=== PATIENT | female | born 1950 | race African-American/Black ===

== ENCOUNTER → 2016-08-24 | Outpatient (CLI) | payer MEDICARE, MEDICAID ==
[~2016-08-24] MED LIST: BENZ200C51 PO; CARI350T27; CHANTIX; FLUC100T PO; HYDR-3820; NYST1000 PO; OFLO5DRO3; PRD20T PO; TRAM50TA2; VNL75T
--- NOTE | 2016-08-24 10:57 | Diagnostic Imaging Report ---
INDICATION: Chronic low back pain and hip pain. FINDINGS: The alignment of the lumbar spine is normal. The vertebral body heights are well maintained. There is some multilevel degenerative disc disease. There are some prominent osteophytes anteriorly near the thoracolumbar junction as well as at L2-L3 and L3-L4. There is no spondylolysis or spondylolisthesis. No fractures are identified. IMPRESSION: Mild lumbar spondylosis and degenerative changes as described. Dictated by: Dictated on workstation # [id number]
--- NOTE | 2016-08-24 15:06 | Diagnostic Imaging Report ---
AP pelvis and bilateral hip radiographs. INDICATION: Bilateral hip pain. FINDINGS: There is no fracture, dislocation or radiopaque foreign body seen. There is mild sclerosis from degenerative changes seen in the sacroiliac and the hip joints bilaterally. There is a vascular pattern of calcification seen in the right side of the pelvis. There is asymmetry with slightly higher level or tilt of the pelvis on the right side with the right tip projecting higher than the left. This could be related to the provided history of polio. Remodeling of the right femoral neck as a result as well as seen with coxa valga. IMPRESSION: Mild degenerative changes in the hip and sacroiliac joints. Pelvic tilt and remodeling in the right femoral neck with coxa valga is probably related to polio. Dictated by: Dictated on workstation # [id number]
== END ==
LOC: RAD 10:08
PROVIDERS: ATTEND Pain Medicine Pain Medicine
DX: M54.5 Low back pain (principal); M25.552 Pain in left hip; M25.551 Pain in right hip
CPT/HCPCS: 72100; 73523

== ENCOUNTER 2016-09-02 10:41 | Outpatient (CLI) | payer MEDICARE, MEDICAID ==
[~2016-09-02] VITALS: Ht 165.1 cm; Wt 106.6 kg
[2016-09-02] MEDS ORDERED: BUPIVACAINE 0.25% 30 ML (SENSORCAINE) VIAL ONE (10:54)
[2016-09-02] MEDS ORDERED: TRIAMCINOLONE ACET (KENALOG-40) 40 MG/ML 1 ML VIAL ONE (10:54)
[2016-09-02 11:10] VITALS: BP 150/94
[2016-09-02 11:49] VITALS: BP 163/103
--- NOTE | 2016-09-02 12:44 | Pain Medicine-Procedure ---
Procedure Pre-Op/Post-Op Diagnosis Diagnosis: disc disorder with radiculopathy, lumbar Indications for Operation Low back and hip pain Attending Surgeon Zohra Procedure Date of Service: Sep 02, 2016 Procedure: Lumbar Epidural Steroid Injection at the L5/S1 Level under Fluoroscopic Guidance and bilateral sacroiliac joint injections Procedure: Patient was identified in the holding area. After risks, benefits, and alternatives were discussed with the patient, informed consent was obtained. Patient was brought to the fluoroscopy suite and placed prone on the procedure room table. A time out was performed. Vital signs were monitored throughout the procedure. The patients low back was prepped and draped in the usual sterile fashion. The patients skin was anesthetized using 2% Lidocaine. A Tuohy needle was inserted and advanced to the L5-S1 epidural space under fluoroscopic guidance using the loss of resistance technique and intermittent projection of fluoroscopy. There was no paresthesia with needle placement. The needle position was confirmed in both the AP and lateral view. No contrast was utilized secondary to patient's history of possible allergy to contrast dye after negative aspiration for heme or CSF, 2 ml of 0.25% Bupivicaine, 2ml of preservative free normal saline, and 80mg of Kenalog was injected. The needle was removed and a sterile bandage was placed. Attention was then directed to the right sacroiliac joint which was identified under fluoroscopic guidance. The skin overlying the posterior inferior one third of the sacroiliac joint was anesthetized with 1 percent lidocaine and a 22 -gauge 3-1/2 inch needle was inserted and advanced into the joint. Following negative aspiration a total of 20 mg of Kenalog and 2 mL of 0.25 percent bupivacaine was injected. Needle was flushed with lidocaine and removed. Attention was then directed to the left sacroiliac joint were the same procedure was performed and the same solution was injected. Sterile bandages were applied. Patient tolerated the procedures well with no apparent complications. Complications None JOSIAH OLMOS MD Sep 02, 2016 12:44 pm
== END 2016-09-02 11:50 ==
LOC: CARD 10:41
PROVIDERS: ATTEND Pain Medicine Pain Medicine
DX: M53.3 Sacrococcygeal disorders, not elsewhere classified (principal); M51.16 Intervertebral disc disorders with radiculopathy, lumbar region; Z79.899 Other long term (current) drug therapy
CPT/HCPCS: 27096; 62323

== ENCOUNTER 2016-11-22 11:15 | Outpatient (RCR) | payer MEDICARE, MEDICAID | END 2016-11-27 | disposition home or self-care (01) | PROVIDERS: ATTEND Pain Medicine Pain Medicine | DX: M54.5 Low back pain (principal); G14 Postpolio syndrome; M25.552 Pain in left hip; M25.551 Pain in right hip ==

== ENCOUNTER 2016-12-20 10:14 | Outpatient (RCR) | payer MEDICARE, MEDICAID | END 2016-12-29 08:51 | disposition home or self-care (01) | PROVIDERS: ATTEND Pain Medicine Pain Medicine | DX: M54.5 Low back pain (principal); G14 Postpolio syndrome; M25.552 Pain in left hip; M25.551 Pain in right hip ==

== ENCOUNTER 2017-05-17 18:38 | Emergency (ER) | payer MEDICARE, MEDICAID ==
[~2017-05-17] VITALS: Ht 165.1 cm; Wt 106.6 kg
--- OUTSIDE RECORDS SUMMARY | 2017-05-17 18:43 | XMS REPORT ---
Author Author JAZIEL FRY [facility] Address [address] [place] [address] Care Team Providers Care Dining Room Server Name Role Phone JAZIEL FRY Unavailable PROBLEMS Type Condition ICD9-CM Code [id number] Code Onset Dates Condition Status SNOMED Code Problem Dependence on other enabling machines and devices Z99.89 Active 797185249 Problem Wheelchair bound Z99.3 Active 585496064 Problem COPD with exacerbation J44.1 Active 785071381 Problem Muscle spasms of both lower extremities M62.838 Active 779017194 Problem BERYL (obstructive sleep apnea) G47.33 Active 36917329 Problem Non-insulin dependent type 2 diabetes mellitus E11.9 Active 81893589 Problem Weakness of both legs R29.898 Active 3931620 Problem Mixed stress and urge urinary incontinence N39.46 Active 810166851 Problem Seasonal allergic rhinitis, unspecified allergic rhinitis trigger J30.2 Active 324991680 Problem Low back pain M54.5 Active 628552749 Problem Other chronic pain G89.29 Active 50700087 Problem Polio A80.9 Active 485056178 Problem Cigarette nicotine dependence without complication F17.210 Active 98743816 Problem Chronic obstructive pulmonary disease, unspecified COPD type J44.9 Active 53507735 Problem Obstructive sleep apnea (adult) (pediatric) G47.33 Active 56245887 ALLERGIES No Information SOCIAL HISTORY Never Assessed PLAN OF CARE VITAL SIGNS MEDICATIONS Medication Instructions Dosage Frequency Start Date End Date Duration Status Valsartan 160 MG Orally Once a day 1 tablet 24h Active RESULTS No Results PROCEDURES No Known procedures IMMUNIZATIONS No Known Immunizations MEDICAL (GENERAL) HISTORY Type Description Date Medical History Secondary hypertension Medical History Unspecified asthma, uncomplicated Medical History Irritable bowel syndrome without diarrhea Medical History Acute poliomyelitis, unspecified Medical History Glaucoma of both eyes, unspecified glaucoma Medical History COPD Surgical History rotator cuff tear repair Surgical History muscle repairs Surgical History left knee replacement Surgical History tibia replacement Surgical History Ankle transplant Surgical History R wrist trigger finger release Surgical History breast reduction Hospitalization History Pneumonia 2015
--- OUTSIDE RECORDS SUMMARY | 2017-05-17 18:44 | XMS REPORT ---
Author Author MIRIAN WHITE Organization [facility] Address [address] [place] [address] Care Team Providers Care C Developer Name Role Phone MIRIAN WHITE Unavailable PROBLEMS Type Condition ICD9-CM Code [id number] Code Onset Dates Condition Status SNOMED Code Problem Dependence on other enabling machines and devices Z99.89 Active 168239912 Problem Wheelchair bound Z99.3 Active 757879631 Problem COPD with exacerbation J44.1 Active 773387354 Problem Muscle spasms of both lower extremities M62.838 Active 604973214 Problem BERYL (obstructive sleep apnea) G47.33 Active 18607771 Problem Non-insulin dependent type 2 diabetes mellitus E11.9 Active 91743723 Problem Weakness of both legs R29.898 Active 9375614 Problem Mixed stress and urge urinary incontinence N39.46 Active 418367063 Problem Seasonal allergic rhinitis, unspecified allergic rhinitis trigger J30.2 Active 709434666 Problem Low back pain M54.5 Active 492731225 Problem Other chronic pain G89.29 Active 71616357 Problem Polio A80.9 Active 420624017 Problem Cigarette nicotine dependence without complication F17.210 Active 39703110 Problem Chronic obstructive pulmonary disease, unspecified COPD type J44.9 Active 45285394 Problem Obstructive sleep apnea (adult) (pediatric) G47.33 Active 32304976 ALLERGIES Substance Reaction Event Type Date Status Iodine Unknown Drug Allergy Aug, Active Betaine Unknown Drug Allergy Aug, Active Aspirin nausea Drug Allergy Aug, Active shell fish Unknown Non Drug Allergy Aug, Active SOCIAL HISTORY Never Assessed PLAN OF CARE Activity Details Follow Up prn Reason: VITAL SIGNS Height 65 in 2016-08-31 Temperature 97.2 degrees Fahrenheit 2016-08-31 Heart Rate 76 bpm 2016-08-31 Respiratory Rate 20 2016-08-31 Blood pressure systolic 126 mmHg 2016-08-31 Blood pressure diastolic 80 mmHg 2016-08-31 MEDICATIONS Medication Instructions Dosage Frequency Start Date End Date Duration Status Doxycycline Monohydrate 100 MG Orally every 12 hrs 1 tablet 12h Aug, Sep, 10 days Active Famotidine 40 MG Orally Once a day 1 tablet 24h Active Spiriva HandiHaler 18 MCG Inhalation qd 1 24h Active Hydromorphone HCl 4 MG Orally every 8 hrs 1 tablet as needed 8h Active Breo Ellipta 200-25 MCG/INH Inhalation Once a day 1 puff 24h Jul, Active Calcium + D 500-1000-40 MG-UNT-MCG Active Nitrostat 0.4 MG Active Tramadol HCl 50 mg Orally every 6 hrs 1 tablet as needed 6h Active Combivent Respimat 20-100 MCG/ACT Inhalation Four times a day 1 puff 6h Active Soma 350 MG Orally Four times a day 1 tablet as needed 6h Active Ipratropium-Albuterol 0.5-2.5 (3) MG/3ML Inhalation Four times a day 3 ml 6h Active Fluticasone Propionate 50 MCG/ACT Nasally Once a day 1 spray in each nostril 24h Active Valsartan 160 MG Orally Once a day 1 tablet 24h Active Cyanocobalamin 1000 MCG Orally Once a day 1 tablet 24h Active Venlafaxine HCl 150 mg Orally Once a day 1 tablet with food 24h May, Active Ambien 5 MG Orally Once a day 1 tablet at bedtime 24h Active Lidocaine 0.5 % Active Hydrocodone-Acetaminophen 10-325 MG Orally every 4 hours as needed 1 tablet as needed Aug, 28 Active Venlafaxine HCl 75 MG Orally Twice a day 1 tablet with food 12h Active Nitroglycerin 0.4 MG Active Atorvastatin Calcium 80 MG Orally Once a day 1 tablet 24h Active Soma 350 MG Orally 3 times a day 1 tablet as needed 8h 12 Jul, 2016 Active Trazodone HCl 150 MG Orally Once a day 1 tablet at bedtime as needed 24h 11 Aug, 2016 Active Mucinex 600 MG Orally every 12 hrs 1 tablet as needed 12h Jul, Active Naproxen 500 MG Orally every 12 hrs 1 tablet as needed 12h Aug, Sep, 30 days Active Chantix 1 MG Orally Twice a day Starter martha direction 12h 28 Active Zyrtec Allergy 10 MG Orally Once a day 1 tablet 24h Active PredniSONE 20 MG Orally Once a day 2 tablet 24h Aug, Aug, 5 days Active Incruse Ellipta 62.5 MCG/INH Inhalation Once a day 1 puff 24h 12 Aug, 2016 Active Voltaren 1 % Active RESULTS No Results PROCEDURES Procedure Date Ordered Result Body Site [facility] VISIT ESTABLISHED PATIENT Aug 31, 2016 IMMUNIZATIONS No Known Immunizations MEDICAL (GENERAL) HISTORY [...] Surgical History breast reduction Hospitalization History Pneumonia 2014
--- OUTSIDE RECORDS SUMMARY | 2017-05-17 18:44 | XMS REPORT ---
Author JAZIEL Donohue [facility] eClinicalWorks Address Unknown Phone Unavailable Care Team Providers Care Resource Manager Name Role Phone JAZIEL FRY CP Unavailable Allergies No Known Allergies Problems Problem Type Condition Code Onset Dates Condition Status Problem Low back pain M54.5 Active Problem Other chronic pain G89.29 Active Problem Chronic obstructive pulmonary disease, unspecified COPD type J44.9 Active Problem Polio A80.9 Active Medications Medication Code System Code Instructions Start Date End Date Status Dosage Venlafaxine HCl [facility] [address]-68 75 MG Orally Once a day May 24, 2016 1 tablet with food Results No Known Results Summary Purpose eClinicalWorks Submission
--- OUTSIDE RECORDS SUMMARY | 2017-05-17 18:44 | XMS REPORT ---
Author JAZIEL Donohue [facility] eClinical[employer] Address Unknown Phone Unavailable Care Team Providers Care Certified Pest Control Technician Name Role Phone JAZIEL FRY CP Unavailable Allergies No Known Allergies Problems Problem Type Condition Code Onset Dates Condition Status Problem Low back pain M54.5 Active Problem Other chronic pain G89.29 Active Problem Chronic obstructive pulmonary disease, unspecified COPD type J44.9 Active Problem Polio A80.9 Active Medications Medication Code System Code Instructions Start Date End Date Status Dosage Hydrocodone-Acetaminophen [facility] [address]-91 10-325 MG Orally every 4 hrs 1 tablet as needed Tramadol HCl [facility] [address]-96 50 mg Orally every 6 hrs 1 tablet as needed Results No Known Results Summary Purpose eClinicalWorks Submission
--- OUTSIDE RECORDS SUMMARY | 2017-05-17 18:44 | XMS REPORT ---
Author Author JAZIEL FRY [facility] Address [address] [place] [address] Care Team Providers Care Workers Compensation Adjuster Name Role Phone JAZIEL FRY Unavailable PROBLEMS Type Condition ICD9-CM Code AMP94-SI Code Onset Dates Condition Status SNOMED Code Problem Dependence on other enabling machines and devices Z99.89 Active 030266998 Problem COPD with exacerbation J44.1 Active 803801939 Problem Obstructive sleep apnea (adult) (pediatric) G47.33 Active 96819727 Problem BERYL (obstructive sleep apnea) G47.33 Active 18481033 Problem Seasonal allergic rhinitis, unspecified allergic rhinitis trigger J30.2 Active 710917887 Problem Weakness of both legs R29.898 Active 6617718 Problem Wheelchair bound Z99.3 Active 384395499 Problem Mixed stress and urge urinary incontinence N39.46 Active 662627055 Problem Non-insulin dependent type 2 diabetes mellitus E11.9 Active 82230267 Problem Other chronic pain G89.29 Active 42424742 Problem Low back pain M54.5 Active 395976153 Problem Chronic obstructive pulmonary disease, unspecified COPD type J44.9 Active 30618605 Problem Polio A80.9 Active 303351350 Problem Cigarette nicotine dependence without complication F17.210 Active 86600344 ALLERGIES Substance Reaction Event Type Date Status Iodine Unknown Drug Allergy Jul, Active Betaine Unknown Drug Allergy Jul, Active shell fish Unknown Non Drug Allergy Jul, Active SOCIAL HISTORY No smoking Hx information available PLAN OF CARE Activity Details Follow Up 2 Months Reason: VITAL SIGNS Height 65 in 2016-08-05 Weight 228 lbs 2016-08-05 Temperature 98.5 degrees Fahrenheit 2016-08-05 Heart Rate 80 bpm 2016-08-05 Respiratory Rate 20 2016-08-05 BMI 37.94 kg/m2 2016-08-05 Blood pressure systolic 118 mmHg 2016-08-05 Blood pressure diastolic 80 mmHg 2016-08-05 MEDICATIONS Medication Instructions Dosage Frequency Start Date End Date Duration Status Soma 350 MG Orally Four times a day 1 tablet as needed 6h Active Ambien 5 MG Orally Once a day 1 tablet at bedtime 24h Active Lidocaine 0.5 % Active Atorvastatin Calcium 80 MG Orally Once a day 1 tablet 24h Active Tramadol HCl 50 mg Orally every 6 hrs 1 tablet as needed 6h Active Hydrocodone-Acetaminophen 10-325 MG Orally every 4 hours as needed 1 tablet as needed Jul, 28 Active Venlafaxine HCl 75 MG Orally Twice a day 1 tablet with food 12h Active Valsartan 160 MG Orally Once a day 1 tablet 24h Active Spiriva HandiHaler 18 MCG Inhalation qd 1 24h Active Cyanocobalamin 1000 MCG Orally Once a day 1 tablet 24h Active Combivent Respimat 20-100 MCG/ACT Inhalation Four times a day 1 puff 6h Active Breo Ellipta 200-25 MCG/INH Inhalation Once a day 1 puff 24h Jul, Active Ipratropium-Albuterol 0.5-2.5 (3) MG/3ML Inhalation Four times a day 3 ml 6h Active Mucinex 600 MG Orally every 12 hrs 1 tablet as needed 12h Jul, Active Soma 350 MG Orally 3 times a day 1 tablet as needed 8h 12 Jul, 2016 Active Venlafaxine HCl 150 mg Orally Once a day 1 tablet with food 24h May, Active Calcium + D 500-1000-40 MG-UNT-MCG Active Voltaren 1 % Active Hydromorphone HCl 4 MG Orally every 8 hrs 1 tablet as needed 8h Active Nitroglycerin 0.4 MG Active Zyrtec Allergy 10 MG Orally Once a day 1 tablet 24h Active Fluticasone Propionate 50 MCG/ACT Nasally Once a day 1 spray in each nostril 24h Active Famotidine 40 MG Orally Once a day 1 tablet 24h Active Nitrostat 0.4 MG Active Benzonatate 200 mg Orally Three times a day 1 capsule 8h Jul, Aug, 10 days Active RESULTS No Results PROCEDURES Procedure Date Ordered Related Diagnosis Body Site [facility] VISIT ESTABLISHED PATIENT Aug 05, 2016 Office Visit, Est Pt., Level 3 Aug 05, 2016 IMMUNIZATIONS No Known Immunizations
--- OUTSIDE RECORDS SUMMARY | 2017-05-17 18:44 | XMS REPORT ---
Author SAMUEL Griffiths [facility] eClinicalWorks Address Unknown Phone Unavailable Care Team Providers Care Snow Maker Name Role Phone SAMUEL JAIN CP Unavailable Allergies, Adverse Reactions, Alerts Substance Reaction Event Type Iodine Info Not Available Drug Allergy Betaine Info Not Available Drug Allergy shell fish Info Not Available Non Drug Allergy Problems Problem Type Condition Code Onset Dates Condition Status Problem Low back pain M54.5 Active Problem Other chronic pain G89.29 Active Problem Chronic obstructive pulmonary disease, unspecified COPD type J44.9 Active Problem Polio A80.9 Active Assessment Pneumonia of both lower lobes due to infectious organism J18.9 Active Medications Medication Code System Code Instructions Start Date End Date Status Dosage PredniSONE [facility] [address]-49 20 mg Orally Once a day Jun 01, 2016 Jun 06, 2016 2 tablets Promethazine-Codeine [facility] [address]-34 6.25-10 MG/5ML Orally every 4 hrs, prn cough May 09, 2016 1-[address] [facility] [address]-96 0.4 MG Sublingual not defined Lidocaine [facility] [address]-27 0.5 % Externally not defined Loratadine [facility] [address]-84 10 MG Orally Once a day 1 tablet Calcium + D [facility] [address]56 500-1000-40 MG-UNT-MCG Orally not defined Voltaren [facility] [address]-01 1 % Transdermal not defined Hydrocodone-Acetaminophen [facility] [address]-90 10-325 MG Orally every 4 hrs 1 tablet as needed Fluticasone Propionate [facility] [address]-33 50 MCG/ACT Nasally Once a day 1 spray in each nostril Tramadol HCl [facility] [address]-82 50 mg Orally every 6 hrs 1 tablet as needed Soma [facility] [address]-39 350 MG Orally Four times a day 1 tablet as needed Budesonide [facility] [address]-40 0.5 MG/2ML Inhalation Once a day 2 ml Combivent Respimat [facility] [address]-71 20-100 MCG/ACT Inhalation Four times a day [address] [facility] [address]-18 500 MG Orally Once a day Jun 01, 2016 Jun 08, 2016 1 tablet Trazodone HCl [facility] [address]-13 150 MG Orally Once a day 1 tablet at bedtime as needed Mucinex [facility] [address]-63 600 MG Orally every 12 hrs 1 tablet as needed Venlafaxine HCl [facility] [address]-44 75 MG Orally Once a day May 24, 2016 1 tablet with food Spiriva HandiHaler [facility] [address]-09 18 MCG Inhalation not defined Ipratropium-Albuterol [facility] [address]-82 0.5-2.5 (3) MG/3ML Inhalation Four times a day 3 ml Brimonidine Tartrate [facility] [address]-52 0.2 % Ophthalmic Three times a day 1 drop into affected eye Procedures Procedure Coding System Code Date Office Visit, Est Pt., Level 3 CPT-4 66845 Jun 01, 2016 [facility] VISIT ESTABLISHED PATIENT CPT-4 G0467 Jun 01, 2016 Vital Signs Date/Time: Jun 01, 2016 Blood Pressure Systolic 130 mmHg Cardiac Monitoring Heart Rate 88 bpm Height 65 in Blood Pressure Diastolic 88 mmHg Results No Known Results Summary Purpose eClinicalWorks Submission
--- OUTSIDE RECORDS SUMMARY | 2017-05-17 18:44 | XMS REPORT ---
Author JAZIEL Donohue [facility] eClinicalWorks Address Unknown Phone Unavailable Care Team Providers Care Creative Designer Name Role Phone JAZIEL FRY CP Unavailable Allergies No Known Allergies Problems Problem Type Condition Code Onset Dates Condition Status Problem Low back pain M54.5 Active Problem Other chronic pain G89.29 Active Problem Chronic obstructive pulmonary disease, unspecified COPD type J44.9 Active Problem Polio A80.9 Active Medications No Known Medications Results No Known Results Summary Purpose eClinicalWorks Submission
--- OUTSIDE RECORDS SUMMARY | 2017-05-17 18:44 | XMS REPORT ---
Author Author MIRIAN WHITE Organization [facility] Address [address] [place] [address] Care Team Providers Care Residence Leasing Agent Name Role Phone MIRIAN WHITE Unavailable PROBLEMS Type Condition ICD9-CM Code JCL97-BC Code Onset Dates Condition Status SNOMED Code Problem Dependence on other enabling machines and devices Z99.89 Active 281052468 Problem Wheelchair bound Z99.3 Active 032605697 Problem COPD with exacerbation J44.1 Active 319710032 Problem Muscle spasms of both lower extremities M62.838 Active 800653080 Problem BERYL (obstructive sleep apnea) G47.33 Active 35574424 Problem Non-insulin dependent type 2 diabetes mellitus E11.9 Active 28645155 Problem Weakness of both legs R29.898 Active 7429883 Problem Mixed stress and urge urinary incontinence N39.46 Active 719730711 Problem Seasonal allergic rhinitis, unspecified allergic rhinitis trigger J30.2 Active 031790665 Problem Low back pain M54.5 Active 008493457 Problem Other chronic pain G89.29 Active 71659366 Problem Polio A80.9 Active 485251774 Problem Cigarette nicotine dependence without complication F17.210 Active 68471388 Problem Chronic obstructive pulmonary disease, unspecified COPD type J44.9 Active 89875017 Problem Obstructive sleep apnea (adult) (pediatric) G47.33 Active 67850660 ALLERGIES Substance Reaction Event Type Date Status Iodine Unknown Drug Allergy Oct, Active Betaine Unknown Drug Allergy Oct, Active Aspirin nausea Drug Allergy Oct, Active shell fish Unknown Non Drug Allergy Oct, Active SOCIAL HISTORY Never Assessed PLAN OF CARE Activity Details Follow Up prn Reason: VITAL SIGNS Height 65 in 2016-10-11 Weight 235 lbs 2016-10-11 Temperature 98.7 degrees Fahrenheit 2016-10-11 Heart Rate 88 bpm 2016-10-11 Respiratory Rate 24 2016-10-11 BMI 39.10 kg/m2 2016-10-11 Blood pressure systolic 120 mmHg 2016-10-11 Blood pressure diastolic 72 mmHg 2016-10-11 MEDICATIONS Medication Instructions Dosage Frequency Start Date End Date Duration Status Nitrostat 0.4 MG Active Incruse Ellipta 62.5 MCG/INH Inhalation Once a day 1 puff 24h Aug, Active Tessalon Perles 100 MG Orally Three times a day 1 capsule as needed 8h Oct, Oct, 7 days Active Ambien 5 MG Orally Once a day 1 tablet at bedtime 24h Active Tessalon Perles 100 MG Orally Three times a day 1 capsule as needed 8h 7 Active Venlafaxine HCl 150 mg Orally Once a day 1 tablet with food 24h 18 May, 2016 Active Lidocaine 0.5 % Active Valsartan 160 MG Orally Once a day 1 tablet 24h Active Ipratropium-Albuterol 0.5-2.5 (3) MG/3ML Inhalation Four times a day 3 ml 6h Active Zyrtec Allergy 10 MG Orally Once a day 1 tablet 24h Active Calcium + D 500-1000-40 MG-UNT-MCG Active Voltaren 1 % Active Hydrocodone-Acetaminophen 10-325 MG Orally every 4 hours 1 tablet 4h Oct 28 days Active Trazodone HCl 150 MG Orally Once a day 1 tablet at bedtime as needed 24h Aug, Active Chantix 1 MG Orally Twice a day Starter martha direction 12h 28 Active Atorvastatin Calcium 80 MG Orally Once a day 1 tablet 24h Active Cyanocobalamin 1000 MCG Orally Once a day 1 tablet 24h Active Tizanidine HCl 2 MG Orally Three times a day 1 tablet as needed 8h Oct, Active Naproxen 500 mg Orally every 12 hrs 1 tablet as needed 12h Sep, Jan, 30 days Active Doxycycline Monohydrate 100 MG Orally every 12 hrs 1 capsule 12h Oct, Oct, 10 days Active Breo Ellipta 200-25 MCG/INH Inhalation Once a day 1 puff 24h Jul, Active Venlafaxine HCl 75 MG Orally Once a day 1 tablet with food 24h 30 Active Hospital Bed as directed Aug, Active PredniSONE 20 MG Orally Once a day 2 tablet 24h Oct, Oct, 5 days Active Soma 350 MG Orally 3 times a day 1 tablet as needed 8h Jul, Active Tramadol HCl 50 mg Orally every 6 hrs 1 tablet 6h 28 days Active Combivent Respimat 20-100 MCG/ACT Inhalation Four times a day 1 puff 6h Active Fluticasone Propionate 50 MCG/ACT Nasally Once a day 1 spray in each nostril 24h Active Spiriva HandiHaler 18 MCG Inhalation qd 1 24h Active RESULTS No Results PROCEDURES Procedure Date Ordered Result Body Site [facility] VISIT ESTABLISHED PATIENT October 11, 2016 IMMUNIZATIONS No Known Immunizations MEDICAL (GENERAL) [...]
--- OUTSIDE RECORDS SUMMARY | 2017-05-17 18:44 | XMS REPORT ---
Author Author JAZIEL FRY [facility] Address [address] [place] [address] Care Team Providers Care Health Information Managers Name Role Phone JAZIEL FRY Unavailable PROBLEMS Type Condition ICD9-CM Code [id number] Code Onset Dates Condition Status SNOMED Code Problem Cigarette nicotine dependence without complication F17.210 Active 26836600 Problem Chronic obstructive pulmonary disease, unspecified COPD type J44.9 Active 00620788 Problem Polio A80.9 Active 774057391 Problem Low back pain M54.5 Active 094994097 Problem Other chronic pain G89.29 Active 26088780 ALLERGIES Unknown Allergies SOCIAL HISTORY No smoking Hx information available PLAN OF CARE VITAL SIGNS MEDICATIONS Medication Instructions Dosage Frequency Start Date End Date Duration Status Valsartan 160 MG Orally Once a day 1 tablet 24h Active RESULTS No Results PROCEDURES No Known procedures IMMUNIZATIONS No Known Immunizations
--- OUTSIDE RECORDS SUMMARY | 2017-05-17 18:44 | XMS REPORT ---
Author JAZIEL Donohue [facility] Address Unknown Phone Unavailable Care Team Providers Care Peanut Cleaner Name Role Phone JAZIEL FRY CP Unavailable [...]
--- OUTSIDE RECORDS SUMMARY | 2017-05-17 18:44 | XMS REPORT ---
Author Author SAMUEL JAIN Organization [facility] Address [address] [place] [address] Care Team Providers Care Supervisor Stripping Name Role Phone SAMUEL JAIN Unavailable PROBLEMS Type Condition ICD9-CM Code [id number] Code Onset Dates Condition Status SNOMED Code Assessment 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 Apr, Active 690346898 Problem Chronic obstructive pulmonary disease, unspecified COPD type J44.9 Active 11017613 Problem Low back pain M54.5 Active 197758307 Assessment Pneumonia of left lower lobe due to infectious organism J18.9 Apr, Active 469902952 Assessment Cellulitis of right leg L03.115 Apr, Active 762921379 Problem Other chronic pain G89.29 Active 32480149 Problem Polio A80.9 Active 648505918 ALLERGIES Substance Reaction Event Type Date Status Iodine Unknown Drug Allergy Apr, Active Betaine Unknown Drug Allergy Apr, Active shell fish Unknown Non Drug Allergy Apr, Active SOCIAL HISTORY No smoking Hx information available PLAN OF CARE VITAL SIGNS Height 65 in 2016-04-20 Heart Rate 78 bpm 2016-04-20 Respiratory Rate 22 2016-04-20 Blood pressure systolic 120 mmHg 2016-04-20 Blood pressure diastolic 80 mmHg 2016-04-20 MEDICATIONS Medication Instructions Dosage Frequency Start Date End Date Duration Status Ipratropium-Albuterol 0.5-2.5 (3) MG/3ML Inhalation Four times a day 3 ml 6h Active Mucinex 600 MG Orally every 12 hrs 1 tablet as needed 12h Active Spiriva HandiHaler 18 MCG Active Lidocaine 0.5 % Active Brimonidine Tartrate 0.2 % Ophthalmic Three times a day 1 drop into affected eye 8h Active Loratadine 10 MG Orally Once a day 1 tablet 24h Active Calcium + D 500-1000-40 MG-UNT-MCG Active Budesonide 0.5 MG/2ML Inhalation Once a day 2 ml 24h Active Doxycycline Hyclate 100 MG Orally every 12 hrs 1 capsule 12h 14 Apr, 2016 24 Sep, 2016 10 days Active Combivent Respimat 20-100 MCG/ACT Inhalation Four times a day 1 puff 6h Active Trazodone HCl 150 MG Orally Once a day 1 tablet at bedtime as needed 24h Active Soma 350 MG Orally Four times a day 1 tablet as needed 6h Active Nitrostat 0.4 MG Active Fluticasone Propionate 50 MCG/ACT Nasally Once a day 1 spray in each nostril 24h Active Hydrocodone-Acetaminophen 10-325 MG Orally every 4 hrs 1 tablet as needed 4h Active Voltaren 1 % Active Tramadol HCl 50 mg Orally every 6 hrs 1 tablet as needed 6h Active RESULTS Name Result Date Reference Range D-DIMER 2016-04-20 D-Dimer 0.45 0.00-0.49 PROCEDURES Procedure Date Ordered Related Diagnosis Body Site [facility] VISIT ESTABLISHED PATIENT Apr 20, 2016 Office Visit, Est Pt., Level 3 Apr 20, 2016 [facility] Apr 20, 2016 VENIPUNCT, ROUTINE* Apr 20, 2016 IMMUNIZATIONS No Known Immunizations
--- OUTSIDE RECORDS SUMMARY | 2017-05-17 18:45 | XMS REPORT ---
Author Author JAZIEL FRY [facility] Address [address] [place] [address] Care Team Providers Care Drier Operator Name Role Phone JAZIEL FRY Unavailable PROBLEMS Type Condition ICD9-CM Code [id number] Code Onset Dates Condition Status SNOMED Code Problem Cigarette nicotine dependence without complication F17.210 Active 72092426 Problem Chronic obstructive pulmonary disease, unspecified COPD type J44.9 Active 43229412 Problem Polio A80.9 Active 917978855 Assessment Low back pain M54.5 Jul, Active 048522476 Problem Low back pain M54.5 Active 659083925 Problem Other chronic pain G89.29 Active 56783752 ALLERGIES Unknown Allergies SOCIAL HISTORY No smoking Hx information available PLAN OF CARE VITAL SIGNS MEDICATIONS Medication Instructions Dosage Frequency Start Date End Date Duration Status Hydrocodone-Acetaminophen 10-325 MG Orally every 4 hours as needed 1 tablet as needed Jul, 28 Active RESULTS No Results PROCEDURES No Known procedures IMMUNIZATIONS No Known Immunizations
--- OUTSIDE RECORDS SUMMARY | 2017-05-17 18:45 | XMS REPORT ---
Author Author JAZIEL FRY [facility] Address [address] [place] [address] Care Team Providers Care Ordnance Truck Installation Supervisor Name Role Phone JAZIEL FRY Unavailable PROBLEMS Type Condition ICD9-CM Code [id number] Code Onset Dates Condition Status SNOMED Code Problem Obstructive sleep apnea (adult) (pediatric) G47.33 Active 04435151 Problem COPD with exacerbation J44.1 Active 038114672 Problem Dependence on other enabling machines and devices Z99.89 Active 598794430 Problem BERYL (obstructive sleep apnea) G47.33 Active 21008218 Problem Mixed stress and urge urinary incontinence N39.46 Active 768749326 Problem Weakness of both legs R29.898 Active 2399272 Problem Wheelchair bound Z99.3 Active 294010946 Problem Seasonal allergic rhinitis, unspecified allergic rhinitis trigger J30.2 Active 776884043 Problem Non-insulin dependent type 2 diabetes mellitus E11.9 Active 25225487 Problem Low back pain M54.5 Active 692599711 Problem Other chronic pain G89.29 Active 83370847 Problem Polio A80.9 Active 609350656 Problem Chronic obstructive pulmonary disease, unspecified COPD type J44.9 Active 55223352 Problem Cigarette nicotine dependence without complication F17.210 Active 26822190 ALLERGIES Unknown Allergies SOCIAL HISTORY No smoking Hx information available PLAN OF CARE VITAL SIGNS MEDICATIONS Medication Instructions Dosage Frequency Start Date End Date Duration Status Tramadol HCl 50 mg Orally every 6 hrs 1 tablet as needed 6h Active Hydrocodone-Acetaminophen 10-325 MG Orally every 4 hours as needed 1 tablet as needed Aug, 28 Active RESULTS No Results PROCEDURES No Known procedures IMMUNIZATIONS No Known Immunizations
--- OUTSIDE RECORDS SUMMARY | 2017-05-17 18:45 | XMS REPORT ---
Author Author JAZIEL FRY [facility] Address [address] [place] [address] Care Team Providers Care Pump Technician Name Role Phone JAZIEL FRY Unavailable PROBLEMS Type Condition ICD9-CM Code LIJ55-KQ Code Onset Dates Condition Status SNOMED Code Problem Dependence on other enabling machines and devices Z99.89 Active 957304913 Problem Wheelchair bound Z99.3 Active 702014138 Problem COPD with exacerbation J44.1 Active 255437203 Problem Muscle spasms of both lower extremities M62.838 Active 971972654 Problem BERYL (obstructive sleep apnea) G47.33 Active 28388452 Problem Non-insulin dependent type 2 diabetes mellitus E11.9 Active 55079706 Problem Weakness of both legs R29.898 Active 8799867 Problem Mixed stress and urge urinary incontinence N39.46 Active 272176677 Problem Seasonal allergic rhinitis, unspecified allergic rhinitis trigger J30.2 Active 703074897 Problem Low back pain M54.5 Active 756835907 Problem Other chronic pain G89.29 Active 10612188 Problem Polio A80.9 Active 825128928 Problem Cigarette nicotine dependence without complication F17.210 Active 08669778 Problem Chronic obstructive pulmonary disease, unspecified COPD type J44.9 Active 69002664 Problem Obstructive sleep apnea (adult) (pediatric) G47.33 Active 49724964 ALLERGIES No Information SOCIAL HISTORY Never Assessed PLAN OF CARE VITAL SIGNS MEDICATIONS Medication Instructions Dosage Frequency Start Date End Date Duration Status Hydrocodone-Acetaminophen 10-325 MG Orally every 4 hours 1 tablet 4h Oct 28 days Active Tramadol HCl 50 mg Orally every 6 hrs 1 tablet 6h 28 days Active RESULTS No Results PROCEDURES No Known [...]
--- OUTSIDE RECORDS SUMMARY | 2017-05-17 18:45 | XMS REPORT ---
Author Author SAMUEL JAIN [facility] Address [address] [place] [address] Care Team Providers Care Aluminizer Name Role Phone SAMUEL JAIN Unavailable PROBLEMS Type Condition ICD9-CM Code WCQ56-VD Code Onset Dates Condition Status SNOMED Code Problem Chronic obstructive pulmonary disease, unspecified COPD type J44.9 Active 29413101 Problem Low back pain M54.5 Active 689903865 Problem Other chronic pain G89.29 Active 43584903 Problem Polio A80.9 Active 461857041 ALLERGIES Unknown Allergies SOCIAL HISTORY No smoking Hx information available PLAN OF CARE VITAL SIGNS MEDICATIONS Medication Instructions Dosage Frequency Start Date End Date Duration Status Doxycycline Monohydrate 100 MG Orally every 12 hrs 1 capsule 12h 15 Apr, 2016 Apr, 10 days Active RESULTS No Results PROCEDURES No Known procedures IMMUNIZATIONS No Known Immunizations
--- OUTSIDE RECORDS SUMMARY | 2017-05-17 18:45 | XMS REPORT ---
Author Author JAZIEL FRY [facility] Address [address] [place] [address] Care Team Providers Care Tax Intern Name Role Phone JAZIEL FRY Unavailable PROBLEMS Type Condition ICD9-CM Code JBO10-RO Code Onset Dates Condition Status SNOMED Code Problem Obstructive sleep apnea (adult) (pediatric) G47.33 Active 00063864 Problem COPD with exacerbation J44.1 Active 445812648 Problem Dependence on other enabling machines and devices Z99.89 Active 064564011 Problem BERYL (obstructive sleep apnea) G47.33 Active 78250520 Problem Mixed stress and urge urinary incontinence N39.46 Active 351856422 Problem Weakness of both legs R29.898 Active 7611637 Problem Wheelchair bound Z99.3 Active 236618722 Problem Seasonal allergic rhinitis, unspecified allergic rhinitis trigger J30.2 Active 262295449 Problem Non-insulin dependent type 2 diabetes mellitus E11.9 Active 70142233 Problem Low back pain M54.5 Active 986423267 Problem Other chronic pain G89.29 Active 63340598 Problem Polio A80.9 Active 051785655 Problem Chronic obstructive pulmonary disease, unspecified COPD type J44.9 Active 05553161 Problem Cigarette nicotine dependence without complication F17.210 Active 37405935 ALLERGIES Unknown Allergies SOCIAL HISTORY No smoking Hx information available PLAN OF CARE VITAL SIGNS MEDICATIONS Medication Instructions Dosage Frequency Start Date End Date Duration Status Incruse Ellipta 62.5 MCG/INH Inhalation Once a day 1 puff 24h Aug, Active RESULTS No Results PROCEDURES No Known procedures IMMUNIZATIONS No Known Immunizations
--- OUTSIDE RECORDS SUMMARY | 2017-05-17 18:45 | XMS REPORT ---
Author Author JAZIEL FRY [facility] Address [address] [place] [address] Care Team Providers Care High Density Press Operator Name Role Phone JAZIEL FRY Unavailable PROBLEMS Type Condition ICD9-CM Code NYM78-AW Code Onset Dates Condition Status SNOMED Code Problem Obstructive sleep apnea (adult) (pediatric) G47.33 Active 29329650 Problem COPD with exacerbation J44.1 Active 498705032 Problem Dependence on other enabling machines and devices Z99.89 Active 171086520 Problem BERYL (obstructive sleep apnea) G47.33 Active 73768188 Problem Mixed stress and urge urinary incontinence N39.46 Active 007966961 Problem Weakness of both legs R29.898 Active 7912285 Problem Wheelchair bound Z99.3 Active 607899302 Problem Seasonal allergic rhinitis, unspecified allergic rhinitis trigger J30.2 Active 364098588 Problem Non-insulin dependent type 2 diabetes mellitus E11.9 Active 87406200 Problem Low back pain M54.5 Active 571481552 Problem Other chronic pain G89.29 Active 99792764 Problem Polio A80.9 Active 981211796 Problem Chronic obstructive pulmonary disease, unspecified COPD type J44.9 Active 81564310 Problem Cigarette nicotine dependence without complication F17.210 Active 05518270 ALLERGIES Unknown Allergies SOCIAL HISTORY No smoking Hx information available PLAN OF CARE VITAL SIGNS MEDICATIONS Medication Instructions Dosage Frequency Start Date End Date Duration Status Trazodone HCl 150 MG Orally Once a day 1 tablet at bedtime as needed 24h Aug, Active RESULTS No Results PROCEDURES No Known procedures IMMUNIZATIONS No Known Immunizations
--- OUTSIDE RECORDS SUMMARY | 2017-05-17 18:45 | XMS REPORT ---
Author Author JAZIEL FRY [facility] Address [address] [place] [address] Care Team Providers Care Reach Lift Truck Driver Name Role Phone JAZIEL FRY Unavailable PROBLEMS Type Condition ICD9-CM Code HBF47-AB Code Onset Dates Condition Status SNOMED Code Problem Cigarette nicotine dependence without complication F17.210 Active 85008497 Problem Chronic obstructive pulmonary disease, unspecified COPD type J44.9 Active 49034253 Problem Polio A80.9 Active 118482394 Assessment Low back pain M54.5 Jul, Active 063999405 Problem Low back pain M54.5 Active 166240581 Problem Other chronic pain G89.29 Active 66596750 ALLERGIES Unknown Allergies SOCIAL HISTORY No smoking Hx information available PLAN OF CARE VITAL SIGNS MEDICATIONS Medication Instructions Dosage Frequency Start Date End Date Duration Status Tramadol HCl 50 mg Orally every 6 hrs 1 tablet as needed 6h Active RESULTS No Results PROCEDURES No Known procedures IMMUNIZATIONS No Known Immunizations
--- OUTSIDE RECORDS SUMMARY | 2017-05-17 18:45 | XMS REPORT ---
Author Author CARY CRESPO Organization [facility] Address [address] [place] [address] Care Team Providers Care Trolley Worker Name Role Phone CARY CRESPO Unavailable PROBLEMS Type Condition ICD9-CM Code AXQ77-RP Code Onset Dates Condition Status SNOMED Code Problem Dependence on other enabling machines and devices Z99.89 Active 340389017 Problem Wheelchair bound Z99.3 Active 033710115 Problem COPD with exacerbation J44.1 Active 764159637 Problem Muscle spasms of both lower extremities M62.838 Active 572278712 Problem BERYL (obstructive sleep apnea) G47.33 Active 57410820 Problem Non-insulin dependent type 2 diabetes mellitus E11.9 Active 52970517 Problem Weakness of both legs R29.898 Active 9336522 Problem Mixed stress and urge urinary incontinence N39.46 Active 574780828 Problem Seasonal allergic rhinitis, unspecified allergic rhinitis trigger J30.2 Active 746611276 Problem Low back pain M54.5 Active 548777506 Problem Other chronic pain G89.29 Active 10678031 Problem Polio A80.9 Active 518496011 Problem Cigarette nicotine dependence without complication F17.210 Active 71166765 Problem Chronic obstructive pulmonary disease, unspecified COPD type J44.9 Active 69706820 Problem Obstructive sleep apnea (adult) (pediatric) G47.33 Active 14420789 ALLERGIES No Information SOCIAL HISTORY Never Assessed PLAN OF CARE VITAL SIGNS MEDICATIONS Unknown Medications RESULTS No Results PROCEDURES No Known procedures [...]
--- OUTSIDE RECORDS SUMMARY | 2017-05-17 18:45 | XMS REPORT ---
Author Author CARY CRESPO Organization [facility] Address [address] [place] [address] Care Team Providers Care Supervisor Cold Rolling Name Role Phone CARY CRESPO Unavailable PROBLEMS Type Condition ICD9-CM Code TNE49-RD Code Onset Dates Condition Status SNOMED Code Problem Dependence on other enabling machines and devices Z99.89 Active 410563579 Problem Wheelchair bound Z99.3 Active 731929862 Problem COPD with exacerbation J44.1 Active 046819902 Problem Muscle spasms of both lower extremities M62.838 Active 252043498 Problem BERYL (obstructive sleep apnea) G47.33 Active 00069225 Problem Non-insulin dependent type 2 diabetes mellitus E11.9 Active 49757404 Problem Weakness of both legs R29.898 Active 6821249 Problem Mixed stress and urge urinary incontinence N39.46 Active 916630007 Problem Seasonal allergic rhinitis, unspecified allergic rhinitis trigger J30.2 Active 636737940 Problem Low back pain M54.5 Active 366184150 Problem Other chronic pain G89.29 Active 55506588 Problem Polio A80.9 Active 585837560 Problem Cigarette nicotine dependence without complication F17.210 Active 53342851 Problem Chronic obstructive pulmonary disease, unspecified COPD type J44.9 Active 99243839 Problem Obstructive sleep apnea (adult) (pediatric) G47.33 Active 55932686 ALLERGIES No Information SOCIAL HISTORY Never Assessed PLAN OF CARE VITAL SIGNS MEDICATIONS Medication Instructions Dosage Frequency Start Date End Date Duration Status Hospital Bed as directed Aug, Active Tizanidine HCl 2 MG Orally Three times a day 1 tablet as needed 8h Oct, Active RESULTS No Results PROCEDURES No Known [...]
--- OUTSIDE RECORDS SUMMARY | 2017-05-17 18:45 | XMS REPORT ---
Author Author JAZIEL FRY [facility] Address [address] [place] [address] Care Team Providers Care Senior Producer Name Role Phone JAZIEL FRY Unavailable PROBLEMS Type Condition ICD9-CM Code RCU46-TC Code Onset Dates Condition Status SNOMED Code Problem Obstructive sleep apnea (adult) (pediatric) G47.33 Active 03816175 Problem COPD with exacerbation J44.1 Active 672257796 Problem Dependence on other enabling machines and devices Z99.89 Active 272532834 Problem BERYL (obstructive sleep apnea) G47.33 Active 44051829 Problem Mixed stress and urge urinary incontinence N39.46 Active 878720073 Problem Weakness of both legs R29.898 Active 0514215 Problem Wheelchair bound Z99.3 Active 545709738 Problem Seasonal allergic rhinitis, unspecified allergic rhinitis trigger J30.2 Active 930507596 Problem Non-insulin dependent type 2 diabetes mellitus E11.9 Active 18379643 Problem Low back pain M54.5 Active 851206995 Problem Other chronic pain G89.29 Active 78718684 Problem Polio A80.9 Active 267608009 Problem Chronic obstructive pulmonary disease, unspecified COPD type J44.9 Active 05037818 Problem Cigarette nicotine dependence without complication F17.210 Active 58429038 ALLERGIES Unknown Allergies SOCIAL HISTORY No smoking Hx information available PLAN OF CARE VITAL SIGNS MEDICATIONS Medication Instructions Dosage Frequency Start Date End Date Duration Status Hydrocodone-Acetaminophen 10-325 MG Orally every 4 hours as needed 1 tablet as needed Sep, 28 Active RESULTS No Results PROCEDURES No Known procedures IMMUNIZATIONS No Known Immunizations
--- OUTSIDE RECORDS SUMMARY | 2017-05-17 18:45 | XMS REPORT ---
Author Author JAZIEL FRY [facility] Address [address] [place] [address] Care Team Providers Care Automatic Corn Grinder Operator Name Role Phone JAZIEL FRY Unavailable PROBLEMS Type Condition ICD9-CM Code [id number] Code Onset Dates Condition Status SNOMED Code Assessment Allergy, sequela T78.40XS Jun, Active 017776175 Problem Cigarette nicotine dependence without complication F17.210 Active 51052757 Problem Chronic obstructive pulmonary disease, unspecified COPD type J44.9 Active 95996005 Problem Polio A80.9 Active 216661357 Assessment Chronic obstructive pulmonary disease, unspecified COPD type J44.9 Jun, Active 59896647 Problem Low back pain M54.5 Active 782288896 Problem Other chronic pain G89.29 Active 07859558 ALLERGIES Substance Reaction Event Type Date Status Iodine Unknown Drug Allergy Jun, Active Betaine Unknown Drug Allergy Jun, Active shell fish Unknown Non Drug Allergy Jun, Active SOCIAL HISTORY No smoking Hx information available PLAN OF CARE VITAL SIGNS Height 65 in 2016-06-23 Weight 224 lbs 2016-06-23 Heart Rate 100 bpm 2016-06-23 BMI 37.27 kg/m2 2016-06-23 Blood pressure systolic 140 mmHg 2016-06-23 Blood pressure diastolic 78 mmHg 2016-06-23 MEDICATIONS Medication Instructions Dosage Frequency Start Date End Date Duration Status Fluticasone Propionate 50 MCG/ACT Nasally Once a day 1 spray in each nostril 24h Active PredniSONE 20 mg Orally Once a day 2 qd 5 d, 1 qd 5 d 24h Jun, Active Budesonide 0.5 MG/2ML Inhalation Once a day 2 ml 24h Active Ipratropium-Albuterol 0.5-2.5 (3) MG/3ML Inhalation Four times a day 3 ml 6h Active Chantix 1 MG Orally Twice a day Starter martha direction 12h Jun, Active Nitrostat 0.4 MG Active Doxycycline Hyclate 100 MG Orally Twice a day 1 capsule 12h Jun, Jun, 10 days Active Promethazine-Codeine 6.25-10 MG/5ML Orally every 4 hrs, prn cough 1-2 tsp May, Active Hydrocodone-Acetaminophen 10-325 MG TAKE ONE TABLET BY MOUTH EVERY 4 HOURS NEEDED 28 Active Spiriva HandiHaler 18 MCG Active Calcium + D 500-1000-40 MG-UNT-MCG Active Combivent Respimat 20-100 MCG/ACT Inhalation Four times a day 1 puff 6h Active Voltaren 1 % Active Venlafaxine HCl 75 MG Orally Once a day 1 tablet with food 24h May, Active Lidocaine 0.5 % Active Claritin 10 mg Orally Once a day 1 tablet 24h Jun, December, 30 day(s) Active Soma 350 MG Orally Four times a day 1 tablet as needed 6h Active Trazodone HCl 150 MG Orally Once a day 1 tablet at bedtime as needed 24h Active Tramadol HCl 50 MG TAKE ONE TABLET BY MOUTH EVERY 6 HOURS NEEDED 28 Active RESULTS No Results PROCEDURES Procedure Date Ordered Related Diagnosis Body Site REPLACED BY [facility] VISIT ESTABLISHED PATIENT Jun 23, 2016 Office Visit, Est Pt., Level 3 Jun 23, 2016 IMMUNIZATIONS No Known Immunizations
--- OUTSIDE RECORDS SUMMARY | 2017-05-17 18:46 | XMS REPORT ---
Author JAZIEL Donohue [facility] eClinicalWorks Address Unknown Phone Unavailable Care Team Providers Care Canal Tender Name Role Phone JAZIEL FRY Unavailable Allergies No Known Allergies Problems Problem Type Condition Code Onset Dates Condition Status Problem Chronic obstructive pulmonary disease, unspecified COPD type J44.9 Active Problem Low back pain M54.5 Active Problem Cigarette nicotine dependence without complication F17.210 Active Problem Other chronic pain G89.29 Active Problem Polio A80.9 Active Medications Medication Code System Code Instructions Start Date End Date Status Dosage Famotidine [facility] [address]-94 40 MG Orally Once a day 1 tablet Valsartan [facility] [address]-94 160 MG Orally Once a day 1 tablet Atorvastatin Calcium [facility] [address]-05 80 MG Orally Once a day 1 tablet Venlafaxine HCl [facility] [address]-24 75 MG Orally Twice a day 1 tablet with food Budesonide (Inhalation) ND 0 not defined Hydrocodone-Acetaminophen [facility] 12263786037 10-325 MG TAKE ONE TABLET BY MOUTH EVERY 4 HOURS NEEDED Ipratropium-Albuterol [facility] [address]-63 0.5-2.5 (3) MG/3ML Inhalation Four times a day 3 ml Voltaren [facility] [address]-52 1 % Transdermal not defined Soma [facility] [address]-96 350 MG Orally Four times a day 1 tablet as needed Combivent Respimat [facility] [address]-75 20-100 MCG/ACT Inhalation Four times a day 1 puff Zyrtec Allergy [facility] [address]-47 10 MG Orally Once a day 1 tablet Nitroglycerin [facility] [address]-49 0.4 MG Sublingual not defined Venlafaxine HCl [facility] [address]-47 150 mg Orally Once a day May 24, 2016 1 tablet with food Calcium + D [facility] 74252-[address]369 500-1000-40 MG-UNT-MCG Orally not defined Lidocaine [facility] [address]-16 0.5 % Externally not defined Nitrostat [facility] [address]-80 0.4 MG Sublingual not defined Hydromorphone HCl [facility] [address]-56 4 MG Orally every 8 hrs 1 tablet as needed Ambien [facility] [address]-12 5 MG Orally Once a day 1 tablet at bedtime Fluticasone Propionate [facility] [address]-59 50 MCG/ACT Nasally Once a day 1 spray in each nostril Cyanocobalamin [facility] [address]-50 1000 MCG Orally Once a day 1 tablet Spiriva HandiHaler [facility] [address]-64 18 MCG Inhalation not defined Results No Known Results Summary Purpose eClinicalWorks Submission
--- OUTSIDE RECORDS SUMMARY | 2017-05-17 18:46 | XMS REPORT ---
Author Author OTONIEL KATHI Organization [facility] Address [address] [place] [address] Care Team Providers Care High Wire Artist Name Role Phone OTONIEL KATHI Unavailable PROBLEMS Type Condition ICD9-CM Code [id number] Code Onset Dates Condition Status SNOMED Code Problem Obstructive sleep apnea (adult) (pediatric) G47.33 Active 46078993 Problem COPD with exacerbation J44.1 Active 940936565 Problem Dependence on other enabling machines and devices Z99.89 Active 883718528 Problem BERYL (obstructive sleep apnea) G47.33 Active 61599903 Problem Mixed stress and urge urinary incontinence N39.46 Active 617002537 Problem Weakness of both legs R29.898 Active 1381855 Problem Wheelchair bound Z99.3 Active 618935393 Problem Seasonal allergic rhinitis, unspecified allergic rhinitis trigger J30.2 Active 148322621 Problem Non-insulin dependent type 2 diabetes mellitus E11.9 Active 49674885 Problem Low back pain M54.5 Active 608647076 Problem Other chronic pain G89.29 Active 22021948 Problem Polio A80.9 Active 409182982 Problem Chronic obstructive pulmonary disease, unspecified COPD type J44.9 Active 89995042 Problem Cigarette nicotine dependence without complication F17.210 Active 78983636 ALLERGIES Substance Reaction Event Type Date Status Iodine Unknown Drug Allergy Aug, Active Betaine Unknown Drug Allergy Aug, Active Aspirin nausea Drug Allergy Aug, Active shell fish Unknown Non Drug Allergy Aug, Active SOCIAL HISTORY No smoking Hx information available PLAN OF CARE Activity Details Follow Up prn Reason: VITAL SIGNS Height 65 in 2016-08-15 Weight 229.0 lbs 2016-08-15 Temperature 98.9 degrees Fahrenheit 2016-08-15 Heart Rate 76 bpm 2016-08-15 Respiratory Rate 20 2016-08-15 BMI 38.10 kg/m2 2016-08-15 Blood pressure systolic 120 mmHg 2016-08-15 Blood pressure diastolic 78 mmHg 2016-08-15 MEDICATIONS Medication Instructions Dosage Frequency Start Date End Date Duration Status Combivent Respimat 20-100 MCG/ACT Inhalation Four times a day 1 puff 6h Active Tessalon Perles 100 MG Orally Three times a day 1 capsule as needed 8h Aug, 16 Aug, 2016 07 days Active Breo Ellipta 200-25 MCG/INH Inhalation Once a day 1 puff 24h 30 Jul, 2016 Active Soma 350 MG Orally Four times a day 1 tablet as needed 6h Active Valsartan 160 MG Orally Once a day 1 tablet 24h Active Venlafaxine HCl 75 MG Orally Twice a day 1 tablet with food 12h Active Zyrtec Allergy 10 MG Orally Once a day 1 tablet 24h Active Nitroglycerin 0.4 MG Active Mucinex 600 MG Orally every 12 hrs 1 tablet as needed 12h Jul, Active Famotidine 40 MG Orally Once a day 1 tablet 24h Active Venlafaxine HCl 150 mg Orally Once a day 1 tablet with food 24h 18 May, 2016 Active Nitrostat 0.4 MG Active Hydrocodone-Acetaminophen 10-325 MG Orally every 4 hours as needed 1 tablet as needed Jul, 28 Active Spiriva HandiHaler 18 MCG Inhalation qd 1 24h Active Soma 350 MG Orally 3 times a day 1 tablet as needed 8h Jul, Active Ambien 5 MG Orally Once a day 1 tablet at bedtime 24h Active Lidocaine 0.5 % Active Ipratropium-Albuterol 0.5-2.5 (3) MG/3ML Inhalation Four times a day 3 ml 6h Active Voltaren 1 % Active Calcium + D 500-1000-40 MG-UNT-MCG Active Cyanocobalamin 1000 MCG Orally Once a day 1 tablet 24h Active Augmentin 875-125 MG Orally every 12 hrs 1 tablet 12h Aug,Aug 10 day(s) Active Tramadol HCl 50 mg Orally every 6 hrs 1 tablet as needed 6h Active Hydromorphone HCl 4 MG Orally every 8 hrs 1 tablet as needed 8h Active Fluticasone Propionate 50 MCG/ACT Nasally Once a day 1 spray in each nostril 24h Active Atorvastatin Calcium 80 MG Orally Once a day 1 tablet 24h Active RESULTS No Results PROCEDURES Procedure Date Ordered Related Diagnosis Body Site [facility] VISIT ESTABLISHED PATIENT Aug 15, 2016 Office Visit, Est Pt., Level 3 Aug 15, 2016 IMMUNIZATIONS No Known Immunizations
--- OUTSIDE RECORDS SUMMARY | 2017-05-17 18:46 | XMS REPORT ---
Author Author JAZIEL FRY [facility] Address [address] [place] [address] Care Team Providers Care Hrbp Name Role Phone JAZIEL FRY Unavailable PROBLEMS Type Condition ICD9-CM Code HMV55-IC Code Onset Dates Condition Status SNOMED Code Problem Obstructive sleep apnea (adult) (pediatric) G47.33 Active 96209916 Problem COPD with exacerbation J44.1 Active 744347498 Problem Dependence on other enabling machines and devices Z99.89 Active 084487350 Problem BERYL (obstructive sleep apnea) G47.33 Active 18827513 Problem Mixed stress and urge urinary incontinence N39.46 Active 938360676 Problem Weakness of both legs R29.898 Active 0011293 Problem Wheelchair bound Z99.3 Active 152804429 Problem Seasonal allergic rhinitis, unspecified allergic rhinitis trigger J30.2 Active 440558834 Problem Non-insulin dependent type 2 diabetes mellitus E11.9 Active 38279356 Problem Low back pain M54.5 Active 746430830 Problem Other chronic pain G89.29 Active 77436305 Problem Polio A80.9 Active 703398081 Problem Chronic obstructive pulmonary disease, unspecified COPD type J44.9 Active 85674438 Problem Cigarette nicotine dependence without complication F17.210 Active 47646258 ALLERGIES Unknown Allergies SOCIAL HISTORY No smoking Hx information available PLAN OF CARE VITAL SIGNS MEDICATIONS Unknown Medications RESULTS No Results PROCEDURES No Known procedures IMMUNIZATIONS No Known Immunizations
--- OUTSIDE RECORDS SUMMARY | 2017-05-17 18:46 | XMS REPORT ---
Author JAZIEL Donohue [facility] eClinicalWorks Address Unknown Phone Unavailable Care Team Providers Care Crusher Assembler Name Role Phone JAZIEL FRY Unavailable Allergies, Adverse Reactions, Alerts Substance Reaction Event Type Iodine Info Not Available Drug Allergy Betaine Info Not Available Drug Allergy shell fish Info Not Available Non Drug Allergy Problems Problem Type Condition Code Onset Dates Condition Status Problem Low back pain M54.5 Active Problem Other chronic pain G89.29 Active Problem Chronic obstructive pulmonary disease, unspecified COPD type J44.9 Active Assessment Low back pain M54.5 Active Problem Polio A80.9 Active Assessment Bronchitis J40 Active Medications Medication Code System Code Instructions Start Date End Date Status Dosage Calcium + D [facility] [address]6565 500-1000-40 MG-UNT-MCG Orally not defined Trazodone HCl [facility] [address]-18 150 MG Orally Once a day 1 tablet at bedtime as needed Soma [facility] [address]-42 350 MG Orally Four times a day 1 tablet as needed Spiriva HandiHaler [facility] [address]-69 18 MCG Inhalation not defined Ipratropium-Albuterol [facility] [address]-61 0.5-2.5 (3) MG/3ML Inhalation Four times a day 3 ml Loratadine [facility] [address]-14 10 MG Orally Once a day 1 tablet Nitrostat [facility] [address]-56 0.4 MG Sublingual not defined Tramadol HCl [facility] [address]-88 50 mg Orally every 6 hrs 1 tablet as needed Budesonide [facility] [address]-87 0.5 MG/2ML Inhalation Once a day 2 ml Combivent Respimat [facility] [address]-30 20-100 MCG/ACT Inhalation Four times a day 1 puff Fluticasone Propionate [facility] [address]-86 50 MCG/ACT Nasally Once a day 1 spray in each nostril Voltaren [facility] [address]-71 1 % Transdermal not defined Mucinex [facility] [address]-63 600 MG Orally every 12 hrs 1 tablet as needed Cefdinir [facility] [address]-66 300 MG Orally 2 times a day May 09, 2016May 1 capsule Lidocaine [facility] [address]-11 0.5 % Externally not defined Brimonidine Tartrate [facility] [address]-02 0.2 % Ophthalmic Three times a day 1 drop into affected eye Hydrocodone-Acetaminophen [facility] [address]-57 10-325 MG Orally every 4 hrs 1 tablet as needed PredniSONE [facility] [address]-42 20 mg Orally Once a day May 09, 2016 May 16, 2016 2 qd 4 days, 1 qd 3 days Promethazine-Codeine [facility] [address]-87 6.25-10 MG/5ML Orally every 4 hrs, prn cough May 09, 2016 1-2 tsp Procedures Procedure Coding System Code Date LAB [facility] CPT-4 NOBLL May 09, 2016 VENIPUNCT, ROUTINE* CPT-4 21049 May 09, 2016 MEASURE BLOOD OXYGEN LEVEL CPT-4 41318 May 09, 2016 Office Visit, Est Pt., Level 2 CPT-4 31420 May 09, 2016 [facility] VISIT ESTABLISHED PATIENT CPT-4 G0467 May 09, 2016 Vital Signs Date/Time: May 09, 2016 Cardiac Monitoring Heart Rate 92 bpm Weight 216 lbs Height 65 in BMI 35.94 Index Oximetry 98 % Blood Pressure Diastolic 63 mmHg Blood Pressure Systolic 120 mmHg Results Name Result Date Reference Range Unit Abnormality Flag CMP ----Calcium, Serum 9.4 20160509 8.7-10.3 mg/dL ----Carbon Dioxide, Total 24 20160509 18-29 mmol/L ----ALT (SGPT) 15 20160509 0-32 IU/L ----Creatinine, Serum 0.62 42759340 0.57-1.00 mg/dL ----AST (SGOT) 14 20160509 0-40 IU/L ----eGFR If NonAfricn Am 94 [id number] >59 mL/min/1.73 ----Alkaline Phosphatase, S 121 36382452 39-117 IU/L H ----eGFR If Africn Am 109 [id number] >59 mL/min/1.73 ----Bilirubin, Total 0.3 40435577 0.0-1.2 mg/dL ----BUN/Creatinine Ratio 19 20160509 11-26 ----A/G Ratio 1.9 20160509 1.1-2.5 ----Sodium, Serum 142 25871738 134-144 mmol/L ----Globulin, Total 2.0 72458138 1.5-4.5 g/dL ----Potassium, Serum 4.0 99044332 3.5-5.2 mmol/L ----Glucose, Serum 114 38938270 65-99 mg/dL H ----Chloride, Serum 104 09526930 97-108 mmol/L ----Albumin, Serum 3.7 27178237 3.6-4.8 g/dL ----BUN 12 20160509 8-27 mg/dL ----Protein, Total, Serum 5.7 11761847 6.0-8.5 g/dL L ROUTINE VENIPUNCTURE CBC ----MCHC 31.3 60731893 31.5-35.7 g/dL L ----MCH 25.9 44818354 26.6-33.0 pg L ----Platelets 377 81580517 150-379 x10E3/uL ----RDW 16.4 91783401 12.3-15.4 % H ----Immature Granulocytes 0 11191968 % ----Immature Grans (Abs) 0.0 83443540 0.0-0.1 x10E3/uL ----Lymphs 36 11033685 % ----Monocytes 9 14951954 % ----Neutrophils 53 16332174 % ----Neutrophils (Absolute) 3.1 59433602 1.4-7.0 x10E3/uL ----Hematocrit 33.9 87578161 34.0-46.6 % L ----Lymphs (Absolute) 2.1 56123811 0.7-3.1 x10E3/uL ----MCV 83 78088101 79-97 fL ----RBC 4.09 08874411 3.77-5.28 x10E6/uL ----Eos 2 01446209 % ----Basos 0 58070466 % ----Hemoglobin 10.6 01608565 11.1-15.9 g/dL L ----Baso (Absolute) 0.0 10026966 0.0-0.2 x10E3/uL ----WBC 6.0 23043274 3.4-10.8 x10E3/uL ----Monocytes(Absolute) 0.6 61821111 0.1-0.9 x10E3/uL ----Eos (Absolute) 0.1 [id number] 0.0-0.4 x10E3/uL Summary Purpose eClinicalWorks Submission
--- OUTSIDE RECORDS SUMMARY | 2017-05-17 18:46 | XMS REPORT ---
Author Author JAZIEL FRY [facility] Address [address] [place] [address] Care Team Providers Care Pre Kindergarten Teacher Name Role Phone JAZIEL FRY Unavailable PROBLEMS Type Condition ICD9-CM Code PAE17-XX Code Onset Dates Condition Status SNOMED Code Problem Obstructive sleep apnea (adult) (pediatric) G47.33 Active 12391072 Problem COPD with exacerbation J44.1 Active 294276914 Problem Dependence on other enabling machines and devices Z99.89 Active 353749865 Problem BERYL (obstructive sleep apnea) G47.33 Active 54359827 Problem Mixed stress and urge urinary incontinence N39.46 Active 974047840 Problem Weakness of both legs R29.898 Active 0965105 Problem Wheelchair bound Z99.3 Active 998329119 Problem Seasonal allergic rhinitis, unspecified allergic rhinitis trigger J30.2 Active 999667123 Problem Non-insulin dependent type 2 diabetes mellitus E11.9 Active 58974904 Problem Low back pain M54.5 Active 750586248 Problem Other chronic pain G89.29 Active 31877135 Problem Polio A80.9 Active 155162675 Problem Chronic obstructive pulmonary disease, unspecified COPD type J44.9 Active 52276077 Problem Cigarette nicotine dependence without complication F17.210 Active 51437110 ALLERGIES Unknown Allergies SOCIAL HISTORY No smoking Hx information available PLAN OF CARE VITAL SIGNS MEDICATIONS Unknown Medications RESULTS No Results PROCEDURES No Known procedures IMMUNIZATIONS No Known Immunizations
--- OUTSIDE RECORDS SUMMARY | 2017-05-17 18:46 | XMS REPORT ---
Author Author JAZIEL FRY [facility] Address [address] [place] [address] Care Team Providers Care Garment Mender Name Role Phone JAZIEL FRY Unavailable PROBLEMS Type Condition ICD9-CM Code NKE79-TR Code Onset Dates Condition Status SNOMED Code Problem Cigarette nicotine dependence without complication F17.210 Active 50941006 Problem Chronic obstructive pulmonary disease, unspecified COPD type J44.9 Active 37788580 Problem Polio A80.9 Active 877125971 Assessment Low back pain M54.5 Jul, Active 561833375 Problem Low back pain M54.5 Active 524498874 Problem Other chronic pain G89.29 Active 05841458 ALLERGIES Substance Reaction Event Type Date Status Iodine Unknown Drug Allergy Jul, Active Betaine Unknown Drug Allergy Jul, Active shell fish Unknown Non Drug Allergy Jul, Active SOCIAL HISTORY No smoking Hx information available PLAN OF CARE VITAL SIGNS Height 65 in 2016-07-18 Weight 228 lbs 2016-07-18 Heart Rate 88 bpm 2016-07-18 Respiratory Rate 20 2016-07-18 BMI 37.94 kg/m2 2016-07-18 Blood pressure systolic 130 mmHg 2016-07-18 Blood pressure diastolic 84 mmHg 2016-07-18 MEDICATIONS Medication Instructions Dosage Frequency Start Date End Date Duration Status Venlafaxine HCl 150 mg Orally Once a day 1 tablet with food 24h May, Active Calcium + D 500-1000-40 MG-UNT-MCG Active Atorvastatin Calcium 80 MG Orally Once a day 1 tablet 24h Active Hydromorphone HCl 4 MG Orally every 8 hrs 1 tablet as needed 8h Active Fluticasone Propionate 50 MCG/ACT Nasally Once a day 1 spray in each nostril 24h Active Ambien 5 MG Orally Once a day 1 tablet at bedtime 24h Active Famotidine 40 MG Orally Once a day 1 tablet 24h Active Nitrostat 0.4 MG Active Venlafaxine HCl 75 MG Orally Twice a day 1 tablet with food 12h Active Ipratropium-Albuterol 0.5-2.5 (3) MG/3ML Inhalation Four times a day 3 ml 6h Active Budesonide (Inhalation) Active Valsartan 160 MG Orally Once a day 1 tablet 24h Active Zyrtec Allergy 10 MG Orally Once a day 1 tablet 24h Active Cyanocobalamin 1000 MCG Orally Once a day 1 tablet 24h Active Lidocaine 0.5 % Active Soma 350 MG Orally 3 times a day 1 tablet as needed 8h Jul, Active Hydrocodone-Acetaminophen 10-325 MG TAKE ONE TABLET BY MOUTH EVERY 4 HOURS NEEDED 28 Active Soma 350 MG Orally Four times a day 1 tablet as needed 6h Active Nitroglycerin 0.4 MG Active Combivent Respimat 20-100 MCG/ACT Inhalation Four times a day 1 puff 6h Active Spiriva HandiHaler 18 MCG Active Voltaren 1 % Active Benzonatate 200 mg Orally Three times a day 1 capsule 8h Jul, Aug, 10 days Active RESULTS No Results PROCEDURES Procedure Date Ordered Related Diagnosis Body Site [facility] VISIT ESTABLISHED PATIENT Jul 18, 2016 Office Visit, Est Pt., Level 3 Jul 18, 2016 IMMUNIZATIONS No Known Immunizations
--- OUTSIDE RECORDS SUMMARY | 2017-05-17 18:46 | XMS REPORT ---
Author Author JAZIEL FRY [facility] Address [address] [place] [address] Care Team Providers Care Factory Manager Name Role Phone JAZIEL FRY Unavailable PROBLEMS Type Condition ICD9-CM Code MWO15-HE Code Onset Dates Condition Status SNOMED Code Problem Dependence on other enabling machines and devices Z99.89 Active 025956302 Problem Wheelchair bound Z99.3 Active 248569038 Problem COPD with exacerbation J44.1 Active 068482500 Problem Muscle spasms of both lower extremities M62.838 Active 414252294 Problem BERYL (obstructive sleep apnea) G47.33 Active 45306361 Problem Non-insulin dependent type 2 diabetes mellitus E11.9 Active 55408680 Problem Weakness of both legs R29.898 Active 5139798 Problem Mixed stress and urge urinary incontinence N39.46 Active 992084705 Problem Seasonal allergic rhinitis, unspecified allergic rhinitis trigger J30.2 Active 117919815 Problem Low back pain M54.5 Active 709445189 Problem Other chronic pain G89.29 Active 85751013 Problem Polio A80.9 Active 194370586 Problem Cigarette nicotine dependence without complication F17.210 Active 46190814 Problem Chronic obstructive pulmonary disease, unspecified COPD type J44.9 Active 92165392 Problem Obstructive sleep apnea (adult) (pediatric) G47.33 Active 42135846 ALLERGIES No Information SOCIAL HISTORY Never Assessed [...]
--- OUTSIDE RECORDS SUMMARY | 2017-05-17 18:47 | XMS REPORT ---
Author Author JAZIEL FRY [facility] Address [address] [place] [address] Care Team Providers Care Anesthetic Assistant Name Role Phone JAZIEL FRY Unavailable PROBLEMS Type Condition ICD9-CM Code QCC90-TV Code Onset Dates Condition Status SNOMED Code Problem Cigarette nicotine dependence without complication F17.210 Active 67904368 Problem Chronic obstructive pulmonary disease, unspecified COPD type J44.9 Active 28789206 Problem Polio A80.9 Active 432308710 Assessment Dental examination Z01.20 Jul, Active 235082639 Problem Low back pain M54.5 Active 931881717 Problem Other chronic pain G89.29 Active 74534263 ALLERGIES Unknown Allergies SOCIAL HISTORY No smoking Hx information available PLAN OF CARE VITAL SIGNS MEDICATIONS Medication Instructions Dosage Frequency Start Date End Date Duration Status Mucinex 600 MG Orally every 12 hrs 1 tablet as needed 12h 12 Jul, 2016 Active RESULTS No Results PROCEDURES No Known procedures IMMUNIZATIONS No Known Immunizations
--- OUTSIDE RECORDS SUMMARY | 2017-05-17 18:47 | XMS REPORT ---
Author JAZIEL Donohue [facility] eClinicalWorks Address Unknown Phone Unavailable Care Team Providers Care Parking Enforcement Officer Name Role Phone JAZIEL FRY CP Unavailable [...]
--- OUTSIDE RECORDS SUMMARY | 2017-05-17 18:47 | XMS REPORT ---
Author Author JAZIEL FRY [facility] Address [address] [place] [address] Care Team Providers Care Organ Recovery Coordinator Name Role Phone JAZIEL FRY Unavailable PROBLEMS Type Condition ICD9-CM Code SRW77-FU Code Onset Dates Condition Status SNOMED Code Problem Chronic obstructive pulmonary disease, unspecified COPD type J44.9 Active 80500121 Problem Low back pain M54.5 Active 778867328 Assessment Chronic obstructive pulmonary disease, unspecified COPD type J44.9 Apr, Active 36791901 Problem Other chronic pain G89.29 Active 96456745 Problem Polio A80.9 Active 894702024 ALLERGIES Substance Reaction Event Type Date Status Iodine Unknown Drug Allergy Apr, Active Betaine Unknown Drug Allergy Apr, Active shell fish Unknown Non Drug Allergy Apr, Active SOCIAL HISTORY No smoking Hx information available PLAN OF CARE VITAL SIGNS Height 65 in 2016-04-12 Weight 216 lbs 2016-04-12 Heart Rate 80 bpm 2016-04-12 Respiratory Rate 22 2016-04-12 BMI 35.94 kg/m2 2016-04-12 Blood pressure systolic 112 mmHg 2016-04-12 Blood pressure diastolic 82 mmHg 2016-04-12 MEDICATIONS Medication Instructions Dosage Frequency Start Date End Date Duration Status Soma 350 MG Orally Four times a day 1 tablet as needed 6h Active Ipratropium-Albuterol 0.5-2.5 (3) MG/3ML Inhalation Four times a day 3 ml 6h Active Hydrocodone-Acetaminophen 10-325 MG Orally every 4 hrs 1 tablet as needed 4h Active Calcium + D 500-1000-40 MG-UNT-MCG Active Lidocaine 0.5 % Active Budesonide 0.5 MG/2ML Inhalation Once a day 2 ml 24h Active Nitrostat 0.4 MG Active Tramadol HCl 50 MG Orally every 6 hrs 1 tablet as needed 6h Active Voltaren 1 % Active Fluticasone Propionate 50 MCG/ACT Nasally Once a day 1 spray in each nostril 24h Active Brimonidine Tartrate 0.2 % Ophthalmic Three times a day 1 drop into affected eye 8h Active Loratadine 10 MG Orally Once a day 1 tablet 24h Active Trazodone HCl 150 MG Orally Once a day 1 tablet at bedtime as needed 24h Active Combivent Respimat 20-100 MCG/ACT Inhalation Four times a day 1 puff 6h Active Mucinex 600 MG Orally every 12 hrs 1 tablet as needed 12h Active Spiriva HandiHaler 18 MCG Active RESULTS No Results PROCEDURES Procedure Date Ordered Related Diagnosis Body Site Office Visit, New Pt., Level 3 Apr 12, 2016 IMMUNIZATIONS No Known Immunizations
--- OUTSIDE RECORDS SUMMARY | 2017-05-17 18:47 | XMS REPORT ---
Author Author JAZIEL FRY [facility] Address [address] [place] [address] Care Team Providers Care Underwriting Director Name Role Phone JAZIEL FRY Unavailable PROBLEMS Type Condition ICD9-CM Code [id number] Code Onset Dates Condition Status SNOMED Code Problem Obstructive sleep apnea (adult) (pediatric) G47.33 Active 44218783 Problem COPD with exacerbation J44.1 Active 073352300 Problem Dependence on other enabling machines and devices Z99.89 Active 875499014 Problem BERYL (obstructive sleep apnea) G47.33 Active 62106851 Problem Mixed stress and urge urinary incontinence N39.46 Active 463002959 Problem Weakness of both legs R29.898 Active 5254006 Problem Wheelchair bound Z99.3 Active 502069585 Problem Seasonal allergic rhinitis, unspecified allergic rhinitis trigger J30.2 Active 182491575 Problem Non-insulin dependent type 2 diabetes mellitus E11.9 Active 49451592 Problem Low back pain M54.5 Active 513403844 Problem Other chronic pain G89.29 Active 95272432 Problem Polio A80.9 Active 419240713 Problem Chronic obstructive pulmonary disease, unspecified COPD type J44.9 Active 05279973 Problem Cigarette nicotine dependence without complication F17.210 Active 37880669 ALLERGIES Unknown Allergies SOCIAL HISTORY No smoking Hx information available PLAN OF CARE VITAL SIGNS MEDICATIONS Unknown Medications RESULTS No Results PROCEDURES No Known procedures IMMUNIZATIONS No Known Immunizations
--- OUTSIDE RECORDS SUMMARY | 2017-05-17 18:47 | XMS REPORT ---
Author JAZIEL Donohue [facility] eClinical[employer] Address Unknown Phone Unavailable Care Team Providers Care Gifted Teacher Name Role Phone JAZIEL RFY CP Unavailable Allergies No Known Allergies Problems Problem Type Condition Code Onset Dates Condition Status Problem Low back pain M54.5 Active Problem Other chronic pain G89.29 Active Problem Chronic obstructive pulmonary disease, unspecified COPD type J44.9 Active Problem Polio A80.9 Active Medications No Known Medications Results No Known Results Summary Purpose eClinicalWorks Submission
--- OUTSIDE RECORDS SUMMARY | 2017-05-17 18:47 | XMS REPORT ---
Author RAFAEL iPno [facility] eClinical[employer] Address Unknown Phone Unavailable Care Team Providers Care Accounting Professional Name Role Phone RAFAEL URIARTE CP Unavailable Allergies, Adverse Reactions, Alerts Substance [...] J44.9 Active Problem Polio A80.9 Active Assessment Dental examination Z01.20 Active Medications Medication Code System Code Instructions Start Date End Date Status Dosage Spiriva HandiHaler [facility] [address]-50 18 MCG Inhalation not defined Lidocaine [facility] [address]-46 0.5 % Externally not defined Promethazine-Codeine [facility] [address]-09 6.25-10 MG/5ML Orally every 4 hrs, prn cough May 09, 2016 1-2 tsp Budesonide [facility] [address]-18 0.5 MG/2ML Inhalation Once a day 2 ml Trazodone HCl [facility] [address]-57 150 MG Orally Once a day 1 tablet at bedtime as needed Soma [facility] [address]-92 350 MG Orally Four times a day 1 tablet as needed Nitrostat [facility] [address]-48 0.4 MG Sublingual not defined Hydrocodone-Acetaminophen [facility] [address]-38 10-325 MG Orally every 4 hrs 1 tablet as needed Venlafaxine HCl [facility] [address]-61 75 MG Orally Once a day May 24, 2016 1 tablet with food Mucinex [facility] [address]-15 600 MG Orally every 12 hrs 1 tablet as needed Combivent Respimat [facility] [address]-20 20-100 MCG/ACT Inhalation Four times a day 1 puff Voltaren [facility] [address]-42 1 % Transdermal not defined Fluticasone Propionate [facility] [address]-15 50 MCG/ACT Nasally Once a day 1 spray in each nostril Calcium + D [facility] 12929-[address]333 500-1000-40 MG-UNT-MCG Orally not defined Tramadol HCl [facility] [address]-14 50 mg Orally every 6 hrs 1 tablet as needed Brimonidine Tartrate [facility] [address]-02 0.2 % Ophthalmic Three times a day 1 drop into affected eye Ipratropium-Albuterol [facility] [address]-78 0.5-2.5 (3) MG/3ML Inhalation Four times a day 3 ml Loratadine [facility] [address]-83 10 MG Orally Once a day 1 tablet Procedures Procedure Coding System Code Date PANORAMIC FILM SEE ALSO CODE 15605 CPT-4 D0330 Jun 01, 2016 LTD ORAL EVALUATION - PROBLEM FOCUS CPT-4 D0140 Jun 01, 2016 Vital Signs Date/Time: Jun 01, 2016 Blood Pressure Diastolic 99 mmHg Blood Pressure Systolic 134 mmHg Height 65 in Results No Known Results Summary Purpose eClinicalWorks Submission
--- OUTSIDE RECORDS SUMMARY | 2017-05-17 18:47 | XMS REPORT ---
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 Name Role Phone CARY CRESPO Unavailable PROBLEMS Type Condition ICD9-CM Code VNY50-VL Code Onset Dates Condition Status SNOMED Code Problem Dependence on other enabling machines and devices Z99.89 Active 070664950 Problem Wheelchair bound Z99.3 Active 641155624 Problem COPD with exacerbation J44.1 Active 248255072 Problem Muscle spasms of both lower extremities M62.838 Active 224470221 Problem BERYL (obstructive sleep apnea) G47.33 Active 47273071 Problem Non-insulin dependent type 2 diabetes mellitus E11.9 Active 49675584 Problem Weakness of both legs R29.898 Active 9335302 Problem Mixed stress and urge urinary incontinence N39.46 Active 773287624 Problem Seasonal allergic rhinitis, unspecified allergic rhinitis trigger J30.2 Active 438179008 Problem Low back pain M54.5 Active 818858161 Problem Other chronic pain G89.29 Active 61545897 Problem Polio A80.9 Active 479160122 Problem Cigarette nicotine dependence without complication F17.210 Active 44885195 Problem Chronic obstructive pulmonary disease, unspecified COPD type J44.9 Active 74272551 Problem Obstructive sleep apnea (adult) (pediatric) G47.33 Active 65653193 ALLERGIES Substance Reaction Event Type Date Status Iodine Unknown Drug Allergy Aug, Active Betaine Unknown Drug Allergy Aug, Active Aspirin nausea Drug Allergy Aug, Active shell fish Unknown Non Drug Allergy Aug, Active SOCIAL HISTORY Never Assessed PLAN OF CARE Activity Details Follow Up 4 Weeks with Armando Reason: VITAL SIGNS Height 65 in 2016-09-01 Weight 230 lbs 2016-09-01 Temperature 98.2 degrees Fahrenheit 2016-09-01 Heart Rate 80 bpm 2016-09-01 Respiratory Rate 20 2016-09-01 BMI 38.27 kg/m2 2016-09-01 Blood pressure systolic 124 mmHg 2016-09-01 Blood pressure diastolic 84 mmHg 2016-09-01 MEDICATIONS Medication Instructions Dosage Frequency Start Date End Date Duration Status Atorvastatin Calcium 80 MG Orally Once a day 1 tablet 24h Active Spiriva HandiHaler 18 MCG Inhalation qd 1 24h Active Calcium + D 500-1000-40 MG-UNT-MCG Active Breo Ellipta 200-25 MCG/INH Inhalation Once a day 1 puff 24h Jul, Active Lidocaine 0.5 % Active Fluticasone Propionate 50 MCG/ACT Nasally Once a day 1 spray in each nostril 24h Active Trazodone HCl 150 MG Orally Once a day 1 tablet at bedtime as needed 24h 11 Aug, 2016 Active Ipratropium-Albuterol 0.5-2.5 (3) MG/3ML Inhalation Four times a day 3 ml 6h Active Nitrostat 0.4 MG Active Hydrocodone-Acetaminophen 10-325 MG Orally every 4 hours as needed 1 tablet as needed Aug, 28 Active Zyrtec Allergy 10 MG Orally Once a day 1 tablet 24h Active Mucinex 600 MG Orally every 12 hrs 1 tablet as needed 12h Jul, Sep, 30 days Active Venlafaxine HCl 150 mg Orally Once a day 1 tablet with food 24h May, Active Voltaren 1 % Active Doxycycline Monohydrate 100 MG Orally every 12 hrs 1 tablet 12h Aug, 4 Sep, 2016 10 days Active Soma 350 MG Orally 3 times a day 1 tablet as needed 8h Jul, Active Naproxen 500 MG Orally every 12 hrs 1 tablet as needed 12h Aug, Sep, 20 days Active Combivent Respimat 20-100 MCG/ACT Inhalation Four times a day 1 puff 6h Active Chantix 1 MG Orally Twice a day Starter martha direction 12h 28 Active PredniSONE 20 MG Orally Once a day 2 tablet 24h Aug, Aug, 5 days Active Valsartan 160 MG Orally Once a day 1 tablet 24h Active Ambien 5 MG Orally Once a day 1 tablet at bedtime 24h Active Tramadol HCl 50 mg Orally every 6 hrs 1 tablet as needed 6h Active Cyanocobalamin 1000 MCG Orally Once a day 1 tablet 24h Active Incruse Ellipta 62.5 MCG/INH Inhalation Once a day 1 puff 24h Aug, Active RESULTS No Results PROCEDURES Procedure Date Ordered Result Body Site [facility] VISIT NEW PATIENT Sep 01, 2016 IMMUNIZATIONS No Known Immunizations MEDICAL (GENERAL) [...]
--- NOTE | 2017-05-17 19:42 | ED Head Injury ---
General Chief Complaint: Head/Cervical Problems Stated Complaint: HEAD INJ Nursing Triage Note: PT TO ED VIA HER MOTORIZED WC REPORTING HIT HEAD ON HER STEERING WHEEL AT 1730 GETTING INTO HER VEHICLE. DENIES LOC. Source: patient Exam Limitations: no limitations History of Present Illness Time seen by provider: 19:40 Initial Comments To ER with a left frontal head injury. Patient earlier today was getting blood work done. While getting back into her vehicle after her appointment she accidentally struck the left side of her forehead on the steering wheel. There was no loss of consciousness but she has had some persistent headache dizziness and nausea since then. She is not on any blood thinners. Occurred: this afternoon Severity: moderate Location: frontal Associated Systoms: Denies Symptoms Allergies and Home Medications Allergies Coded Allergies: aspirin (Verified Allergy, Unknown, 04/10/16) iodine (Verified Allergy, Unknown, 04/10/16) povidone-iodine (Verified Allergy, Unknown, 04/10/16) soap (Verified Allergy, Unknown, 04/10/16) Uncoded Allergies: SHELLFISH (Adverse Reaction, Intermediate, RASH, SWELLING, 05/17/17) Home Medications Benzonatate 200 Mg Capsule, 200 MG PO TID PRN for COUGH, #20 Prescribed by: DAO TATE on 04/10/16 1753 Carisoprodol 350 Mg Tablet, #30 (Reported) Fluconazole 100 Mg Tablet, 100 MG PO DAILY, #7 Ref 0 Prescribed by: PAMELA MCCOY on 07/19/16 1503 Hydrocodone/Acetaminophen 1 Each Tablet, #168 (Reported) Nystatin 100,000 Unit/1 Ml Oral.susp, 5 ML PO QID, #200 Ref 0 Continue medication for 2 days after symptoms resolve. Prescribed by: PAMELA MCCOY on 07/19/16 1503 Ofloxacin 5 Ml Drops, #5 (Reported) Prednisone 20 Mg Tab, 20 MG PO UD, #9 Twice daily for 3 days then once daily for 3 days Prescribed by: DAO TATE on 04/10/16 1753 Prednisone 20 Mg Tab, 40 MG PO DAILY, #10 Ref 0 Prescribed by: PAMELA MCCOY on 07/19/16 1503 Tramadol HCl 50 Mg Tablet, #112 (Reported) Venlafaxine HCl 75 Mg Tab, #30 (Reported) [Chantix] , #56 (Reported) Constitutional: see HPI Eyes: No Symptoms Reported Ears, Nose, Mouth, Throat: no symptoms reported Respiratory: no symptoms reported Cardiovascular: no symptoms reported Musculoskeletal: no symptoms reported Skin: no symptoms reported Psychiatric/Neurological: No Symptoms Reported Endocrine: No Symptoms Reported Hematologic/Lymphatic: No Symptoms Reported Past Ykyfual-Tbbkcd-Sflyur Hx Patient Social History Alcohol Use: Rarely Uses Recreational Drug Use: No Smoking Status: Current Everyday Smoker Type Used: Cigarettes Recent Foreign Travel: No Contact w/Someone Who Travel: No Recent Infectious Disease Expo: No Recent Hopitalizations: No Seasonal Allergies Seasonal Allergies: No Surgeries History of Surgeries: Yes (GASTRIC BYPASS, CATARACTS) Surgeries: Abdominal, Breast, Gallbladder, Hysterectomy, Orthopedic, Tonsillectomy Respiratory History of Respiratory Disorde: Yes Respiratory Disorders: Asthma, Pneumonia, COPD Cardiovascular History of Cardiac Disorders: Yes Cardiac Disorders: Coronary 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, Heart Attack, Hypertension Neurological History of Neurological Disord: Yes (POLIO W/ LOWER EXTREMITY DEFICITS) Genitourinary History of Genitourinary Disor: No Gastrointestinal History of Gastrointestinal Di: Yes (GASTRIC BYPASS) Gastrointestinal Disorders: Irritable Bowel Musculoskeletal History of Musculoskeletal Dis: Yes (POLIO SYNDROME) Endocrine History of Endocrine Disorders: Yes ("THYROID ENLARGEMENT") HEENT History of HEENT Disorders: Yes (PRIOR CATARACT SURGERY) HEENT Disorders: Cataract, Glaucoma Cancer History of Cancer: No Psychosocial History of Psychiatric Problem: No Integumentary History of Skin or Integumenta: No Blood Transfusions History of Blood Disorders: No Adverse Reaction to a Blood Tr: No Family Medical History Significant Family History: No Pertinent Family Hx Physical Exam Vital Signs Vital Sign - Last 12Hours 05/17/17 19:23 Temp 97.2 Pulse 70 Resp 20 B/P (MAP) 159/89 Pulse Ox 97 O2 Delivery Room Air Capillary Refill : Less Than 3 Seconds General Appearance: WD/WN, no apparent distress HEENT: PERRL/EOMI, normal ENT inspection, other (there is a small hematoma overlying the left frontal scalp.) Neck: non-tender, full range of motion Respiratory: normal breath sounds, no respiratory distress, no accessory muscle use Gastrointestinal: normal bowel sounds, non tender, soft Extremities: normal range of motion, non-tender Psychiatric: alert, oriented x 3 Crainal Nerves: normal hearing, normal speech, PERRL Skin: normal color, warm/dry Colby Coma Score Best Eye Response: (4) Open Spontaneously Best Verbal Response: (5) Oriented Best Motor Response: (6) Obeys Commands Teresita Total: 15 Progress/Results/Core Measures Results/Orders My Orders Orders - SHELLY AGUILERA APRN Ct Head Wo (05/17/17 19:39) Vital Signs/I&O Vital Sign - Last 12Hours 05/17/17 19:23 Temp 97.2 Pulse 70 Resp 20 B/P (MAP) 159/89 Pulse Ox 97 O2 Delivery Room Air Blood Pressure Mean: 112 Diagnostic Imaging Diagonstic Imaging: Xray Comments NAME: MINDY GARCIA MED REC#: [id number] PT STATUS: REG ER : 1950 PHYSICIAN: SHELLY AGUILERA APRN ADMIT DATE: 05/17/17/ER Draft Date of Exam:05/17/17 CT HEAD WO PROCEDURE: CT head without contrast. TECHNIQUE: Multiple contiguous axial images were obtained through the brain without the use of intravenous contrast. INDICATION: Injury, headache. COMPARISON: There are no prior studies available for comparison. FINDINGS: There is edema and inflammation of the soft tissues overlying the left frontal bone. The bone windows through this area show no sign of a skull fracture. There is no acute intracranial abnormality identified either. There is no mass, shift of the midline or hemorrhage. The ventricles are not abnormally dilated. There is cortical atrophy present. The degree of atrophy is consistent with the patient's age. The orbits and sinuses are not visualized in their entirety. Where visualized, there is no acute abnormality. IMPRESSION: 1. There is soft tissue edema over the left frontal bone. There is no sign of a skull fracture nor is there any evidence for an acute intracranial abnormality. 2. If the patient is anticoagulated and her symptoms persist, then a followup exam within 24 hours would be recommended for further study. 3. These results will be discussed with Shelly Aguilera APRN. Dictated on workstation # [id number] Dict: 05/17/171952 Trans: 05/17/172001 PJE [id number] Interpreted by: CAROLYNN LOGAN MD Electronically signed by: Departure Impression Impression: Primary Impression: Concussion without loss of consciousness Disposition: 01 HOME, SELF-CARE Condition: Stable Departure-Patient Inst. Decision time for Depature: 20:05 Referrals: [facility] (PCP/Family) Primary Care Physician Patient Instructions: Concussion, Adult (DC) Add. Discharge Instructions: 1. Your symptoms likely represent a concussion. These symptoms may persist for up to a couple of weeks unfortunately. Typically not that long but it is not unheard of for symptoms to persist for a few weeks. This would include a headache intermittently and your dizziness. He can take Tylenol and Motrin for this at home. Return to ER for any intolerable headache, persistent vomiting or other concerns. Otherwise follow-up with your doctor next week for recheck. All discharge instructions reviewed with patient and/or family. Voiced understanding. SHELLY AGUILERA APRN May 17, 2017 19:42
--- NOTE | 2017-05-17 20:02 | Diagnostic Imaging Report ---
PROCEDURE: CT head without contrast. TECHNIQUE: Multiple contiguous axial images were obtained through the brain without the use of intravenous contrast. INDICATION: Injury, headache. COMPARISON: There are no prior studies available for comparison. FINDINGS: There is edema and inflammation of the soft tissues overlying the left frontal bone. The bone windows through this area show no sign of a skull fracture. There is no acute intracranial abnormality identified either. There is no mass, shift of the midline or hemorrhage. The ventricles are not abnormally dilated. There is cortical atrophy present. The degree of atrophy is consistent with the patient's age. The orbits and sinuses are not visualized in their entirety. Where visualized, there is no acute abnormality. IMPRESSION: 1. There is soft tissue edema over the left frontal bone. There is no sign of a skull fracture nor is there any evidence for an acute intracranial abnormality. 2. If the patient is anticoagulated and her symptoms persist, then a followup exam within 24 hours would be recommended for further study. 3. These results were discussed with Janes Aguilera APRN. Dictated by: Dictated on workstation # [id number]
[2017-05-17 20:15] VITALS: BP 159/89
== END 2017-05-17 20:15 | disposition home or self-care (01) ==
LOC: EDUNIT# 18:38 → ER 18:40
DX: S06.0X9A Concussion with loss of consciousness of unspecified duration, initial encounter (principal); J44.9 Chronic obstructive pulmonary disease, unspecified; I25.10 Atherosclerotic heart disease of native coronary artery without angina pectoris; I25.2 Old myocardial infarction; I10 Essential (primary) hypertension; F17.210 Nicotine dependence, cigarettes, uncomplicated; Z98.84 Bariatric surgery status; Z87.01 Personal history of pneumonia (recurrent); Z87.19 Personal history of other diseases of the digestive system; Z90.710 Acquired absence of both cervix and uterus; Z90.89 Acquired absence of other organs; V48.5XXA Car driver injured in noncollision transport accident in traffic accident, initial encounter
CPT/HCPCS: 70450; 99282

== ENCOUNTER 2017-07-10 11:55 | Emergency (ER) | payer MEDICARE, MEDICAID ==
[~2017-07-10] VITALS: Ht 165.1 cm; Wt 104.3 kg
--- OUTSIDE RECORDS SUMMARY | 2017-07-10 12:01 | XMS REPORT ---
Author Author CARY CRSEPO Organization [facility] Address [address] [place] [address] Care Team Providers Care Director Education Name Role Phone CARY CRESPO Unavailable PROBLEMS Type Condition ICD9-CM Code COL79-GZ Code Onset Dates Condition Status SNOMED Code Problem Wheelchair bound Z99.3 Active 383298469 Problem Non-insulin dependent type 2 diabetes mellitus E11.9 Active 89287900 Problem Weakness of both legs R29.898 Active 7963773 Problem Post concussion syndrome F07.81 Active 25450127 Problem Chronic seasonal allergic rhinitis due to other allergen J30.2 Active 986666563 Problem Mixed stress and urge urinary incontinence N39.46 Active 445450708 Problem Seasonal allergic rhinitis, unspecified allergic rhinitis trigger J30.2 Active 443291938 Problem Muscle spasms of both lower extremities M62.838 Active 875460214 Problem BERYL (obstructive sleep apnea) G47.33 Active 85337404 Problem Polio A80.9 Active 979034614 Problem Chronic obstructive pulmonary disease, unspecified COPD type J44.9 Active 61316796 Problem Cigarette nicotine dependence without complication F17.210 Active 45242740 Problem Obstructive sleep apnea (adult) (pediatric) G47.33 Active 71301525 Problem Low back pain M54.5 Active 791956336 Problem Dependence on other enabling machines and devices Z99.89 Active 157977236 Problem Other chronic pain G89.29 Active 20920064 Problem COPD with exacerbation J44.1 Active 588086833 ALLERGIES No Information SOCIAL HISTORY Never Assessed PLAN OF CARE VITAL SIGNS MEDICATIONS Medication Instructions Dosage Frequency Start Date End Date Duration Status Tizanidine HCl 4 MG Orally Three times a day 1 tablet as needed 8h Active Hydrocodone-Acetaminophen 10-325 MG Orally every 4 hours 1 tablet 4h Nov 28 days Active Venlafaxine HCl 75 MG Orally Once a day 1 tablet with food 24h 30 Active Tramadol HCl 50 mg Orally every [...]
[2017-07-10] MEDS ORDERED: KETOROLAC 30 MG/ML VIAL IM ONE (12:30)
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
[2017-07-10 13:28] LABS: BASOPHILS % (AUTO) 0 % (0-10); EOSINOPHILS # (AUTO) 0.1 10^3/uL (0.0-0.3); EOSINOPHILS % (AUTO) 2 % (0-10); LYMPHOCYTES # (AUTO) 2.6 X 10^3 (1.0-4.0); LYMPHOCYTES % (AUTO) 31 % (12-44); MEAN CORPUSCULAR HEMOGLOBIN 25 PG (25-34); MEAN CORPUSCULAR HGB CONC 30 G/DL (32-36); MEAN CORPUSCULAR VOLUME 81 FL (80-99); MONOCYTES # (AUTO) 0.9 X 10^3 (0.0-1.0); MONOCYTES % (AUTO) 11 % (0-12); NEUTROPHILS # (AUTO) 4.6 X 10^3 (1.8-7.8); NEUTROPHILS % (AUTO) 56 % (42-75); PLATELET COUNT 369 10^3/uL (130-400); RED BLOOD COUNT 4.24 10^6/uL (4.35-5.85); RED CELL DISTRIBUTION WIDTH 16.7 % (10.0-14.5); WHITE BLOOD COUNT 8.2 10^3/uL (4.3-11.0)
[2017-07-10 13:48] LABS: ALANINE AMINOTRANSFERASE 17 U/L (0-55); ALBUMIN 3.6 GM/DL (3.2-4.5); ANION GAP 7 MMOL/L (5-14); ASPARTATE AMINO TRANSFERASE 18 U/L (5-34); BILIRUBIN,TOTAL 0.4 MG/DL (0.1-1.0); BLOOD UREA NITROGEN 13 MG/DL (7-18); BUN/CREATININE RATIO 16; CALCIUM 9.3 MG/DL (8.5-10.1); CARBON DIOXIDE 27 MMOL/L (21-32); CHLORIDE 108 MMOL/L (98-107); CREATININE SERUM 0.82 MG/DL (0.60-1.30); GFR ESTIMATED > 60; GLUCOSE 92 MG/DL (70-105); POTASSIUM 4.5 MMOL/L (3.6-5.0); SODIUM 142 MMOL/L (135-145); TOTAL PROTEIN 6.9 GM/DL (6.4-8.2); hs C REACTIVE PROTEIN 8.89 MG/DL (0.00-0.50)
[2017-07-10 13:57] LABS: ERYTHROCYTE SEDIMENTATION RATE 31 MM/HR (0-30)
[2017-07-10] MEDS ORDERED: NS IV 1000 ML 1,000 ML IV ONE (14:16)
[2017-07-10] MEDS ORDERED: fentaNYL INJECTION 100 MCG/2 ML AMP IVP ONE ×2 (14:30→18:15)
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
[2017-07-10] MEDS ORDERED: NAPR500T PO (18:05)
[2017-07-10] MEDS ORDERED: PRD20T PO (18:05)
[2017-07-10 18:35] VITALS: BP 120/70
== END 2017-07-10 18:29 | disposition home or self-care (01) ==
LOC: EDUNIT# 11:55 → ER 11:57
DX: M54.40 Lumbago with sciatica, unspecified side (principal); J44.9 Chronic obstructive pulmonary disease, unspecified; I25.10 Atherosclerotic heart disease of native coronary artery without angina pectoris; I25.2 Old myocardial infarction; I10 Essential (primary) hypertension; F17.210 Nicotine dependence, cigarettes, uncomplicated; Z87.19 Personal history of other diseases of the digestive system; Z98.84 Bariatric surgery status; Z87.01 Personal history of pneumonia (recurrent); Z90.710 Acquired absence of both cervix and uterus
CPT/HCPCS: 36415; 72148; 80053; 85025; 85652; 86141

== ENCOUNTER 2018-01-03 05:36 | Outpatient (CLI) | payer MEDICARE, MEDICAID ==
[~2018-01-03] VITALS: Ht 165.1 cm; Wt 107.5 kg
[~2018-01-03 05:36] MED LIST changes: -HYDR-3820; +HYDR-3820 PO; +NAPR-1071 PO; -TRAM50TA2; +TRAM50TA2 PO; -VNL75T; +VNL75T PO
[2018-01-03] MEDS ORDERED: NAPR500T8 PO (15:11)
[2018-01-03] MEDS ORDERED: FLUT1BLS IH (15:11)
[2018-01-03] MEDS ORDERED: TRAZ150T72 PO (15:11)
[2018-01-03] MEDS ORDERED: VALS160T28 PO (15:11)
[2018-01-03] MEDS ORDERED: MONT10TA24 PO (15:11)
== END 2018-01-03 15:12 ==
LOC: PREOP 05:36
PROVIDERS: ATTEND Surgery
DX: Z01.818 Encounter for other preprocedural examination (principal); Z86.010 Personal history of colon polyps

== ENCOUNTER 2018-01-09 08:13 | Day surgery (SDC) | payer MEDICARE, MEDICAID ==
[~2018-01-09] VITALS: Ht 165.1 cm; Wt 107.5 kg
[~2018-01-09 08:13] MED LIST changes: +FLUT1BLS IH; +MONT10TA24 PO; +NAPR500T8 PO; +TRAZ150T72 PO; +VALS160T28 PO
--- OUTSIDE RECORDS SUMMARY | 2018-01-09 08:18 | XMS REPORT ---
Author Author CARY CRESPO Organization [facility] Address [address] [place] [address] Care Team Providers Care Second Officer Name Role Phone CARY CRESPO Unavailable PROBLEMS Type Condition ICD9-CM Code [id number] Code Onset Dates Condition Status SNOMED Code Problem Non-insulin dependent type 2 diabetes mellitus E11.9 Active 96105430 Problem Mixed stress and urge urinary incontinence N39.46 Active 132902957 Problem Seasonal allergic rhinitis, unspecified allergic rhinitis trigger J30.2 Active 935638021 Problem BMI 40.0-44.9, adult Z68.41 Active 241295338 Problem Acute exacerbation of chronic obstructive pulmonary disease (COPD) J44.1 Active 266831436 Problem Muscle spasms of both lower extremities M62.838 Active 987884470 Problem BERYL (obstructive sleep apnea) G47.33 Active 36269488 Problem Chronic seasonal allergic rhinitis due to other allergen J30.2 Active 039752583 Problem Post concussion syndrome F07.81 Active 71585485 Problem Chronic obstructive pulmonary disease, unspecified COPD type J44.9 Active 15938496 Problem Low back pain M54.5 Active 953979739 Problem Polio A80.9 Active 489049967 Problem Obstructive sleep apnea (adult) (pediatric) G47.33 Active 56894918 Problem Dependence on other enabling machines and devices Z99.89 Active 907545361 Problem Other chronic pain G89.29 Active 09241530 Problem Wheelchair bound Z99.3 Active 408438611 Problem Cigarette nicotine dependence without complication F17.210 Active 02169453 Problem Weakness of both legs R29.898 Active 6494021 ALLERGIES No Information ENCOUNTERS Encounter Location Date Diagnosis [facility] [address] [facility] [id number], [place] [address] December, [facility] [address] [facility] [id number], [place] [address] Nov, [facility] [id number] [place] [address] 28417- 6171 Nov, [facility] [place] [id number] [place] [address] 99111- 3145 Nov, Medicare annual wellness visit, initial Z00.00 ; Chronic obstructive pulmonary disease, unspecified COPD type J44.9 ; Non-insulin dependent type 2 diabetes mellitus E11.9 ; Chronic seasonal allergic rhinitis due to other allergen J30.2 ; Obstructive sleep apnea (adult) (pediatric) G47.33 ; Polio A80.9 ; Wheelchair bound Z99.3 ; Muscle spasms of both lower extremities M62.838 ; BMI 40.0-44.9, adult Z68.41 ; Screening for breast cancer Z12.31 ; Screening for colon cancer Z12.11 and Mixed stress and urge urinary incontinence N39.46 [facility] [id number] [place] [address] 94791- 1209 Nov, [facility] [id number] [place] [address] 66747- 6691 Nov, Low back pain M54.5 [facility] [address] [address]- 5126 Oct, Other chronic pain G89.29 [facility] [id number] [place] [address] 53908- 1790 Oct, [facility] [id number] [place] [address] 97517- 4938 Oct, [facility] [id number] [place] [address] 83570- 4842 Oct, Low back pain M54.5 [facility] [id number] [place] [address] 03058- 4839 Oct, [facility] [id number] [place] [address] 77134- 8609 Oct, Low back pain M54.5 and COPD with exacerbation J44.1 [facility] [address] [address] Oct, Chronic obstructive pulmonary disease, unspecified COPD type J44.9 and COPD with exacerbation J44.1 [facility] [address], [place] [address] 08 Sep, 2017 Low back pain M54.5 [facility] [address] [place] [address] 64229 -7183 Aug, Acute exacerbation of chronic obstructive pulmonary disease (COPD) J44.1 [facility] [address], [place] [address] Aug, [facility] [id number] [place] [address] 04002- 9551 Aug, Muscle spasms of both lower extremities M62.838 [facility] [id number] [place] [address] 33683- 4133 Aug, Muscle spasms of both lower extremities M62.838 [facility] [address], [place] [address] Aug, Low back pain M54.5 [facility] [id number] [place] [address] 07459- 2930 Jul, Low back pain M54.5 ; Seasonal allergic rhinitis, unspecified allergic rhinitis trigger J30.2 and Muscle spasms of both lower extremities M62.838 [facility] [address], [place] [address] Jul, [facility] [address] [place] [address] 82252- 9234 Jun, Low back pain M54.5 [facility] [address], [place] [address] May, [facility] [address], [place] [address] 23 Oct, 2017 Fall, subsequent encounter W19.XXXD ; Post concussion syndrome F07.81 ; Chronic seasonal allergic rhinitis due to other allergen J30.2 ; Muscle spasms of both lower extremities M62.838 ; BERYL (obstructive sleep apnea) G47.33 and Encounter for immunization Z23 [facility] [id number] [place] [address] 05650- 5699 May, [facility] [address] 71212- 8918 May, Low back pain M54.5 [facility] [address] 71670- 7918 Apr, BERYL (obstructive sleep apnea) G47.33 [facility] [address] 12311- 7948 Apr, [facility] [address] 28688- 7236 Apr, [facility] [address] 38688- 5524 Apr, Muscle spasms of both lower extremities M62.838 [facility] [address] 38971- 8519 Apr, Polio A80.9 ; Muscle spasms of both lower extremities M62.838 and Trigger middle finger of right hand M65.331 [facility] [id number] [place] [address] 91530- 1039 Apr, Low back pain M54.5 [facility] [id number] [place] [address] 80501- 6322 Mar, Low back pain M54.5 [facility] [address] 32417- 7956 Mar, [facility] [id number] [place] [address] 20111- 9010 Mar, [facility] [address] 51574- 6434 Feb, Low back pain M54.5 ; Other chronic pain G89.29 ; Seasonal allergic rhinitis, unspecified allergic rhinitis trigger J30.2 and COPD with exacerbation J44.1 [facility] [address] [place] [address] 98488- 9504 Feb, Chronic obstructive pulmonary disease, unspecified COPD type J44.9 [facility] [id number] [place] [address] 49996- 5152 Feb, Low back pain M54.5 ; Seasonal allergic rhinitis, unspecified allergic rhinitis trigger J30.2 ; Mixed stress and urge urinary incontinence N39.46 ; BERYL (obstructive sleep apnea) G47.33 and Trigger middle finger of right hand M65.331 [facility] [id number] [place] [address] 43436- 0429 Feb, [facility] [id number] [place] [address] 11957- 6997 Feb, Low back pain M54.5 [facility] [address] [id number] [place] [address] [id number] Jan, Trigger finger, unspecified finger, unspecified laterality M65.30 [facility] [id number] [place] [id number] Jan, [facility] [id number] [place] [address] 24699- 9558 Jan, [facility] [id number] [place] [address] 09474- 9042 Jan, COPD with exacerbation J44.1 [facility] [id number] [place] [address] 15544- 3277 Jan, COPD with exacerbation J44.1 [facility] [id number] [place] [address] 12739- 5986 Jan, COPD with exacerbation J44.1 [facility] [id number] [place] [address] 28695- 3558 Jan, Low back pain M54.5 [facility] [id number] [place] [address] 32582- 9909 December, Low back pain M54.5 [facility] [address] 81478- 4080 Nov, Seasonal allergic rhinitis, unspecified allergic rhinitis trigger J30.2 [facility] [address] 48367- 6867 Nov, [facility] [address] 05417- 7588 Nov, [facility] [address] 86727- 1650 Nov, Seasonal allergic rhinitis, unspecified allergic rhinitis trigger J30.2 ; Mixed stress and urge urinary incontinence N39.46 and Non- insulin dependent type [address] [facility] [address] 78598- 7161 Nov, [facility] [address] 67583- 8400 Oct, Low back pain M54.5 [facility] [address] 04225- 9883 Oct, Acute suppurative otitis media of left ear without spontaneous rupture of tympanic membrane, recurrence not specified H66.002 [facility] [id number] [place] [address] 04600- 5616 Oct, [facility] [id number] [place] [address] 45559 -3057 Oct, Bronchitis J40 [facility] [address] 64444- 4454 Oct, [facility] [id number] [place] [address] 88657- 6516 Oct, Low back pain M54.5 [facility] [id number] [place] [address] 92072- 0799 Sep, Polio A80.9 ; Wheelchair bound Z99.3 and Weakness of both legs R29.898 [facility] [id number] [place] [address] 43147- 6082 Sep, COPD with exacerbation J44.1 ; Polio A80.9 ; Weakness of both legs R29.898 ; Wheelchair bound Z99.3 and Low back pain M54.5 [facility] [address] 72200- 2765 Sep, Low back pain M54.5 [facility] [place] [address] 95657- 2115 Sep, Low back pain M54.5 [facility] [address] 98449- 8935 Aug, Weakness of both legs R29.898 ; Wheelchair bound Z99.3 and Polio A80.9 [place] [address] 26327- 2484 Aug, Polio A80.9 ; Other chronic pain G89.29 ; Dependence on other enabling machines and devices Z99.89 ; Obstructive sleep apnea (adult) ( pediatric) G47.33 and Chronic obstructive pulmonary disease, unspecified COPD type J44.9 [facility] [id number] [place] [address] 74612 -0708 Aug, Bronchitis J40 and Sprain of right knee, unspecified ligament, initial encounter S83.91XA [facility] [address] 00604- 2246 Aug, [facility] [address] 61189- 9772 Aug, [facility] [address] 28011- 9569 Aug, [facility] [address], [place] [address]155 Aug, [facility] [id number] [place] [address] 93596- 5744 Aug, [facility] [address] [place] [address] 11865- 7274 Aug, Low back pain M54.5 [facility] [address] [place] [address] 60608 -7334 Aug, Acute non-recurrent frontal sinusitis J01.10 [facility] [id number] [place] [address] 77080- 2357 Jul, Chronic obstructive pulmonary disease, unspecified COPD type J44.9 and Low back pain M54.5 [facility] [id number] [place] [address] 84560- 7964 Jul, Low back pain M54.5 [facility] [id number] [place] [address] 72488- 5672 Jul, Low back pain M54.5 [facility] [id number] [place] [address] 10230- 9312 Jul, Dental examination Z01.20 and Chronic obstructive pulmonary disease, unspecified COPD type J44.9 [facility] [address] [place] [address] 22433- 0533 Jul, [facility] [id number] [place] [address] 72679- 6809 Jul, Low back pain M54.5 and Chronic obstructive pulmonary disease, unspecified COPD type J44.9 [facility] [id number] [place] [address] 57539- 0612 Jun, [facility] [address] [place] [address] 70608- 4118 Jun, Chronic obstructive pulmonary disease, unspecified COPD type J44.9 ; Low back pain M54.5 ; Allergy, sequela T78.40XS and Cigarette nicotine dependence without complication F17.210 [facility] [address] [place] [address] 66689- 3790 May, [facility] [id number] [place] [address] 68398- 8177 May, [facility] [id number] [place] [address] 87202- 3461 May, Dental examination Z01.20 [facility] [address] [place] [address] 47274 -7609 May, Pneumonia of both lower lobes due to infectious organism J18.9 [facility] [id number] [place] [address] 32885- 5871 May, [facility] [id number] [place] [address] 13507- 6582 May, [facility] [id number] [place] [address] 89640- 7783 May, [facility] [id number] [place] [address] 51649- 7073 May, [facility] [id number] [place] [address] 84045- 2931 May, Bronchitis J40 and Low back pain M54.5 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 [address] [place] [address] 01053- 2904 14 Apr, 2016 [facility] [id number] [place] [address] 24686- 2355 06 Sep, 2016 Chronic obstructive pulmonary disease, unspecified COPD type J44.9 ; Low back pain M54.5 ; Other chronic pain G89.[address] [facility] [address] [facility] [id number] [place] [address]- 6816 Apr, IMMUNIZATIONS No Known Immunizations SOCIAL HISTORY Never Assessed REASON FOR VISIT Controlled Med Refill PLAN OF CARE VITAL SIGNS MEDICATIONS Medication Instructions Dosage Frequency Start Date End Date Duration Status Hydrocodone-Acetaminophen 10-325 MG Orally every 4 hours 1 tablet 4h 08 Apr 28 days Active Tramadol HCl 50 mg Orally every 6 hrs 1 tablet 6h 28 Active RESULTS No Results PROCEDURES No Known procedures INSTRUCTIONS MEDICATIONS ADMINISTERED No Known Medications MEDICAL (GENERAL) HISTORY Type Description Date Medical [...]
[2018-01-09] MEDS ORDERED: LACTATED RINGERS 1,000 ML IV ONE (08:19)
--- OUTSIDE RECORDS SUMMARY | 2018-01-09 08:19 | XMS REPORT ---
Author Author FREDERICKKATHI Cervantes Organization [facility] Address [address] [place] [address] Care Team Providers Care Assembler Garment Form Name Role Phone FREDERICKKATHI Cervantes Unavailable PROBLEMS Type Condition ICD9-CM Code VJH12-GC Code Onset Dates Condition Status SNOMED Code Problem Weakness of both legs R29.898 Active 2493829 Problem Seasonal allergic rhinitis, unspecified allergic rhinitis trigger J30.2 Active 949645009 Problem Non-insulin dependent type 2 diabetes mellitus E11.9 Active 51013705 Problem Acute exacerbation of chronic obstructive pulmonary disease (COPD) J44.1 Active 685707981 Problem Chronic seasonal allergic rhinitis due to other allergen J30.2 Active 567107302 Problem BERYL (obstructive sleep apnea) G47.33 Active 13176740 Problem Mixed stress and urge urinary incontinence N39.46 Active 862264035 Problem Post concussion syndrome F07.81 Active 90348282 Problem Muscle spasms of both lower extremities M62.838 Active 637860702 Problem Polio A80.9 Active 225457637 Problem Chronic obstructive pulmonary disease, unspecified COPD type J44.9 Active 52183144 Problem Cigarette nicotine dependence without complication F17.210 Active 37441137 Problem Obstructive sleep apnea (adult) (pediatric) G47.33 Active 76168179 Problem Low back pain M54.5 Active 012305684 Problem Dependence on other enabling machines and devices Z99.89 Active 393320398 Problem Other chronic pain G89.29 Active 68419328 Problem Wheelchair bound Z99.3 Active [id number] ALLERGIES No Information ENCOUNTERS Encounter Location Date Diagnosis [facility] [address] [facility] [id number], [place] [address] December, [facility] [address] [facility] [id number], [place] [address] Nov, Medicare annual wellness visit, initial Z00.00 ; Chronic obstructive pulmonary disease, unspecified COPD type J44.9 ; Non-insulin dependent type 2 diabetes mellitus E11.9 ; Chronic seasonal allergic rhinitis due to other allergen J30.2 and Obstructive sleep apnea (adult) (pediatric) G47.33 [facility] [id number] [place] [address] 79017- 9742 Nov, [facility] [id number] [place] [address] 71662- 1354 Nov, Low back pain M54.5 [facility] [id number] [place] [address] 50858- 9734 Oct, Other chronic pain G89.29 [facility] [address] 18246- 8519 Oct, [facility] [address] 82693- 4031 Oct, [facility] [address] 54243- 9296 Oct, Low back pain M54.5 [facility] [id number] [place] [address] 41701- 1812 Oct, [facility] [address] 35205- 3134 Oct, Low back pain M54.5 and COPD with exacerbation J44.1 [facility] [id number] [place] [address] 94163- 5269 Oct, Chronic obstructive pulmonary disease, unspecified COPD type J44.9 and COPD with exacerbation J44.1 [facility] [id number] [place] [address] 26465- 0903 Sep, Low back pain M54.5 [facility] [id number] [place] [address] 43779 -4627 Aug, Acute exacerbation of chronic obstructive pulmonary disease (COPD) J44.1 [facility] [address] 36438- 3187 Aug, [facility] [id number] [place] [address] 23991- 8384 Aug, Muscle spasms of both lower extremities M62.838 [facility] [id number] [place] [address] 66683- 6361 Aug, Muscle spasms of both lower extremities M62.838 [facility] [id number] [place] [address] 00694- 8545 Aug, Low back pain M54.5 [facility] [id number] [place] [address] 56591- 2958 Jul, Low back pain M54.5 ; Seasonal allergic rhinitis, unspecified allergic rhinitis trigger J30.2 and Muscle spasms of both lower extremities M62.838 [facility] [id number] [place] [address] 32032- 7300 Jul, [facility] [id number] [place] [address] 57269- 3836 Jun, Low back pain M54.5 [facility] [id number] [place] [address] 32831- 8926 May, [facility] [id number] [place] [address] 79542- 5542 May, Fall, subsequent encounter W19.XXXD ; Post concussion syndrome F07.81 ; Chronic seasonal allergic rhinitis due to other allergen J30.2 ; Muscle spasms of both lower extremities M62.838 ; BERYL (obstructive sleep apnea) G47.33 and Encounter for immunization Z23 [facility] [id number] [place] [address] 31056- 2198 May, [facility] [id number] [place] [address] 66764- 0336 May, Low back pain M54.5 [facility] [id number] [place] [address] 05523- 8787 Apr, BERYL (obstructive sleep apnea) G47.33 [facility] [id number] [place] [address] 38581- 0518 Apr, [facility] [id number] [place] [address] 88648- 6582 Apr, [facility] [id number] [place] [address] 71078- 5248 Apr, Muscle spasms of both lower extremities M62.838 [facility] [id number] [place] [address] 23326- 4924 Apr, Polio A80.9 ; Muscle spasms of both lower extremities M62.838 and Trigger middle finger of right hand M65.331 [place] [id number] [place] [address] 75910- 3180 Apr, Low back pain M54.5 [place] [id number] [place] [address] 63052- 7972 Mar, Low back pain M54.5 [place] [id number] [place] [address] 99824- 5310 Mar, [place] [id number] [place] [address] 08452- 2705 Mar, [facility] [id number] [place] [address] 72850- 7693 Feb, Low back pain M54.5 ; Other chronic pain G89.29 ; Seasonal allergic rhinitis, unspecified allergic rhinitis trigger J30.2 and COPD with exacerbation J44.1 [facility] [id number] [place] [address] 48607- 0818 Feb, Chronic obstructive pulmonary disease, unspecified COPD type J44.9 [facility] [id number] [place] [address] 48730- 5418 Feb, Low back pain M54.5 ; Seasonal allergic rhinitis, unspecified allergic rhinitis trigger J30.2 ; Mixed stress and urge urinary incontinence N39.46 ; BERYL (obstructive sleep apnea) G47.33 and Trigger middle finger of right hand M65.331 [facility] [id number] [place] [address] 54430- 9100 Feb, [facility] [id number] [place] [address] 16057- 3034 Feb, Low back pain M54.5 [facility] [address] [id number] Jan, Trigger finger, unspecified finger, unspecified laterality M65.30 [facility] [id number] [place] [address] [id number] Jan, [facility] [id number] [place] [address] 11259- 2258 Jan, [facility] [id number] [place] [address] 72145- 0464 Jan, COPD with exacerbation J44.1 [facility] [id number] [place] [address] 27936- 5547 Jan, COPD with exacerbation J44.1 [facility] [id number] [place] [address] 97829- 3919 Jan, COPD with exacerbation J44.1 [facility] [id number] [place] [address] 16190- 9867 Jan, Low back pain M54.5 [facility] [id number] [place] [address] 24741- 9170 December, Low back pain M54.5 [facility] [id number] [place] [address] 42845- 3528 Nov, Seasonal allergic rhinitis, unspecified allergic rhinitis trigger J30.2 [facility] [id number] [place] [address] 24965- 3465 Nov, [facility] [id number] [place] [address] 83365- 5674 Nov, [facility] [address] 80003- 6675 Nov, Seasonal allergic rhinitis, unspecified allergic rhinitis trigger J30.2 ; Mixed stress and urge urinary incontinence N39.46 and Non- insulin dependent type 2 diabetes mellitus E11.9 [facility] [address] 61268- 0087 Nov, [facility] [address] 14879- 7770 Oct, Low back pain M54.5 [place] [address] 75459- 5161 Oct, Acute suppurative otitis media of left ear without spontaneous rupture of tympanic membrane, recurrence not specified H66.002 [place] [address] 38676- 1883 Oct, [facility] [address] 65970 -9618 Oct, Bronchitis J40 [place] [address] 69578- 8668 Oct, [facility] [address] 07088- 0783 Oct, Low back pain M54.5 [facility] [address] 69444- 0112 Sep, Polio A80.9 ; Wheelchair bound Z99.3 and Weakness of both legs R29.898 [place] [address] 11087- 1406 Sep, COPD with exacerbation J44.1 ; Polio A80.9 ; Weakness of both legs R29.898 ; Wheelchair bound Z99.3 and Low back pain M54.5 [facility] [address] 71745- 2225 Sep, Low back pain M54.5 [facility] [id number] [place] [address] 19887- 3104 Sep, Low back pain M54.5 [facility] [id number] [place] [address] 03667- 7168 Aug, Weakness of both legs R29.898 ; Wheelchair bound Z99.3 and Polio A80.9 [facility] [address] 02876- 9127 Aug, Polio A80.9 ; Other chronic pain G89.29 ; Dependence on other enabling machines and devices Z99.89 ; Obstructive sleep apnea (adult) ( pediatric) G47.33 and Chronic obstructive pulmonary disease, unspecified COPD type J44.9 [facility] [id number] [place] [address] 10565 -4168 Aug, Bronchitis J40 and Sprain of right knee, unspecified ligament, initial encounter S83.91XA [facility] [id number] [place] [address] 69143- 3091 Aug, [facility] [id number] [place] [address] 53435- 1786 Aug, [facility] [id number] [place] [address] 60510- 7801 Aug, [facility] [id number] [place] [address] 99993- 5218 Aug, [facility] [id number] [place] [address] 28700- 5552 Aug, [facility] [address] 75670- 3602 Aug, Low back pain M54.5 [facility] [id number] [place] [address] 40551 -2311 Aug, Acute non-recurrent frontal sinusitis J01.10 [facility] [address] [address] Jul, Chronic obstructive pulmonary disease, unspecified COPD type J44.9 and Low back pain M54.5 [facility] [id number] [place] [address] 48789- 3966 Jul, Low back pain M54.5 [facility] [id number] [place] [address] 55028- 8394 Jul, Low back pain M54.5 [facility] [id number] [place] [address] 50657- 5916 Jul, Dental examination Z01.20 and Chronic obstructive pulmonary disease, unspecified COPD type J44.9 [facility] [id number] [place] [address] 30329- 7112 Jul, [facility] [id number] [place] [address] 37416- 9336 Jul, Low back pain M54.5 and Chronic obstructive pulmonary disease, unspecified COPD type J44.9 [facility] [id number] [place] [address] 14570- 5179 Jun, [facility] [id number] [place] [address] 81746- 1635 Jun, Chronic obstructive pulmonary disease, unspecified COPD type J44.9 ; Low back pain M54.5 ; Allergy, sequela T78.40XS and Cigarette nicotine dependence without complication F17.210 [facility] [address] [address]- 0055 May, [facility] [id number] [place] [address] 83683- 2060 May, [facility] [id number] [place] [address] 65936- 1340 May, Dental examination Z01.20 [facility] [id number] [place] [address] 78353 -8675 May, Pneumonia of both lower lobes due to infectious organism J18.9 [facility] [address] [address]- 8030 May, [facility] [id number] [place] [address] 27326- 9588 May, [facility] [id number] [place] [address] 85143- 8623 May, [place] [id number] [place] [address] 01458- 1181 May, [place] [id number] [place] [address] 79933- 1671 May, Bronchitis J40 and Low back pain M54.5 [place] [id number] [place] [address] 28294- 1147 15 Apr, 2016 [facility] [id number] [place] [address] 73278 -5278 14 Apr, 2016 Pneumonia of left lower lobe due to infectious organism J18.9 ; Cellulitis of right leg L03.115 and 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 [place] [id number] [place] [address] 36257- 7488 Apr, [place] [id number] [place] [address] 71966- 4332 06 Apr, 2016 Chronic obstructive pulmonary disease, unspecified COPD type J44.9 ; Low back pain M54.5 ; Other chronic pain G89.29 and Polio A80.9 [facility] [id number] [place] [address] 52999- 0958 02 Apr, 2016 IMMUNIZATIONS No Known Immunizations SOCIAL HISTORY Never Assessed REASON FOR VISIT Controlled Med Refill PLAN OF CARE VITAL SIGNS MEDICATIONS Medication Instructions Dosage Frequency Start Date End Date Duration Status Hydrocodone-Acetaminophen 10-325 MG Orally every 4 hours 1 tablet 4h Apr 28 days Active RESULTS No Results PROCEDURES [...]
--- OUTSIDE RECORDS SUMMARY | 2018-01-09 08:19 | XMS REPORT ---
Author Author CARY CRESPO Organization [facility] Address [address] [place] [address] Care Team Providers Care Programming Coordinator Name Role Phone CARY CRESPO Unavailable PROBLEMS Type Condition ICD9-CM Code VOV09-YI Code Onset Dates Condition Status SNOMED Code Problem Weakness of both legs R29.898 Active 7210587 Problem Seasonal allergic rhinitis, unspecified allergic rhinitis trigger J30.2 Active 194625842 Problem Non-insulin dependent type 2 diabetes mellitus E11.9 Active 86627827 Problem Acute exacerbation of chronic obstructive pulmonary disease (COPD) J44.1 Active 852941693 Problem Chronic seasonal allergic rhinitis due to other allergen J30.2 Active 442712263 Problem BERYL (obstructive sleep apnea) G47.33 Active 29399895 Problem Mixed stress and urge urinary incontinence N39.46 Active 639479174 Problem Post concussion syndrome F07.81 Active 84167810 Problem Muscle spasms of both lower extremities M62.838 Active 067025669 Problem Polio A80.9 Active 688982089 Problem Chronic obstructive pulmonary disease, unspecified COPD type J44.9 Active 21035946 Problem Cigarette nicotine dependence without complication F17.210 Active 46636749 Problem Obstructive sleep apnea (adult) (pediatric) G47.33 Active 38764538 Problem Low back pain M54.5 Active 050601457 Problem Dependence on other enabling machines and devices Z99.89 Active 575445777 Problem Other chronic pain G89.29 Active 81157723 Problem Wheelchair bound Z99.3 Active [id number] ALLERGIES No Information ENCOUNTERS Encounter Location Date Diagnosis [facility] [id number] [place] [address] 38933- 9052 Nov, Medicare annual wellness visit, initial Z00.00 [facility] [id number], [place] [address] Oct, Other chronic pain G89.29 [facility] [id number] [address] 16 Oct, 2017 [facility] [id number] [place] [address] 00954- 7422 Oct, [facility] [address] [place] [address] 31983- 9601 Oct, Low back pain M54.5 [facility] [id number] [place] [address] 55830- 2076 Oct, [facility] [id number] [place] [address] 29725- 9769 Oct, Low back pain M54.5 and COPD with exacerbation J44.1 [facility] [id number] [place] [address] 51573- 4592 Oct, Chronic obstructive pulmonary disease, unspecified COPD type J44.9 and COPD with exacerbation J44.1 [facility] [id number] [place] [address] 21257- 3708 Sep, Low back pain M54.5 [facility] [id number] [place] [address] 58396 -8965 Aug, Acute exacerbation of chronic obstructive pulmonary disease (COPD) J44.1 [facility] [address], [place] [address] Aug, [facility] [address] [place] [address] 76987- 9969 Aug, Muscle spasms of both lower extremities M62.838 [facility] [id number] [place] [address] 52253- 2186 Aug, Muscle spasms of both lower extremities M62.838 [facility] [id number] [place] [address] 61379- 2065 Aug, Low back pain M54.5 [facility] [address] [place] [address] 63453- 8523 Jul, Low back pain M54.5 ; Seasonal allergic rhinitis, unspecified allergic rhinitis trigger J30.2 and Muscle spasms of both lower extremities M62.838 [facility] [id number] [place] [address] 82105- 3117 Jul, [facility] [id number] [place] [address] 64598- 8596 Jun, Low back pain M54.5 [facility] [address] 75677- 9595 May, [place] [address] 36041- 8202 May, Fall, subsequent encounter W19.XXXD ; Post concussion syndrome F07.81 ; Chronic seasonal allergic rhinitis due to other allergen J30.2 ; Muscle spasms of both lower extremities M62.838 ; BERYL (obstructive sleep apnea) G47.33 and Encounter for immunization Z23 [place] [address] 08790- 9812 May, [place] [address] 29088- 8721 May, Low back pain M54.5 [facility] [id number] [place] [address] 03450- 6492 Apr, BERYL (obstructive sleep apnea) G47.33 [place] [id number] [place] [address] 83211- 8683 Apr, [place] [id number] [place] [address] 75563- 6877 Apr, [place] [address] 53170- 0958 Apr, Muscle spasms of both lower extremities M62.838 [place] [id number] [place] [address] 44347- 0594 Apr, Polio A80.9 ; Muscle spasms of both lower extremities M62.838 and Trigger middle finger of right hand M65.331 [place] [id number] [place] [address] 61457- 9761 08 Apr, 2017 Low back pain M54.5 [place] [id number] [place] [address] 97193- 1437 Mar, Low back pain M54.5 [place] [id number] [place] [address] 99182- 5519 Mar, [place] [id number] [place] [address] 01332- 3247 Mar, [place] [id number] [place] [address] 85720- 8820 Feb, Low back pain M54.5 ; Other chronic pain G89.29 ; Seasonal allergic rhinitis, unspecified allergic rhinitis trigger J30.2 and COPD with exacerbation J44.1 [place] [id number] [place] [address] 36329- 4172 Feb, Chronic obstructive pulmonary disease, unspecified COPD type J44.9 [place] [id number] [place] [address] 21803- 9665 Feb, Low back pain M54.5 ; Seasonal allergic rhinitis, unspecified allergic rhinitis trigger J30.2 ; Mixed stress and urge urinary incontinence N39.46 ; BERYL (obstructive sleep apnea) G47.33 and Trigger middle finger of right hand M65.331 [place] [address] [place] [address] 62820- 2770 Feb, [place] [id number] [place] [address] 69916- 8725 Feb, Low back pain M54.5 [place] [id number] [place] [address] [id number] Jan, Trigger finger, unspecified finger, unspecified laterality M65.30 [place] [address] [id number] Jan, [facility] [id number] [place] [address] 32484- 0941 Jan, [facility] [id number] [place] [address] 54457- 8344 Jan, COPD with exacerbation J44.1 [facility] [id number] [place] [address] 22062- 0779 Jan, COPD with exacerbation J44.1 [facility] [id number] [place] [address] 52288- 6707 Jan, COPD with exacerbation J44.1 [facility] [id number] [place] [address] 19496- 8178 Jan, Low back pain M54.5 [facility] [id number] [place] [address] 28034- 0961 December, Low back pain M54.5 [facility] [id number] [place] [address] 96465- 8155 Nov, Seasonal allergic rhinitis, unspecified allergic rhinitis trigger J30.2 [facility] [id number] [place] [address] 66934- 6817 Nov, [facility] [id number] [place] [address] 86096- 7288 Nov, [facility] [id number] [place] [address] 13294- 1915 Nov, Seasonal allergic rhinitis, unspecified allergic rhinitis trigger J30.2 ; Mixed stress and urge urinary incontinence N39.46 and Non- insulin dependent type 2 diabetes mellitus E11.9 [facility] [id number] [place] [address] 58978- 1798 Nov, [facility] [id number] [place] [address] 23164- 0216 Oct, Low back pain M54.5 [facility] [id number] [place] [address] 22791- 3835 14 Oct, 2016 Acute suppurative otitis media of left ear without spontaneous rupture of tympanic membrane, recurrence not specified H66.002 [facility] [address] [place] [address] 11400- 3667 09 Oct, 2016 [facility] [id number] [place] [address] 12744 -2621 07 Oct, 2016 Bronchitis J40 [facility] [id number] [place] [address] 43348- 6530 Oct, [facility] [id number] [place] [address] 20566- 8979 Oct, Low back pain M54.5 [place] [id number] [place] [address] 22241- 3115 24 Sep, 2016 Polio A80.9 ; Wheelchair bound Z99.3 and Weakness of both legs R29.898 [facility] [id number] [place] [address] 82468- 0312 Sep, COPD with exacerbation J44.1 ; Polio A80.9 ; Weakness of both legs R29.898 ; Wheelchair bound Z99.3 and Low back pain M54.5 [facility] [id number] [place] [address] 03252- 3500 Sep, Low back pain M54.5 [facility] [id number] [place] [address] 90402- 9303 Sep, Low back pain M54.5 [place] [id number] [place] [address] 35698- 5855 Aug, Weakness of both legs R29.898 ; Wheelchair bound Z99.3 and Polio A80.9 [facility] [address] [place] [address] 73734- 7839 Aug, Polio A80.9 ; Other chronic pain G89.29 ; Dependence on other enabling machines and devices Z99.89 ; Obstructive sleep apnea (adult) ( pediatric) G47.33 and Chronic obstructive pulmonary disease, unspecified COPD type J44.9 [facility] [id number] [place] [address] 72816 -5171 Aug, Bronchitis J40 and Sprain of right knee, unspecified ligament, initial encounter S83.91XA [facility] [address] 02651- 6700 Aug, [facility] [address] 63519- 1646 Aug, [facility] [address] 06795- 5446 Aug, [facility] [address] 77009- 5048 Aug, [facility] [address] 63091- 9895 Aug, [facility] [id number] [place] [address] 24869- 9187 Aug, Low back pain M54.5 [facility] [id number] [place] [address] 34445 -9221 Aug, Acute non-recurrent frontal sinusitis J01.10 [facility] [id number] [place] [address] 10226- 6375 Jul, Chronic obstructive pulmonary disease, unspecified COPD type J44.9 and Low back pain M54.5 [facility] [id number] [place] [address] 14884- 7506 Jul, Low back pain M54.5 [facility] [id number] [place] [address] 07517- 9271 Jul, Low back pain M54.5 [facility] [id number] [place] [address] 91493- 5181 Jul, Dental examination Z01.20 and Chronic obstructive pulmonary disease, unspecified COPD type J44.9 [facility] [address] [address]- 5110 Jul, [facility] [id number] [place] [address] 25978- 6205 Jul, Low back pain M54.5 and Chronic obstructive pulmonary disease, unspecified COPD type J44.9 [facility] [id number] [place] [address] 82515- 9966 Jun, [facility] [id number] [place] [address] 41298- 5000 Jun, Chronic obstructive pulmonary disease, unspecified COPD type J44.9 ; Low back pain M54.5 ; Allergy, sequela T78.40XS and Cigarette nicotine dependence without complication F17.210 [facility] [id number] [place] [address] 90545- 6954 May, [facility] [id number] [place] [address] 55350- 5584 May, [facility] [id number] [place] [address] 65059- 0913 May, Dental examination Z01.20 [facility] [address] [place] [address] 11983 -4423 May, Pneumonia of both lower lobes due to infectious organism J18.9 [facility] [address], [place] [address]- 0552 May, [facility] [id number] [place] [address] 37789- 2165 May, [facility] [id number] [place] [address] 37181- 1093 May, [facility] [id number] [place] [address] 45227- 6903 May, [facility] [id number] [place] [address]- 2668 03 May, 2016 Bronchitis J40 and Low back pain M54.5 [facility] [address] [place] [address] 04813- 4337 15 Apr, 2016 [facility] [address] [place] [address] 25416 -7523 14 Apr, 2016 Pneumonia of left lower lobe due to infectious organism J18.9 ; Cellulitis of right leg L03.115 and 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 [place] [address] [place] [address] 74945- 7621 14 Apr, 2016 [place] [id number] [place] [address] 56990- 5257 06 Apr, 2016 Chronic obstructive pulmonary disease, unspecified COPD type J44.9 ; Low back pain M54.5 ; Other chronic pain G89.29 and Polio A80.9 [place] [address] [place] [address] 85630- 6265 02 Apr, 2016 IMMUNIZATIONS No Known Immunizations SOCIAL HISTORY Never Assessed REASON FOR VISIT Requests return call PLAN OF CARE VITAL SIGNS MEDICATIONS Medication Instructions Dosage Frequency Start Date End Date Duration Status Singulair 10 mg Orally Once a day 1 tablet in the evening 24h Nov, 30 day(s) Active Tizanidine HCl 4 MG Orally Three times a day 1 tablet as needed 8h Active Valsartan 160 MG Orally Once a day 1 tablet 24h 30 Active Naproxen 500 mg Orally every 12 hrs 1 tablet as needed 12h Sep, 30 days Active RESULTS No Results PROCEDURES No [...]
--- OUTSIDE RECORDS SUMMARY | 2018-01-09 08:20 | XMS REPORT ---
Author Author CARY CRESOP Organization [facility] Address [address] [place] [address] Care Team Providers Care Assistant Athletic Trainer Name Role Phone CARY CRESPO Unavailable PROBLEMS Type Condition ICD9-CM Code ZCH81-UP Code Onset Dates Condition Status SNOMED Code Problem Weakness of both legs R29.898 Active 4839276 Problem Seasonal allergic rhinitis, unspecified allergic rhinitis trigger J30.2 Active 201758165 Problem Non-insulin dependent type 2 diabetes mellitus E11.9 Active 83729187 Problem Acute exacerbation of chronic obstructive pulmonary disease (COPD) J44.1 Active 017158049 Problem Chronic seasonal allergic rhinitis due to other allergen J30.2 Active 516859020 Problem BERYL (obstructive sleep apnea) G47.33 Active 38151033 Problem Mixed stress and urge urinary incontinence N39.46 Active 724066305 Problem Post concussion syndrome F07.81 Active 75931232 Problem Muscle spasms of both lower extremities M62.838 Active 758972270 Problem Polio A80.9 Active 062345522 Problem Chronic obstructive pulmonary disease, unspecified COPD type J44.9 Active 17788450 Problem Cigarette nicotine dependence without complication F17.210 Active 80249648 Problem Obstructive sleep apnea (adult) (pediatric) G47.33 Active 88375624 Problem Low back pain M54.5 Active 620311342 Problem Dependence on other enabling machines and devices Z99.89 Active 085124719 Problem Other chronic pain G89.29 Active 40593097 Problem Wheelchair bound Z99.3 Active 061991624 ALLERGIES No Information ENCOUNTERS Encounter Location Date Diagnosis [facility] [id number] [place] [address] 21888- 2698 Nov, Medicare annual wellness visit, initial Z00.00 [facility] [id number], [place] [address] Oct, Other chronic pain G89.29 [facility] [id number], [place] [address] 16 Oct, 2017 [facility] [id number] [place] [address] 82743- 8751 Oct, [facility] [id number] [place] [address] 77403- 7330 Oct, Low back pain M54.5 [facility] [id number] [place] [address] 37757- 3985 Oct, [facility] [id number] [place] [address] 54569- 8988 Oct, Low back pain M54.5 and COPD with exacerbation J44.1 [facility] [id number] [place] [address] 45640- 5536 Oct, Chronic obstructive pulmonary disease, unspecified COPD type J44.9 and COPD with exacerbation J44.1 [facility] [id number] [place] [address] 96124- 1556 Sep, Low back pain M54.5 [facility] [id number] [place] [address] 67550 -0083 Aug, Acute exacerbation of chronic obstructive pulmonary disease (COPD) J44.1 [facility] [address], [place] [address] Aug, [facility] [id number] [place] [address] 15674- 3705 Aug, Muscle spasms of both lower extremities M62.838 [facility] [id number] [place] [address] 14551- 5396 Aug, Muscle spasms of both lower extremities M62.838 [facility] [id number] [place] [address] 60545- 5946 Aug, Low back pain M54.5 [facility] [address] [place] [address] 63668- 3976 Jul, Low back pain M54.5 ; Seasonal allergic rhinitis, unspecified allergic rhinitis trigger J30.2 and Muscle spasms of both lower extremities M62.838 [facility] [id number] [place] [address] 22833- 1486 Jul, [facility] [id number] [place] [address] 04729- 6450 Jun, Low back pain M54.5 [facility] [address] 25707- 0950 May, [place] [address] 23041- 0735 May, Fall, subsequent encounter W19.XXXD ; Post concussion syndrome F07.81 ; Chronic seasonal allergic rhinitis due to other allergen J30.2 ; Muscle spasms of both lower extremities M62.838 ; BERYL (obstructive sleep apnea) G47.33 and Encounter for immunization Z23 [place] [address] 98674- 1703 May, [place] [address] 82411- 6821 May, Low back pain M54.5 [facility] [id number] [place] [address] 01702- 5429 Apr, BERYL (obstructive sleep apnea) G47.33 [place] [id number] [place] [address] 40840- 5418 Apr, [place] [id number] [place] [address] 89216- 1932 Apr, [place] [address] 51139- 4207 Apr, Muscle spasms of both lower extremities M62.838 [place] [id number] [place] [address] 80068- 6002 Apr, Polio A80.9 ; Muscle spasms of both lower extremities M62.838 and Trigger middle finger of right hand M65.331 [place] [id number] [place] [address] 82816- 8350 08 Apr, 2017 Low back pain M54.5 [place] [id number] [place] [address] 40940- 3965 Mar, Low back pain M54.5 [place] [id number] [place] [address] 03500- 9532 Mar, [place] [id number] [place] [address] 16013- 0174 Mar, [place] [id number] [place] [address] 58290- 7095 Feb, Low back pain M54.5 ; Other chronic pain G89.29 ; Seasonal allergic rhinitis, unspecified allergic rhinitis trigger J30.2 and COPD with exacerbation J44.1 [place] [id number] [place] [address] 19891- 0838 Feb, Chronic obstructive pulmonary disease, unspecified COPD type J44.9 [place] [id number] [place] [address] 15677- 9309 Feb, Low back pain M54.5 ; Seasonal allergic rhinitis, unspecified allergic rhinitis trigger J30.2 ; Mixed stress and urge urinary incontinence N39.46 ; BERYL (obstructive sleep apnea) G47.33 and Trigger middle finger of right hand M65.331 [place] [address] [place] [address] 84921- 3577 Feb, [place] [id number] [place] [address] 21898- 7292 Feb, Low back pain M54.5 [place] [id number] [place] [address] [id number] Jan, Trigger finger, unspecified finger, unspecified laterality M65.30 [place] [address] [id number] Jan, [facility] [id number] [place] [address] 23479- 9375 Jan, [facility] [id number] [place] [address] 43080- 2791 Jan, COPD with exacerbation J44.1 [facility] [id number] [place] [address] 44904- 7002 Jan, COPD with exacerbation J44.1 [facility] [id number] [place] [address] 58601- 8860 Jan, COPD with exacerbation J44.1 [facility] [id number] [place] [address] 00587- 4253 Jan, Low back pain M54.5 [facility] [id number] [place] [address] 04986- 8898 December, Low back pain M54.5 [facility] [id number] [place] [address] 62110- 1524 Nov, Seasonal allergic rhinitis, unspecified allergic rhinitis trigger J30.2 [facility] [id number] [place] [address] 50149- 4544 Nov, [facility] [id number] [place] [address] 05411- 5293 Nov, [facility] [id number] [place] [address] 03630- 9516 Nov, Seasonal allergic rhinitis, unspecified allergic rhinitis trigger J30.2 ; Mixed stress and urge urinary incontinence N39.46 and Non- insulin dependent type 2 diabetes mellitus E11.9 [facility] [id number] [place] [address] 91053- 8727 Nov, [facility] [id number] [place] [address] 31196- 2390 Oct, Low back pain M54.5 [facility] [id number] [place] [address] 57417- 4247 14 Oct, 2016 Acute suppurative otitis media of left ear without spontaneous rupture of tympanic membrane, recurrence not specified H66.002 [facility] [address] [place] [address] 18206- 2392 09 Oct, 2016 [facility] [id number] [place] [address] 30705 -0695 07 Oct, 2016 Bronchitis J40 [facility] [id number] [place] [address] 96875- 9482 Oct, [facility] [id number] [place] [address] 96383- 1163 Oct, Low back pain M54.5 [place] [id number] [place] [address] 95715- 8219 24 Sep, 2016 Polio A80.9 ; Wheelchair bound Z99.3 and Weakness of both legs R29.898 [facility] [id number] [place] [address] 26012- 5165 Sep, COPD with exacerbation J44.1 ; Polio A80.9 ; Weakness of both legs R29.898 ; Wheelchair bound Z99.3 and Low back pain M54.5 [facility] [id number] [place] [address] 32988- 1522 Sep, Low back pain M54.5 [facility] [id number] [place] [address] 83734- 9067 Sep, Low back pain M54.5 [place] [id number] [place] [address] 41879- 0823 Aug, Weakness of both legs R29.898 ; Wheelchair bound Z99.3 and Polio A80.9 [facility] [address] [place] [address] 28956- 4853 Aug, Polio A80.9 ; Other chronic pain G89.29 ; Dependence on other enabling machines and devices Z99.89 ; Obstructive sleep apnea (adult) ( pediatric) G47.33 and Chronic obstructive pulmonary disease, unspecified COPD type J44.9 [facility] [id number] [place] [address] 70317 -0229 Aug, Bronchitis J40 and Sprain of right knee, unspecified ligament, initial encounter S83.91XA [facility] [address] 40879- 3697 Aug, [facility] [address] 34523- 2775 Aug, [facility] [address] 86888- 9559 Aug, [facility] [address] 57454- 8111 Aug, [facility] [address] 49180- 4577 Aug, [facility] [id number] [place] [address] 67838- 1499 Aug, Low back pain M54.5 [facility] [id number] [place] [address] 86593 -8379 Aug, Acute non-recurrent frontal sinusitis J01.10 [facility] [id number] [place] [address] 64528- 7587 Jul, Chronic obstructive pulmonary disease, unspecified COPD type J44.9 and Low back pain M54.5 [facility] [id number] [place] [address] 75542- 1170 Jul, Low back pain M54.5 [facility] [id number] [place] [address] 57084- 6859 Jul, Low back pain M54.5 [facility] [id number] [place] [address] 19745- 1351 Jul, Dental examination Z01.20 and Chronic obstructive pulmonary disease, unspecified COPD type J44.9 [facility] [address], [place] [address]- 5068 Jul, [facility] [id number] [place] [address] 14177- 7517 Jul, Low back pain M54.5 and Chronic obstructive pulmonary disease, unspecified COPD type J44.9 [facility] [id number] [place] [address] 87726- 2784 Jun, [facility] [id number] [place] [address] 11375- 5592 Jun, Chronic obstructive pulmonary disease, unspecified COPD type J44.9 ; Low back pain M54.5 ; Allergy, sequela T78.40XS and Cigarette nicotine dependence without complication F17.210 [facility] [id number] [place] [address] 84493- 1494 May, [facility] [id number] [place] [address] 56841- 3276 May, [facility] [id number] [place] [address] 66340- 9184 May, Dental examination Z01.20 [facility] [id number] [place] [address] 93413 -3065 May, Pneumonia of both lower lobes due to infectious organism J18.9 [facility] [address], [place] [address]- 2908 May, [facility] [id number] [place] [address] 06559- 1139 May, [facility] [id number] [place] [address] 73055- 2448 May, [facility] [id number] [place] [address] 27941- 7823 May, [facility] [id number], [place] [address]- 7295 03 May, 2016 Bronchitis J40 and Low back pain M54.5 [facility] [id number] [place] [address] 10960- 5026 15 Apr, 2016 [facility] [id number] [place] [address] 43072 -8973 14 Apr, 2016 Pneumonia of left lower lobe due to infectious organism J18.9 ; Cellulitis of right leg L03.115 and 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 [place] [id number] [place] [address] 90907- 6563 14 Apr, 2016 [place] [id number] [place] [address] 55019- 6646 06 Apr, 2016 Chronic obstructive pulmonary disease, unspecified COPD type J44.9 ; Low back pain M54.5 ; Other chronic pain G89.29 and Polio A80.9 [place] [id number] [place] [address] 64298- 6716 02 Apr, 2016 IMMUNIZATIONS No Known Immunizations SOCIAL HISTORY Never Assessed 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
--- OUTSIDE RECORDS SUMMARY | 2018-01-09 08:20 | XMS REPORT ---
Author Author CARY CRESPO [facility] Address [address] [place] [address] Care Team Providers Care Printer Slotter Helper Name Role Phone CARY CRESPO Unavailable PROBLEMS Type Condition ICD9-CM Code CMH45-WI Code Onset Dates Condition Status SNOMED Code Problem Weakness of both legs R29.898 Active 2701284 Problem Seasonal allergic rhinitis, unspecified allergic rhinitis trigger J30.2 Active 812992149 Problem Non-insulin dependent type 2 diabetes mellitus E11.9 Active 58945990 Problem Acute exacerbation of chronic obstructive pulmonary disease (COPD) J44.1 Active 972913410 Problem Chronic seasonal allergic rhinitis due to other allergen J30.2 Active 519752226 Problem BERYL (obstructive sleep apnea) G47.33 Active 69132585 Problem Mixed stress and urge urinary incontinence N39.46 Active 000789822 Problem Post concussion syndrome F07.81 Active 79888100 Problem Muscle spasms of both lower extremities M62.838 Active 819182263 Problem Polio A80.9 Active 174472656 Problem Chronic obstructive pulmonary disease, unspecified COPD type J44.9 Active 91603080 Problem Cigarette nicotine dependence without complication F17.210 Active 63017564 Problem Obstructive sleep apnea (adult) (pediatric) G47.33 Active 77879917 Problem Low back pain M54.5 Active 738150951 Problem Dependence on other enabling machines and devices Z99.89 Active 792613759 Problem Other chronic pain G89.29 Active 40400748 Problem Wheelchair bound Z99.3 Active 955433471 ALLERGIES No Information ENCOUNTERS Encounter Location Date Diagnosis [facility] [id number] [place] [address] 52442- 4542 Nov, Medicare annual wellness visit, initial Z00.00 [facility] [id number] [address] Oct, [facility] [address] [facility] [id number], [place] [address] 16 Oct, 2017 [facility] [address] [facility] [id number], [place] [address] Oct, [facility] [address] [facility] [id number], [place] [address] Oct, Low back pain M54.5 [facility] [address] [facility] [id number] [place] [address] 79910- 4632 Oct, [facility] [id number] [place] [address] 85394- 6697 Oct, Low back pain M54.5 and COPD with exacerbation J44.1 [facility] [address] [address] Oct, Chronic obstructive pulmonary disease, unspecified COPD type J44.9 and COPD with exacerbation J44.1 [facility] [address], [place] [address] Sep, Low back pain M54.5 [facility] [address] [address] Aug, Acute exacerbation of chronic obstructive pulmonary disease (COPD) J44.1 [facility] [address], [place] [address] Aug, [facility] [address], [place] [address] Aug, Muscle spasms of both lower extremities M62.838 [facility] [address] [facility] [id number], [place] [address] Aug, Muscle spasms of both lower extremities M62.838 [facility] [id number], [place] [address] Aug, Low back pain M54.5 [facility] [id number], [place] [address] Jul, Low back pain M54.5 ; Seasonal allergic rhinitis, unspecified allergic rhinitis trigger J30.2 and Muscle spasms of both lower extremities M62.838 [facility] [id number] [place] [address] 38437- 9444 Jul, [facility] [id number] [place] [address] 50259- 4849 Jun, Low back pain M54.5 [facility] [address] [address]- [address] May, [place] [address] [address]15 May, Fall, subsequent encounter W19.XXXD ; Post concussion syndrome F07.81 ; Chronic seasonal allergic rhinitis due to other allergen J30.2 ; Muscle spasms of both lower extremities M62.838 ; BERYL (obstructive sleep apnea) G47.33 and Encounter for immunization Z23 [place] [address] [address] May, [place] [address] 6[address]74- 6529 May, Low back pain M54.5 [facility] [id number] [place] [address] 33542- 6349 Apr, BERYL (obstructive sleep apnea) G47.33 [place] [id number] [place] [address] 48166- 2547 Apr, [place] [id number] [place] [address] 66550- 5420 Apr, [facility] [address] 0[address]- 1482 Apr, Muscle spasms of both lower extremities M62.838 [facility] [id number] [place] [address] 22679- 2850 Apr, Polio A80.9 ; Muscle spasms of both lower extremities M62.838 and Trigger middle finger of right hand M65.331 [place] [id number] [place] [address] 44044- 3069 Apr, Low back pain M54.5 [place] [id number] [place] [address] 12746- 2991 Mar, Low back pain M54.5 [place] [id number] [place] [address] 09169- 8104 Mar, [place] [id number] [place] [address] 04224- 4293 Mar, [place] [id number] [place] [address] 25325- 9074 Feb, Low back pain M54.5 ; Other chronic pain G89.29 ; Seasonal allergic rhinitis, unspecified allergic rhinitis trigger J30.2 and COPD with exacerbation J44.1 [place] [id number] [place] [address] 24794- 8671 Feb, Chronic obstructive pulmonary disease, unspecified COPD type J44.9 [place] [id number] [place] [address] 48862- 7002 Feb, Low back pain M54.5 ; Seasonal allergic rhinitis, unspecified allergic rhinitis trigger J30.2 ; Mixed stress and urge urinary incontinence N39.46 ; BERYL (obstructive sleep apnea) G47.33 and Trigger middle finger of right hand M65.331 [place] [id number] [place] [address] 82512- 4170 Feb, [place] [id number] [place] [address] 10050- 9279 Feb, Low back pain M54.5 [place] [id number] [place] [address] [id number] Jan, Trigger finger, unspecified finger, unspecified laterality M65.30 [place] [address] [id number] Jan, [facility] [id number] [place] [address] 97705- 3780 Jan, [facility] [id number] [place] [address] 63088- 1618 Jan, COPD with exacerbation J44.1 [facility] [id number] [place] [address] 87569- 4111 Jan, COPD with exacerbation J44.1 [facility] [id number] [place] [address] 14518- 9072 Jan, COPD with exacerbation J44.1 [facility] [address] 53961- 5195 Jan, Low back pain M54.5 [facility] [address] 40354- 4748 December, Low back pain M54.5 [facility] [id number] [place] [address] 62349- 0479 Nov, Seasonal allergic rhinitis, unspecified allergic rhinitis trigger J30.2 [facility] [id number] [place] [address] 87457- 5176 Nov, [facility] [id number] [place] [address] 66363- 9807 Nov, [facility] [id number] [place] [address] 13427- 4457 Nov, Seasonal allergic rhinitis, unspecified allergic rhinitis trigger J30.2 ; Mixed stress and urge urinary incontinence N39.46 and Non- insulin dependent type 2 diabetes mellitus E11.9 [facility] [id number] [place] [address] 84220- 6518 Nov, [facility] [id number] [place] [address] 21346- 1207 Oct, Low back pain M54.5 [facility] [address] [place] [address]- 3477 14 Oct, 2016 Acute suppurative otitis media of left ear without spontaneous rupture of tympanic membrane, recurrence not specified H66.002 [facility] [id number] [place] [address] 92623- 9992 09 Oct, 2016 [facility] [id number] [place] [address] 97443 -2019 07 Oct, 2016 Bronchitis J40 [facility] [address] 96691- 0629 Oct, [facility] [id number] [place] [address] 16255- 5797 Oct, Low back pain M54.5 [facility] [id number] [place] [address] 03104- 6964 24 Sep, 2016 Polio A80.9 ; Wheelchair bound Z99.3 and Weakness of both legs R29.898 [facility] [id number] [place] [address] 91109- 3337 Sep, COPD with exacerbation J44.1 ; Polio A80.9 ; Weakness of both legs R29.898 ; Wheelchair bound Z99.3 and Low back pain M54.5 [facility] [id number] [place] [address] 25222- 1410 Sep, Low back pain M54.5 [place] [id number] [place] [address] 99309- 1837 Sep, Low back pain M54.5 [facility] [id number] [place] [address] 63278- 8102 Aug, Weakness of both legs R29.898 ; Wheelchair bound Z99.3 and Polio A80.9 [facility] [id number] [place] [address] 16477- 7112 Aug, Polio A80.9 ; Other chronic pain G89.29 ; Dependence on other enabling machines and devices Z99.89 ; Obstructive sleep apnea (adult) ( pediatric) G47.33 and Chronic obstructive pulmonary disease, unspecified COPD type J44.9 [facility] [id number] [place] [address] 44174 -7692 Aug, Bronchitis J40 and Sprain of right knee, unspecified ligament, initial encounter S83.91XA [facility] [id number] [place] [address] 81918- 2011 Aug, [facility] [address] 03530- 1068 Aug, [facility] [address] 16804- 0885 Aug, [facility] [address] 30384- 9752 Aug, [facility] [address] 86038- 1818 Aug, [facility] [id number] [place] [address] 55975- 8205 Aug, Low back pain M54.5 [facility] [address] [address] -[address]63 Aug, Acute non-recurrent frontal sinusitis J01.10 [facility] [id number] [place] [address] 14539- 9305 Jul, Chronic obstructive pulmonary disease, unspecified COPD type J44.9 and Low back pain M54.5 [facility] [id number] [place] [address] 84012- 8921 Jul, Low back pain M54.5 [facility] [id number] [place] [address] 95416- 1200 Jul, Low back pain M54.5 [facility] [id number] [place] [address] 70948- 6018 Jul, Dental examination Z01.20 and Chronic obstructive pulmonary disease, unspecified COPD type J44.9 [facility] [id number] [place] [address] 20946- 1456 Jul, [facility] [id number] [place] [address] 55499- 3700 Jul, Low back pain M54.5 and Chronic obstructive pulmonary disease, unspecified COPD type J44.9 [facility] [id number] [place] [address] 42412- 0223 Jun, [facility] [id number] [place] [address] 48136- 4903 Jun, Chronic obstructive pulmonary disease, unspecified COPD type J44.9 ; Low back pain M54.5 ; Allergy, sequela T78.40XS and Cigarette nicotine dependence without complication F17.210 [facility] [id number] [place] [address] 62304- 0897 May, [facility] [id number] [place] [address] 11066- 7624 May, [facility] [id number] [place] [address] 10813- 7015 May, Dental examination Z01.20 [facility] [id number] [place] [address] 83776 -0840 May, Pneumonia of both lower lobes due to infectious organism J18.9 [facility] [id number] [place] [address] 84040- 2217 May, [facility] [id number] [place] [address] 24255- 1174 May, [facility] [id number] [place] [address] 69297- 3201 May, [facility] [id number] [place] [address] 66642- 8261 May, [facility] [id number] [place] [address] 66009- 7668 May, Bronchitis J40 and Low back pain M54.5 [facility] [address], [place] [address]- [address] 15 Apr, 2016 [facility] [address], [place] [address] 14 Apr, 2016 Pneumonia of left lower lobe due to infectious organism J18.9 ; Cellulitis of right leg L03.115 and 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 [facility] [address], [place] [address]- 7159 14 Apr, 2016 [facility] [id number] [place] [address] 31297- 5725 06 Apr, 2016 Chronic obstructive pulmonary disease, unspecified COPD type J44.9 ; Low back pain M54.5 ; Other chronic pain G89.29 and Polio A80.9 [facility] [address] [address]- 8086 02 Apr, 2016 IMMUNIZATIONS No Known Immunizations SOCIAL HISTORY Never Assessed REASON FOR VISIT Refill Request PLAN OF CARE VITAL SIGNS MEDICATIONS Medication Instructions Dosage Frequency Start Date End Date Duration Status Naproxen 500 mg Orally every 12 hrs [...]
--- OUTSIDE RECORDS SUMMARY | 2018-01-09 08:21 | XMS REPORT ---
Author Author CARY CRESPO Organization [facility] Address [address] [place] [address] Care Team Providers Care Process Engineering Manager Name Role Phone CARY CRESPO Unavailable PROBLEMS Type Condition ICD9-CM Code GHH45-CE Code Onset Dates Condition Status SNOMED Code Problem Weakness of both legs R29.898 Active 7204535 Problem Seasonal allergic rhinitis, unspecified allergic rhinitis trigger J30.2 Active 944689527 Problem Non-insulin dependent type 2 diabetes mellitus E11.9 Active 32288273 Problem Acute exacerbation of chronic obstructive pulmonary disease (COPD) J44.1 Active 670910638 Problem Chronic seasonal allergic rhinitis due to other allergen J30.2 Active 393086201 Problem BERYL (obstructive sleep apnea) G47.33 Active 07633230 Problem Mixed stress and urge urinary incontinence N39.46 Active 494294613 Problem Post concussion syndrome F07.81 Active 80321252 Problem Muscle spasms of both lower extremities M62.838 Active 747949961 Problem Polio A80.9 Active 474207592 Problem Chronic obstructive pulmonary disease, unspecified COPD type J44.9 Active 64916370 Problem Cigarette nicotine dependence without complication F17.210 Active 73186409 Problem Obstructive sleep apnea (adult) (pediatric) G47.33 Active 16701014 Problem Low back pain M54.5 Active 822771686 Problem Dependence on other enabling machines and devices Z99.89 Active 819994076 Problem Other chronic pain G89.29 Active 32880105 Problem Wheelchair bound Z99.3 Active [id number] ALLERGIES No Information ENCOUNTERS Encounter Location Date Diagnosis [facility] [id number] [place] [address] 29632- 4355 Nov, Medicare annual wellness visit, initial Z00.00 [facility] [id number] [address] Oct, Other chronic pain G89.29 [facility] [id number] [address] 16 Oct, 2017 [facility] [id number] [place] [address] 25189- 7010 Oct, [facility] [id number] [place] [address] 54554- 4360 Oct, Low back pain M54.5 [facility] [id number] [place] [address] 71142- 4557 Oct, [facility] [id number] [place] [address] 44597- 5473 Oct, Low back pain M54.5 and COPD with exacerbation J44.1 [facility] [id number] [place] [address] 84639- 8483 Oct, Chronic obstructive pulmonary disease, unspecified COPD type J44.9 and COPD with exacerbation J44.1 [facility] [id number] [place] [address] 08674- 6830 Sep, Low back pain M54.5 [facility] IN [facility] [id number] [place] [address] 54402 -9849 Aug, Acute exacerbation of chronic obstructive pulmonary disease (COPD) J44.1 [facility] [address] [address] Aug, [facility] [id number] [place] [address] 89634- 0480 Aug, Muscle spasms of both lower extremities M62.838 [facility] [id number] [place] [address] 76014- 9009 Aug, Muscle spasms of both lower extremities M62.838 [facility] [id number] [place] [address] 37685- 2487 Aug, Low back pain M54.5 [facility] [id number] [place] [address] 25632- 8639 Jul, Low back pain M54.5 ; Seasonal allergic rhinitis, unspecified allergic rhinitis trigger J30.2 and Muscle spasms of both lower extremities M62.838 [facility] [id number] [place] [address] 87777- 6418 Jul, [facility] [id number] [place] [address] 71769- 2936 Jun, Low back pain M54.5 [facility] [address] 65341- 8732 May, [place] [address] 55619- 8249 May, Fall, subsequent encounter W19.XXXD ; Post concussion syndrome F07.81 ; Chronic seasonal allergic rhinitis due to other allergen J30.2 ; Muscle spasms of both lower extremities M62.838 ; BERYL (obstructive sleep apnea) G47.33 and Encounter for immunization Z23 [place] [address] 55764- 9705 May, [place] [address] 90277- 5023 May, Low back pain M54.5 [facility] [id number] [place] [address] 06079- 0413 Apr, BERYL (obstructive sleep apnea) G47.33 [place] [id number] [place] [address] 66154- 5368 Apr, [place] [id number] [place] [address] 17720- 4664 Apr, [place] [address] 74339- 4907 Apr, Muscle spasms of both lower extremities M62.838 [place] [id number] [place] [address] 78872- 9051 Apr, Polio A80.9 ; Muscle spasms of both lower extremities M62.838 and Trigger middle finger of right hand M65.331 [place] [id number] [place] [address] 06994- 9171 08 Apr, 2017 Low back pain M54.5 [place] [id number] [place] [address] 10439- 9707 Mar, Low back pain M54.5 [place] [id number] [place] [address] 32829- 8926 Mar, [place] [id number] [place] [address] 58535- 5168 Mar, [place] [id number] [place] [address] 77995- 0474 Feb, Low back pain M54.5 ; Other chronic pain G89.29 ; Seasonal allergic rhinitis, unspecified allergic rhinitis trigger J30.2 and COPD with exacerbation J44.1 [place] [id number] [place] [address] 40262- 1557 Feb, Chronic obstructive pulmonary disease, unspecified COPD type J44.9 [place] [id number] [place] [address] 93088- 9561 Feb, Low back pain M54.5 ; Seasonal allergic rhinitis, unspecified allergic rhinitis trigger J30.2 ; Mixed stress and urge urinary incontinence N39.46 ; BERYL (obstructive sleep apnea) G47.33 and Trigger middle finger of right hand M65.331 [place] [id number] [place] [address] 06214- 8088 Feb, [place] [id number] [place] [address] 92362- 3555 Feb, Low back pain M54.5 [place] [id number] [place] [address] [id number] Jan, Trigger finger, unspecified finger, unspecified laterality M65.30 [place] [address] [id number] Jan, [facility] [id number] [place] [address] 76140- 8267 Jan, [facility] [id number] [place] [address] 42280- 6973 Jan, COPD with exacerbation J44.1 [facility] [id number] [place] [address] 83080- 4165 Jan, COPD with exacerbation J44.1 [facility] [id number] [place] [address] 88336- 3464 Jan, COPD with exacerbation J44.1 [facility] [id number] [place] [address] 17855- 3297 Jan, Low back pain M54.5 [facility] [id number] [place] [address] 46914- 0130 December, Low back pain M54.5 [facility] [id number] [place] [address] 88929- 3606 Nov, Seasonal allergic rhinitis, unspecified allergic rhinitis trigger J30.2 [facility] [id number] [place] [address] 67862- 4232 Nov, [facility] [id number] [place] [address] 89844- 5572 Nov, [facility] [id number] [place] [address] 77025- 2646 Nov, Seasonal allergic rhinitis, unspecified allergic rhinitis trigger J30.2 ; Mixed stress and urge urinary incontinence N39.46 and Non- insulin dependent type 2 diabetes mellitus E11.9 [facility] [id number] [place] [address] 65416- 4776 Nov, [facility] [id number] [place] [address] 67430- 9903 Oct, Low back pain M54.5 [facility] [id number] [place] [address] 83568- 3007 14 Oct, 2016 Acute suppurative otitis media of left ear without spontaneous rupture of tympanic membrane, recurrence not specified H66.002 [facility] [id number] [place] [address] 88834- 2835 09 Oct, 2016 [facility] [id number] [place] [address] 33340 -9394 07 Oct, 2016 Bronchitis J40 [facility] [id number] [place] [address] 41835- 3391 Oct, [facility] [id number] [place] [address] 17048- 0370 Oct, Low back pain M54.5 [place] [id number] [place] [address] 84854- 4316 24 Sep, 2016 Polio A80.9 ; Wheelchair bound Z99.3 and Weakness of both legs R29.898 [facility] [id number] [place] [address] 87484- 5030 Sep, COPD with exacerbation J44.1 ; Polio A80.9 ; Weakness of both legs R29.898 ; Wheelchair bound Z99.3 and Low back pain M54.5 [facility] [id number] [place] [address] 79111- 2663 Sep, Low back pain M54.5 [facility] [id number] [place] [address] 74516- 8362 Sep, Low back pain M54.5 [place] [id number] [place] [address] 55870- 8529 Aug, Weakness of both legs R29.898 ; Wheelchair bound Z99.3 and Polio A80.9 [facility] [id number] [place] [address] 96068- 1468 Aug, Polio A80.9 ; Other chronic pain G89.29 ; Dependence on other enabling machines and devices Z99.89 ; Obstructive sleep apnea (adult) ( pediatric) G47.33 and Chronic obstructive pulmonary disease, unspecified COPD type J44.9 [facility] [id number] [place] [address] 88210 -0819 Aug, Bronchitis J40 and Sprain of right knee, unspecified ligament, initial encounter S83.91XA [facility] [address] 33973- 3794 Aug, [facility] [address] 77982- 8658 Aug, [facility] [address] 98426- 0158 Aug, [facility] [address] 78202- 7740 Aug, [facility] [address] 30572- 8297 Aug, [facility] [id number] [place] [address] 41708- 8044 Aug, Low back pain M54.5 [facility] [id number] [place] [address] 21735 -8320 Aug, Acute non-recurrent frontal sinusitis J01.10 [facility] [id number] [place] [address] 58053- 9076 Jul, Chronic obstructive pulmonary disease, unspecified COPD type J44.9 and Low back pain M54.5 [facility] [id number] [place] [address] 97383- 0295 Jul, Low back pain M54.5 [facility] [id number] [place] [address] 97070- 7475 Jul, Low back pain M54.5 [facility] [id number] [place] [address] 69481- 3629 Jul, Dental examination Z01.20 and Chronic obstructive pulmonary disease, unspecified COPD type J44.9 [facility] [address] [address]- 8485 Jul, [facility] [id number] [place] [address] 28792- 0372 Jul, Low back pain M54.5 and Chronic obstructive pulmonary disease, unspecified COPD type J44.9 [facility] [id number] [place] [address] 45455- 5728 Jun, [facility] [id number] [place] [address] 20773- 9309 Jun, Chronic obstructive pulmonary disease, unspecified COPD type J44.9 ; Low back pain M54.5 ; Allergy, sequela T78.40XS and Cigarette nicotine dependence without complication F17.210 [facility] [id number] [place] [address] 49773- 0754 May, [facility] [id number] [place] [address] 39320- 1201 May, [facility] [id number] [place] [address] 18942- 4030 May, Dental examination Z01.20 [facility] [id number] [place] [address] 05313 -7845 May, Pneumonia of both lower lobes due to infectious organism J18.9 [facility] [address] [address]- 6908 May, [facility] [id number] [place] [address] 32288- 2280 May, [facility] [id number] [place] [address] 87944- 5135 May, [facility] [id number] [place] [address] 18030- 0700 May, [facility] [id number] [address]- 8859 May, Bronchitis J40 and Low back pain M54.5 [facility] [id number] [place] [address] 39584- 9955 15 Apr, 2016 [facility] [id number] [place] [address] 87983 -4453 14 Apr, 2016 Pneumonia of left lower lobe due to infectious organism J18.9 ; Cellulitis of right leg L03.115 and 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 [place] [id number] [place] [address] 56737- 1934 14 Apr, 2016 [facility] [id number] [place] [address] 17313- 5558 06 Apr, 2016 Chronic obstructive pulmonary disease, unspecified COPD type J44.9 ; Low back pain M54.5 ; Other chronic pain G89.29 and Polio A80.9 [place] [id number] [place] [address] 40808- 9099 02 Apr, 2016 IMMUNIZATIONS No Known Immunizations SOCIAL HISTORY Never Assessed REASON FOR VISIT TENS Cert PLAN OF CARE VITAL SIGNS MEDICATIONS Unknown [...]
--- OUTSIDE RECORDS SUMMARY | 2018-01-09 08:22 | XMS REPORT ---
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 Name Role Phone FREDERICKRANDI CervantesELE Unavailable PROBLEMS Type Condition ICD9-CM Code QPQ24-TR Code Onset Dates Condition Status SNOMED Code Problem Mixed stress and urge urinary incontinence N39.46 Active 831951253 Problem Muscle spasms of both lower extremities M62.838 Active 114515228 Problem BERYL (obstructive sleep apnea) G47.33 Active 19873515 Problem Trigger middle finger of right hand M65.331 Active 705134010 Problem Polio A80.9 Active 490512173 Problem BMI 40.0-44.9, adult Z68.41 Active 764369901 Problem Post concussion syndrome F07.81 Active 47456552 Problem Chronic seasonal allergic rhinitis due to other allergen J30.2 Active 029054170 Problem Tobacco use Z72.0 Active 501672517 Problem Acute exacerbation of chronic obstructive pulmonary disease (COPD) J44.1 Active 927231539 Problem Chronic obstructive pulmonary disease, unspecified COPD type J44.9 Active 46339564 Problem Cigarette nicotine dependence without complication F17.210 Active 93746614 Problem Low back pain M54.5 Active 000142616 Problem Other chronic pain G89.29 Active 03424741 Problem Wheelchair bound Z99.3 Active 233022819 Problem Weakness of both legs R29.898 Active 1998659 Problem Obstructive sleep apnea (adult) (pediatric) G47.33 Active 02767276 Problem Non-insulin dependent type 2 diabetes mellitus E11.9 Active 66811875 Problem Dependence on other enabling machines and devices Z99.89 Active 095021425 Problem Seasonal allergic rhinitis, unspecified allergic rhinitis trigger J30.2 Active 660788635 ALLERGIES No Information ENCOUNTERS Encounter Location Date Diagnosis [facility] [address] [facility] [id number] [address] December, Chronic obstructive pulmonary disease, unspecified COPD type J44.9 ; Chronic seasonal allergic rhinitis due to other allergen J30.2 and Trigger middle finger of right hand M65.331 [facility] [address], [place] [address] December, Chronic obstructive pulmonary disease, unspecified COPD type J44.9 and BMI 40.0-44.9, adult Z68.41 [facility] [address] [id number] [place] [address] 80486- 7857 December, [facility] [id number] [address] December, [facility] [id number] [place] [address] 16027- 3829 December, Low back pain M54.5 [facility] [id number] [place] [address] 31431- 6122 December, [facility] [id number] [place] [address] 09799- 0491 Nov, [facility] [id number] [place] [address] 10181- 3780 Nov, [facility] [id number] [place] [address] 34924- 0170 Nov, Medicare annual wellness visit, initial Z00.00 [...] Mixed stress and urge urinary incontinence N39.46 [facility] [address], [place] [address] Nov, [place] [address], [place] [address] Nov, Low back pain M54.5 [facility] [id number] [place] [address] 82137- 6887 Oct, Other chronic pain G89.29 ; Chronic obstructive pulmonary disease, unspecified COPD type J44.9 ; Tobacco use Z72.0 ; Trigger middle finger of right hand M65.331 and BMI 40.0-44.9, adult Z68.41 [facility] [address] [place] [address] 26694- 5274 Oct, [facility] [id number] [place] [address] 07289- 5201 Oct, [facility] [id number] [place] [address] 22435- 5227 Oct, Low back pain M54.5 [facility] [id number] [place] [address] 00220- 9202 Oct, [facility] [id number] [place] [address] 35057- 4186 Oct, Low back pain M54.5 and COPD with exacerbation J44.1 [facility] [id number] [place] [address] 76245- 9825 Oct, Chronic obstructive pulmonary disease, unspecified COPD type J44.9 and COPD with exacerbation J44.1 [facility] [address], [place] [address] Sep, Low back pain M54.5 [facility] [address] [place] [address] 94381 -4668 Aug, Acute exacerbation of chronic obstructive pulmonary disease (COPD) J44.1 [facility] [address], [place] [address] Aug, [facility] [id number] [place] [address] 96918- 1559 Aug, Muscle spasms of both lower extremities M62.838 [facility] [id number] [place] [address] 52716- 5079 Aug, Muscle spasms of both lower extremities M62.838 [facility] [id number] [place] [address] 72408- 6766 Aug, Low back pain M54.5 [facility] [address] 6[address]68[address] Jul, Low back pain M54.5 ; Seasonal allergic rhinitis, unspecified allergic rhinitis trigger J30.2 and Muscle spasms of both lower extremities M62.838 [facility] [id number] [place] [address] 28782- 8756 Jul, [place] [id number] [place] [address] 38680- 8354 Jun, Low back pain M54.5 [facility] [id number] [place] [address] 83728- 0678 May, [place] [address] [address] May, Fall, subsequent encounter W19.XXXD ; Post concussion syndrome F07.81 ; Chronic seasonal allergic rhinitis due to other allergen J30.2 ; Muscle spasms of both lower extremities M62.838 ; BERYL (obstructive sleep apnea) G47.33 and Encounter for immunization Z23 [facility] [id number] [place] [address] 05455- 0480 May, [facility] [id number] [place] [address] 79254- 9742 May, Low back pain M54.5 [facility] [id number] [place] [address] 00767- 0257 Apr, BERYL (obstructive sleep apnea) G47.33 [place] [address] 92336- 2994 Apr, [facility] [id number] [place] [address] 23528- 0296 Apr, [facility] [id number] [place] [address] 56474- 2337 Apr, Muscle spasms of both lower extremities M62.838 [facility] [id number] [place] [address] 98388- 8051 Apr, Polio A80.9 ; Muscle spasms of both lower extremities M62.838 and Trigger middle finger of right hand M65.331 [place] [id number] [place] [address] 59205- 8449 Apr, Low back pain M54.5 [place] [id number] [place] [address] 03525- 1737 Mar, Low back pain M54.5 [facility] [id number] [place] [address] 52678- 4697 Mar, [facility] [id number] [place] [address] 23459- 1500 Mar, [facility] [id number] [place] [address] 68894- 4761 Feb, Low back pain M54.5 ; Other chronic pain G89.29 ; Seasonal allergic rhinitis, unspecified allergic rhinitis trigger J30.2 and COPD with exacerbation J44.1 [facility] [id number] [place] [address] 58855- 3049 Feb, Chronic obstructive pulmonary disease, unspecified COPD type J44.9 [facility] [id number] [place] [address] 52874- 5345 Feb, Low back pain M54.5 ; Seasonal allergic rhinitis, unspecified allergic rhinitis trigger J30.2 ; Mixed stress and urge urinary incontinence N39.46 ; BERYL (obstructive sleep apnea) G47.33 and Trigger middle finger of right hand M65.331 [facility] [address], [place] [address] Feb, [facility] [address] [place] [address] 09082- 6829 Feb, Low back pain M54.5 [facility] [id number] [place] [address] [id number] Jan, Trigger finger, unspecified finger, unspecified laterality M65.30 [facility] [id number] [place] [address] [id number] Jan, [facility] [id number] [place] [address] 01763- 4103 Jan, [facility] [id number] [place] [address] 19961- 0673 Jan, COPD with exacerbation J44.1 [facility] [id number] [place] [address] 03700- 5421 Jan, COPD with exacerbation J44.1 [facility] [id number] [place] [address] 15406- 4795 Jan, COPD with exacerbation J44.1 [facility] [id number] [place] [address] 69451- 1943 Jan, Low back pain M54.5 [facility] [address] [place] [address] 74226- 3431 December, Low back pain M54.5 [facility] [id number] [place] [address] 04918- 2833 Nov, Seasonal allergic rhinitis, unspecified allergic rhinitis trigger J30.2 [facility] [id number] [place] [address] 02731- 8114 Nov, [facility] [address] [place] [address] 52883- 7996 Nov, [facility] [id number] [place] [address] 85065- 9650 Nov, Seasonal allergic rhinitis, unspecified allergic rhinitis trigger J30.2 ; Mixed stress and urge urinary incontinence N39.46 and Non- insulin dependent type 2 diabetes mellitus E11.9 [facility] [id number] [place] [address] 56241- 1774 Nov, [facility] [address] 70366- 3959 Oct, Low back pain M54.5 [facility] [address] 40096- 9639 Oct, Acute suppurative otitis media of left ear without spontaneous rupture of tympanic membrane, recurrence not specified H66.002 [place] [address] 63318- 1475 Oct, [facility] [address] 91977 -9174 Oct, Bronchitis J40 [place] [address] 98299- 1623 Oct, [place] [address] 81090- 1125 Oct, Low back pain M54.5 [place] [id number] [place] [address] 46484- 3696 Sep, Polio A80.9 ; Wheelchair bound Z99.3 and Weakness of both legs R29.898 [place] [id number] [place] [address] 86278- 3401 Sep, COPD with exacerbation J44.1 ; Polio A80.9 ; Weakness of both legs R29.898 ; Wheelchair bound Z99.3 and Low back pain M54.5 [facility] [id number] [place] [address] 09267- 0227 Sep, Low back pain M54.5 [place] [address] 27094- 9039 Sep, Low back pain M54.5 [facility] [id number] [place] [address] 63847- 2360 Aug, Weakness of both legs R29.898 ; Wheelchair bound Z99.3 and Polio A80.9 [facility] [address] 93307- 2085 Aug, Polio A80.9 ; Other chronic pain G89.29 ; Dependence on other enabling machines and devices Z99.89 ; Obstructive sleep apnea (adult) ( pediatric) G47.33 and Chronic obstructive pulmonary disease, unspecified COPD type J44.9 [facility] [address] 7[address] -1210 Aug, Bronchitis J40 and Sprain of right knee, unspecified ligament, initial encounter S83.91XA [facility] [address] 29282- 1155 Aug, [facility] [address] 59125- 8441 Aug, [place] [address] 61650- 9427 Aug, [facility] [id number] [place] [address] 02048- 7288 Aug, [facility] [address] 03471- 3533 Aug, [facility] [address] 96947- 4796 Aug, Low back pain M54.5 [facility] [place] [address] 20985 -8881 Aug, Acute non-recurrent frontal sinusitis J01.10 [facility] [id number] [place] [address] 02030- 1696 Jul, Chronic obstructive pulmonary disease, unspecified COPD type J44.9 and Low back pain M54.5 [facility] [id number] [place] [address] 26090- 9915 Jul, Low back pain M54.5 [facility] [id number] [place] [address] 22300- 0252 Jul, Low back pain M54.5 [facility] [id number] [place] [address] 25924- 4604 Jul, Dental examination Z01.20 and Chronic obstructive pulmonary disease, unspecified COPD type J44.9 [facility] [id number] [place] [address] 78380- 5129 Jul, [facility] [id number] [place] [address] 11718- 5479 Jul, Low back pain M54.5 and Chronic obstructive pulmonary disease, unspecified COPD type J44.9 [facility] [id number] [place] [address] 77422- 4718 Jun, [facility] [id number] [place] [address] 06547- 6099 Jun, Chronic obstructive pulmonary disease, unspecified COPD type J44.9 ; Low back pain M54.5 ; Allergy, sequela T78.40XS and Cigarette nicotine dependence without complication F17.210 [facility] [id number] [place] [address] 71230- 1161 May, [facility] [id number] [place] [address] 34299- 4836 May, [facility] [id number] [place] [address] 68906- 3653 May, Dental examination Z01.20 [facility] [place] [facility] [id number] [place] [address] 69459 -2934 May, Pneumonia of both lower lobes due to infectious organism J18.9 [facility] [id number] [place] [address] 41546- 1384 May, [facility] [address] [place] [address] 07924- 9235 May, [facility] [id number] [place] [address] 28014- 8186 May, [facility] [id number] [place] [address] 77024- 7443 May, [facility] [id number] [place] [address] 83311- 7620 May, Bronchitis J40 and Low back pain M54.5 [place] [id number] [place] [address] 07388- 0575 15 Apr, 2016 [facility] [id number] [place] [address] 72551 -2691 14 Apr, 2016 Pneumonia of left lower lobe due to infectious organism J18.9 ; Cellulitis of right leg L03.115 and 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 [place] [id number] [place] [address] 67482- 2458 14 Apr, 2016 [place] [id number] [place] [address] 33636- 1427 06 Apr, 2016 Chronic obstructive pulmonary disease, unspecified COPD type J44.9 ; Low back pain M54.5 ; Other chronic pain G89.29 and Polio A80.9 [place] [id number] [place] [address] 04451- 0823 Apr, IMMUNIZATIONS No Known Immunizations SOCIAL HISTORY Never Assessed REASON FOR VISIT Controlled Med Refill-Due 07/14 PLAN OF CARE VITAL SIGNS MEDICATIONS Medication Instructions Dosage Frequency Start Date End Date Duration Status Tramadol HCl 50 mg Orally every 6 hrs 1 tablet 6h 28 Active Soma 250 MG Orally 3 times a day 1 tablet BID for 1 week then TID 8h Apr 28 days Active Hydrocodone-Acetaminophen 10-325 MG Orally every 4 hours 1 tablet 4h Jul 28 days Active Singulair 10 mg Orally Once a day 1 tablet in the evening 24h Nov, 30 day(s) Active RESULTS No Results PROCEDURES No Known [...]
--- OUTSIDE RECORDS SUMMARY | 2018-01-09 08:22 | XMS REPORT ---
Author Author CARY CRESPO Organization [facility] Address [address] [place] [address] Care Team Providers Care [employer] Director Name Role Phone CARY CRESPO Unavailable PROBLEMS Type Condition ICD9-CM Code ROC36-TR Code Onset Dates Condition Status SNOMED Code Problem Mixed stress and urge urinary incontinence N39.46 Active 269474826 Problem Muscle spasms of both lower extremities M62.838 Active 048263244 Problem BERYL (obstructive sleep apnea) G47.33 Active 27451059 Problem Trigger middle finger of right hand M65.331 Active 324922021 Problem Polio A80.9 Active 818849081 Problem BMI 40.0-44.9, adult Z68.41 Active 108721935 Problem Post concussion syndrome F07.81 Active 17087810 Problem Chronic seasonal allergic rhinitis due to other allergen J30.2 Active 764963584 Problem Tobacco use Z72.0 Active 778120617 Problem Acute exacerbation of chronic obstructive pulmonary disease (COPD) J44.1 Active 616113493 Problem Chronic obstructive pulmonary disease, unspecified COPD type J44.9 Active 16160472 Problem Cigarette nicotine dependence without complication F17.210 Active 36741883 Problem Low back pain M54.5 Active 309739704 Problem Other chronic pain G89.29 Active 32623393 Problem Wheelchair bound Z99.3 Active 608174225 Problem Weakness of both legs R29.898 Active 9116546 Problem Obstructive sleep apnea (adult) (pediatric) G47.33 Active 16518208 Problem Non-insulin dependent type 2 diabetes mellitus E11.9 Active 74780238 Problem Dependence on other enabling machines and devices Z99.89 Active 900902319 Problem Seasonal allergic rhinitis, unspecified allergic rhinitis trigger J30.2 Active 971323261 ALLERGIES No Information ENCOUNTERS Encounter Location Date Diagnosis [facility] [address] [facility] [id number] [address] December, Chronic obstructive pulmonary disease, unspecified COPD type J44.9 ; Chronic seasonal allergic rhinitis due to other allergen J30.2 and Trigger middle finger of right hand M65.331 [facility] [address] [address] December, Chronic obstructive pulmonary disease, unspecified COPD type J44.9 and BMI 40.0-44.9, adult Z68.41 [facility] [id number] [place] [address] 94660- 6940 December, [facility] [address] [id number] [address] December, [facility] [id number] [place] [address] 80241- 8950 December, Low back pain M54.5 [facility] [id number] [place] [address] 06935- 6725 December, [facility] [id number] [place] [address] 81707- 9879 Nov, [facility] [id number] [place] [address] 71138- 3496 Nov, [facility] [id number] [place] [address] 71878- 0457 Nov, Medicare annual wellness visit, initial Z00.00 [...] Mixed stress and urge urinary incontinence N39.46 [facility] [address], [place] [address] Nov, [place] [address] [address] Nov, Low back pain M54.5 [facility] [id number] [place] [address] 93657- 8027 Oct, Other chronic pain G89.29 ; Chronic obstructive pulmonary disease, unspecified COPD type J44.9 ; Tobacco use Z72.0 ; Trigger middle finger of right hand M65.331 and BMI 40.0-44.9, adult Z68.41 [facility] [id number] [place] [address] 07699- 5227 Oct, [facility] [id number] [place] [address] 44376- 3169 Oct, [facility] [id number] [place] [address] 80968- 3669 Oct, Low back pain M54.5 [facility] [id number] [place] [address] 28229- 1349 Oct, [facility] [id number] [place] [address] 49910- 9781 Oct, Low back pain M54.5 and COPD with exacerbation J44.1 [facility] [id number] [place] [address] 23899- 9748 Oct, Chronic obstructive pulmonary disease, unspecified COPD type J44.9 and COPD with exacerbation J44.1 [facility] [address], [place] [address] Sep, Low back pain M54.5 [facility] [id number] [place] [address] 83600 -5192 Aug, Acute exacerbation of chronic obstructive pulmonary disease (COPD) J44.1 [facility] [address] [address] Aug, [facility] [id number] [place] [address] 45592- 5763 Aug, Muscle spasms of both lower extremities M62.838 [facility] [id number] [place] [address] 24179- 7886 Aug, Muscle spasms of both lower extremities M62.838 [facility] [id number] [place] [address] 29234- 2260 Aug, Low back pain M54.5 [facility] [address] 39155- 5520 Jul, Low back pain M54.5 ; Seasonal allergic rhinitis, unspecified allergic rhinitis trigger J30.2 and Muscle spasms of both lower extremities M62.838 [facility] [id number] [place] [address] 32034- 7160 Jul, [place] [id number] [place] [address] 56115- 3174 Jun, Low back pain M54.5 [facility] [id number] [place] [address] 48318- 3592 May, [place] [address] 30159- 5184 May, Fall, subsequent encounter W19.XXXD ; Post concussion syndrome F07.81 ; Chronic seasonal allergic rhinitis due to other allergen J30.2 ; Muscle spasms of both lower extremities M62.838 ; BERYL (obstructive sleep apnea) G47.33 and Encounter for immunization Z23 [facility] [id number] [place] [address] 31942- 2019 May, [facility] [id number] [place] [address] 57844- 7320 May, Low back pain M54.5 [facility] [id number] [place] [address] 25191- 5862 Apr, BERYL (obstructive sleep apnea) G47.33 [place] [address] 82705- 6657 Apr, [facility] [id number] [place] [address] 95530- 8156 Apr, [facility] [id number] [place] [address] 39243- 8326 Apr, Muscle spasms of both lower extremities M62.838 [facility] [id number] [place] [address] 32649- 8427 Apr, Polio A80.9 ; Muscle spasms of both lower extremities M62.838 and Trigger middle finger of right hand M65.331 [place] [id number] [place] [address] 53573- 1565 Apr, Low back pain M54.5 [place] [id number] [place] [address] 57165- 8941 Mar, Low back pain M54.5 [facility] [id number] [place] [address] 37867- 4758 Mar, [facility] [id number] [place] [address] 18598- 4203 Mar, [facility] [id number] [place] [address] 22452- 4409 Feb, Low back pain M54.5 ; Other chronic pain G89.29 ; Seasonal allergic rhinitis, unspecified allergic rhinitis trigger J30.2 and COPD with exacerbation J44.1 [facility] [id number] [place] [address] 86527- 1975 Feb, Chronic obstructive pulmonary disease, unspecified COPD type J44.9 [facility] [id number] [place] [address] 86138- 3771 Feb, Low back pain M54.5 ; Seasonal allergic rhinitis, unspecified allergic rhinitis trigger J30.2 ; Mixed stress and urge urinary incontinence N39.46 ; BERYL (obstructive sleep apnea) G47.33 and Trigger middle finger of right hand M65.331 [facility] [address] [address] Feb, [facility] [id number] [place] [address] 35852- 5980 Feb, Low back pain M54.5 [facility] [address] [id number] [place] [address] [id number] Jan, Trigger finger, unspecified finger, unspecified laterality M65.30 [facility] [id number] [place] [address] [id number] Jan, [facility] [id number] [place] [address] 97811- 1874 Jan, [facility] [id number] [place] [address] 42054- 1622 Jan, COPD with exacerbation J44.1 [facility] [id number] [place] [address] 13296- 4450 Jan, COPD with exacerbation J44.1 [facility] [id number] [place] [address] 09278- 2641 Jan, COPD with exacerbation J44.1 [facility] [id number] [place] [address] 73526- 1560 Jan, Low back pain M54.5 [facility] [id number] [place] [address] 55568- 2400 December, Low back pain M54.5 [facility] [id number] [place] [address] 94413- 7791 Nov, Seasonal allergic rhinitis, unspecified allergic rhinitis trigger J30.2 [facility] [id number] [place] [address] 25536- 5220 Nov, [facility] [id number] [place] [address] 70471- 7887 Nov, [facility] [id number] [place] [address] 99885- 9065 Nov, Seasonal allergic rhinitis, unspecified allergic rhinitis trigger J30.2 ; Mixed stress and urge urinary incontinence N39.46 and Non- insulin dependent type 2 diabetes mellitus E11.9 [facility] [id number] [place] [address] 24134- 9254 Nov, [facility] [address] 97571- 8152 Oct, Low back pain M54.5 [facility] [address] 97894- 5122 Oct, Acute suppurative otitis media of left ear without spontaneous rupture of tympanic membrane, recurrence not specified H66.002 [place] [address] 02626- 6606 Oct, [facility] [address] 64149 -7221 Oct, Bronchitis J40 [place] [address] 91146- 6657 Oct, [place] [address] 46585- 0616 Oct, Low back pain M54.5 [place] [id number] [place] [address] 01821- 5881 Sep, Polio A80.9 ; Wheelchair bound Z99.3 and Weakness of both legs R29.898 [place] [id number] [place] [address] 38489- 2893 Sep, COPD with exacerbation J44.1 ; Polio A80.9 ; Weakness of both legs R29.898 ; Wheelchair bound Z99.3 and Low back pain M54.5 [facility] [id number] [place] [address] 22267- 4361 Sep, Low back pain M54.5 [place] [address] 70684- 4789 Sep, Low back pain M54.5 [facility] [id number] [place] [address] 32187- 3584 Aug, Weakness of both legs R29.898 ; Wheelchair bound Z99.3 and Polio A80.9 [facility] [address] 09002- 3736 Aug, Polio A80.9 ; Other chronic pain G89.29 ; Dependence on other enabling machines and devices Z99.89 ; Obstructive sleep apnea (adult) ( pediatric) G47.33 and Chronic obstructive pulmonary disease, unspecified COPD type J44.9 [facility] [address] 96328 -8975 Aug, Bronchitis J40 and Sprain of right knee, unspecified ligament, initial encounter S83.91XA [facility] [address] 00458- 9791 Aug, [facility] [address] 87440- 3424 Aug, [place] [address] 63550- 3451 Aug, [facility] [id number] [place] [address] 98338- 7709 Aug, [facility] [address] 89946- 3110 Aug, [facility] [address] 06336- 7545 Aug, Low back pain M54.5 [facility] [address] 85015 -8185 Aug, Acute non-recurrent frontal sinusitis J01.10 [facility] [id number] [place] [address] 95257- 5675 Jul, Chronic obstructive pulmonary disease, unspecified COPD type J44.9 and Low back pain M54.5 [facility] [id number] [place] [address] 41654- 6602 Jul, Low back pain M54.5 [facility] [id number] [place] [address] 87697- 3930 Jul, Low back pain M54.5 [facility] [id number] [place] [address] 71267- 3293 Jul, Dental examination Z01.20 and Chronic obstructive pulmonary disease, unspecified COPD type J44.9 [facility] [id number] [place] [address] 42736- 7534 Jul, [facility] [id number] [place] [address] 95231- 7637 Jul, Low back pain M54.5 and Chronic obstructive pulmonary disease, unspecified COPD type J44.9 [facility] [id number] [place] [address] 62821- 7563 Jun, [facility] [id number] [place] [address] 89931- 2474 Jun, Chronic obstructive pulmonary disease, unspecified COPD type J44.9 ; Low back pain M54.5 ; Allergy, sequela T78.40XS and Cigarette nicotine dependence without complication F17.210 [facility] [id number] [place] [address] 90706- 6990 May, [facility] [id number] [place] [address] 54363- 6293 May, [facility] [id number] [place] [address] 74617- 0492 May, Dental examination Z01.20 [facility] [id number] [place] [address] 22531 -9708 May, Pneumonia of both lower lobes due to infectious organism J18.9 [facility] [id number] [place] [address] 20595- 4542 May, [facility] [address], [place] [address]- 8841 May, [facility] [id number] [place] [address] 07831- 2858 May, [facility] [id number] [place] [address] 12931- 8576 May, [facility] [id number] [place] [address] 92018- 5743 May, Bronchitis J40 and Low back pain M54.5 [place] [id number] [place] [address] 94684- 0209 15 Apr, 2016 [facility] [id number] [place] [address] 20345 -6643 14 Apr, 2016 Pneumonia of left lower lobe due to infectious organism J18.9 ; Cellulitis of right leg L03.115 and 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 [place] [id number] [place] [address] 98437- 3497 14 Apr, 2016 [place] [id number] [place] [address] 51296- 9853 06 Apr, 2016 Chronic obstructive pulmonary disease, unspecified COPD type J44.9 ; Low back pain M54.5 ; Other chronic pain G89.29 and Polio A80.9 [place] [id number] [place] [address] 06597- 3584 02 Apr, 2016 IMMUNIZATIONS No Known Immunizations SOCIAL HISTORY Never Assessed REASON FOR VISIT Controlled Med Refill PLAN OF CARE VITAL SIGNS MEDICATIONS Unknown [...]
--- OUTSIDE RECORDS SUMMARY | 2018-01-09 08:23 | XMS REPORT ---
Author Author CARY CRESPO Organization [facility] Address [address] [place] [address] Care Team Providers Care Office Equipment Mechanic Name Role Phone CARY CRESPO Unavailable PROBLEMS Type Condition ICD9-CM Code IKH55-YG Code Onset Dates Condition Status SNOMED Code Problem Weakness of both legs R29.898 Active 7403953 Problem Seasonal allergic rhinitis, unspecified allergic rhinitis trigger J30.2 Active 383129856 Problem Non-insulin dependent type 2 diabetes mellitus E11.9 Active 16966150 Problem Acute exacerbation of chronic obstructive pulmonary disease (COPD) J44.1 Active 742991343 Problem Chronic seasonal allergic rhinitis due to other allergen J30.2 Active 777910160 Problem BERYL (obstructive sleep apnea) G47.33 Active 38414920 Problem Mixed stress and urge urinary incontinence N39.46 Active 912969001 Problem Post concussion syndrome F07.81 Active 75735854 Problem Muscle spasms of both lower extremities M62.838 Active 982706605 Problem Polio A80.9 Active 997198363 Problem Chronic obstructive pulmonary disease, unspecified COPD type J44.9 Active 01070705 Problem Cigarette nicotine dependence without complication F17.210 Active 35328864 Problem Obstructive sleep apnea (adult) (pediatric) G47.33 Active 46093591 Problem Low back pain M54.5 Active 906435864 Problem Dependence on other enabling machines and devices Z99.89 Active 296243138 Problem Other chronic pain G89.29 Active 92920803 Problem Wheelchair bound Z99.3 Active [id number] ALLERGIES No Information ENCOUNTERS Encounter Location Date Diagnosis [facility] [id number] [place] [address] 15449- 9859 Nov, Medicare annual wellness visit, initial Z00.00 [facility] [id number] [address] Oct, Other chronic pain G89.29 [facility] [id number] [address] 16 Oct, 2017 [facility] [id number] [place] [address] 21417- 1782 Oct, [facility] [id number] [place] [address] 28471- 1094 Oct, Low back pain M54.5 [facility] [id number] [place] [address] 39410- 3563 Oct, [facility] [id number] [place] [address] 69046- 8445 Oct, Low back pain M54.5 and COPD with exacerbation J44.1 [facility] [id number] [place] [address] 88292- 6951 Oct, Chronic obstructive pulmonary disease, unspecified COPD type J44.9 and COPD with exacerbation J44.1 [facility] [id number] [place] [address] 82064- 2897 Sep, Low back pain M54.5 [facility] [id number] [place] [address] 11973 -9918 Aug, Acute exacerbation of chronic obstructive pulmonary disease (COPD) J44.1 [facility] [address] [address] 7987 Aug, [facility] [id number] [place] [address] 73312- 6143 Aug, Muscle spasms of both lower extremities M62.838 [facility] [id number] [place] [address] 15113- 3647 Aug, Muscle spasms of both lower extremities M62.838 [facility] [id number] [place] [address] 04723- 1629 Aug, Low back pain M54.5 [facility] [id number] [place] [address] 78739- 7002 Jul, Low back pain M54.5 ; Seasonal allergic rhinitis, unspecified allergic rhinitis trigger J30.2 and Muscle spasms of both lower extremities M62.838 [facility] [id number] [place] [address] 49542- 2052 Jul, [facility] [id number] [place] [address] 32758- 1605 Jun, Low back pain M54.5 [facility] [address] [address]83- 9090 May, [place] [address] 12910- 6786 May, Fall, subsequent encounter W19.XXXD ; Post concussion syndrome F07.81 ; Chronic seasonal allergic rhinitis due to other allergen J30.2 ; Muscle spasms of both lower extremities M62.838 ; BERYL (obstructive sleep apnea) G47.33 and Encounter for immunization Z23 [place] [address] 36159- 5893 May, [place] [address] 27778- 6598 May, Low back pain M54.5 [facility] [id number] [place] [address] 39735- 1338 Apr, BERYL (obstructive sleep apnea) G47.33 [place] [id number] [place] [address] 33876- 5970 Apr, [place] [id number] [place] [address] 06305- 7549 Apr, [place] [address] 59224- 7886 Apr, Muscle spasms of both lower extremities M62.838 [place] [id number] [place] [address] 55438- 5274 Apr, Polio A80.9 ; Muscle spasms of both lower extremities M62.838 and Trigger middle finger of right hand M65.331 [place] [id number] [place] [address] 36138- 6513 08 Apr, 2017 Low back pain M54.5 [place] [id number] [place] [address] 18133- 2440 Mar, Low back pain M54.5 [place] [id number] [place] [address] 27653- 4240 Mar, [place] [id number] [place] [address] 23222- 8081 Mar, [place] [id number] [place] [address] 49637- 7570 Feb, Low back pain M54.5 ; Other chronic pain G89.29 ; Seasonal allergic rhinitis, unspecified allergic rhinitis trigger J30.2 and COPD with exacerbation J44.1 [place] [id number] [place] [address] 85946- 2447 Feb, Chronic obstructive pulmonary disease, unspecified COPD type J44.9 [place] [id number] [place] [address] 36389- 0686 Feb, Low back pain M54.5 ; Seasonal allergic rhinitis, unspecified allergic rhinitis trigger J30.2 ; Mixed stress and urge urinary incontinence N39.46 ; BERYL (obstructive sleep apnea) G47.33 and Trigger middle finger of right hand M65.331 [place] [id number] [place] [address] 70177- 0383 Feb, [place] [id number] [place] [address] 26302- 9478 Feb, Low back pain M54.5 [place] [id number] [place] [address] [id number] Jan, Trigger finger, unspecified finger, unspecified laterality M65.30 [place] [address] [id number] Jan, [facility] [id number] [place] [address] 93683- 4331 Jan, [facility] [id number] [place] [address] 14726- 4511 Jan, COPD with exacerbation J44.1 [facility] [id number] [place] [address] 98026- 9849 Jan, COPD with exacerbation J44.1 [facility] [id number] [place] [address] 12648- 6559 Jan, COPD with exacerbation J44.1 [facility] [id number] [place] [address] 71652- 2612 Jan, Low back pain M54.5 [facility] [id number] [place] [address] 36889- 5818 December, Low back pain M54.5 [facility] [id number] [place] [address] 27724- 8084 Nov, Seasonal allergic rhinitis, unspecified allergic rhinitis trigger J30.2 [facility] [id number] [place] [address] 16540- 3072 Nov, [facility] [id number] [place] [address] 43951- 1381 Nov, [facility] [id number] [place] [address] 57827- 7574 Nov, Seasonal allergic rhinitis, unspecified allergic rhinitis trigger J30.2 ; Mixed stress and urge urinary incontinence N39.46 and Non- insulin dependent type 2 diabetes mellitus E11.9 [facility] [id number] [place] [address] 33138- 6202 Nov, [facility] [id number] [place] [address] 96298- 7108 Oct, Low back pain M54.5 [facility] [id number] [place] [address] 38118- 6273 14 Oct, 2016 Acute suppurative otitis media of left ear without spontaneous rupture of tympanic membrane, recurrence not specified H66.002 [facility] [id number] [place] [address] 37121- 0614 09 Oct, 2016 [facility] [id number] [place] [address] 94482 -6767 07 Oct, 2016 Bronchitis J40 [facility] [id number] [place] [address] 88068- 1177 Oct, [facility] [id number] [place] [address] 97137- 1991 Oct, Low back pain M54.5 [place] [id number] [place] [address] 72159- 4376 24 Sep, 2016 Polio A80.9 ; Wheelchair bound Z99.3 and Weakness of both legs R29.898 [facility] [id number] [place] [address] 03099- 2942 Sep, COPD with exacerbation J44.1 ; Polio A80.9 ; Weakness of both legs R29.898 ; Wheelchair bound Z99.3 and Low back pain M54.5 [facility] [id number] [place] [address] 22641- 9007 Sep, Low back pain M54.5 [facility] [id number] [place] [address] 26240- 8777 Sep, Low back pain M54.5 [place] [id number] [place] [address] 03765- 3427 Aug, Weakness of both legs R29.898 ; Wheelchair bound Z99.3 and Polio A80.9 [facility] [id number] [place] [address] 29007- 8905 Aug, Polio A80.9 ; Other chronic pain G89.29 ; Dependence on other enabling machines and devices Z99.89 ; Obstructive sleep apnea (adult) ( pediatric) G47.33 and Chronic obstructive pulmonary disease, unspecified COPD type J44.9 [facility] [id number] [place] [address] 90855 -0402 Aug, Bronchitis J40 and Sprain of right knee, unspecified ligament, initial encounter S83.91XA [facility] [address] 34429- 4121 Aug, [facility] [address] 88378- 1999 Aug, [facility] [address] 48527- 5071 Aug, [facility] [address] 31458- 3971 Aug, [facility] [address] 73393- 4908 Aug, [facility] [id number] [place] [address] 06216- 6579 Aug, Low back pain M54.5 [facility] [id number] [place] [address] 51030 -1349 Aug, Acute non-recurrent frontal sinusitis J01.10 [facility] [id number] [place] [address] 49081- 6508 Jul, Chronic obstructive pulmonary disease, unspecified COPD type J44.9 and Low back pain M54.5 [facility] [id number] [place] [address] 19266- 2943 Jul, Low back pain M54.5 [facility] [id number] [place] [address] 88834- 6308 Jul, Low back pain M54.5 [facility] [id number] [place] [address] 31835- 1629 Jul, Dental examination Z01.20 and Chronic obstructive pulmonary disease, unspecified COPD type J44.9 [facility] [address] [address]- 3532 Jul, [facility] [id number] [place] [address] 83442- 2165 Jul, Low back pain M54.5 and Chronic obstructive pulmonary disease, unspecified COPD type J44.9 [facility] [id number] [place] [address] 12054- 1612 Jun, [facility] [id number] [place] [address] 18637- 7355 Jun, Chronic obstructive pulmonary disease, unspecified COPD type J44.9 ; Low back pain M54.5 ; Allergy, sequela T78.40XS and Cigarette nicotine dependence without complication F17.210 [facility] [id number] [place] [address] 09087- 2356 May, [facility] [id number] [place] [address] 40285- 6164 May, [facility] [id number] [place] [address] 64074- 3714 May, Dental examination Z01.20 [facility] [id number] [place] [address] 18156 -1226 May, Pneumonia of both lower lobes due to infectious organism J18.9 [facility] [address] [place] [address]- 7242 May, [facility] [id number] [place] [address] 73084- 1295 May, [facility] [id number] [place] [address] 29723- 2125 May, [facility] [id number] [place] [address] 02566- 4863 May, [facility] [id number] [address]- 0682 May, Bronchitis J40 and Low back pain M54.5 [facility] [id number] [place] [address] 93426- 6037 15 Apr, 2016 [facility] [id number] [place] [address] 15199 -8753 14 Apr, 2016 Pneumonia of left lower lobe due to infectious organism J18.9 ; Cellulitis of right leg L03.115 and 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 [place] [id number] [place] [address] 02585- 3468 14 Apr, 2016 [place] [id number] [place] [address] 51885- 5487 06 Apr, 2016 Chronic obstructive pulmonary disease, unspecified COPD type J44.9 ; Low back pain M54.5 ; Other chronic pain G89.29 and Polio A80.9 [place] [id number] [place] [address] 75484- 3594 02 Apr, 2016 IMMUNIZATIONS No Known Immunizations SOCIAL HISTORY Never Assessed REASON FOR VISIT Form that needs to be faxed PLAN OF CARE VITAL SIGNS MEDICATIONS Unknown [...]
--- OUTSIDE RECORDS SUMMARY | 2018-01-09 08:23 | XMS REPORT ---
Author Author CARY CRESPO [facility] Address [address] [place] [address] Care Team Providers Care Mandarin Teacher Name Role Phone CARY CRESPO Unavailable PROBLEMS Type Condition ICD9-CM Code SNF12-YR Code Onset Dates Condition Status SNOMED Code Problem Weakness of both legs R29.898 Active 8112419 Problem Seasonal allergic rhinitis, unspecified allergic rhinitis trigger J30.2 Active 432905879 Problem Non-insulin dependent type 2 diabetes mellitus E11.9 Active 43620849 Problem Acute exacerbation of chronic obstructive pulmonary disease (COPD) J44.1 Active 812966568 Problem Chronic seasonal allergic rhinitis due to other allergen J30.2 Active 359683029 Problem BERYL (obstructive sleep apnea) G47.33 Active 92725019 Problem Mixed stress and urge urinary incontinence N39.46 Active 213906133 Problem Post concussion syndrome F07.81 Active 11545293 Problem Muscle spasms of both lower extremities M62.838 Active 491555409 Problem Polio A80.9 Active 605364524 Problem Chronic obstructive pulmonary disease, unspecified COPD type J44.9 Active 91924582 Problem Cigarette nicotine dependence without complication F17.210 Active 31688202 Problem Obstructive sleep apnea (adult) (pediatric) G47.33 Active 54522968 Problem Low back pain M54.5 Active 515977449 Problem Dependence on other enabling machines and devices Z99.89 Active 758718203 Problem Other chronic pain G89.29 Active 76508195 Problem Wheelchair bound Z99.3 Active [id number] ALLERGIES No Information ENCOUNTERS Encounter Location Date Diagnosis [facility] [id number] [place] [address] 82284- 3473 Nov, Medicare annual wellness visit, initial Z00.00 [facility] [id number] [address] Oct, [facility] [address] [facility] [id number] [place] [address] 16 Oct, 2017 [facility] [address] [facility] [id number] [place] [address] Oct, [facility] [address] [facility] [id number] [place] [address] Oct, Low back pain M54.5 [facility] [address] [facility] [id number] [place] [address] 96064- 5568 Oct, [facility] [id number] [place] [address] 87568- 1158 Oct, Low back pain M54.5 and COPD with exacerbation J44.1 [facility] [address] [address] Oct, Chronic obstructive pulmonary disease, unspecified COPD type J44.9 and COPD with exacerbation J44.1 [facility] [id number] [address] Sep, Low back pain M54.5 [facility] [id number] [address] Aug, Acute exacerbation of chronic obstructive pulmonary disease (COPD) J44.1 [facility] [address] [address] Aug, [facility] [address] [address] Aug, Muscle spasms of both lower extremities M62.838 [facility] [address] [facility] [id number] [address] Aug, Muscle spasms of both lower extremities M62.838 [facility] [id number] [address] Aug, Low back pain M54.5 [facility] [id number] [address] Jul, Low back pain M54.5 ; Seasonal allergic rhinitis, unspecified allergic rhinitis trigger J30.2 and Muscle spasms of both lower extremities M62.838 [facility] [id number] [place] [address] 29032- 7711 Jul, [facility] [id number] [place] [address] 94240- 2063 Jun, Low back pain M54.5 [facility] [address] [address]- [address] May, [place] [address] [address] May, Fall, subsequent encounter W19.XXXD ; Post concussion syndrome F07.81 ; Chronic seasonal allergic rhinitis due to other allergen J30.2 ; Muscle spasms of both lower extremities M62.838 ; BERYL (obstructive sleep apnea) G47.33 and Encounter for immunization Z23 [place] [address] [address]- [address] May, [place] [address] [address]- [address] May, Low back pain M54.5 [facility] [id number] [place] [address] 32435- 2872 Apr, BERYL (obstructive sleep apnea) G47.33 [place] [id number] [place] [address] 37278- 2605 Apr, [place] [id number] [place] [address] 35155- 9692 Apr, [facility] [address] 22557- 8858 Apr, Muscle spasms of both lower extremities M62.838 [facility] [id number] [place] [address] 96312- 7765 Apr, Polio A80.9 ; Muscle spasms of both lower extremities M62.838 and Trigger middle finger of right hand M65.331 [place] [id number] [place] [address] 71349- 8128 Apr, Low back pain M54.5 [place] [id number] [place] [address] 81669- 3856 Mar, Low back pain M54.5 [place] [id number] [place] [address] 98219- 7723 Mar, [place] [id number] [place] [address] 60331- 8061 Mar, [place] [id number] [place] [address] 24185- 2168 Feb, Low back pain M54.5 ; Other chronic pain G89.29 ; Seasonal allergic rhinitis, unspecified allergic rhinitis trigger J30.2 and COPD with exacerbation J44.1 [place] [id number] [place] [address] 24953- 2960 Feb, Chronic obstructive pulmonary disease, unspecified COPD type J44.9 [place] [id number] [place] [address] 07715- 2527 Feb, Low back pain M54.5 ; Seasonal allergic rhinitis, unspecified allergic rhinitis trigger J30.2 ; Mixed stress and urge urinary incontinence N39.46 ; BERYL (obstructive sleep apnea) G47.33 and Trigger middle finger of right hand M65.331 [place] [id number] [place] [address] 61262- 1187 Feb, [place] [id number] [place] [address] 24242- 8406 Feb, Low back pain M54.5 [place] [id number] [place] [id number] Jan, Trigger finger, unspecified finger, unspecified laterality M65.30 [place] [address] [id number] Jan, [facility] [id number] [place] [address] 39534- 6588 Jan, [facility] [id number] [place] [address] 26390- 7581 Jan, COPD with exacerbation J44.1 [facility] [id number] [place] [address] 35001- 8943 Jan, COPD with exacerbation J44.1 [facility] [id number] [place] [address] 29988- 2875 Jan, COPD with exacerbation J44.1 [facility] [address] 61151- 7880 Jan, Low back pain M54.5 [facility] [address] 71232- 5274 December, Low back pain M54.5 [facility] [id number] [place] [address] 46774- 8406 Nov, Seasonal allergic rhinitis, unspecified allergic rhinitis trigger J30.2 [facility] [id number] [place] [address] 71950- 0287 Nov, [facility] [id number] [place] [address] 19037- 8025 Nov, [facility] [id number] [place] [address] 63971- 1349 Nov, Seasonal allergic rhinitis, unspecified allergic rhinitis trigger J30.2 ; Mixed stress and urge urinary incontinence N39.46 and Non- insulin dependent type 2 diabetes mellitus E11.9 [facility] [id number] [place] [address] 18526- 4901 Nov, [facility] [id number] [place] [address] 38002- 4557 Oct, Low back pain M54.5 [facility] [address] [place] [address]- 3304 14 Oct, 2016 Acute suppurative otitis media of left ear without spontaneous rupture of tympanic membrane, recurrence not specified H66.002 [facility] [id number] [place] [address] 24448- 5913 09 Oct, 2016 [facility] [id number] [place] [address] 53290 -3283 07 Oct, 2016 Bronchitis J40 [facility] [address] 13622- 5048 Oct, [facility] [id number] [place] [address] 58629- 9645 Oct, Low back pain M54.5 [facility] [id number] [place] [address] 04472- 2800 24 Sep, 2016 Polio A80.9 ; Wheelchair bound Z99.3 and Weakness of both legs R29.898 [facility] [id number] [place] [address] 87497- 2627 Sep, COPD with exacerbation J44.1 ; Polio A80.9 ; Weakness of both legs R29.898 ; Wheelchair bound Z99.3 and Low back pain M54.5 [facility] [id number] [place] [address] 08471- 4156 Sep, Low back pain M54.5 [place] [id number] [place] [address] 28534- 6363 Sep, Low back pain M54.5 [facility] [id number] [place] [address] 49577- 4693 Aug, Weakness of both legs R29.898 ; Wheelchair bound Z99.3 and Polio A80.9 [facility] [id number] [place] [address] 24579- 2435 Aug, Polio A80.9 ; Other chronic pain G89.29 ; Dependence on other enabling machines and devices Z99.89 ; Obstructive sleep apnea (adult) ( pediatric) G47.33 and Chronic obstructive pulmonary disease, unspecified COPD type J44.9 [facility] [id number] [place] [address] 08685 -5569 Aug, Bronchitis J40 and Sprain of right knee, unspecified ligament, initial encounter S83.91XA [facility] [id number] [place] [address] 04863- 0226 Aug, [facility] [address] 48734- 0613 Aug, [facility] [address] 49460- 9567 Aug, [facility] [address] 78506- 5045 Aug, [facility] [address] 77564- 2573 Aug, [facility] [id number] [place] [address] 56581- 2787 Aug, Low back pain M54.5 [facility] [address] 82232 -2978 Aug, Acute non-recurrent frontal sinusitis J01.10 [facility] [id number] [place] [address] 56416- 3373 Jul, Chronic obstructive pulmonary disease, unspecified COPD type J44.9 and Low back pain M54.5 [facility] [id number] [place] [address] 60024- 8072 Jul, Low back pain M54.5 [facility] [id number] [place] [address] 20880- 4376 Jul, Low back pain M54.5 [facility] [id number] [place] [address] 00395- 7752 Jul, Dental examination Z01.20 and Chronic obstructive pulmonary disease, unspecified COPD type J44.9 [facility] [id number] [place] [address] 26419- 6408 Jul, [facility] [id number] [place] [address] 38723- 1269 Jul, Low back pain M54.5 and Chronic obstructive pulmonary disease, unspecified COPD type J44.9 [facility] [id number] [place] [address] 28571- 0005 Jun, [facility] [id number] [place] [address] 15590- 2832 Jun, Chronic obstructive pulmonary disease, unspecified COPD type J44.9 ; Low back pain M54.5 ; Allergy, sequela T78.40XS and Cigarette nicotine dependence without complication F17.210 [facility] [id number] [place] [address] 76317- 6510 May, [facility] [id number] [place] [address] 30363- 8937 May, [facility] [id number] [place] [address] 95741- 6210 May, Dental examination Z01.20 [facility] [id number] [place] [address] 89088 -5184 May, Pneumonia of both lower lobes due to infectious organism J18.9 [facility] [id number] [place] [address] 96593- 3071 May, [facility] [id number] [place] [address] 99791- 3214 May, [facility] [id number] [place] [address] 88871- 2184 May, [facility] [id number] [place] [address] 79748- 1005 May, [facility] [id number] [place] [address] 29410- 0277 May, Bronchitis J40 and Low back pain M54.5 [facility] [address] [address]- 7359 15 Apr, 2016 [facility] [address] [address] 14 Apr, 2016 Pneumonia of left lower lobe due to infectious organism J18.9 ; Cellulitis of right leg L03.115 and 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 [facility] [address] [address]- 3471 14 Apr, 2016 [facility] [address] [place] [address] 35119- 5710 06 Apr, 2016 Chronic obstructive pulmonary disease, unspecified COPD type J44.9 ; Low back pain M54.5 ; Other chronic pain G89.29 and Polio A80.9 [facility] [address] [address]- 8424 02 Apr, 2016 IMMUNIZATIONS No Known Immunizations [...]
--- OUTSIDE RECORDS SUMMARY | 2018-01-09 08:24 | XMS REPORT ---
Author Author CARY CRESPO Organization [facility] Address [address] [place] [address] Care Team Providers Care Poured Concrete Wall Technician Name Role Phone CARY CRESPO Unavailable PROBLEMS Type Condition ICD9-CM Code ELL11-BR Code Onset Dates Condition Status SNOMED Code Problem Weakness of both legs R29.898 Active 6143177 Problem Seasonal allergic rhinitis, unspecified allergic rhinitis trigger J30.2 Active 862821363 Problem Non-insulin dependent type 2 diabetes mellitus E11.9 Active 94033028 Problem Acute exacerbation of chronic obstructive pulmonary disease (COPD) J44.1 Active 949410385 Problem Chronic seasonal allergic rhinitis due to other allergen J30.2 Active 380049714 Problem BERYL (obstructive sleep apnea) G47.33 Active 78802007 Problem Mixed stress and urge urinary incontinence N39.46 Active 106984519 Problem Post concussion syndrome F07.81 Active 76699453 Problem Muscle spasms of both lower extremities M62.838 Active 664564535 Problem Polio A80.9 Active 016954476 Problem Chronic obstructive pulmonary disease, unspecified COPD type J44.9 Active 03380627 Problem Cigarette nicotine dependence without complication F17.210 Active 66412874 Problem Obstructive sleep apnea (adult) (pediatric) G47.33 Active 61046453 Problem Low back pain M54.5 Active 991124722 Problem Dependence on other enabling machines and devices Z99.89 Active 412010153 Problem Other chronic pain G89.29 Active 51545288 Problem Wheelchair bound Z99.3 Active 706160965 ALLERGIES No Information ENCOUNTERS Encounter Location Date Diagnosis [facility] [id number], [place] [address] Nov, Medicare annual wellness visit, initial Z00.00 [facility] [id number], [place] [address] Oct, Other chronic pain G89.29 [facility] [id number], [place] [address] 16 Oct, 2017 [facility] [id number] [place] [address] 50472- 5587 Oct, [facility] [address] [place] [address] 21862- 6220 Oct, Low back pain M54.5 [facility] [id number] [place] [address] 63514- 7821 Oct, [facility] [id number] [place] [address] 18573- 8469 Oct, Low back pain M54.5 and COPD with exacerbation J44.1 [facility] [id number] [place] [address] 32058- 1082 Oct, Chronic obstructive pulmonary disease, unspecified COPD type J44.9 and COPD with exacerbation J44.1 [facility] [id number] [place] [address] 51517- 2809 Sep, Low back pain M54.5 [facility] [id number] [place] [address] 47450 -3314 Aug, Acute exacerbation of chronic obstructive pulmonary disease (COPD) J44.1 [facility] [address] [address] Aug, [facility] [address] [place] [address] 44842- 4390 Aug, Muscle spasms of both lower extremities M62.838 [facility] [id number] [place] [address] 05445- 3769 Aug, Muscle spasms of both lower extremities M62.838 [facility] [address] [place] [address] 55452- 9222 Aug, Low back pain M54.5 [facility] [address] [place] [address] 85072- 0878 Jul, Low back pain M54.5 ; Seasonal allergic rhinitis, unspecified allergic rhinitis trigger J30.2 and Muscle spasms of both lower extremities M62.838 [facility] [id number] [place] [address] 13975- 3573 Jul, [facility] [id number] [place] [address] 78761- 2767 Jun, Low back pain M54.5 [facility] [address] [address] May, [place] [address] [address]- [address] May, Fall, subsequent encounter W19.XXXD ; Post concussion syndrome F07.81 ; Chronic seasonal allergic rhinitis due to other allergen J30.2 ; Muscle spasms of both lower extremities M62.838 ; BERYL (obstructive sleep apnea) G47.33 and Encounter for immunization Z23 [place] [address] 45933- 4134 May, [place] [address] 37983- 0319 May, Low back pain M54.5 [facility] [id number] [place] [address] 40755- 9708 Apr, BERYL (obstructive sleep apnea) G47.33 [place] [id number] [place] [address] 19750- 5015 Apr, [place] [id number] [place] [address] 22205- 6686 Apr, [place] [address] 94086- 0635 Apr, Muscle spasms of both lower extremities M62.838 [place] [id number] [place] [address] 36931- 1296 Apr, Polio A80.9 ; Muscle spasms of both lower extremities M62.838 and Trigger middle finger of right hand M65.331 [place] [id number] [place] [address] 74969- 4287 08 Apr, 2017 Low back pain M54.5 [place] [id number] [place] [address] 65214- 6857 Mar, Low back pain M54.5 [place] [id number] [place] [address] 61774- 6410 Mar, [place] [id number] [place] [address] 43793- 6985 Mar, [place] [id number] [place] [address] 91923- 4934 Feb, Low back pain M54.5 ; Other chronic pain G89.29 ; Seasonal allergic rhinitis, unspecified allergic rhinitis trigger J30.2 and COPD with exacerbation J44.1 [place] [id number] [place] [address] 56093- 7615 Feb, Chronic obstructive pulmonary disease, unspecified COPD type J44.9 [place] [id number] [place] [address] 80023- 3018 Feb, Low back pain M54.5 ; Seasonal allergic rhinitis, unspecified allergic rhinitis trigger J30.2 ; Mixed stress and urge urinary incontinence N39.46 ; BERYL (obstructive sleep apnea) G47.33 and Trigger middle finger of right hand M65.331 [place] [address] [place] [address] 77900- 1522 Feb, [place] [id number] [place] [address] 17565- 6412 Feb, Low back pain M54.5 [place] [id number] [place] [address] [id number] Jan, Trigger finger, unspecified finger, unspecified laterality M65.30 [place] [address] [id number] Jan, [facility] [id number] [place] [address] 77079- 2716 Jan, [facility] [id number] [place] [address] 06008- 8641 Jan, COPD with exacerbation J44.1 [facility] [id number] [place] [address] 71909- 0197 Jan, COPD with exacerbation J44.1 [facility] [id number] [place] [address] 42696- 7775 Jan, COPD with exacerbation J44.1 [facility] [id number] [place] [address] 37787- 1886 Jan, Low back pain M54.5 [facility] [id number] [place] [address] 21593- 1722 December, Low back pain M54.5 [facility] [id number] [place] [address] 96297- 9537 Nov, Seasonal allergic rhinitis, unspecified allergic rhinitis trigger J30.2 [facility] [id number] [place] [address] 18761- 8706 Nov, [facility] [id number] [place] [address] 96823- 1654 Nov, [facility] [id number] [place] [address] 46145- 3226 Nov, Seasonal allergic rhinitis, unspecified allergic rhinitis trigger J30.2 ; Mixed stress and urge urinary incontinence N39.46 and Non- insulin dependent type 2 diabetes mellitus E11.9 [facility] [id number] [place] [address] 74822- 5424 Nov, [facility] [id number] [place] [address] 08348- 0652 Oct, Low back pain M54.5 [facility] [id number] [place] [address] 81001- 5246 14 Oct, 2016 Acute suppurative otitis media of left ear without spontaneous rupture of tympanic membrane, recurrence not specified H66.002 [facility] [address] [place] [address] 11083- 9733 09 Oct, 2016 [facility] [id number] [place] [address] 87584 -8545 07 Oct, 2016 Bronchitis J40 [facility] [id number] [place] [address] 64010- 9373 Oct, [facility] [id number] [place] [address] 93147- 0937 Oct, Low back pain M54.5 [place] [id number] [place] [address] 29583- 9918 24 Sep, 2016 Polio A80.9 ; Wheelchair bound Z99.3 and Weakness of both legs R29.898 [facility] [id number] [place] [address] 67384- 1529 Sep, COPD with exacerbation J44.1 ; Polio A80.9 ; Weakness of both legs R29.898 ; Wheelchair bound Z99.3 and Low back pain M54.5 [facility] [id number] [place] [address] 34497- 7814 Sep, Low back pain M54.5 [facility] [id number] [place] [address] 84563- 7670 Sep, Low back pain M54.5 [place] [id number] [place] [address] 09175- 4990 Aug, Weakness of both legs R29.898 ; Wheelchair bound Z99.3 and Polio A80.9 [facility] [address] [place] [address] 87500- 4823 Aug, Polio A80.9 ; Other chronic pain G89.29 ; Dependence on other enabling machines and devices Z99.89 ; Obstructive sleep apnea (adult) ( pediatric) G47.33 and Chronic obstructive pulmonary disease, unspecified COPD type J44.9 [facility] [id number] [place] [address] 89884 -4651 Aug, Bronchitis J40 and Sprain of right knee, unspecified ligament, initial encounter S83.91XA [facility] [address] 38387- 5637 Aug, [facility] [address] 15341- 0251 Aug, [facility] [address] 46735- 7549 Aug, [facility] [address] 35661- 4708 Aug, [facility] [address] 37095- 0594 Aug, [facility] [id number] [place] [address] 31031- 4419 Aug, Low back pain M54.5 [facility] [id number] [place] [address] 87958 -5835 Aug, Acute non-recurrent frontal sinusitis J01.10 [facility] [id number] [place] [address] 06131- 4195 Jul, Chronic obstructive pulmonary disease, unspecified COPD type J44.9 and Low back pain M54.5 [facility] [id number] [place] [address] 64416- 1852 Jul, Low back pain M54.5 [facility] [id number] [place] [address] 67468- 9952 Jul, Low back pain M54.5 [facility] [id number] [place] [address] 53292- 2818 Jul, Dental examination Z01.20 and Chronic obstructive pulmonary disease, unspecified COPD type J44.9 [facility] [address] [address] 6956 Jul, [facility] [id number] [place] [address] 48269- 1302 Jul, Low back pain M54.5 and Chronic obstructive pulmonary disease, unspecified COPD type J44.9 [facility] [id number] [place] [address] 34223- 7916 Jun, [facility] [id number] [place] [address] 30311- 4652 Jun, Chronic obstructive pulmonary disease, unspecified COPD type J44.9 ; Low back pain M54.5 ; Allergy, sequela T78.40XS and Cigarette nicotine dependence without complication F17.210 [facility] [id number] [place] [address] 35467- 2022 May, [facility] [id number] [place] [address] 14253- 1856 May, [facility] [id number] [place] [address] 50030- 4363 May, Dental examination Z01.20 [facility] [address] [place] [address] 00427 -8984 May, Pneumonia of both lower lobes due to infectious organism J18.9 [facility] [address] [address] 8524 May, [facility] [id number] [place] [address] 25651- 2861 May, [facility] [id number] [place] [address] 67241- 9998 May, [facility] [id number] [place] [address] 05942- 1710 May, [facility] [address] [address]- 4087 03 May, 2016 Bronchitis J40 and Low back pain M54.5 [facility] [address] [place] [address] 41997- 3397 15 Apr, 2016 [facility] [address] [place] [address] 78230 -6709 14 Apr, 2016 Pneumonia of left lower lobe due to infectious organism J18.9 ; Cellulitis of right leg L03.115 and 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 [place] [address] [place] [address] 13861- 9719 14 Apr, 2016 [facility] [id number] [place] [address] 59297- 0534 06 Apr, 2016 Chronic obstructive pulmonary disease, unspecified COPD type J44.9 ; Low back pain M54.5 ; Other chronic pain G89.29 and Polio A80.9 [place] [address] [place] [address] 16838- 1646 02 Apr, 2016 IMMUNIZATIONS No Known Immunizations SOCIAL HISTORY Never Assessed REASON FOR VISIT Rx correction PLAN OF CARE VITAL SIGNS MEDICATIONS Medication Instructions Dosage Frequency Start Date End Date Duration Status Voltaren 1 % Transdermal 2 times a day Apply to bilateral lower extremeties 12h 30 days Active RESULTS No Results PROCEDURES [...]
--- OUTSIDE RECORDS SUMMARY | 2018-01-09 08:24 | XMS REPORT ---
Author Author CARY CRESPO Organization [facility] Address [address] [place] [address] Care Team Providers Care Wet Process Head Miller Name Role Phone CARY CRESPO Unavailable PROBLEMS Type Condition ICD9-CM Code DUE69-SU Code Onset Dates Condition Status SNOMED Code Problem Weakness of both legs R29.898 Active 5129437 Problem Seasonal allergic rhinitis, unspecified allergic rhinitis trigger J30.2 Active 358581428 Problem Non-insulin dependent type 2 diabetes mellitus E11.9 Active 23064659 Problem Acute exacerbation of chronic obstructive pulmonary disease (COPD) J44.1 Active 894545240 Problem Chronic seasonal allergic rhinitis due to other allergen J30.2 Active 898006528 Problem BERYL (obstructive sleep apnea) G47.33 Active 17561969 Problem Mixed stress and urge urinary incontinence N39.46 Active 068594995 Problem Post concussion syndrome F07.81 Active 28881546 Problem Muscle spasms of both lower extremities M62.838 Active 521190799 Problem Polio A80.9 Active 062048448 Problem Chronic obstructive pulmonary disease, unspecified COPD type J44.9 Active 83993119 Problem Cigarette nicotine dependence without complication F17.210 Active 88261781 Problem Obstructive sleep apnea (adult) (pediatric) G47.33 Active 77751287 Problem Low back pain M54.5 Active 456466063 Problem Dependence on other enabling machines and devices Z99.89 Active 631679994 Problem Other chronic pain G89.29 Active 15850254 Problem Wheelchair bound Z99.3 Active 298733788 ALLERGIES No Information ENCOUNTERS Encounter Location Date Diagnosis [facility] [id number], [place] [address] Nov, Medicare annual wellness visit, initial Z00.00 [facility] [id number], [place] [address] Oct, Other chronic pain G89.29 [facility] [id number] [address] 16 Oct, 2017 [facility] [id number] [place] [address] 79209- 1001 Oct, [facility] [id number] [place] [address] 10831- 6187 Oct, Low back pain M54.5 [facility] [id number] [place] [address] 02034- 4026 Oct, [facility] [id number] [place] [address] 91384- 6233 Oct, Low back pain M54.5 and COPD with exacerbation J44.1 [facility] [id number] [place] [address] 27992- 7767 Oct, Chronic obstructive pulmonary disease, unspecified COPD type J44.9 and COPD with exacerbation J44.1 [facility] [id number] [place] [address] 73334- 7886 Sep, Low back pain M54.5 [facility] [id number] [place] [address] 93221 -6386 Aug, Acute exacerbation of chronic obstructive pulmonary disease (COPD) J44.1 [facility] [address] [address] Aug, [facility] [id number] [place] [address] 23280- 2386 Aug, Muscle spasms of both lower extremities M62.838 [facility] [id number] [place] [address] 38074- 2488 Aug, Muscle spasms of both lower extremities M62.838 [facility] [id number] [place] [address] 20171- 6004 Aug, Low back pain M54.5 [facility] [id number] [place] [address] 06102- 8993 Jul, Low back pain M54.5 ; Seasonal allergic rhinitis, unspecified allergic rhinitis trigger J30.2 and Muscle spasms of both lower extremities M62.838 [facility] [id number] [place] [address] 96924- 2232 Jul, [facility] [id number] [place] [address] 27804- 5297 Jun, Low back pain M54.5 [facility] [address] [address]386- 7892 May, [address] [address]- [address] May, Fall, subsequent encounter W19.XXXD ; Post concussion syndrome F07.81 ; Chronic seasonal allergic rhinitis due to other allergen J30.2 ; Muscle spasms of both lower extremities M62.838 ; BERYL (obstructive sleep apnea) G47.33 and Encounter for immunization Z23 [address] [address] [address] 70676- 9290 May, [address] 34563- 9391 May, Low back pain M54.5 [facility] [id number] [place] [address] 46127- 9837 Apr, BERYL (obstructive sleep apnea) G47.33 [address] [id number] [place] [address] 00378- 0743 Apr, [address] [id number] [place] [address] 09590- 9581 Apr, [address] [address] 97004- 2352 Apr, Muscle spasms of both lower extremities M62.838 [address] [id number] [place] [address] 98758- 4877 Apr, Polio A80.9 ; Muscle spasms of both lower extremities M62.838 and Trigger middle finger of right hand M65.331 [id number] [place] [address] 36356- 2183 08 Apr, 2017 Low back pain M54.5 [place] [id number] [place] [address] 29488- 0972 Mar, Low back pain M54.5 [place] [id number] [place] [address] 31609- 9157 Mar, [address] [id number] [place] [address] 91577- 8729 Mar, [address] [place] [id number] [place] [address] 63867- 1505 Feb, Low back pain M54.5 ; Other chronic pain G89.29 ; Seasonal allergic rhinitis, unspecified allergic rhinitis trigger J30.2 and COPD with exacerbation J44.1 [address] [id number] [place] [address] 53345- 6378 Feb, Chronic obstructive pulmonary disease, unspecified COPD type J44.9 [address] [id number] [place] [address] 35635- 5147 Feb, Low back pain M54.5 ; Seasonal allergic rhinitis, unspecified allergic rhinitis trigger J30.2 ; Mixed stress and urge urinary incontinence N39.46 ; BERYL (obstructive sleep apnea) G47.33 and Trigger middle finger of right hand M65.331 [id number] [place] [address] 70869- 6415 Feb, [address] [place] [id number] [place] [address] 86542- 4025 Feb, Low back pain M54.5 [place] [id number] [place] [address] [id number] Jan, Trigger finger, unspecified finger, unspecified laterality M65.30 [place] [address] [id number] Jan, [facility] [id number] [place] [address] 43582- 0961 Jan, [facility] [id number] [place] [address] 81427- 2754 Jan, COPD with exacerbation J44.1 [facility] [id number] [place] [address] 96913- 0949 Jan, COPD with exacerbation J44.1 [facility] [id number] [place] [address] 64830- 0712 Jan, COPD with exacerbation J44.1 [facility] [id number] [place] [address] 00583- 8481 Jan, Low back pain M54.5 [facility] [id number] [place] [address] 50835- 1755 December, Low back pain M54.5 [facility] [id number] [place] [address] 87401- 6290 Nov, Seasonal allergic rhinitis, unspecified allergic rhinitis trigger J30.2 [facility] [id number] [place] [address] 76040- 2107 Nov, [facility] [id number] [place] [address] 17880- 1819 Nov, [facility] [id number] [place] [address] 78176- 6435 Nov, Seasonal allergic rhinitis, unspecified allergic rhinitis trigger J30.2 ; Mixed stress and urge urinary incontinence N39.46 and Non- insulin dependent type 2 diabetes mellitus E11.9 [facility] [id number] [place] [address] 67967- 6728 Nov, [facility] [id number] [place] [address] 07887- 2902 Oct, Low back pain M54.5 [facility] [id number] [place] [address] 90807- 6606 14 Oct, 2016 Acute suppurative otitis media of left ear without spontaneous rupture of tympanic membrane, recurrence not specified H66.002 [facility] [id number] [place] [address] 58583- 9634 09 Oct, 2016 [facility] [id number] [place] [address] 95650 -6581 07 Oct, 2016 Bronchitis J40 [facility] [id number] [place] [address] 68524- 8801 Oct, [facility] [id number] [place] [address] 55793- 5689 Oct, Low back pain M54.5 [address] [id number] [place] [address] 13251- 3125 24 Sep, 2016 Polio A80.9 ; Wheelchair bound Z99.3 and Weakness of both legs R29.898 [facility] [id number] [place] [address] 52764- 5847 Sep, COPD with exacerbation J44.1 ; Polio A80.9 ; Weakness of both legs R29.898 ; Wheelchair bound Z99.3 and Low back pain M54.5 [facility] [id number] [place] [address] 23623- 8628 Sep, Low back pain M54.5 [facility] [id number] [place] [address] 20727- 4985 Sep, Low back pain M54.5 [address] [id number] [place] [address] 70619- 5139 Aug, Weakness of both legs R29.898 ; Wheelchair bound Z99.3 and Polio A80.9 [facility] [id number] [place] [address] 06107- 7097 Aug, Polio A80.9 ; Other chronic pain G89.29 ; Dependence on other enabling machines and devices Z99.89 ; Obstructive sleep apnea (adult) ( pediatric) G47.33 and Chronic obstructive pulmonary disease, unspecified COPD type J44.9 [facility] [id number] [place] [address] 17674 -5028 Aug, Bronchitis J40 and Sprain of right knee, unspecified ligament, initial encounter S83.91XA [facility] [address] 48414- 9071 Aug, [facility] [address] 83180- 9038 Aug, [facility] [address] 71957- 2267 Aug, [facility] [address] 78196- 1735 Aug, [facility] [address] 24168- 4729 Aug, [facility] [id number] [place] [address] 07137- 1139 Aug, Low back pain M54.5 [facility] [id number] [place] [address] 52284 -2116 Aug, Acute non-recurrent frontal sinusitis J01.10 [facility] [id number] [place] [address] 64634- 8450 Jul, Chronic obstructive pulmonary disease, unspecified COPD type J44.9 and Low back pain M54.5 [facility] [id number] [place] [address] 44766- 5907 Jul, Low back pain M54.5 [facility] [id number] [place] [address] 84901- 1623 Jul, Low back pain M54.5 [facility] [id number] [place] [address] 38832- 7213 Jul, Dental examination Z01.20 and Chronic obstructive pulmonary disease, unspecified COPD type J44.9 [facility] [address], [place] [address] 2746 Jul, [facility] [id number] [place] [address] 93437- 3603 Jul, Low back pain M54.5 and Chronic obstructive pulmonary disease, unspecified COPD type J44.9 [facility] [id number] [place] [address] 43760- 8978 Jun, [facility] [id number] [place] [address] 02152- 8745 Jun, Chronic obstructive pulmonary disease, unspecified COPD type J44.9 ; Low back pain M54.5 ; Allergy, sequela T78.40XS and Cigarette nicotine dependence without complication F17.210 [facility] [id number] [place] [address] 22654- 8205 May, [facility] [id number] [place] [address] 23080- 5086 May, [facility] [id number] [place] [address] 16373- 8628 May, Dental examination Z01.20 [facility] [id number] [place] [address] 28460 -6678 May, Pneumonia of both lower lobes due to infectious organism J18.9 [facility] [address] [address]- 8703 May, [facility] [id number] [place] [address] 78715- 3721 May, [facility] [id number] [place] [address] 60900- 5031 May, [facility] [id number] [place] [address] 59348- 8759 May, [facility] [id number] [address]- 6964 03 May, 2016 Bronchitis J40 and Low back pain M54.5 [facility] [id number] [place] [address] 12666- 4294 15 Apr, 2016 [facility] [id number] [place] [address] 58339 -2925 14 Apr, 2016 Pneumonia of left lower lobe due to infectious organism J18.9 ; Cellulitis of right leg L03.115 and 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 [facility] [id number] [place] [address] 08965- 3071 14 Apr, 2016 [place] [id number] [place] [address] 94907- 8956 06 Apr, 2016 Chronic obstructive pulmonary disease, unspecified COPD type J44.9 ; Low back pain M54.5 ; Other chronic pain G89.29 and Polio A80.9 [place] [id number] [place] [address] 67036- 7468 02 Apr, 2016 IMMUNIZATIONS No Known Immunizations SOCIAL HISTORY Never Assessed REASON FOR VISIT Requests return call PLAN OF CARE VITAL SIGNS MEDICATIONS Medication Instructions Dosage Frequency Start Date End Date Duration Status Voltaren 1 % Transdermal 2 times a day Apply to affected area 12h 30 days Active RESULTS No Results [...]
--- OUTSIDE RECORDS SUMMARY | 2018-01-09 08:25 | XMS REPORT ---
Author Author CARY CRESPO Organization [facility] Address [address] [place] [address] Care Team Providers Care Senior Pharmacy Technician Name Role Phone CARY CRESPO Unavailable PROBLEMS Type Condition ICD9-CM Code SEO84-XN Code Onset Dates Condition Status SNOMED Code Problem Weakness of both legs R29.898 Active 1471756 Problem Seasonal allergic rhinitis, unspecified allergic rhinitis trigger J30.2 Active 607130768 Problem Non-insulin dependent type 2 diabetes mellitus E11.9 Active 99797932 Problem Acute exacerbation of chronic obstructive pulmonary disease (COPD) J44.1 Active 145542446 Problem Chronic seasonal allergic rhinitis due to other allergen J30.2 Active 043939492 Problem BERYL (obstructive sleep apnea) G47.33 Active 74913939 Problem Mixed stress and urge urinary incontinence N39.46 Active 162853786 Problem Post concussion syndrome F07.81 Active 81673820 Problem Muscle spasms of both lower extremities M62.838 Active 766370376 Problem Polio A80.9 Active 518723317 Problem Chronic obstructive pulmonary disease, unspecified COPD type J44.9 Active 95132760 Problem Cigarette nicotine dependence without complication F17.210 Active 42592231 Problem Obstructive sleep apnea (adult) (pediatric) G47.33 Active 83241942 Problem Low back pain M54.5 Active 013852041 Problem Dependence on other enabling machines and devices Z99.89 Active 281354561 Problem Other chronic pain G89.29 Active 15536927 Problem Wheelchair bound Z99.3 Active 435921116 ALLERGIES No Information ENCOUNTERS Encounter Location Date Diagnosis [facility] [id number] [place] [address] 02609- 0899 Nov, Medicare annual wellness visit, initial Z00.00 [facility] [id number], [place] [address] Oct, Other chronic pain G89.29 [facility] [id number] [address] 16 Oct, 2017 [facility] [id number] [place] [address] 56846- 5298 Oct, [facility] [address] [place] [address] 66865- 6659 Oct, Low back pain M54.5 [facility] [id number] [place] [address] 94035- 6679 Oct, [facility] [id number] [place] [address] 90588- 5133 Oct, Low back pain M54.5 and COPD with exacerbation J44.1 [facility] [address] [place] [address] 11278- 0924 Oct, Chronic obstructive pulmonary disease, unspecified COPD type J44.9 and COPD with exacerbation J44.1 [facility] [id number] [place] [address] 99981- 6485 Sep, Low back pain M54.5 [facility] [address] [place] [address] 89257 -5719 Aug, Acute exacerbation of chronic obstructive pulmonary disease (COPD) J44.1 [facility] [address] [address] Aug, [facility] [address] [place] [address] 44482- 2836 Aug, Muscle spasms of both lower extremities M62.838 [facility] [id number] [place] [address] 22676- 3726 Aug, Muscle spasms of both lower extremities M62.838 [facility] [address] [place] [address] 99067- 4011 Aug, Low back pain M54.5 [facility] [address] [place] [address] 64847- 8381 Jul, Low back pain M54.5 ; Seasonal allergic rhinitis, unspecified allergic rhinitis trigger J30.2 and Muscle spasms of both lower extremities M62.838 [facility] [id number] [place] [address] 97128- 4385 Jul, [facility] [id number] [place] [address] 49000- 6427 Jun, Low back pain M54.5 [facility] [address] 9[address]45- 6052 May, [place] [address] 72388- 7681 May, Fall, subsequent encounter W19.XXXD ; Post concussion syndrome F07.81 ; Chronic seasonal allergic rhinitis due to other allergen J30.2 ; Muscle spasms of both lower extremities M62.838 ; BERYL (obstructive sleep apnea) G47.33 and Encounter for immunization Z23 [place] [address] 45189- 6493 May, [place] [address] 90990- 1673 May, Low back pain M54.5 [facility] [id number] [place] [address] 13761- 0265 Apr, BERYL (obstructive sleep apnea) G47.33 [place] [id number] [place] [address] 14480- 4716 Apr, [place] [id number] [place] [address] 36437- 9375 Apr, [place] [address] 72602- 8820 Apr, Muscle spasms of both lower extremities M62.838 [place] [address] [place] [address] 48097- 9496 Apr, Polio A80.9 ; Muscle spasms of both lower extremities M62.838 and Trigger middle finger of right hand M65.331 [place] [id number] [place] [address] 48494- 5063 08 Apr, 2017 Low back pain M54.5 [place] [address] [place] [address] 17993- 6515 Mar, Low back pain M54.5 [place] [address] [place] [address] 82725- 4483 Mar, [place] [address] [place] [address] 76049- 2646 Mar, [place] [address] [place] [address] 00624- 9199 Feb, Low back pain M54.5 ; Other chronic pain G89.29 ; Seasonal allergic rhinitis, unspecified allergic rhinitis trigger J30.2 and COPD with exacerbation J44.1 [place] [address] [place] [address] 04302- 7065 Feb, Chronic obstructive pulmonary disease, unspecified COPD type J44.9 [place] [address] [place] [address] 87557- 5426 Feb, Low back pain M54.5 ; Seasonal allergic rhinitis, unspecified allergic rhinitis trigger J30.2 ; Mixed stress and urge urinary incontinence N39.46 ; BERYL (obstructive sleep apnea) G47.33 and Trigger middle finger of right hand M65.331 [place] [address] [place] [address] 95424- 2277 Feb, [place] [address] [place] [address] 86062- 5875 Feb, Low back pain M54.5 [address] [id number] [place] [address] [id number] Jan, Trigger finger, unspecified finger, unspecified laterality M65.30 [place] [address] [id number] Jan, [facility] [id number] [place] [address] 47800- 7800 Jan, [facility] [id number] [place] [address] 31223- 5530 Jan, COPD with exacerbation J44.1 [facility] [address] [place] [address] 55987- 7925 Jan, COPD with exacerbation J44.1 [facility] [address] [place] [address] 10908- 8479 Jan, COPD with exacerbation J44.1 [facility] [address] [place] [address] 25890- 2133 Jan, Low back pain M54.5 [facility] [id number] [place] [address] 61404- 9917 December, Low back pain M54.5 [facility] [address] [place] [address] 99438- 5688 Nov, Seasonal allergic rhinitis, unspecified allergic rhinitis trigger J30.2 [facility] [id number] [place] [address] 51270- 2134 Nov, [facility] [id number] [place] [address] 73105- 3504 Nov, [facility] [id number] [place] [address] 02664- 3186 Nov, Seasonal allergic rhinitis, unspecified allergic rhinitis trigger J30.2 ; Mixed stress and urge urinary incontinence N39.46 and Non- insulin dependent type 2 diabetes mellitus E11.9 [facility] [address] [place] [address] 74595- 3274 Nov, [facility] [address] [place] [address] 46941- 9863 Oct, Low back pain M54.5 [facility] [address] [place] [address] 87273- 8294 14 Oct, 2016 Acute suppurative otitis media of left ear without spontaneous rupture of tympanic membrane, recurrence not specified H66.002 [facility] [address] [place] [address] 00138- 8817 09 Oct, 2016 [facility] [address] [place] [address] 63124 -2164 07 Oct, 2016 Bronchitis J40 [facility] [id number] [place] [address] 84738- 4114 Oct, [facility] [id number] [place] [address] 16304- 1022 Oct, Low back pain M54.5 [place] [address] [place] [address] 73969- 6626 24 Sep, 2016 Polio A80.9 ; Wheelchair bound Z99.3 and Weakness of both legs R29.898 [facility] [address] [place] [address] 06139- 4255 Sep, COPD with exacerbation J44.1 ; Polio A80.9 ; Weakness of both legs R29.898 ; Wheelchair bound Z99.3 and Low back pain M54.5 [facility] [address] [place] [address] 35297- 4302 Sep, Low back pain M54.5 [facility] [address] [place] [address] 09835- 1648 Sep, Low back pain M54.5 [place] [address] [place] [address] 44476- 6964 Aug, Weakness of both legs R29.898 ; Wheelchair bound Z99.3 and Polio A80.9 [facility] [address] [place] [address] 89673- 8358 Aug, Polio A80.9 ; Other chronic pain G89.29 ; Dependence on other enabling machines and devices Z99.89 ; Obstructive sleep apnea (adult) ( pediatric) G47.33 and Chronic obstructive pulmonary disease, unspecified COPD type J44.9 [facility] [address] [place] [address] 38625 -1347 Aug, Bronchitis J40 and Sprain of right knee, unspecified ligament, initial encounter S83.91XA [facility] [address] 09502- 3755 Aug, [facility] [address] 43003- 6375 Aug, [facility] [address] 44009- 7024 Aug, [facility] [address] 29180- 8172 Aug, [facility] [address] 89904- 4639 Aug, [facility] [id number] [place] [address] 44491- 6618 Aug, Low back pain M54.5 [facility] [id number] [place] [address] 03076 -2394 Aug, Acute non-recurrent frontal sinusitis J01.10 [facility] [address] [place] [address] 77966- 9892 Jul, Chronic obstructive pulmonary disease, unspecified COPD type J44.9 and Low back pain M54.5 [facility] [address] [place] [address] 08208- 9921 Jul, Low back pain M54.5 [facility] [address] [place] [address] 21029- 1223 Jul, Low back pain M54.5 [facility] [id number] [place] [address] 22783- 3468 Jul, Dental examination Z01.20 and Chronic obstructive pulmonary disease, unspecified COPD type J44.9 [facility] [address] [address]- 7982 Jul, [facility] [id number] [place] [address] 84002- 4598 Jul, Low back pain M54.5 and Chronic obstructive pulmonary disease, unspecified COPD type J44.9 [facility] [id number] [place] [address] 13874- 5857 Jun, [facility] [address] [place] [address] 22653- 1704 Jun, Chronic obstructive pulmonary disease, unspecified COPD type J44.9 ; Low back pain M54.5 ; Allergy, sequela T78.40XS and Cigarette nicotine dependence without complication F17.210 [facility] [address] [place] [address] 94659- 5704 May, [facility] [address] [place] [address] 70198- 6850 May, [facility] [id number] [place] [address] 27409- 1707 May, Dental examination Z01.20 [facility] [address] [place] [address] 71524 -0374 May, Pneumonia of both lower lobes due to infectious organism J18.9 [facility] [address] [address]- 4063 May, [facility] [id number] [place] [address] 73433- 2647 May, [facility] [id number] [place] [address] 55543- 9866 May, [facility] [id number] [place] [address] 40907- 6071 May, [facility] [address] [address]- 0192 03 May, 2016 Bronchitis J40 and Low back pain M54.5 [facility] [address] [place] [address] 84602- 5023 15 Apr, 2016 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 [facility] [address] [place] [address] 85257- 3774 14 Apr, 2016 [facility] [id number] [place] [address] 35524- 1752 06 Apr, 2016 Chronic obstructive pulmonary disease, unspecified COPD type J44.9 ; Low back pain M54.5 ; Other chronic pain G89.29 and Polio A80.9 [place] [address] [place] [address] 68066- 9244 02 Apr, 2016 IMMUNIZATIONS No Known Immunizations SOCIAL HISTORY Never Assessed REASON FOR VISIT Controlled Med Refill PLAN OF CARE VITAL SIGNS MEDICATIONS Medication Instructions Dosage Frequency Start Date End Date Duration Status Tramadol HCl 50 mg Orally every 6 hrs 1 tablet 6h 28 days Active Hydrocodone-Acetaminophen 10-325 MG Orally every 4 hours 1 tablet 4h Nov 28 days Active RESULTS No Results PROCEDURES [...]
[2018-01-09] MEDS ORDERED: LACTATED RINGERS 1,000 ML IV STA (08:27)
--- NOTE | 2018-01-09 08:30 | Progress Note-Pre Operative ---
Pre-Operative Progress Note H&P Reviewed The H&P was reviewed, patient examined and no changes noted. Date Seen by Provider: Jan 09, 2018 Time Seen by Provider: 08: Date H&P Reviewed: Jan 09, 2018 Time H&P Reviewed: 08: Pre-Operative Diagnosis: screening colonoscopy, history of polyps ARLEY COLLINS DO Jan 09, 2018 08:29
[2018-01-09 08:36] VITALS: BP 154/82
[2018-01-09] MEDS ORDERED: LIDOCAINE PF 2% 5 ML (XYLOCAINE) VIAL ONE (09:19)
[2018-01-09] MEDS ORDERED: proPOfol 200 MG/20 ML (DIPRIVAN) VIAL IV ONE (09:19)
[2018-01-09] MEDS ORDERED: ceFAZolin 1,000 MG (ANCEF) VIAL ONE (09:24)
[2018-01-09 09:55] VITALS: BP 149/87
--- NOTE | 2018-01-09 09:58 | Progress Note-Post Operative ---
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
--- NOTE | 2018-01-09 10:00 | Discharge Inst-Simple/Standard ---
Discharge Inst-Standard Patient Instructions/Follow Up Plan of Care/Instructions/FU: Patient needs repeat colonoscopy in 5 years. Any issues before then be seen at that time. Activity as Tolerated: Yes Discharge Diet: Regular Diet ARLEY COLLINS DO Jan 09, 2018 10:00
[2018-01-09 10:25] VITALS: BP 150/86
[2018-01-09 10:55] VITALS: BP 150/86
--- NOTE | 2018-01-09 12:25 | Anesthesia-General Post-Op ---
MAC Patient Condition Mental Status/LOC: Same as Preop Cardiovascular: Satisfactory Nausea/Vomiting: Absent Respiratory: Satisfactory Pain: Controlled Complications: Absent Post Op Complications Complications None Follow Up Care/Instructions Patient Instructions None needed. Anesthesiology Discharge Order Discharge Order Patient is doing well, no complaints, stable vital signs, no apparent adverse anesthesia problems. No complications reported per nursing. MARIAM WARE CRNA Jan 09, 2018 12:25
--- NOTE | 2018-01-09 16:14 | OPERATIVE REPORT ---
DATE OF SERVICE: 01/09/2018 PREOPERATIVE DIAGNOSIS: History of colon polyps, screening colonoscopy. POSTOPERATIVE DIAGNOSIS: Normal colon. PROCEDURE: Colonoscopy. SURGEON: Arley Cole DO. ANESTHESIA: Per EMERGENCY MEDICAL SERVICES COORDINATOR. ESTIMATED BLOOD LOSS: None. COMPLICATIONS: None. INDICATIONS: The patient is a 67-year-old female with history of colon polyps. She understands risks and benefits of procedure and wished to proceed with procedure. Consent was signed in the chart. PROCEDURE: The patient was taken to the endoscopy suite, placed in left lateral recumbent position. Timeout was performed. Digital rectal exam was performed. There were no palpable polyps, mass or ulcerations. The scope was inserted in the rectum and advanced all the way to the cecum with minimal difficulty. Prep was adequate. Scope was slowly retracted back. There are no polyps, mass, or ulceration in the cecum, ascending, transverse, descending and sigmoid colon. Once in the rectum, scope was also retroflexed noting no other pathology. Scope was returned to its normal position, slowly withdrawn until completely removed. The patient tolerated procedure well without any complications. She was taken to recovery room in stable condition. RECOMMENDATIONS: The patient will need repeat colonoscopy in 5 years. If she has any problems prior to that, she should be reevaluated at that time. Job ID: [id number] DocumentID: [id number] Dictated Date: 01/09/2018 10:04:35 Assistant Teacher Primary Date: 01/09/2018 16:14:22 Dictated By: ARLEY COLE DO
== END 2018-01-09 10:55 | disposition home or self-care (01) ==
LOC: ENDO 08:13
PROVIDERS: ATTEND Surgery
DX: Z12.11 Encounter for screening for malignant neoplasm of colon (principal); Z86.010 Personal history of colon polyps; F17.210 Nicotine dependence, cigarettes, uncomplicated; Z96.659 Presence of unspecified artificial knee joint; I10 Essential (primary) hypertension; I25.10 Atherosclerotic heart disease of native coronary artery without angina pectoris; I25.2 Old myocardial infarction; J44.9 Chronic obstructive pulmonary disease, unspecified; E66.9 Obesity, unspecified; G14 Postpolio syndrome; Z68.39 Body mass index [BMI] 39.0-39.9, adult; Z79.899 Other long term (current) drug therapy

== ENCOUNTER → 2018-01-11 | Outpatient (CLI) | payer MEDICARE, MEDICAID ==
--- NOTE | 2018-01-11 12:51 | Diagnostic Imaging Report ---
INDICATION: Respiratory distress. PA and lateral chest. FINDINGS: Heart size and pulmonary vascularity are normal. Lungs are clear. There are no effusions or pneumothoraces. IMPRESSION: Negative chest. Dictated by: Dictated on workstation # [id number]
== END ==
LOC: RAD 11:16
PROVIDERS: ATTEND Nurse Practitioner Family
DX: J44.9 Chronic obstructive pulmonary disease, unspecified (principal); R06.03 Acute respiratory distress; Z72.0 Tobacco use
CPT/HCPCS: 71046

== ENCOUNTER → 2018-01-15 | Outpatient (CLI) | payer MEDICARE, MEDICAID ==
[~2018-01-15] MED LIST changes: +RT-ALBUTEROL SULF 2.5 MG/3 ML PRE-MIX VIAL INH ONE
== END ==
LOC: RT 14:20
PROVIDERS: ATTEND Nurse Practitioner Family
DX: J44.9 Chronic obstructive pulmonary disease, unspecified (principal)
CPT/HCPCS: 94060; 94726; 94729

== ENCOUNTER 2018-01-25 21:21 | Outpatient (CLI) | payer MEDICARE, MEDICAID ==
[~2018-01-25 21:21] MED LIST changes: -RT-ALBUTEROL SULF 2.5 MG/3 ML PRE-MIX VIAL INH ONE
== END 2018-01-26 06:40 | disposition home or self-care (01) ==
LOC: SLEEP 21:21
PROVIDERS: ATTEND Nurse Practitioner Family
DX: G47.33 Obstructive sleep apnea (adult) (pediatric) (principal); G47.10 Hypersomnia, unspecified; G47.50 Parasomnia, unspecified
CPT/HCPCS: 95810

== ENCOUNTER 2018-03-16 21:00 | Outpatient (CLI) | payer MEDICARE, MEDICAID ==
[~2018-03-16 21:00] MED LIST changes: -VALS160T28 PO; +VALS160T29 PO
== END 2018-03-17 06:30 | disposition home or self-care (01) ==
LOC: SLEEP 21:00
PROVIDERS: ATTEND Nurse Practitioner Family
DX: G47.33 Obstructive sleep apnea (adult) (pediatric) (principal)
CPT/HCPCS: 95811

== ENCOUNTER → 2018-04-05 | Day surgery (SDC) | payer MEDICARE, MEDICAID ==
[~2018-04-05] VITALS: Ht 165.1 cm; Wt 108.0 kg
[~2018-04-05] MED LIST changes: +IPRA4AER IH; +LIDOCAINE JELLY 2% (XYLOCAINE) 30 ML TUBE TOP ONE; +LIDOCAINE PF 1% 2 ML VIAL (OR ONLY) IJ ONE; +LIDOCAINE PF 2% 5 ML (XYLOCAINE) VIAL INJ ONE; +MIDAZOLAM 2 MG/2 ML (VERSED) VIAL ONE; +NS IV 500 ML 500 ML IV PRN; +NS IV 500 ML 500 ML ONE; +fentaNYL INJECTION 100 MCG/2 ML AMP IVP ONE; +fentaNYL INJECTION 100 MCG/2 ML AMP ONE
[2018-04-05 07:27] VITALS: BP 132/90
--- NOTE | 2018-04-05 07:30 | Pre-Op Note & Conscious Sedat ---
Pre-Operative Progress Note H&P Reviewed The H&P was reviewed, patient examined and no changes noted. Date H&P Reviewed: Apr 05, 2018 Time H&P Reviewed: 07:30 Conscious Sedation Pre-Proced Time Reviewed: 07:29 ASA Class: 3 Airway Mallampati Classification: (tunica-biloxi appropriate class) I. II. III, IV Lungs Heart ASA score ASA 1: a normal healthy patient ASA 2: a patient with a mild systemic disease (mid diabetes, controlled hypertension, obesity ASA 3: a patient with a severe systemic disease that limits activity (angina , COPD, prior Myocardial infarction) ASA 4: a patient with an incapacitating disease that is a constant threat to life (CHF, renal failure) ASA 5: a moribund patient not expected to survive 24 hrs. (ruptured aneurysm) ASA 6: a declared brain patient whose organs are being harvested. For emergent operations, add the letter E after the classification Grade 3 Sedation Plan: Analgesia, Amnesia, Plan communicated to team members, Discussed options with patient/fam, Discussed risks with patient/fam Note The patient is an appropriate candidate to undergo the planned procedure, sedation, and anesthesia. The patient immediately re-assessed prior to indication. KAN KAM DO Apr 05, 2018 07:30
--- NOTE | 2018-04-05 07:30 | Progress Note-Pre Operative ---
Pre-Operative Progress Note H&P Reviewed The H&P was reviewed, patient examined and no changes noted. Time Seen by Provider: 07:29 Date H&P Reviewed: Apr 05, 2018 Time H&P Reviewed: 07:29 Pre-Operative Diagnosis: cough KAN KAM DO Apr 05, 2018 07:30
--- NOTE | 2018-04-05 07:31 | Pulmonary Procedures ---
Pulmonary Procedures Date of Procedure Date of Service: Apr 05, 2018 Bronch Bronchoscopy with bronchoalveolar lavage (BAL), transbronchial washes and, brushes. Percepta brush was also done. Preop DX chronic cough, bronchiectasis Postop DX: CATHY endobronchial near complete occlusion (Pictures taken) from mass vs tissue. Complications: none After informed consent obtained and formal time out pt was sedated using Fentanyl and Versed. Bronchoscope was advanced through the nare and vocal cords. 1% lidocaine was used to anesthetize vocal cords, epiglottis, edna, and left/right main stem bronchus. An anatomical tour was undertaken down to the segmental bronchi bilaterally. CATHY endobronchial lesions noted. From the CATHY a bronchoalveolar lavage (BAL), transbronchial washes and, brushes x2 were obtained. Pt tolerated procedure well. No complications noted. Stat CXR is pending. KAN KAM DO Apr 05, 2018 07:30
--- OUTSIDE RECORDS SUMMARY | 2018-04-05 07:55 | XMS REPORT ---
Author Author CARY CRESPO Organization [facility] Address [address] [place] [address] Care Team Providers Care Scrap Hoist Operator Name Role Phone CARY CRESPO Unavailable PROBLEMS Type Condition ICD9-CM Code SAU32-PQ Code Onset Dates Condition Status SNOMED Code Problem Non-insulin dependent type 2 diabetes mellitus E11.9 Active 99328118 Problem Mixed stress and urge urinary incontinence N39.46 Active 334455502 Problem Seasonal allergic rhinitis, unspecified allergic rhinitis trigger J30.2 Active 499037673 Problem BMI 40.0-44.9, adult Z68.41 Active 638435033 Problem Acute exacerbation of chronic obstructive pulmonary disease (COPD) J44.1 Active 840867697 Problem Muscle spasms of both lower extremities M62.838 Active 985422175 Problem BERYL (obstructive sleep apnea) G47.33 Active 84146033 Problem Chronic seasonal allergic rhinitis due to other allergen J30.2 Active 428582592 Problem Post concussion syndrome F07.81 Active 87832630 Problem Chronic obstructive pulmonary disease, unspecified COPD type J44.9 Active 71948726 Problem Low back pain M54.5 Active 765139298 Problem Polio A80.9 Active 258301389 Problem Obstructive sleep apnea (adult) (pediatric) G47.33 Active 11754126 Problem Dependence on other enabling machines and devices Z99.89 Active 414333225 Problem Other chronic pain G89.29 Active 58395141 Problem Wheelchair bound Z99.3 Active 856854715 Problem Cigarette nicotine dependence without complication F17.210 Active 47148004 Problem Weakness of both legs R29.898 Active 4240349 ALLERGIES No Information ENCOUNTERS Encounter Location Date Diagnosis [facility] [address] [facility] [id number], [place] [address] December, [facility] [address] [facility] [id number], [place] [address] December, [facility] [address] [address] December, Low back pain M54.5 [facility] [address], [place] [address] December, [facility] [address] [address] Nov, [facility] [address] [place] [id number] [place] [address] 88166- 9563 Nov, [facility] [id number] [place] [address] 69255- 5118 Nov, Medicare annual wellness visit, initial Z00.00 [...] Mixed stress and urge urinary incontinence N39.46 [place] [address], [place] [address] Nov, [facility] [address], [place] [address] Nov, Low back pain M54.5 [facility] [address], [place] [address] Oct, Other chronic pain G89.29 [facility] [id number] [place] [address] 30301- 4210 Oct, [facility] [address], [place] [address] Oct, [facility] [id number] [place] [address] 95324- 0703 Oct, Low back pain M54.5 [facility] [id number] [place] [address] 95223- 5985 Oct, [facility] [id number] [place] [address] 10147- 8382 Oct, Low back pain M54.5 and COPD with exacerbation J44.1 [facility] [id number] [place] [address] 32679- 9396 Oct, Chronic obstructive pulmonary disease, unspecified COPD type J44.9 and COPD with exacerbation J44.1 [facility] [id number] [place] [address] 66004- 8021 Sep, Low back pain M54.5 [facility] [id number] [place] [address] 51940 -3458 Aug, Acute exacerbation of chronic obstructive pulmonary disease (COPD) J44.1 [facility] [id number] [place] [address] 67077- 1282 Aug, [facility] [id number] [place] [address] 25642- 4821 Aug, Muscle spasms of both lower extremities M62.838 [facility] [id number] [place] [address] 31635- 9128 Aug, Muscle spasms of both lower extremities M62.838 [facility] [id number] [place] [address] 95976- 1874 Aug, Low back pain M54.5 [facility] [id number] [place] [address] 62061- 6467 Jul, Low back pain M54.5 ; Seasonal allergic rhinitis, unspecified allergic rhinitis trigger J30.2 and Muscle spasms of both lower extremities M62.838 [facility] [id number] [place] [address] 05911- 5308 Jul, [place] [address] [id number] [place] [address] 71731- 7439 Jun, Low back pain M54.5 [facility] [id number] [place] [address] 78456- 1577 May, [facility] [id number] [place] [address] 08946- 1247 May, Fall, subsequent encounter W19.XXXD ; Post concussion syndrome F07.81 ; Chronic seasonal allergic rhinitis due to other allergen J30.2 ; Muscle spasms of both lower extremities M62.838 ; BERYL (obstructive sleep apnea) G47.33 and Encounter for immunization Z23 [facility] [address] [address]- [address] May, [facility] [address] 84139- 6913 May, Low back pain M54.5 [facility] [address] 52951- 7025 26 Apr, 2017 BERYL (obstructive sleep apnea) G47.33 [facility] [address] 84357- 4665 26 Apr, 2017 [facility] [id number] [place] [address] 18303- 9529 Apr, [facility] [id number] [place] [address] 99331- 1043 19 Apr, 2017 Muscle spasms of both lower extremities M62.838 [facility] [id number] [place] [address] 75584- 8040 19 Apr, 2017 Polio A80.9 ; Muscle spasms of both lower extremities M62.838 and Trigger middle finger of right hand M65.331 [facility] [id number] [place] [address] 50658- 2542 08 Apr, 2017 Low back pain M54.5 [facility] [id number] [place] [address] 18968- 7301 Mar, Low back pain M54.5 [facility] [address] [place] [address] 28105- 4051 Mar, [facility] [id number] [place] [address] 69898- 9795 Mar, [facility] [id number] [place] [address] 60920- 3992 Feb, Low back pain M54.5 ; Other chronic pain G89.29 ; Seasonal allergic rhinitis, unspecified allergic rhinitis trigger J30.2 and COPD with exacerbation J44.1 [facility] [id number] [place] [address] 21322- 8777 Feb, Chronic obstructive pulmonary disease, unspecified COPD type J44.9 [facility] [id number] [place] [address] 36577- 3443 Feb, Low back pain M54.5 ; Seasonal allergic rhinitis, unspecified allergic rhinitis trigger J30.2 ; Mixed stress and urge urinary incontinence N39.46 ; BERYL (obstructive sleep apnea) G47.33 and Trigger middle finger of right hand M65.331 [facility] [id number] [place] [address] 16708- 4262 Feb, [facility] [id number] [place] [address] 51999- 5335 Feb, Low back pain M54.5 [facility] [id number] [place] [address] [id number] Jan, Trigger finger, unspecified finger, unspecified laterality M65.30 [facility] [id number] [place] [address] [id number] Jan, [facility] [id number] [place] [address] 56594- 1374 Jan, [facility] [id number] [place] [address] 82041- 8835 Jan, COPD with exacerbation J44.1 [facility] [id number] [place] [address] 11240- 9203 Jan, COPD with exacerbation J44.1 [facility] [id number] [place] [address] 42304- 2308 Jan, COPD with exacerbation J44.1 [facility] [id number] [place] [address] 12942- 9153 Jan, Low back pain M54.5 [facility] [id number] [place] [address] 11559- 3099 December, Low back pain M54.5 [facility] [address] 62230- 5531 Nov, Seasonal allergic rhinitis, unspecified allergic rhinitis trigger J30.2 [place] [id number] [place] [address] 54735- 5087 Nov, [facility] [address] [address]46- 2005 Nov, [place] [address] 13525- 5404 Nov, Seasonal allergic rhinitis, unspecified allergic rhinitis trigger J30.2 ; Mixed stress and urge urinary incontinence N39.46 and Non- insulin dependent type 2 diabetes mellitus E11.9 [facility] [id number] [place] [address] 48232- 0042 Nov, [facility] [id number] [place] [address] 75424- 6441 Oct, Low back pain M54.5 [facility] [id number] [place] [address] 17412- 2069 Oct, Acute suppurative otitis media of left ear without spontaneous rupture of tympanic membrane, recurrence not specified H66.002 [place] [id number] [place] [address] 16244- 9039 Oct, [facility] [id number] [place] [address] 29394 -0429 Oct, Bronchitis J40 [place] [address] 85929- 6156 Oct, [place] [address] 41445- 1234 Oct, Low back pain M54.5 [place] [address] 26550- 7708 Sep, Polio A80.9 ; Wheelchair bound Z99.3 and Weakness of both legs R29.898 [place] [address] 41367- 9882 Sep, COPD with exacerbation J44.1 ; Polio A80.9 ; Weakness of both legs R29.898 ; Wheelchair bound Z99.3 and Low back pain M54.5 [place] [address] [address] [id number] [place] [address] 51018- 1420 Sep, Low back pain M54.5 [place] [address] 40789- 4974 Sep, Low back pain M54.5 [place] [address] [address] [id number] [place] [address] 15639- 1524 Aug, Weakness of both legs R29.898 ; Wheelchair bound Z99.3 and Polio A80.9 [place] [address] [address] [id number] [place] [address] 93984- 7730 Aug, Polio A80.9 ; Other chronic pain G89.29 ; Dependence on other enabling machines and devices Z99.89 ; Obstructive sleep apnea (adult) ( pediatric) G47.33 and Chronic obstructive pulmonary disease, unspecified COPD type J44.9 [facility] [id number] [place] [address] 31086 -4159 Aug, Bronchitis J40 and Sprain of right knee, unspecified ligament, initial encounter S83.91XA [facility] [address], [place] [address]- 8764 Aug, [facility] [address] [facility] [id number] [place] [address] 46486- 8975 Aug, [facility] [id number] [place] [address] 29734- 0094 Aug, [facility] [address] [place] [id number] [place] [address] 66769- 6875 Aug, [facility] [address] [facility] [id number] [place] [address] 51045- 3720 Aug, [facility] [id number] [place] [address] 06077- 7816 Aug, Low back pain M54.5 [facility] [id number] [place] [address] 15828 -6450 Aug, Acute non-recurrent frontal sinusitis J01.10 [facility] [address] [place] [address] 32786- 1027 Jul, Chronic obstructive pulmonary disease, unspecified COPD type J44.9 and Low back pain M54.5 [facility] [address], [place] [address]- 2972 Jul, Low back pain M54.5 [facility] [id number] [place] [address] 03766- 5429 Jul, Low back pain M54.5 [facility] [address], [place] [address]- 7466 Jul, Dental examination Z01.20 and Chronic obstructive pulmonary disease, unspecified COPD type J44.9 [facility] [address] [facility] [id number], [place] [address]- 9064 Jul, [facility] [address] [place] [address] 24444- 8137 Jul, Low back pain M54.5 and Chronic obstructive pulmonary disease, unspecified COPD type J44.9 [facility] [id number] [place] [address] 59985- 6553 Jun, [facility] [id number] [place] [address] 96600- 5802 Jun, Chronic obstructive pulmonary disease, unspecified COPD type J44.9 ; Low back pain M54.5 ; Allergy, sequela T78.40XS and Cigarette nicotine dependence without complication F17.210 [facility] [id number] [place] [address] 09553- 1487 May, [facility] [address] 20114- 2565 May, [facility] [address] 65308- 6286 May, Dental examination Z01.20 [facility] [address] 09284 -4243 May, Pneumonia of both lower lobes due to infectious organism J18.9 [facility] [address] 64025- 5122 May, [facility] [id number] [place] [address] 46764- 4083 May, [facility] [address] [id number] [place] [address] 42203- 9555 May, [facility] [id number] [place] [address] 97547- 8440 May, [facility] [address] 97732- 0646 May, Bronchitis J40 and Low back pain M54.5 [facility] [id number] [place] [address] 16260- 9586 15 Apr, 2016 [facility] [address] 19139 -9211 Apr, Pneumonia of left lower lobe due to infectious organism J18.9 ; Cellulitis of right leg L03.115 and 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 [place] [address] [place] [id number], [place] [address]- 2085 Apr, [place] [address] [facility] [id number], [place] [address]- 6301 Apr, Chronic obstructive pulmonary disease, unspecified COPD type J44.9 ; Low back pain M54.5 ; Other chronic pain G89.29 and Polio A80.9 [place] [address] [facility] [id number], [place] [address]- 6786 Apr, IMMUNIZATIONS No Known Immunizations SOCIAL HISTORY Never Assessed REASON FOR VISIT Returned call PLAN OF CARE VITAL SIGNS MEDICATIONS Unknown [...]
--- OUTSIDE RECORDS SUMMARY | 2018-04-05 07:55 | XMS REPORT ---
Author Author CARY CRESPO Organization [facility] Address [address] [place] [address] Care Team Providers Care Web Art Director Name Role Phone CARY CRESPO Unavailable PROBLEMS Type Condition ICD9-CM Code YBI31-UR Code Onset Dates Condition Status SNOMED Code Problem Non-insulin dependent type 2 diabetes mellitus E11.9 Active 55462952 Problem Mixed stress and urge urinary incontinence N39.46 Active 175936363 Problem Seasonal allergic rhinitis, unspecified allergic rhinitis trigger J30.2 Active 069862453 Problem BMI 40.0-44.9, adult Z68.41 Active 132167712 Problem Acute exacerbation of chronic obstructive pulmonary disease (COPD) J44.1 Active 583280696 Problem Muscle spasms of both lower extremities M62.838 Active 922282422 Problem BERYL (obstructive sleep apnea) G47.33 Active 29804501 Problem Chronic seasonal allergic rhinitis due to other allergen J30.2 Active 725480393 Problem Post concussion syndrome F07.81 Active 80956577 Problem Chronic obstructive pulmonary disease, unspecified COPD type J44.9 Active 94751442 Problem Low back pain M54.5 Active 101682418 Problem Polio A80.9 Active 197615911 Problem Obstructive sleep apnea (adult) (pediatric) G47.33 Active 62891997 Problem Dependence on other enabling machines and devices Z99.89 Active 604264784 Problem Other chronic pain G89.29 Active 10160685 Problem Wheelchair bound Z99.3 Active 746961255 Problem Cigarette nicotine dependence without complication F17.210 Active 65535080 Problem Weakness of both legs R29.898 Active 3564912 ALLERGIES No Information ENCOUNTERS Encounter Location Date Diagnosis [facility] [address] [facility] [id number] [address] December, [facility] [address] [facility] [id number], [place] [address] December, [facility] [address], [place] [address] December, Low back pain M54.5 [facility] [address], [place] [address] December, [facility] [address], [place] [address] Nov, [facility] [id number] [place] [address] 70927- 8833 Nov, [facility] [id number] [place] [address] 68589- 4374 Nov, Medicare annual wellness visit, initial Z00.00 [...] Mixed stress and urge urinary incontinence N39.46 [place] [facility] [address], [place] [address] Nov, [facility] [address], [place] [address] Nov, Low back pain M54.5 [facility] [address], [place] [address] Oct, Other chronic pain G89.29 [facility] [id number] [place] [address] 43552- 8166 Oct, [facility] [address], [place] [address] Oct, [facility] [id number] [place] [address] 06420- 2826 Oct, Low back pain M54.5 [facility] [id number] [place] [address] 04183- 3237 Oct, [facility] [id number] [place] [address] 17928- 3192 Oct, Low back pain M54.5 and COPD with exacerbation J44.1 [facility] [id number] [place] [address] 56235- 9321 Oct, Chronic obstructive pulmonary disease, unspecified COPD type J44.9 and COPD with exacerbation J44.1 [facility] [id number] [place] [address] 65215- 5454 Sep, Low back pain M54.5 [facility] [id number] [place] [address] 27280 -2341 Aug, Acute exacerbation of chronic obstructive pulmonary disease (COPD) J44.1 [facility] [id number] [place] [address] 76772- 3612 Aug, [facility] [id number] [place] [address] 06964- 5334 Aug, Muscle spasms of both lower extremities M62.838 [facility] [id number] [place] [address] 33544- 0690 Aug, Muscle spasms of both lower extremities M62.838 [facility] [id number] [place] [address] 08577- 3583 Aug, Low back pain M54.5 [facility] [id number] [place] [address] 10377- 1238 Jul, Low back pain M54.5 ; Seasonal allergic rhinitis, unspecified allergic rhinitis trigger J30.2 and Muscle spasms of both lower extremities M62.838 [facility] [id number] [place] [address] 86576- 1790 Jul, [place] [id number] [place] [address] 24011- 0134 Jun, Low back pain M54.5 [facility] [id number] [place] [address] 92629- 4982 May, [facility] [id number] [place] [address] 07602- 4659 May, Fall, subsequent encounter W19.XXXD ; Post concussion syndrome F07.81 ; Chronic seasonal allergic rhinitis due to other allergen J30.2 ; Muscle spasms of both lower extremities M62.838 ; BERYL (obstructive sleep apnea) G47.33 and Encounter for immunization Z23 [facility] [address] [address]27- 75[address] May, [facility] [address] 03098- 0603 May, Low back pain M54.5 [facility] [address] 32350- 4385 26 Apr, 2017 BERYL (obstructive sleep apnea) G47.33 [facility] [address] 18605- 2578 26 Apr, 2017 [facility] [id number] [place] [address] 03991- 7763 Apr, [facility] [id number] [place] [address] 95293- 1301 19 Apr, 2017 Muscle spasms of both lower extremities M62.838 [facility] [id number] [place] [address] 13636- 4090 19 Apr, 2017 Polio A80.9 ; Muscle spasms of both lower extremities M62.838 and Trigger middle finger of right hand M65.331 [facility] [id number] [place] [address] 74606- 2547 08 Apr, 2017 Low back pain M54.5 [facility] [id number] [place] [address] 63319- 0665 Mar, Low back pain M54.5 [facility] [address] [place] [address] 29679- 7186 Mar, [facility] [id number] [place] [address] 11899- 4402 Mar, [facility] [id number] [place] [address] 22300- 1201 Feb, Low back pain M54.5 ; Other chronic pain G89.29 ; Seasonal allergic rhinitis, unspecified allergic rhinitis trigger J30.2 and COPD with exacerbation J44.1 [facility] [id number] [place] [address] 70207- 1132 Feb, Chronic obstructive pulmonary disease, unspecified COPD type J44.9 [facility] [id number] [place] [address] 39551- 7569 Feb, Low back pain M54.5 ; Seasonal allergic rhinitis, unspecified allergic rhinitis trigger J30.2 ; Mixed stress and urge urinary incontinence N39.46 ; BERYL (obstructive sleep apnea) G47.33 and Trigger middle finger of right hand M65.331 [facility] [id number] [place] [address] 98594- 7819 Feb, [facility] [id number] [place] [address] 70011- 9684 Feb, Low back pain M54.5 [facility] [id number] [place] [address] [id number] Jan, Trigger finger, unspecified finger, unspecified laterality M65.30 [facility] [id number] [place] [address] [id number] Jan, [facility] [id number] [place] [address] 05443- 9062 Jan, [facility] [id number] [place] [address] 97002- 4913 Jan, COPD with exacerbation J44.1 [facility] [id number] [place] [address] 55210- 0798 Jan, COPD with exacerbation J44.1 [facility] [id number] [place] [address] 73734- 8690 Jan, COPD with exacerbation J44.1 [facility] [id number] [place] [address] 02369- 3024 Jan, Low back pain M54.5 [facility] [id number] [place] [address] 19372- 1024 December, Low back pain M54.5 [facility] [address] 61867- 0624 Nov, Seasonal allergic rhinitis, unspecified allergic rhinitis trigger J30.2 [facility] [id number] [place] [address] 66474- 4703 Nov, [facility] [address] 20568- 0280 Nov, [place] [address] 92477- 0819 Nov, Seasonal allergic rhinitis, unspecified allergic rhinitis trigger J30.2 ; Mixed stress and urge urinary incontinence N39.46 and Non- insulin dependent type 2 diabetes mellitus E11.9 [facility] [id number] [place] [address] 13342- 7936 Nov, [facility] [id number] [place] [address] 15432- 7005 Oct, Low back pain M54.5 [facility] [id number] [place] [address] 96923- 9154 Oct, Acute suppurative otitis media of left ear without spontaneous rupture of tympanic membrane, recurrence not specified H66.002 [facility] [id number] [place] [address] 59512- 3154 Oct, [facility] [id number] [place] [address] 44994 -5199 Oct, Bronchitis J40 [place] [address] 61653- 5144 Oct, [place] [facility] [address] 27800- 6312 Oct, Low back pain M54.5 [place] [address] 84015- 1702 Sep, Polio A80.9 ; Wheelchair bound Z99.3 and Weakness of both legs R29.898 [place] [address] 94228- 6090 Sep, COPD with exacerbation J44.1 ; Polio A80.9 ; Weakness of both legs R29.898 ; Wheelchair bound Z99.3 and Low back pain M54.5 [place] [id number] [place] [address] 61542- 0099 Sep, Low back pain M54.5 [facility] [address] 86358- 5329 Sep, Low back pain M54.5 [place] [facility] [id number] [place] [address] 06714- 2375 Aug, Weakness of both legs R29.898 ; Wheelchair bound Z99.3 and Polio A80.9 [place] [id number] [place] [address] 48421- 9628 Aug, Polio A80.9 ; Other chronic pain G89.29 ; Dependence on other enabling machines and devices Z99.89 ; Obstructive sleep apnea (adult) ( pediatric) G47.33 and Chronic obstructive pulmonary disease, unspecified COPD type J44.9 [facility] [id number] [place] [address] 08757 -1404 Aug, Bronchitis J40 and Sprain of right knee, unspecified ligament, initial encounter S83.91XA [facility] [address], [place] [address]- 7472 Aug, [facility] [address] [facility] [id number] [place] [address] 75665- 9711 Aug, [facility] [id number] [place] [address] 29076- 3038 Aug, [facility] [address] [id number] [place] [address] 62895- 0081 Aug, [facility] [address] [facility] [id number] [place] [address] 71696- 5982 Aug, [facility] [id number] [place] [address] 32048- 7464 Aug, Low back pain M54.5 [facility] [address] [place] [address] 98996 -8201 Aug, Acute non-recurrent frontal sinusitis J01.10 [facility] [address] [place] [address] 10041- 8302 Jul, Chronic obstructive pulmonary disease, unspecified COPD type J44.9 and Low back pain M54.5 [facility] [address], [place] [address]- 1443 Jul, Low back pain M54.5 [facility] [address] [place] [address] 20257- 9548 Jul, Low back pain M54.5 [facility] [address], [place] [address]- 7272 Jul, Dental examination Z01.20 and Chronic obstructive pulmonary disease, unspecified COPD type J44.9 [facility] [address] [facility] [id number], [place] [address]- 6312 Jul, [facility] [address] [place] [address] 49249- 5860 Jul, Low back pain M54.5 and Chronic obstructive pulmonary disease, unspecified COPD type J44.9 [facility] [id number] [place] [address] 46257- 4651 Jun, [facility] [id number] [place] [address] 64327- 2100 Jun, Chronic obstructive pulmonary disease, unspecified COPD type J44.9 ; Low back pain M54.5 ; Allergy, sequela T78.40XS and Cigarette nicotine dependence without complication F17.210 [facility] [id number] [place] [address] 10557- 1512 May, [facility] [address] 83462- 0279 May, [facility] [address] 15712- 1988 May, Dental examination Z01.20 [facility] [address] 01191 -7459 May, Pneumonia of both lower lobes due to infectious organism J18.9 [facility] [address] 71090- 6783 May, [facility] [id number] [place] [address] 42377- 0355 May, [facility] [id number] [place] [address] 03964- 4144 May, [facility] [id number] [place] [address] 85676- 6058 May, [facility] [address] 88929- 6490 May, Bronchitis J40 and Low back pain M54.5 [facility] [id number] [place] [address] 49937- 0693 15 Apr, 2016 [facility] [address] 17881 -3173 14 Apr, 2016 Pneumonia of left lower lobe due to infectious organism J18.9 ; Cellulitis of right leg L03.115 and 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 [place] [address] [facility] [id number], [place] [address]- 2780 Apr, [place] [address] [facility] [id number], [place] [address]- 7033 Apr, Chronic obstructive pulmonary disease, unspecified COPD type J44.9 ; Low back pain M54.5 ; Other chronic pain G89.29 and Polio A80.9 [place] [address] [facility] [id number], [place] [address]- 2127 Apr, IMMUNIZATIONS No Known Immunizations SOCIAL HISTORY Never Assessed REASON FOR VISIT Questions PLAN OF CARE VITAL SIGNS MEDICATIONS Medication Instructions Dosage Frequency Start Date End Date Duration Status Zyrtec Allergy 10 mg Orally Once a day 1 [...]
--- OUTSIDE RECORDS SUMMARY | 2018-04-05 07:56 | XMS REPORT ---
Author Author CARY CRESPO Organization [facility] Address [address] [place] [address] Care Team Providers Care Clutch Rebuilder Name Role Phone CARY CRESPO Unavailable PROBLEMS Type Condition ICD9-CM Code JQK84-LS Code Onset Dates Condition Status SNOMED Code Problem Non-insulin dependent type 2 diabetes mellitus E11.9 Active 49118766 Problem Mixed stress and urge urinary incontinence N39.46 Active 929169198 Problem Seasonal allergic rhinitis, unspecified allergic rhinitis trigger J30.2 Active 099147944 Problem BMI 40.0-44.9, adult Z68.41 Active 833287123 Problem Acute exacerbation of chronic obstructive pulmonary disease (COPD) J44.1 Active 567651273 Problem Muscle spasms of both lower extremities M62.838 Active 607599253 Problem BERYL (obstructive sleep apnea) G47.33 Active 08809111 Problem Chronic seasonal allergic rhinitis due to other allergen J30.2 Active 669650883 Problem Post concussion syndrome F07.81 Active 38424589 Problem Chronic obstructive pulmonary disease, unspecified COPD type J44.9 Active 60783004 Problem Low back pain M54.5 Active 639148144 Problem Polio A80.9 Active 954953366 Problem Obstructive sleep apnea (adult) (pediatric) G47.33 Active 06981339 Problem Dependence on other enabling machines and devices Z99.89 Active 563027261 Problem Other chronic pain G89.29 Active 23263340 Problem Wheelchair bound Z99.3 Active 365301484 Problem Cigarette nicotine dependence without complication F17.210 Active 22264996 Problem Weakness of both legs R29.898 Active 1903716 ALLERGIES No Information ENCOUNTERS Encounter Location Date Diagnosis [facility] [address] [id number] [address] December, [facility] [address] [facility] [id number] [address] December, [facility] [address], [place] [address] December, Low back pain M54.5 [facility] [address], [place] [address] December, [facility] [address], [place] [address] Nov, [facility] [id number] [place] [address] 27983- 7891 Nov, [facility] [id number] [place] [address] 67920- 2093 Nov, Medicare annual wellness visit, initial Z00.00 [...] Mixed stress and urge urinary incontinence N39.46 [place] [address], [place] [address] Nov, [facility] [address], [place] [address] Nov, Low back pain M54.5 [facility] [address], [place] [address] Oct, Other chronic pain G89.29 [facility] [id number] [place] [address] 30096- 8710 Oct, [facility] [address], [place] [address] Oct, [facility] [id number] [place] [address] 16403- 2689 Oct, Low back pain M54.5 [facility] [id number] [place] [address] 24915- 7168 Oct, [facility] [id number] [place] [address] 32072- 6324 Oct, Low back pain M54.5 and COPD with exacerbation J44.1 [facility] [id number] [place] [address] 26133- 7696 Oct, Chronic obstructive pulmonary disease, unspecified COPD type J44.9 and COPD with exacerbation J44.1 [facility] [id number] [place] [address] 49726- 5768 Sep, Low back pain M54.5 [facility] [address] [place] [address] 89406 -7113 Aug, Acute exacerbation of chronic obstructive pulmonary disease (COPD) J44.1 [facility] [id number] [place] [address] 86337- 3384 Aug, [facility] [id number] [place] [address] 92194- 5761 Aug, Muscle spasms of both lower extremities M62.838 [facility] [address] [place] [address] 25241- 5782 Aug, Muscle spasms of both lower extremities M62.838 [facility] [id number] [place] [address] 04595- 9693 Aug, Low back pain M54.5 [facility] [id number] [place] [address] 29925- 5212 Jul, Low back pain M54.5 ; Seasonal allergic rhinitis, unspecified allergic rhinitis trigger J30.2 and Muscle spasms of both lower extremities M62.838 [facility] [address] [place] [address] 47155- 3970 Jul, [place] [id number] [place] [address] 96812- 5167 Jun, Low back pain M54.5 [facility] [id number] [place] [address] 73611- 6593 May, [facility] [id number] [place] [address] 46133- 7123 May, Fall, subsequent encounter W19.XXXD ; Post concussion syndrome F07.81 ; Chronic seasonal allergic rhinitis due to other allergen J30.2 ; Muscle spasms of both lower extremities M62.838 ; BERYL (obstructive sleep apnea) G47.33 and Encounter for immunization Z23 [facility] [address] [address]67- [address] May, [facility] [address] 72001- 1784 May, Low back pain M54.5 [facility] [address] 72852- 2327 26 Apr, 2017 BERYL (obstructive sleep apnea) G47.33 [facility] [address] 26704- 3014 26 Apr, 2017 [facility] [id number] [place] [address] 13029- 1905 Apr, [facility] [id number] [place] [address] 21959- 7749 19 Apr, 2017 Muscle spasms of both lower extremities M62.838 [facility] [id number] [place] [address] 04095- 5775 19 Apr, 2017 Polio A80.9 ; Muscle spasms of both lower extremities M62.838 and Trigger middle finger of right hand M65.331 [facility] [id number] [place] [address] 60823- 254 08 Apr, 2017 Low back pain M54.5 [facility] [id number] [place] [address] 20359- 0108 Mar, Low back pain M54.5 [facility] [address] [place] [address] 13932- 7704 Mar, [facility] [id number] [place] [address] 11301- 4651 Mar, [facility] [id number] [place] [address] 82185- 6162 Feb, Low back pain M54.5 ; Other chronic pain G89.29 ; Seasonal allergic rhinitis, unspecified allergic rhinitis trigger J30.2 and COPD with exacerbation J44.1 [facility] [id number] [place] [address] 56790- 2968 Feb, Chronic obstructive pulmonary disease, unspecified COPD type J44.9 [facility] [id number] [place] [address] 92237- 0867 Feb, Low back pain M54.5 ; Seasonal allergic rhinitis, unspecified allergic rhinitis trigger J30.2 ; Mixed stress and urge urinary incontinence N39.46 ; BERYL (obstructive sleep apnea) G47.33 and Trigger middle finger of right hand M65.331 [facility] [id number] [place] [address] 57563- 6631 Feb, [facility] [id number] [place] [address] 97112- 7206 Feb, Low back pain M54.5 [facility] [id number] [place] [address] [id number] Jan, Trigger finger, unspecified finger, unspecified laterality M65.30 [facility] [id number] [place] [address] [id number] Jan, [facility] [id number] [place] [address] 27248- 1538 Jan, [facility] [id number] [place] [address] 17211- 7013 Jan, COPD with exacerbation J44.1 [facility] [id number] [place] [address] 34150- 4149 Jan, COPD with exacerbation J44.1 [facility] [id number] [place] [address] 17224- 1183 Jan, COPD with exacerbation J44.1 [facility] [id number] [place] [address] 86726- 1430 Jan, Low back pain M54.5 [facility] [id number] [place] [address] 90870- 7578 December, Low back pain M54.5 [facility] [address] 79639- 0917 Nov, Seasonal allergic rhinitis, unspecified allergic rhinitis trigger J30.2 [place] [id number] [place] [address] 18511- 3459 Nov, [facility] [address] 54932- 7310 Nov, [place] [address] 63219- 7518 Nov, Seasonal allergic rhinitis, unspecified allergic rhinitis trigger J30.2 ; Mixed stress and urge urinary incontinence N39.46 and Non- insulin dependent type 2 diabetes mellitus E11.9 [facility] [id number] [place] [address] 56360- 3168 Nov, [facility] [id number] [place] [address] 96996- 9247 Oct, Low back pain M54.5 [facility] [id number] [place] [address] 52967- 5770 Oct, Acute suppurative otitis media of left ear without spontaneous rupture of tympanic membrane, recurrence not specified H66.002 [place] [id number] [place] [address] 73187- 0522 Oct, [facility] [id number] [place] [address] 26124 -2321 Oct, Bronchitis J40 [place] [address] 64467- 5973 Oct, [place] [address] 03431- 8230 Oct, Low back pain M54.5 [place] [address] 59433- 6330 Sep, Polio A80.9 ; Wheelchair bound Z99.3 and Weakness of both legs R29.898 [place] [address] 08421- 4279 Sep, COPD with exacerbation J44.1 ; Polio A80.9 ; Weakness of both legs R29.898 ; Wheelchair bound Z99.3 and Low back pain M54.5 [place] [id number] [place] [address] 21289- 7852 Sep, Low back pain M54.5 [place] [address] 69087- 5893 Sep, Low back pain M54.5 [place] [id number] [place] [address] 08861- 3824 Aug, Weakness of both legs R29.898 ; Wheelchair bound Z99.3 and Polio A80.9 [place] [id number] [place] [address] 62452- 7865 Aug, Polio A80.9 ; Other chronic pain G89.29 ; Dependence on other enabling machines and devices Z99.89 ; Obstructive sleep apnea (adult) ( pediatric) G47.33 and Chronic obstructive pulmonary disease, unspecified COPD type J44.9 [facility] [id number] [place] [address] 21916 -6367 Aug, Bronchitis J40 and Sprain of right knee, unspecified ligament, initial encounter S83.91XA [facility] [address], [place] [address]- 8173 Aug, [facility] [address] [facility] [id number] [place] [address] 72095- 1528 Aug, [facility] [id number] [place] [address] 80171- 7792 Aug, [facility] [address] [id number] [place] [address] 69746- 2028 Aug, [facility] [address] [facility] [id number] [place] [address] 84891- 9927 Aug, [facility] [id number] [place] [address] 74039- 0281 Aug, Low back pain M54.5 [facility] [address] [place] [address] 27673 -7432 Aug, Acute non-recurrent frontal sinusitis J01.10 [facility] [id number] [place] [address] 21796- 5878 Jul, Chronic obstructive pulmonary disease, unspecified COPD type J44.9 and Low back pain M54.5 [facility] [address], [place] [address]- 2880 Jul, Low back pain M54.5 [facility] [address] [place] [address] 05276- 0050 Jul, Low back pain M54.5 [facility] [address], [place] [address]- 0246 Jul, Dental examination Z01.20 and Chronic obstructive pulmonary disease, unspecified COPD type J44.9 [facility] [address] [facility] [id number] [address]- 5675 Jul, [facility] [id number] [place] [address] 48796- 3356 Jul, Low back pain M54.5 and Chronic obstructive pulmonary disease, unspecified COPD type J44.9 [facility] [id number] [place] [address] 02603- 0471 Jun, [facility] [id number] [place] [address] 59537- 4262 Jun, Chronic obstructive pulmonary disease, unspecified COPD type J44.9 ; Low back pain M54.5 ; Allergy, sequela T78.40XS and Cigarette nicotine dependence without complication F17.210 [facility] [id number] [place] [address] 39978- 0824 May, [facility] [address] 32712- 0159 May, [facility] [address] 39751- 9574 May, Dental examination Z01.20 [facility] [address] 40368 -6222 May, Pneumonia of both lower lobes due to infectious organism J18.9 [facility] [address] 82304- 8585 May, [facility] [id number] [place] [address] 14098- 9809 May, [facility] [id number] [place] [address] 78408- 5790 May, [facility] [id number] [place] [address] 26617- 6811 May, [facility] [address] 80380- 1425 May, Bronchitis J40 and Low back pain M54.5 [facility] [id number] [place] [address] 32851- 1783 15 Apr, 2016 [facility] [address] 86769 -9346 Apr, Pneumonia of left lower lobe due to infectious organism J18.9 ; Cellulitis of right leg L03.115 and 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 [place] [address] [place] [id number], [place] [address]- 2970 Apr, [place] [address] [facility] [id number], [place] [address]- 5877 Apr, Chronic obstructive pulmonary disease, unspecified COPD type J44.9 ; Low back pain M54.5 ; Other chronic pain G89.29 and Polio A80.9 [place] [address] [facility] [id number], [place] [address]- 5415 Apr, IMMUNIZATIONS No Known Immunizations SOCIAL HISTORY [...]
--- OUTSIDE RECORDS SUMMARY | 2018-04-05 07:56 | XMS REPORT ---
Author Author CARY CRESPO Organization [facility] [place] Address [address] [place] [address] Care Team Providers Care Deputy City Clerk Name Role Phone CARY CRSEPO Unavailable PROBLEMS Type Condition ICD9-CM Code [id number] Code Onset Dates Condition Status SNOMED Code Problem Mixed stress and urge urinary incontinence N39.46 Active 281321188 Problem Muscle spasms of both lower extremities M62.838 Active 549793289 Problem BERYL (obstructive sleep apnea) G47.33 Active 06795283 Problem Trigger middle finger of right hand M65.331 Active 416054298 Problem Polio A80.9 Active 201516172 Problem BMI 40.0-44.9, adult Z68.41 Active 218263663 Problem Post concussion syndrome F07.81 Active 21976289 Problem Chronic seasonal allergic rhinitis due to other allergen J30.2 Active 967927204 Problem Tobacco use Z72.0 Active 637344756 Problem Acute exacerbation of chronic obstructive pulmonary disease (COPD) J44.1 Active 572637811 Problem Chronic obstructive pulmonary disease, unspecified COPD type J44.9 Active 22384838 Problem Cigarette nicotine dependence without complication F17.210 Active 83948670 Problem Low back pain M54.5 Active 169875451 Problem Other chronic pain G89.29 Active 65606023 Problem Wheelchair bound Z99.3 Active 751208159 Problem Weakness of both legs R29.898 Active 7451959 Problem Obstructive sleep apnea (adult) (pediatric) G47.33 Active 89004175 Problem Non-insulin dependent type 2 diabetes mellitus E11.9 Active 18403001 Problem Dependence on other enabling machines and devices Z99.89 Active 320624361 Problem Seasonal allergic rhinitis, unspecified allergic rhinitis trigger J30.2 Active 802163929 ALLERGIES No Information ENCOUNTERS Encounter Location Date Diagnosis [facility] [place] [address] [facility] [id number] [address] Jan, Low back pain M54.5 [facility], [place] [address] [address] December, Chronic obstructive pulmonary disease, unspecified COPD type J44.9 ; Chronic seasonal allergic rhinitis due to other allergen J30.2 and Trigger middle finger of right hand M65.331 [facility] [address] [address] December, Chronic obstructive pulmonary disease, unspecified COPD type J44.9 and BMI 40.0-44.9, adult Z68.41 [facility], [place] [address] [address] December, [facility] [place] [id number] [place] [address] 23281- 9205 December, [facility] [place] [address] [place] [address] December, Low back pain M54.5 [facility] [place] [address] [address] December, [facility] [place] [id number] [place] [address] 69443- 4006 Nov, [facility] [place] [address] [address] Nov, [facility] [place] [address] [address] Nov, Medicare annual wellness visit, initial Z00.00 [...] Mixed stress and urge urinary incontinence N39.46 [facility] [place] [id number] [place] [address] 90278- 8725 Nov, [facility] [place] [id number] [place] [address] 38829- 6709 Nov, Low back pain M54.5 [facility] [place] [id number] [place] [address] 04695- 3623 Oct, Other chronic pain G89.29 ; Chronic obstructive pulmonary disease, unspecified COPD type J44.9 ; Tobacco use Z72.0 ; Trigger middle finger of right hand M65.331 and BMI 40.0-44.9, adult Z68.41 [facility] [place] [id number] [place] [address] 78270- 3966 Oct, [facility] [place] [address] 27021- 2[address] Oct, [facility] [place] [id number] [place] [address] 23808- 7819 Oct, Low back pain M54.5 [facility] [place] [id number] [place] [address] 48764- 1047 Oct, [facility] [place] [id number] [place] [address] 50570- 7998 Oct, Low back pain M54.5 and COPD with exacerbation J44.1 [facility] [place] [id number] [place] [address] 01206- 6587 Oct, Chronic obstructive pulmonary disease, unspecified COPD type J44.9 and COPD with exacerbation J44.1 [facility] [place] [id number] [place] [address] 71302- 1855 Sep, Low back pain M54.5 [facility] [id number] [place] [address] 06926 -9813 Aug, Acute exacerbation of chronic obstructive pulmonary disease (COPD) J44.1 [facility] [place] [id number] [place] [address] 36209- 6585 Aug, [facility] [place] [id number] [place] [address] 49547- 7382 Aug, Muscle spasms of both lower extremities M62.838 [facility] [place] [id number] [place] [address] 52864- 0953 Aug, Muscle spasms of both lower extremities M62.838 [facility] [place] [id number] [place] [address] 92011- 4297 Aug, Low back pain M54.5 [facility] [place] [id number] [place] [address] 87760- 5831 Jul, Low back pain M54.5 ; Seasonal allergic rhinitis, unspecified allergic rhinitis trigger J30.2 and Muscle spasms of both lower extremities M62.838 [facility] [place] [id number] [place] [address] 33173- 0914 Jul, [facility] [place] [id number] [place] [address] 30880- 7020 Jun, Low back pain M54.5 [facility] [place] [id number] [place] [address] 30670- 4072 May, [facility] [place] [id number] [place] [address] 41558- 0750 May, Fall, subsequent encounter W19.XXXD ; Post concussion syndrome F07.81 ; Chronic seasonal allergic rhinitis due to other allergen J30.2 ; Muscle spasms of both lower extremities M62.838 ; BERYL (obstructive sleep apnea) G47.33 and Encounter for immunization Z23 [facility] [place] [id number] [place] [address] 29463- 6236 May, [facility] [place] [id number] [place] [address] 74990- 2577 May, Low back pain M54.5 [facility] [place] [id number] [place] [address] 23025- 3528 Apr, BERYL (obstructive sleep apnea) G47.33 [facility] [place] [id number] [place] [address] 83370- 9737 Apr, [facility] [place] [id number] [place] [address] 60143- 7473 Apr, [facility] [place] [id number] [place] [address] 57004- 0823 Apr, Muscle spasms of both lower extremities M62.838 [facility] [place] [id number] [place] [address] 72715- 7959 Apr, Polio A80.9 ; Muscle spasms of both lower extremities M62.838 and Trigger middle finger of right hand M65.331 [facility] [place] [id number] [place] [address] 79376- 9277 Apr, Low back pain M54.5 [facility] [place] [id number] [place] [address] 22766- 8318 Mar, Low back pain M54.5 [facility] [place] [id number] [place] [address] 92016- 2836 Mar, [facility] [place] [id number] [place] [address] 79748- 9524 Mar, [facility] [place] [id number] [place] [address] 95995- 7339 Feb, Low back pain M54.5 ; Other chronic pain G89.29 ; Seasonal allergic rhinitis, unspecified allergic rhinitis trigger J30.2 and COPD with exacerbation J44.1 [facility] [place] [id number] [place] [address] 53177- 9123 Feb, Chronic obstructive pulmonary disease, unspecified COPD type J44.9 [facility] [place] [id number] [place] [address] 07137- 8642 Feb, Low back pain M54.5 ; Seasonal allergic rhinitis, unspecified allergic rhinitis trigger J30.2 ; Mixed stress and urge urinary incontinence N39.46 ; BERYL (obstructive sleep apnea) G47.33 and Trigger middle finger of right hand M65.331 [facility] [place] [id number] [place] [address] 55785- 0385 Feb, [facility] [place] [id number] [place] [address] 32371- 0182 Feb, Low back pain M54.5 [facility] [address] [id number] Jan, Trigger finger, unspecified finger, unspecified laterality M65.30 [facility] [address] [id number] Jan, [facility] [place] [id number] [place] [address] 39632- 5459 Jan, [facility] [place] [id number] [place] [address] 89628- 3563 Jan, COPD with exacerbation J44.1 [facility] [place] [id number] [place] [address] 98012- 0852 Jan, COPD with exacerbation J44.1 [facility] [place] [id number] [place] [address] 71566- 5305 Jan, COPD with exacerbation J44.1 [facility] [place] [id number] [place] [address] 59332- 4892 Jan, Low back pain M54.5 [facility] [place] [id number] [place] [address] 42310- 6021 December, Low back pain M54.5 [facility] [place] [id number] [place] [address] 84363- 5250 Nov, Seasonal allergic rhinitis, unspecified allergic rhinitis trigger J30.2 [facility] [place] [id number] [place] [address] 62468- 3597 Nov, [facility] [place] [id number] [place] [address] 93424- 7623 Nov, [facility] [place] [id number] [place] [address] 77356- 0183 Nov, Seasonal allergic rhinitis, unspecified allergic rhinitis trigger J30.2 ; Mixed stress and urge urinary incontinence N39.46 and Non- insulin dependent type 2 diabetes mellitus E11.9 [facility] [place] [address] 59895- 5934 Nov, [facility] [place] [address] 67959- 3446 Oct, Low back pain M54.5 [place] [address] 94295- 1843 14 Oct, 2016 Acute suppurative otitis media of left ear without spontaneous rupture of tympanic membrane, recurrence not specified H66.002 [place] [address] 63549- 1662 09 Oct, 2016 [facility] [id number] [place] [address] 21333 -3206 Oct, Bronchitis J40 [place] [address] 16911- 9554 Oct, [facility] [place] [id number] [place] [address] 86635- 5326 Oct, Low back pain M54.5 [facility] [place] [address] 20309- 9756 Sep, Polio A80.9 ; Wheelchair bound Z99.3 and Weakness of both legs R29.898 [place] [address] 20283- 5067 Sep, COPD with exacerbation J44.1 ; Polio A80.9 ; Weakness of both legs R29.898 ; Wheelchair bound Z99.3 and Low back pain M54.5 [facility] [place] [address] 39120- 6731 Sep, Low back pain M54.5 [facility] [place] [id number] [place] [address] 16416- 2180 Sep, Low back pain M54.5 [facility] [place] [id number] [place] [address] 09171- 8536 Aug, Weakness of both legs R29.898 ; Wheelchair bound Z99.3 and Polio A80.9 [facility] [place] [address] 20368- 3759 Aug, Polio A80.9 ; Other chronic pain G89.29 ; Dependence on other enabling machines and devices Z99.89 ; Obstructive sleep apnea (adult) ( pediatric) G47.33 and Chronic obstructive pulmonary disease, unspecified COPD type J44.9 [facility] [id number] [place] [address] 59074 -0551 Aug, Bronchitis J40 and Sprain of right knee, unspecified ligament, initial encounter S83.91XA [facility] [place] [address] 11338- 8285 Aug, [place] [address] 33985- 1494 Aug, [place] [id number] [place] [address] 38030- 8187 Aug, [place] [id number] [place] [address] 86128- 5887 Aug, [facility] [place] [id number] [place] [address] 80503- 7613 Aug, [facility] [place] [address] 17258- 8067 Aug, Low back pain M54.5 [facility] [id number] [place] [address] 13302 -9227 Aug, Acute non-recurrent frontal sinusitis J01.10 [place] [address] [place] [address] 17786- 8206 Jul, Chronic obstructive pulmonary disease, unspecified COPD type J44.9 and Low back pain M54.5 [facility] [place] [id number] [place] [address] 40684- 9685 Jul, Low back pain M54.5 [facility] [place] [id number] [place] [address] 75490- 2068 Jul, Low back pain M54.5 [facility] [place] [id number] [place] [address] 45635- 2142 Jul, Dental examination Z01.20 and Chronic obstructive pulmonary disease, unspecified COPD type J44.9 [facility] [place] [id number] [place] [address] 99141- 7729 Jul, [facility] [place] [id number] [place] [address] 28408- 2314 Jul, Low back pain M54.5 and Chronic obstructive pulmonary disease, unspecified COPD type J44.9 [facility] [place] [id number] [place] [address] 58601- 4129 Jun, [facility] [place] [id number] [place] [address] 29145- 8105 Jun, Chronic obstructive pulmonary disease, unspecified COPD type J44.9 ; Low back pain M54.5 ; Allergy, sequela T78.40XS and Cigarette nicotine dependence without complication F17.210 [facility] [place] [address] [place] [address] 43935- 3212 May, [facility] [place] [id number] [place] [address] 22377- 6647 May, [facility] [place] [id number] [place] [address] 35326- 1894 May, Dental examination Z01.20 [facility] [id number] [place] [address] 16856 -6606 May, Pneumonia of both lower lobes due to infectious organism J18.9 [facility] [place] [address] [place] [address] 62407- 6705 May, [facility] [place] [id number] [place] [address] 39891- 4122 May, [facility] [place] [id number] [place] [address] 29766- 0064 May, [place] [id number] [place] [address] 36485- 3061 May, [place] [id number] [place] [address] 45151- 0695 May, Bronchitis J40 and Low back pain M54.5 [place] [id number] [place] [address] 26979- 7558 15 Apr, 2016 [facility] [id number] [place] [address] 24863 -7327 14 Apr, 2016 Pneumonia of left lower lobe due to infectious organism J18.9 ; Cellulitis of right leg L03.115 and 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 [place] [id number] [place] [address] 42725- 8977 Apr, [place] [id number] [place] [address] 37882- 5284 06 Apr, 2016 Chronic obstructive pulmonary disease, unspecified COPD type J44.9 ; Low back pain M54.5 ; Other chronic pain G89.29 and Polio A80.9 [facility] [place] [address] [place] [address] 55621- 7405 Apr, IMMUNIZATIONS No Known Immunizations SOCIAL HISTORY Never Assessed REASON FOR VISIT Controlled Med Refill PLAN OF CARE VITAL SIGNS MEDICATIONS Medication Instructions Dosage Frequency Start Date End Date Duration Status Hydrocodone-Acetaminophen 10-325 MG Orally every 4 hours 1 tablet 4h Aug 28 days Active Tramadol HCl 50 mg [...]
--- OUTSIDE RECORDS SUMMARY | 2018-04-05 07:56 | XMS REPORT ---
Author Author CARY CRESPO Organization [facility] Address [address] [place] [address] Care Team Providers Care Shoeshiner Name Role Phone CARY CRESPO Unavailable PROBLEMS Type Condition ICD9-CM Code [id number] Code Onset Dates Condition Status SNOMED Code Problem Mixed stress and urge urinary incontinence N39.46 Active 621812239 Problem Muscle spasms of both lower extremities M62.838 Active 402219651 Problem BERYL (obstructive sleep apnea) G47.33 Active 11068547 Problem Trigger middle finger of right hand M65.331 Active 477948917 Problem Polio A80.9 Active 166355929 Problem BMI 40.0-44.9, adult Z68.41 Active 592956696 Problem Post concussion syndrome F07.81 Active 68882465 Problem Chronic seasonal allergic rhinitis due to other allergen J30.2 Active 840323976 Problem Tobacco use Z72.0 Active 509083161 Problem Acute exacerbation of chronic obstructive pulmonary disease (COPD) J44.1 Active 005321026 Problem Chronic obstructive pulmonary disease, unspecified COPD type J44.9 Active 34162345 Problem Cigarette nicotine dependence without complication F17.210 Active 55728322 Problem Low back pain M54.5 Active 402249804 Problem Other chronic pain G89.29 Active 01800106 Problem Wheelchair bound Z99.3 Active 751654313 Problem Weakness of both legs R29.898 Active 4216509 Problem Obstructive sleep apnea (adult) (pediatric) G47.33 Active 54801380 Problem Non-insulin dependent type 2 diabetes mellitus E11.9 Active 45901837 Problem Dependence on other enabling machines and devices Z99.89 Active 967865359 Problem Seasonal allergic rhinitis, unspecified allergic rhinitis trigger J30.2 Active 517936165 ALLERGIES No Information ENCOUNTERS Encounter Location Date Diagnosis [facility] [address] [facility] [id number] [address] Jan, Low back pain M54.5 [facility] [address], [place] [address] December, Chronic obstructive pulmonary disease, unspecified COPD type J44.9 ; Chronic seasonal allergic rhinitis due to other allergen J30.2 and Trigger middle finger of right hand M65.331 [facility] [address], [place] [address] December, Chronic obstructive pulmonary disease, unspecified COPD type J44.9 and BMI 40.0-44.9, adult Z68.41 [facility] [address], [place] [address] December, [facility] [id number] [place] [address] 46900- 9267 December, [facility] [id number] [address] December, Low back pain M54.5 [facility] [id number] [address] December, [facility] [id number] [place] [address] 34383- 8676 Nov, [facility] [address], [place] [address] Nov, [facility] [address], [place] [address] Nov, Medicare annual wellness visit, initial Z00.00 [...] Mixed stress and urge urinary incontinence N39.46 [facility] [id number] [place] [address] 45292- 1082 Nov, [facility] [id number] [place] [address] 68232- 5001 Nov, Low back pain M54.5 [facility] [id number] [place] [address] 13775- 9037 Oct, Other chronic pain G89.29 ; Chronic obstructive pulmonary disease, unspecified COPD type J44.9 ; Tobacco use Z72.0 ; Trigger middle finger of right hand M65.331 and BMI 40.0-44.9, adult Z68.41 [facility] [id number] [place] [address] 88712- 1001 Oct, [facility] [address] [address]- [address] Oct, [facility] [id number] [place] [address] 31454- 9922 Oct, Low back pain M54.5 [facility] [id number] [place] [address] 93961- 2087 Oct, [facility] [id number] [place] [address] 42908- 3281 Oct, Low back pain M54.5 and COPD with exacerbation J44.1 [facility] [id number] [place] [address] 14855- 9327 Oct, Chronic obstructive pulmonary disease, unspecified COPD type J44.9 and COPD with exacerbation J44.1 [facility] [id number] [place] [address] 83508- 9816 Sep, Low back pain M54.5 [facility] [id number] [place] [address] 19196 -4325 Aug, Acute exacerbation of chronic obstructive pulmonary disease (COPD) J44.1 [facility] [id number] [place] [address] 03096- 5020 Aug, [facility] [id number] [place] [address] 69435- 0800 Aug, Muscle spasms of both lower extremities M62.838 [facility] [id number] [place] [address] 59458- 8535 Aug, Muscle spasms of both lower extremities M62.838 [facility] [id number] [place] [address] 05400- 6081 Aug, Low back pain M54.5 [facility] [id number] [place] [address] 32355- 5107 Jul, Low back pain M54.5 ; Seasonal allergic rhinitis, unspecified allergic rhinitis trigger J30.2 and Muscle spasms of both lower extremities M62.838 [facility] [id number] [place] [address] 20828- 0072 Jul, [facility] [id number] [place] [address] 44289- 3817 Jun, Low back pain M54.5 [facility] [id number] [place] [address] 58772- 8284 May, [facility] [id number] [place] [address] 74579- 6325 May, Fall, subsequent encounter W19.XXXD ; Post concussion syndrome F07.81 ; Chronic seasonal allergic rhinitis due to other allergen J30.2 ; Muscle spasms of both lower extremities M62.838 ; BERYL (obstructive sleep apnea) G47.33 and Encounter for immunization Z23 [facility] [id number] [place] [address] 76943- 2400 May, [facility] [id number] [place] [address] 85017- 1209 May, Low back pain M54.5 [facility] [id number] [place] [address] 54774- 7534 Apr, BERYL (obstructive sleep apnea) G47.33 [facility] [id number] [place] [address] 05875- 8840 Apr, [facility] [id number] [place] [address] 11409- 6110 Apr, [facility] [id number] [place] [address] 55698- 2352 Apr, Muscle spasms of both lower extremities M62.838 [facility] [id number] [place] [address] 43637- 2176 Apr, Polio A80.9 ; Muscle spasms of both lower extremities M62.838 and Trigger middle finger of right hand M65.331 [facility] [id number] [place] [address] 80575- 0180 Apr, Low back pain M54.5 [facility] [id number] [place] [address] 72465- 7474 Mar, Low back pain M54.5 [facility] [id number] [place] [address] 19038- 5913 Mar, [facility] [id number] [place] [address] 48678- 4870 Mar, [facility] [id number] [place] [address] 46682- 9708 Feb, Low back pain M54.5 ; Other chronic pain G89.29 ; Seasonal allergic rhinitis, unspecified allergic rhinitis trigger J30.2 and COPD with exacerbation J44.1 [facility] [id number] [place] [address] 17321- 7438 Feb, Chronic obstructive pulmonary disease, unspecified COPD type J44.9 [facility] [id number] [place] [address] 45460- 5201 Feb, Low back pain M54.5 ; Seasonal allergic rhinitis, unspecified allergic rhinitis trigger J30.2 ; Mixed stress and urge urinary incontinence N39.46 ; BERYL (obstructive sleep apnea) G47.33 and Trigger middle finger of right hand M65.331 [facility] [id number] [place] [address] 76074- 6466 Feb, [facility] [id number] [place] [address] 08390- 4849 Feb, Low back pain M54.5 [facility] [address] [id number] Jan, Trigger finger, unspecified finger, unspecified laterality M65.30 [facility] [address] [id number] Jan, [facility] [id number] [place] [address] 77848- 8794 Jan, [facility] [id number] [place] [address] 75996- 1621 Jan, COPD with exacerbation J44.1 [facility] [id number] [place] [address] 85887- 9609 Jan, COPD with exacerbation J44.1 [facility] [id number] [place] [address] 33419- 8583 Jan, COPD with exacerbation J44.1 [facility] [id number] [place] [address] 53346- 5796 Jan, Low back pain M54.5 [facility] [id number] [place] [address] 79160- 3261 December, Low back pain M54.5 [facility] [id number] [place] [address] 30876- 0001 Nov, Seasonal allergic rhinitis, unspecified allergic rhinitis trigger J30.2 [facility] [id number] [place] [address] 96360- 4835 Nov, [facility] [id number] [place] [address] 41011- 3964 Nov, [facility] [id number] [place] [address] 54310- 6407 Nov, Seasonal allergic rhinitis, unspecified allergic rhinitis trigger J30.2 ; Mixed stress and urge urinary incontinence N39.46 and Non- insulin dependent type 2 diabetes mellitus E11.9 [facility] [address] 54039- 1799 Nov, [facility] [address] 79386- 0311 Oct, Low back pain M54.5 [place] [address] 16924- 9781 14 Oct, 2016 Acute suppurative otitis media of left ear without spontaneous rupture of tympanic membrane, recurrence not specified H66.002 [place] [address] 30363- 0188 09 Oct, 2016 [facility] [id number] [place] [address] 87080 -8159 Oct, Bronchitis J40 [place] [address] 39489- 8335 Oct, [facility] [id number] [place] [address] 60804- 0035 Oct, Low back pain M54.5 [facility] [address] 84127- 6604 Sep, Polio A80.9 ; Wheelchair bound Z99.3 and Weakness of both legs R29.898 [place] [address] 98733- 3427 Sep, COPD with exacerbation J44.1 ; Polio A80.9 ; Weakness of both legs R29.898 ; Wheelchair bound Z99.3 and Low back pain M54.5 [facility] [address] 64131- 8912 Sep, Low back pain M54.5 [facility] [id number] [place] [address] 81829- 9079 Sep, Low back pain M54.5 [facility] [id number] [place] [address] 00373- 2410 Aug, Weakness of both legs R29.898 ; Wheelchair bound Z99.3 and Polio A80.9 [facility] [address] 31821- 0085 Aug, Polio A80.9 ; Other chronic pain G89.29 ; Dependence on other enabling machines and devices Z99.89 ; Obstructive sleep apnea (adult) ( pediatric) G47.33 and Chronic obstructive pulmonary disease, unspecified COPD type J44.9 [facility] [id number] [place] [address] 77123 -6917 Aug, Bronchitis J40 and Sprain of right knee, unspecified ligament, initial encounter S83.91XA [facility] [address] 29105- 6025 Aug, [place] [address] 00309- 6675 Aug, [place] [id number] [place] [address] 11749- 3374 Aug, [place] [id number] [place] [address] 36243- 2527 Aug, [facility] [id number] [place] [address] 30326- 9300 Aug, [facility] [address] 21432- 8075 Aug, Low back pain M54.5 [facility] [id number] [place] [address] 47093 -8724 Aug, Acute non-recurrent frontal sinusitis J01.10 [place] [address] [place] [address] 86768- 6827 Jul, Chronic obstructive pulmonary disease, unspecified COPD type J44.9 and Low back pain M54.5 [facility] [id number] [place] [address] 07707- 8016 Jul, Low back pain M54.5 [facility] [id number] [place] [address] 32265- 5961 Jul, Low back pain M54.5 [facility] [id number] [place] [address] 98188- 2321 Jul, Dental examination Z01.20 and Chronic obstructive pulmonary disease, unspecified COPD type J44.9 [facility] [id number] [place] [address] 28356- 8424 Jul, [facility] [id number] [place] [address] 51603- 1275 Jul, Low back pain M54.5 and Chronic obstructive pulmonary disease, unspecified COPD type J44.9 [facility] [id number] [place] [address] 98963- 4072 Jun, [facility] [id number] [place] [address] 65602- 4553 Jun, Chronic obstructive pulmonary disease, unspecified COPD type J44.9 ; Low back pain M54.5 ; Allergy, sequela T78.40XS and Cigarette nicotine dependence without complication F17.210 [facility] [id number] [place] [address] 14563- 5081 May, [facility] [id number] [place] [address] 46150- 2307 May, [facility] [id number] [place] [address] 87427- 9101 May, Dental examination Z01.20 [facility] [id number] [place] [address] 54183 -8460 May, Pneumonia of both lower lobes due to infectious organism J18.9 [facility] [id number] [place] [address] 27891- 0342 May, [facility] [id number] [place] [address] 45406- 0113 May, [place] [id number] [place] [address] 02252- 1655 May, [place] [id number] [place] [address] 84976- 9525 May, [place] [id number] [place] [address] 38008- 8128 May, Bronchitis J40 and Low back pain M54.5 [place] [id number] [place] [address] 25004- 3053 15 Apr, 2016 [facility] [id number] [place] [address] 12337 -7287 Apr, Pneumonia of left lower lobe due to infectious organism J18.9 ; Cellulitis of right leg L03.115 and 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 [place] [id number] [place] [address] 66882- 2589 Apr, [place] [id number] [place] [address] 20699- 1536 Apr, Chronic obstructive pulmonary disease, unspecified COPD type J44.9 ; Low back pain M54.5 ; Other chronic pain G89.29 and Polio A80.9 [place] [id number] [place] [address] 89730- 7832 Apr, IMMUNIZATIONS No Known Immunizations SOCIAL HISTORY Never Assessed REASON FOR VISIT [facility] PLAN OF CARE VITAL SIGNS MEDICATIONS Medication Instructions Dosage Frequency Start Date End Date Duration Status Soma 250 MG Orally 3 times a day 1 tablet BID for 1 week then TID 8h Apr 28 days Active RESULTS No Results [...]
--- OUTSIDE RECORDS SUMMARY | 2018-04-05 08:01 | XMS REPORT ---
Author Author CARY CRESPO [facility] Address [address] [place] [address] Care Team Providers Care Director Trading Name Role Phone CARY CRESPO Unavailable PROBLEMS Type Condition ICD9-CM Code TYB05-YT Code Onset Dates Condition Status SNOMED Code Problem Mixed stress and urge urinary incontinence N39.46 Active 532095164 Problem Muscle spasms of both lower extremities M62.838 Active 385380534 Problem BERYL (obstructive sleep apnea) G47.33 Active 51706614 Problem Trigger middle finger of right hand M65.331 Active 040273491 Problem Polio A80.9 Active 337305015 Problem BMI 40.0-44.9, adult Z68.41 Active 563059947 Problem Post concussion syndrome F07.81 Active 14130393 Problem Chronic seasonal allergic rhinitis due to other allergen J30.2 Active 846709279 Problem Tobacco use Z72.0 Active 492556685 Problem Acute exacerbation of chronic obstructive pulmonary disease (COPD) J44.1 Active 742410295 Problem Chronic obstructive pulmonary disease, unspecified COPD type J44.9 Active 83375556 Problem Cigarette nicotine dependence without complication F17.210 Active 44071028 Problem Low back pain M54.5 Active 008915145 Problem Other chronic pain G89.29 Active 23962271 Problem Wheelchair bound Z99.3 Active 534532831 Problem Weakness of both legs R29.898 Active 1914012 Problem Obstructive sleep apnea (adult) (pediatric) G47.33 Active 87572091 Problem Non-insulin dependent type 2 diabetes mellitus E11.9 Active 44941516 Problem Dependence on other enabling machines and devices Z99.89 Active 880272587 Problem Seasonal allergic rhinitis, unspecified allergic rhinitis trigger J30.2 Active 530371274 ALLERGIES Substance Reaction Event Type Date Status Iodine Unknown Drug Allergy Jan, Active Betaine Unknown Drug Allergy Jan, Active Aspirin nausea Drug Allergy Jan, Active shell fish Unknown Non Drug Allergy Jan, Active ENCOUNTERS Encounter Location Date Diagnosis [facility] [address] [address] December, Chronic obstructive pulmonary disease, unspecified COPD type J44.9 ; Chronic seasonal allergic rhinitis due to other allergen J30.2 and Trigger middle finger of right hand M65.331 [facility] [address] [address] December, Chronic obstructive pulmonary disease, unspecified COPD type J44.9 and BMI 40.0-44.9, adult Z68.41 [facility] [id number] [place] [address] 26022- 3389 December, [facility] [id number] [place] [address] 97987- 9308 December, [facility] [id number] [place] [address] 17519- 7356 December, Low back pain M54.5 [facility] [id number] [place] [address] 77176- 6814 December, [facility] [id number] [place] [address] 28711- 9036 Nov, [facility] [id number] [place] [address] 64270- 8762 Nov, [facility] [id number] [place] [address] 26468- 4985 Nov, Medicare annual wellness visit, initial Z00.00 [...] Mixed stress and urge urinary incontinence N39.46 [facility] [id number] [place] [address] 32476- 5131 Nov, [facility] [id number] [place] [address] 15664- 0117 Nov, Low back pain M54.5 [facility] [id number] [place] [address] 80502- 9843 Oct, Other chronic pain G89.29 ; Chronic obstructive pulmonary disease, unspecified COPD type J44.9 ; Tobacco use Z72.0 ; Trigger middle finger of right hand M65.331 and BMI 40.0-44.9, adult Z68.41 [facility] [id number] [place] [address] 64463- 4166 Oct, [facility] [address] 11899- 9682 Oct, [facility] [id number] [place] [address] 16899- 2336 Oct, Low back pain M54.5 [facility] [id number] [place] [address] 17331- 7641 Oct, [facility] [id number] [place] [address] 46396- 4409 Oct, Low back pain M54.5 and COPD with exacerbation J44.1 [facility] [id number] [place] [address] 41704- 1219 Oct, Chronic obstructive pulmonary disease, unspecified COPD type J44.9 and COPD with exacerbation J44.1 [facility] [id number] [place] [address] 06397- 3858 Sep, Low back pain M54.5 [facility] [address], [place] [address] Aug, Acute exacerbation of chronic obstructive pulmonary disease (COPD) J44.1 [facility] [id number] [place] [address] 60742- 2844 Aug, [facility] [id number] [place] [address] 07783- 6985 Aug, Muscle spasms of both lower extremities M62.838 [facility] [id number] [place] [address] 33720- 6579 Aug, Muscle spasms of both lower extremities M62.838 [facility] [id number] [place] [address] 64253- 4927 Aug, Low back pain M54.5 [facility] [address] 78512- 0803 Jul, Low back pain M54.5 ; Seasonal allergic rhinitis, unspecified allergic rhinitis trigger J30.2 and Muscle spasms of both lower extremities M62.838 [facility] [address] 86752- 5098 Jul, [facility] [id number] [place] [address] 93556- 9643 Jun, Low back pain M54.5 [facility] [id number] [place] [address] 16222- 5720 May, [facility] [id number] [place] [address] 23408- 8705 May, Fall, subsequent encounter W19.XXXD ; Post concussion syndrome F07.81 ; Chronic seasonal allergic rhinitis due to other allergen J30.2 ; Muscle spasms of both lower extremities M62.838 ; BERYL (obstructive sleep apnea) G47.33 and Encounter for immunization Z23 [facility] [id number] [place] [address] 04469- 5715 May, [facility] [id number] [place] [address] 60187- 6317 May, Low back pain M54.5 [facility] [id number] [place] [address] 25313- 1848 Apr, BERYL (obstructive sleep apnea) G47.33 [facility] [address] [place] [address] 73278- 5666 Apr, [facility] [id number] [place] [address] 70173- 2540 Apr, [facility] [id number] [place] [address] 49915- 2544 Apr, Muscle spasms of both lower extremities M62.838 [facility] [id number] [place] [address] 54380- 4560 Apr, Polio A80.9 ; Muscle spasms of both lower extremities M62.838 and Trigger middle finger of right hand M65.331 [facility] [id number] [place] [address] 52550- 4294 Apr, Low back pain M54.5 [facility] [id number] [place] [address] 44840- 6020 Mar, Low back pain M54.5 [facility] [id number] [place] [address] 13735- 6336 Mar, [facility] [id number] [place] [address] 41511- 6814 Mar, [facility] [id number] [place] [address] 86048- 9890 Feb, Low back pain M54.5 ; Other chronic pain G89.29 ; Seasonal allergic rhinitis, unspecified allergic rhinitis trigger J30.2 and COPD with exacerbation J44.1 [facility] [id number] [place] [address] 07435- 0069 Feb, Chronic obstructive pulmonary disease, unspecified COPD type J44.9 [facility] [id number] [place] [address] 80093- 0070 Feb, Low back pain M54.5 ; Seasonal allergic rhinitis, unspecified allergic rhinitis trigger J30.2 ; Mixed stress and urge urinary incontinence N39.46 ; BERYL (obstructive sleep apnea) G47.33 and Trigger middle finger of right hand M65.331 [facility] [id number] [place] [address] 28727- 0664 Feb, [facility] [id number] [place] [address] 06739- 1602 Feb, Low back pain M54.5 [facility] [address] [id number] Jan, Trigger finger, unspecified finger, unspecified laterality M65.30 [facility] [address] [id number] Jan, [facility] [id number] [place] [address] 09631- 3762 Jan, [facility] [address] 45274- 8765 Jan, COPD with exacerbation J44.1 [facility] [id number] [place] [address] 44234- 9646 Jan, COPD with exacerbation J44.1 [facility] [id number] [place] [address] 26525- 6192 Jan, COPD with exacerbation J44.1 [facility] [id number] [place] [address] 72257- 5390 Jan, Low back pain M54.5 [facility] [id number] [place] [address] 21160- 8157 December, Low back pain M54.5 [facility] [id number] [place] [address] 70452- 3043 Nov, Seasonal allergic rhinitis, unspecified allergic rhinitis trigger J30.2 [facility] [id number] [place] [address] 33337- 7780 Nov, [facility] [id number] [place] [address] 44869- 3363 Nov, [facility] [address] 62561- 0572 Nov, Seasonal allergic rhinitis, unspecified allergic rhinitis trigger J30.2 ; Mixed stress and urge urinary incontinence N39.46 and Non- insulin dependent type 2 diabetes mellitus E11.9 [facility] [address] 96744- 0638 Nov, [facility] [address] 33659- 9570 Oct, Low back pain M54.5 [facility] [address] 27528- 3695 14 Oct, 2016 Acute suppurative otitis media of left ear without spontaneous rupture of tympanic membrane, recurrence not specified H66.002 [facility] [address] 21464- 3038 Oct, [facility] [address] 24153 -3352 Oct, Bronchitis J40 [facility] [address] 76181- 2863 Oct, [facility] [address] 33407- 6719 Oct, Low back pain M54.5 [facility] [id number] [place] [address] 75245- 3532 Sep, Polio A80.9 ; Wheelchair bound Z99.3 and Weakness of both legs R29.898 [facility] [address] 03572- 9160 Sep, COPD with exacerbation J44.1 ; Polio A80.9 ; Weakness of both legs R29.898 ; Wheelchair bound Z99.3 and Low back pain M54.5 [facility] [address] 80543- 6866 Sep, Low back pain M54.5 [facility] [id number] [place] [address] 28135- 1003 Sep, Low back pain M54.5 [facility] [address] [place] [address] 57694- 9941 Aug, Weakness of both legs R29.898 ; Wheelchair bound Z99.3 and Polio A80.9 [facility] [address] [place] [address] 01716- 8306 Aug, Polio A80.9 ; Other chronic pain G89.29 ; Dependence on other enabling machines and devices Z99.89 ; Obstructive sleep apnea (adult) ( pediatric) G47.33 and Chronic obstructive pulmonary disease, unspecified COPD type J44.9 [facility] [id number] [place] [address] 33140 -5600 Aug, Bronchitis J40 and Sprain of right knee, unspecified ligament, initial encounter S83.91XA [facility] [address] [place] [address] 33484- 0044 Aug, [facility] [id number] [place] [address] 82719- 2881 Aug, [facility] [id number] [place] [address] 72596- 0453 Aug, [facility] [id number] [place] [address] 61911- 5767 Aug, [facility] [id number] [place] [address] 31431- 5973 Aug, [facility] [id number] [place] [address] 37846- 7281 Aug, Low back pain M54.5 [facility] [address] [place] [address] 33081 -4116 Aug, Acute non-recurrent frontal sinusitis J01.10 [facility] [address] [facility] [id number] [address] Jul, Chronic obstructive pulmonary disease, unspecified COPD type J44.9 and Low back pain M54.5 [facility] [address] [facility] [id number] [place] [address] 73439- 7197 Jul, Low back pain M54.5 [facility] [id number] [place] [address] 01382- 8291 Jul, Low back pain M54.5 [facility] [id number] [place] [address] 02313- 3473 Jul, Dental examination Z01.20 and Chronic obstructive pulmonary disease, unspecified COPD type J44.9 [facility] [address] [place] [address] 63724- 3068 Jul, [facility] [address] [place] [address] 67837- 3339 Jul, Low back pain M54.5 and Chronic obstructive pulmonary disease, unspecified COPD type J44.9 [facility] [address] [place] [address] 81466- 5474 Jun, [facility] [address] [place] [address] 78683- 9700 Jun, Chronic obstructive pulmonary disease, unspecified COPD type J44.9 ; Low back pain M54.5 ; Allergy, sequela T78.40XS and Cigarette nicotine dependence without complication F17.210 [facility] [address] [address]- 0439 May, [facility] [id number] [place] [address] 62786- 6084 May, [facility] [address] [place] [address] 38483- 0315 May, Dental examination Z01.20 [facility] [address] [place] [address] 94513 -8314 May, Pneumonia of both lower lobes due to infectious organism J18.9 [facility] [address] [place] [address] 95164- 1513 May, [facility] [id number] [place] [address] 50081- 6623 May, [facility] [address] [place] [address] 68383- 5745 May, [facility] [address] [place] [address] 00761- 4231 May, [facility] [id number] [place] [address] 96956- 0055 May, Bronchitis J40 and Low back pain M54.5 [facility] [address] [place] [address] 24155- 8255 15 Apr, 2016 [facility] [id number] [place] [address] 65818 -1495 Apr, Pneumonia of left lower lobe due to infectious organism J18.9 ; Cellulitis of right leg L03.115 and 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 [facility] [id number] [place] [address] 99842- 4812 Apr, [facility] [id number] [place] [address] 55870- 6489 Apr, Chronic obstructive pulmonary disease, unspecified COPD type J44.9 ; Low back pain M54.5 ; Other chronic pain G89.29 and Polio A80.9 [facility] [address] [place] [address] 87175- 1940 Apr, IMMUNIZATIONS No Known Immunizations SOCIAL HISTORY Never Assessed REASON FOR VISIT SOB/cough-MARY Daniels PLAN OF CARE Activity Details Follow Up 2 Weeks with [facility] f/u COPD Exac Reason: VITAL SIGNS Height 65 in 2017-02-01 Weight 234 lbs 2017-02-01 Temperature 98.1 degrees Fahrenheit 2017-02-01 Heart Rate 86 bpm 2017-02-01 Respiratory Rate 20 2017-02-01 BMI 38.94 kg/m2 2017-02-01 Blood pressure systolic 112 mmHg 2017-02-01 Blood pressure diastolic 70 mmHg 2017-02-01 MEDICATIONS Medication Instructions Dosage Frequency Start Date End Date Duration Status Venlafaxine HCl 150 mg Orally Once a day 1 tablet with food 24h 18 May, 2016 Active Naproxen 500 mg Orally every 12 hrs 1 tablet as needed 12h Sep, 30 days Active Chantix 1 MG Orally Twice a day Starter martha direction 12h 28 Not- Taking Fluticasone Propionate 50 MCG/ACT Nasally Once a day 1 spray in each nostril 24h Nov, 30 day(s) Active PredniSONE 20 mg Orally Once a day 1 tablet 24h Jan, Feb, 07 days Active Spiriva HandiHaler 18 MCG Inhalation qd 1 24h Active Breo Ellipta 200-25 MCG/INH Inhalation Once a day 1 puff 24h Jul, Active Mucinex 600 MG Orally every 12 hrs 1 tablet as needed 12h Nov, 14 days Not-Taking Combivent Respimat 20-100 MCG/ACT Inhalation Four times a day 1 puff 6h Active Hospital Bed as directed Aug, Active Nitrostat 0.4 MG Active Zyrtec Allergy 10 MG Orally Once a day 1 tablet 24h Active Ipratropium-Albuterol 0.5-2.5 (3) MG/3ML Inhalation Four times a day 3 ml 6h Active Ambien 5 MG Orally Once a day 1 tablet at bedtime 24h Not-Taking Voltaren 1 % Active Tramadol HCl 50 mg Orally every 6 hrs 1 tablet 6h 28 days Active Valsartan 160 MG Orally Once a day 1 tablet 24h 30 Active Hydrocodone-Acetaminophen 10-325 MG Orally every 4 hours 1 tablet 4h 04 Nov 28 days Active Famotidine 40 MG Orally Once a day 1 tablet 24h Active Tessalon Perles 100 MG Orally Three times a day 1 capsule as needed 8h 7 Not-Taking Calcium + D 500-1000-40 MG-UNT-MCG Not-Taking Lidocaine 0.5 % Active Tizanidine HCl 4 MG Orally Three times a day 1 tablet as needed 8h Active Singulair 10 mg Orally Once a day 1 tablet in the evening 24h Nov, 30 day(s) Active Doxycycline Hyclate 100 mg Orally every 12 hrs 1 capsule 12h 28 Jan, 2017 Feb, 07 days Active Hydromorphone HCl 4 MG Orally every 8 hrs 1 tablet as needed 8h Not-Taking Cyanocobalamin 1000 MCG Orally Once a day 1 tablet 24h Not-Taking Trazodone HCl 150 MG Orally Once a day 1 tablet at bedtime as needed 24h 30 Active Incruse Ellipta 62.5 MCG/INH Inhalation Once a day 1 puff 24h Aug, Not-Taking Fluticasone Propionate 50 MCG/ACT Nasally Once a day 1 spray in each nostril 24h Not-Taking Atorvastatin Calcium 80 MG Orally Once a day 1 tablet 24h Active Venlafaxine HCl 75 MG Orally Once a day 1 tablet with food 24h 30 Not-Taking Soma 350 MG Orally 3 times a day 1 tablet as needed 8h Jul, Active RESULTS No Results PROCEDURES Procedure Date Ordered Result Body Site [facility] VISIT ESTABLISHED PATIENT February 01, 2017 INSTRUCTIONS MEDICATIONS ADMINISTERED No Known [...]
--- OUTSIDE RECORDS SUMMARY | 2018-04-05 08:02 | XMS REPORT ---
Author Author CARY CRESPO Organization [facility] Address [address] [place] [address] Care Team Providers Care Rules Examiner Name Role Phone CARY CRESPO Unavailable PROBLEMS Type Condition ICD9-CM Code WME21-UC Code Onset Dates Condition Status SNOMED Code Problem Mixed stress and urge urinary incontinence N39.46 Active 140913144 Problem Muscle spasms of both lower extremities M62.838 Active 751193850 Problem BERYL (obstructive sleep apnea) G47.33 Active 09498973 Problem Trigger middle finger of right hand M65.331 Active 763872012 Problem Polio A80.9 Active 799739031 Problem BMI 40.0-44.9, adult Z68.41 Active 288333600 Problem Post concussion syndrome F07.81 Active 69335664 Problem Chronic seasonal allergic rhinitis due to other allergen J30.2 Active 829337126 Problem Tobacco use Z72.0 Active 396679253 Problem Acute exacerbation of chronic obstructive pulmonary disease (COPD) J44.1 Active 561043784 Problem Chronic obstructive pulmonary disease, unspecified COPD type J44.9 Active 80054860 Problem Cigarette nicotine dependence without complication F17.210 Active 35138849 Problem Low back pain M54.5 Active 222654129 Problem Other chronic pain G89.29 Active 01070761 Problem Wheelchair bound Z99.3 Active 002526100 Problem Weakness of both legs R29.898 Active 9260612 Problem Obstructive sleep apnea (adult) (pediatric) G47.33 Active 78537996 Problem Non-insulin dependent type 2 diabetes mellitus E11.9 Active 30220435 Problem Dependence on other enabling machines and devices Z99.89 Active 900794817 Problem Seasonal allergic rhinitis, unspecified allergic rhinitis trigger J30.2 Active 060308597 ALLERGIES No Information ENCOUNTERS Encounter Location Date Diagnosis [facility] [address] [facility] [id number] [address] Jan, [facility] [address] [address] Jan, [facility] [id number] [place] [address] 51618- 7789 Jan, Low back pain M54.5 [facility] [id number] [place] [address] 41027- 7039 December, Chronic obstructive pulmonary disease, unspecified COPD type J44.9 ; Chronic seasonal allergic rhinitis due to other allergen J30.2 and Trigger middle finger of right hand M65.331 [facility] [address] [address] December, Chronic obstructive pulmonary disease, unspecified COPD type J44.9 and BMI 40.0-44.9, adult Z68.41 [facility] [id number] [place] [address] 35477- 9994 December, [facility] [id number] [place] [address] 28690- 6934 December, [facility] [id number] [place] [address] 42904- 1096 December, Low back pain M54.5 [facility] [id number] [place] [address] 64965- 5929 December, [facility] [id number] [place] [address] 49537- 6159 Nov, [facility] [id number] [address] Nov, [facility] [id number] [place] [address] 02990- 2243 Nov, Medicare annual wellness visit, initial Z00.00 [...] Mixed stress and urge urinary incontinence N39.46 [facility] [id number] [place] [address] 26726- 6784 17 Nov, 2017 [place] [address] 22154- 3808 Nov, Low back pain M54.5 [facility] [id number] [place] [address] 26416- 3182 Oct, Other chronic pain G89.29 ; Chronic obstructive pulmonary disease, unspecified COPD type J44.9 ; Tobacco use Z72.0 ; Trigger middle finger of right hand M65.331 and BMI 40.0-44.9, adult Z68.41 [facility] [id number] [place] [address] 93569- 6336 Oct, [facility] [id number] [place] [address] 71440- 8243 Oct, [place] [facility] [id number] [place] [address] 67062- 4769 Oct, Low back pain M54.5 [facility] [id number] [place] [address] 48206- 0372 Oct, [facility] [id number] [place] [address] 93056- 0956 Oct, Low back pain M54.5 and COPD with exacerbation J44.1 [place] [facility] [address] 66816- 5785 Oct, Chronic obstructive pulmonary disease, unspecified COPD type J44.9 and COPD with exacerbation J44.1 [facility] [id number] [place] [address] 10741- 6236 Sep, Low back pain M54.5 [facility] [id number] [place] [address] 17219 -7375 Aug, Acute exacerbation of chronic obstructive pulmonary disease (COPD) J44.1 [facility] [id number] [place] [address] 58310- 7859 Aug, [facility] [id number] [place] [address] 60749- 8489 Aug, Muscle spasms of both lower extremities M62.838 [facility] [id number] [place] [address] 94940- 6281 Aug, Muscle spasms of both lower extremities M62.838 [facility] [id number] [place] [address] 31117- 8756 Aug, Low back pain M54.5 [facility] [id number] [place] [address] 45363- 3186 Jul, Low back pain M54.5 ; Seasonal allergic rhinitis, unspecified allergic rhinitis trigger J30.2 and Muscle spasms of both lower extremities M62.838 [facility] [id number] [place] [address] 95018- 9572 Jul, [facility] [id number] [place] [address] 59404- 1663 Jun, Low back pain M54.5 [facility] [id number] [place] [address] 80205- 1261 May, [facility] [id number] [place] [address] 21209- 1415 May, Fall, subsequent encounter W19.XXXD ; Post concussion syndrome F07.81 ; Chronic seasonal allergic rhinitis due to other allergen J30.2 ; Muscle spasms of both lower extremities M62.838 ; BERYL (obstructive sleep apnea) G47.33 and Encounter for immunization Z23 [facility] [id number] [place] [address] 83663- 3880 May, [facility] [id number] [place] [address] 18603- 5246 May, Low back pain M54.5 [facility] [id number] [place] [address] 59590- 4215 Apr, BERYL (obstructive sleep apnea) G47.33 [facility] [id number] [place] [address] 35448- 3896 Apr, [facility] [id number] [place] [address] 06384- 5132 Apr, [facility] [id number] [place] [address] 83985- 4632 Apr, Muscle spasms of both lower extremities M62.838 [place] [id number] [place] [address] 69674- 2689 Apr, Polio A80.9 ; Muscle spasms of both lower extremities M62.838 and Trigger middle finger of right hand M65.331 [place] [facility] [id number] [place] [address] 22964- 4067 Apr, Low back pain M54.5 [facility] [id number] [place] [address] 34019- 7891 Mar, Low back pain M54.5 [facility] [id number] [place] [address] 69467- 2397 Mar, [facility] [id number] [place] [address] 39627- 8711 Mar, [facility] [id number] [place] [address] 17870- 3968 Feb, Low back pain M54.5 ; Other chronic pain G89.29 ; Seasonal allergic rhinitis, unspecified allergic rhinitis trigger J30.2 and COPD with exacerbation J44.1 [facility] [id number] [place] [address] 90087- 1134 Feb, Chronic obstructive pulmonary disease, unspecified COPD type J44.9 [facility] [address] [place] [address] 78555- 6340 Feb, Low back pain M54.5 ; Seasonal allergic rhinitis, unspecified allergic rhinitis trigger J30.2 ; Mixed stress and urge urinary incontinence N39.46 ; BERYL (obstructive sleep apnea) G47.33 and Trigger middle finger of right hand M65.331 [facility] [id number] [place] [address] 11563- 9871 Feb, [facility] [id number] [place] [address] 42403- 3500 Feb, Low back pain M54.5 [facility] [address] [id number] Jan, Trigger finger, unspecified finger, unspecified laterality M65.30 [facility] [address] [id number] Jan, [facility] [id number] [place] [address] 01569- 9274 Jan, [facility] [id number] [place] [address] 39906- 5569 Jan, COPD with exacerbation J44.1 [facility] [id number] [place] [address] 92320- 4132 Jan, COPD with exacerbation J44.1 [facility] [id number] [place] [address] 49418- 9193 Jan, COPD with exacerbation J44.1 [facility] [id number] [place] [address] 08036- 8272 Jan, Low back pain M54.5 [facility] [id number] [place] [address] 87177- 3609 December, Low back pain M54.5 [facility] [id number] [place] [address] 15120- 7285 Nov, Seasonal allergic rhinitis, unspecified allergic rhinitis trigger J30.2 [facility] [id number] [place] [address] 77520- 5640 Nov, [facility] [id number] [place] [address] 59405- 0573 Nov, [facility] [id number] [place] [address] 30306- 1907 Nov, Seasonal allergic rhinitis, unspecified allergic rhinitis trigger J30.2 ; Mixed stress and urge urinary incontinence N39.46 and Non- insulin dependent type 2 diabetes mellitus E11.9 [facility] [id number] [place] [address] 55745- 5502 Nov, [facility] [id number] [place] [address] 96933- 0265 Oct, Low back pain M54.5 [facility] [address] 63020- 8630 Oct, Acute suppurative otitis media of left ear without spontaneous rupture of tympanic membrane, recurrence not specified H66.002 [facility] [id number] [place] [address] 17309- 8316 Oct, [facility] [id number] [place] [address] 06811 -3973 Oct, Bronchitis J40 [facility] [id number] [place] [address] 14278- 9772 Oct, [facility] [id number] [place] [address] 14844- 7435 Oct, Low back pain M54.5 [facility] [id number] [place] [address] 50453- 6821 Sep, Polio A80.9 ; Wheelchair bound Z99.3 and Weakness of both legs R29.898 [facility] [id number] [place] [address] 43628- 9922 Sep, COPD with exacerbation J44.1 ; Polio A80.9 ; Weakness of both legs R29.898 ; Wheelchair bound Z99.3 and Low back pain M54.5 [facility] [id number] [place] [address] 31652- 6362 Sep, Low back pain M54.5 [facility] [id number] [place] [address] 07726- 3214 Sep, Low back pain M54.5 [facility] [id number] [place] [address] 59811- 7041 Aug, Weakness of both legs R29.898 ; Wheelchair bound Z99.3 and Polio A80.9 [facility] [id number] [place] [address] 16028- 3185 Aug, Polio A80.9 ; Other chronic pain G89.29 ; Dependence on other enabling machines and devices Z99.89 ; Obstructive sleep apnea (adult) ( pediatric) G47.33 and Chronic obstructive pulmonary disease, unspecified COPD type J44.9 [facility] [id number] [place] [address] 72298 -3968 Aug, Bronchitis J40 and Sprain of right knee, unspecified ligament, initial encounter S83.91XA [facility] [id number] [place] [address] 93702- 6700 Aug, [facility] [id number] [place] [address] 42226- 0438 Aug, [facility] [id number] [place] [address] 60917- 4239 Aug, [facility] [address] 61705- 0988 Aug, [facility] [id number] [place] [address] 00225- 8940 Aug, [facility] [address] 93609- 5177 Aug, Low back pain M54.5 [facility] [address] [place] [address] 53216 -7272 Aug, Acute non-recurrent frontal sinusitis J01.10 [facility] [id number] [place] [address] 41533- 0385 Jul, Chronic obstructive pulmonary disease, unspecified COPD type J44.9 and Low back pain M54.5 [facility] [id number] [place] [address] 34648- 4989 Jul, Low back pain M54.5 [facility] [address] 79766- 8650 Jul, Low back pain M54.5 [facility] [id number] [place] [address] 55308- 9505 Jul, Dental examination Z01.20 and Chronic obstructive pulmonary disease, unspecified COPD type J44.9 [facility] [id number] [place] [address] 04490- 3603 Jul, [facility] [id number] [place] [address] 60038- 5869 Jul, Low back pain M54.5 and Chronic obstructive pulmonary disease, unspecified COPD type J44.9 [facility] [id number] [place] [address] 18571- 3525 Jun, [facility] [id number] [place] [address] 90538- 4446 Jun, Chronic obstructive pulmonary disease, unspecified COPD type J44.9 ; Low back pain M54.5 ; Allergy, sequela T78.40XS and Cigarette nicotine dependence without complication F17.210 [facility] [id number] [place] [address] 53005- 7511 May, [facility] [id number] [place] [address] 51910- 2397 May, [place] [address] [address]- 3774 May, Dental examination Z01.20 [facility] [id number] [place] [address] 46353 -0961 May, Pneumonia of both lower lobes due to infectious organism J18.9 [facility] [id number] [place] [address] 43409- 1279 May, [facility] [id number] [place] [address] 72748- 9192 May, [facility] [id number] [place] [address] 68828- 3838 May, [facility] [id number] [place] [address] 12604- 8270 May, [place] [id number] [place] [address] 70682- 6315 May, Bronchitis J40 and Low back pain M54.5 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 [address] [address]- 1783 02 Apr, 2016 IMMUNIZATIONS No Known Immunizations SOCIAL HISTORY Never Assessed REASON FOR VISIT refill PLAN OF CARE VITAL SIGNS MEDICATIONS Medication Instructions Dosage Frequency Start Date End Date Duration Status Naproxen 500 mg Orally every 12 hrs 1 tablet as needed 12h 30 Active RESULTS No Results PROCEDURES No Known [...]
[2018-04-05] MEDS: MIDAZOLAM 2 MG/2 ML (VERSED) VIAL IVP ONE ×2 (08:08→08:12)
[2018-04-05 09:10] VITALS: BP 143/67
[2018-04-05 09:40] VITALS: BP 128/71
--- NOTE | 2018-04-05 09:48 | Diagnostic Imaging Report ---
Indication: Post bronchoscopy. Compared with study 01/11/2018. Findings: There is some postprocedural vascular congestion and there may be mild perihilar edema as well as some partial atelectasis. There is no acute pleural pathology, no effusion or pneumothorax. No evidence for pathological mediastinal air collections. Impression: A suggestion of some central vascular congestion and mild atelectasis postprocedural, no acute pleural pathology. Dictated by: Dictated on workstation # [id number]
[2018-04-05 10:05] VITALS: BP 128/71
--- NOTE | 2018-04-05 13:49 | Diagnostic Imaging Report ---
Indication: Fluoroscopic localization during bronchoscopy. Findings: Two limited views of the left chest were obtained during bronchoscopy performed by Dr. Kent. 11 seconds of fluoroscopy was utilized. Impression: Intraoperative fluoroscopy as described. Dictated by: Dictated on workstation # [id number]
== END | disposition home or self-care (01) ==
LOC: ENDO 06:59
PROVIDERS: ATTEND Internal Medicine Critical Care Medicine
DX: R05 Cough (principal); J47.9 Bronchiectasis, uncomplicated; R91.8 Other nonspecific abnormal finding of lung field; J45.909 Unspecified asthma, uncomplicated; J44.9 Chronic obstructive pulmonary disease, unspecified; G47.33 Obstructive sleep apnea (adult) (pediatric); F17.210 Nicotine dependence, cigarettes, uncomplicated; Z79.899 Other long term (current) drug therapy
CPT/HCPCS: 71045; 87070; 87101; 87116; 87205; 88112; 88305; 88312; 94640

== ENCOUNTER 2018-04-10 08:49 | Outpatient (RCR) | payer MEDICARE, MEDICAID ==
[2018-03-12 10:15] VITALS: BP 120/60
--- NOTE | 2018-03-12 10:38 | Diagnostic Imaging Report ---
PROCEDURE: CT chest without contrast. TECHNIQUE: Multiple contiguous axial images were obtained through the chest without the use of intravenous contrast. INDICATION: Asthma and COPD. COMPARISON: No prior CT chest studies are available for comparison. FINDINGS: No axillary lymphadenopathy is detected. No definite hilar or mediastinal lymphadenopathy is identified. There are atherosclerotic calcifications in the abdominal aorta and coronary arteries. No pericardial or pleural fluid is identified. The central airways are patent. The lungs are clear apart from a linear opacity in the left lower lobe suggestive of atelectasis or scarring. No infiltrate or mass is seen. Upper abdomen is unremarkable. IMPRESSION: Left lower lobe atelectasis or scarring. Study is otherwise unremarkable. Dictated by: Dictated on workstation # [id number]
[~2018-04-10] VITALS: Ht 165.1 cm; Wt 111.1 kg
[~2018-04-10 08:49] MED LIST changes: -LIDOCAINE JELLY 2% (XYLOCAINE) 30 ML TUBE TOP ONE; -LIDOCAINE PF 1% 2 ML VIAL (OR ONLY) IJ ONE; -LIDOCAINE PF 2% 5 ML (XYLOCAINE) VIAL INJ ONE; -MIDAZOLAM 2 MG/2 ML (VERSED) VIAL ONE; -NS IV 500 ML 500 ML IV PRN; -NS IV 500 ML 500 ML ONE; -fentaNYL INJECTION 100 MCG/2 ML AMP IVP ONE; -fentaNYL INJECTION 100 MCG/2 ML AMP ONE
[2018-04-10 08:55] VITALS: BP 90/78
[2018-04-10 09:55] VITALS: BP 120/80
[2018-04-12 08:35] VITALS: BP 90/78
[2018-04-12 09:58] VITALS: BP 120/60
[2018-04-17 09:00] VITALS: BP_SYST 140; BP_SYST 90; BP_DIAS 55; BP_DIAS 78
[2018-04-17 10:00] VITALS: BP 130/70
[2018-04-19 09:00] VITALS: BP 150/80
[2018-04-19 10:00] VITALS: BP 130/60
[2018-04-24 08:55] VITALS: BP 160/40
[2018-04-24 09:41] VITALS: BP 150/60
[2018-04-26 09:00] VITALS: BP 138/90
[2018-05-01 09:00] VITALS: BP 122/64
[2018-05-01 10:00] VITALS: BP 110/70
[2018-05-03 08:53] VITALS: BP 130/60
[2018-05-03 10:00] VITALS: BP 115/60
[2018-05-10 09:00] VITALS: BP 120/74
[2018-05-10 10:00] VITALS: BP 118/70
[2018-05-15 09:12] VITALS: BP 118/88
[2018-05-15 10:00] VITALS: BP 110/76
[2018-05-17 09:00] VITALS: BP 140/60
[2018-05-17 10:00] VITALS: BP 142/80
[2018-05-22 09:00] VITALS: BP 123/82
[2018-05-22 09:43] VITALS: BP 140/60
[2018-05-24 09:00] VITALS: BP 150/40
[2018-05-24 10:00] VITALS: BP 140/70
[2018-05-29 08:40] VITALS: BP 118/70
[2018-05-29 09:46] VITALS: BP 119/70
[2018-06-05 08:50] VITALS: BP 118/70
[2018-06-05 09:45] VITALS: BP 138/60
[2018-06-07 09:00] VITALS: BP 120/62
[2018-06-07 10:00] VITALS: BP 116/70
[2018-06-12 09:00] VITALS: BP 150/60
[2018-06-12 10:00] VITALS: BP 130/60
[2018-06-19 09:00] VITALS: BP 132/82
[2018-06-19 09:58] VITALS: BP 118/76
== END 2018-06-10 | disposition home or self-care (01) ==
LOC: PULM 08:49
PROVIDERS: ATTEND Nurse Practitioner Family
DX: J45.909 Unspecified asthma, uncomplicated (principal); R94.2 Abnormal results of pulmonary function studies; J98.4 Other disorders of lung; J98.11 Atelectasis
CPT/HCPCS: 71250

== ENCOUNTER → 2018-04-23 | Outpatient (CLI) | payer MEDICARE, MEDICAID ==
--- NOTE | 2018-04-23 13:26 | Diagnostic Imaging Report ---
PROCEDURE: CT chest without contrast. TECHNIQUE: Multiple contiguous axial images were obtained through the chest without the use of intravenous contrast. INDICATION: COPD and recent lung biopsy. Study is performed for followup. Correlation is made with prior CT chest from 03/12/2018. No axillary lymphadenopathy is seen. Nodularity to the left lobe of the thyroid is noted, similar to prior exam. This could be evaluated with thyroid sonography. No definite mediastinal or hilar lymphadenopathy is detected. No pericardial or pleural fluid is identified. Scarring or atelectasis in the left lower lobe is stable. No new mass or infiltrate is seen. Upper abdomen is unremarkable. IMPRESSION: 1. Stable left basilar atelectasis or scarring when compared with exam from 03/12/2018. 2. Left thyroid nodule. Dedicated thyroid ultrasound would be useful for further evaluation. Dictated by: Dictated on workstation # [id number]
== END ==
LOC: RAD 11:37
PROVIDERS: ATTEND Nurse Practitioner Family
DX: J44.9 Chronic obstructive pulmonary disease, unspecified (principal); E04.1 Nontoxic single thyroid nodule; J98.4 Other disorders of lung; Z98.890 Other specified postprocedural states
CPT/HCPCS: 71250

== ENCOUNTER → 2018-05-31 | Outpatient (CLI) | payer MEDICARE, MEDICAID ==
--- NOTE | 2018-05-31 09:56 | Diagnostic Imaging Report ---
INDICATION: RESTRICTIVE LUNG DISEASE;ASTHMA;COPD,SLEEP DISORDER,TOBACCO USER COMPARISON: 04/05/2018. FINDINGS: Frontal and lateral views of the chest demonstrate normal heart size and pulmonary vascularity. The lungs are clear. There are no signs of infiltrate, pleural effusions or pneumothoraces. The visualized osseous structures show no acute abnormalities. IMPRESSION: 1. No acute process. No signs of infiltrates, effusions or pneumothoraces. Dictated by: Dictated on workstation # [id number]
== END ==
LOC: RAD 09:08
PROVIDERS: ATTEND Nurse Practitioner Family
DX: J44.9 Chronic obstructive pulmonary disease, unspecified (principal); J98.4 Other disorders of lung; G47.9 Sleep disorder, unspecified; G47.33 Obstructive sleep apnea (adult) (pediatric); J30.2 Other seasonal allergic rhinitis; G47.50 Parasomnia, unspecified; Z92.0 Personal history of contraception
CPT/HCPCS: 71046

== ENCOUNTER → 2018-06-11 | Outpatient (CLI) | payer MEDICARE, MEDICAID ==
--- NOTE | 2018-06-11 10:09 | Diagnostic Imaging Report ---
PROCEDURE: CT chest without contrast. TECHNIQUE: Multiple contiguous axial images were obtained through the chest without the use of intravenous contrast. INDICATION: Restrictive lung disease, asthma. COMPARISON: CT of the chest from 04/23/2018 FINDINGS: Lungs and airway: No endoluminal nodule within the trachea. There are a few geographic areas of groundglass attenuation in the bilateral upper lobes that have developed in the interim. No pulmonary mass or consolidation. No concerning pulmonary nodules. Pleura: No pleural effusion or pneumothorax. Heart and mediastinum: Stable left thyroid nodule. No supraclavicular or axillary lymphadenopathy. No mediastinal, hilar or juxtaphrenic lymphadenopathy. Stable cardiomegaly. No pericardial effusion. Normal caliber thoracic aorta. Upper abdomen: Stable postoperative changes at the gastroesophageal junction. Cholecystectomy. Musculoskeletal: No concerning focal osseous lesions. IMPRESSION: 1. There are a few new areas of groundglass attenuation in the bilateral upper lobes that could relate to an infectious/inflammatory process given the recent development. Air trapping secondary to small airways disease (such as asthma) is thought less likely. Dictated by: Dictated on workstation # [id number]
== END ==
LOC: RAD 08:38
PROVIDERS: ATTEND Nurse Practitioner Family
DX: J44.9 Chronic obstructive pulmonary disease, unspecified (principal); J98.4 Other disorders of lung; G47.33 Obstructive sleep apnea (adult) (pediatric); J30.2 Other seasonal allergic rhinitis; G47.50 Parasomnia, unspecified; Z72.0 Tobacco use
CPT/HCPCS: 71250

== ENCOUNTER 2018-06-14 08:00 | Outpatient (RCR) | payer MEDICARE, MEDICAID ==
[2018-06-14 09:00] VITALS: BP 130/70
[2018-06-21 09:00] VITALS: BP 122/62
[2018-06-21 10:00] VITALS: BP 140/82
[2018-07-05 09:00] VITALS: BP 130/80
[2018-07-05 10:00] VITALS: BP 122/50
[2018-07-10 09:00] VITALS: BP 122/72
[2018-07-10 10:00] VITALS: BP 118/60
[2018-07-12 08:40] VITALS: BP 120/70
[2018-07-12 09:52] VITALS: BP 120/72
[2018-08-14 08:50] VITALS: BP 142/60
[2018-08-14 09:50] VITALS: BP 130/80
[2018-08-16 09:00] VITALS: BP 123/80
[2018-08-16 10:00] VITALS: BP 121/70
[2018-08-23 08:40] VITALS: BP 127/80
[2018-08-23 10:00] VITALS: BP 140/90
[2018-08-28 09:00] VITALS: BP 120/77
[2018-08-28 10:00] VITALS: BP 120/60
== END 2018-09-12 | disposition home or self-care (01) ==
LOC: PULM 08:00
PROVIDERS: ATTEND Nurse Practitioner Family
DX: J45.909 Unspecified asthma, uncomplicated (principal); R94.2 Abnormal results of pulmonary function studies; J98.4 Other disorders of lung; J98.11 Atelectasis

== ENCOUNTER → 2018-06-25 | Outpatient (CLI) | payer MEDICARE, MEDICAID ==
--- NOTE | 2018-06-25 21:50 | Diagnostic Imaging Report ---
PROCEDURE: US Thyroid. TECHNIQUE: Multiple real-time grayscale images were obtained of the thyroid in various projections. INDICATION: Thyroid nodule. There are no prior thyroid ultrasound examinations available for comparison. FINDINGS: The CT chest exam performed on 04/23/2018 did note a low-density nodule in the left lobe of thyroid. On this exam, the left lobe of thyroid does have a heterogeneous appearance. There may be a complex nodule involving most of the left lobe of thyroid. I would recommend that a nuclear medicine thyroid scan be performed for further study. The right lobe of thyroid is fairly homogeneous. There is a 3 MM hypoechoic lesion in the superior pole. Most likely this is a cyst. The thyroid gland is not enlarged. The right lobe measures 3.3 x 1.2 x 1.2 cm while the left lobe is estimated to be 3.3 x 2.2 x 2.0 CM (normal gland size 4-5 by 2 x 2 CM or less). IMPRESSION: 1. The left lobe of thyroid has a heterogeneous appearance and there may be a complex nodule involving most of the left lobe. Recommendations as above. 2. There is a small benign-appearing cyst in the superior pole of the right lobe. Dictated on workstation # [id number]
== END ==
LOC: RAD 12:02
PROVIDERS: ATTEND Family Medicine
DX: E04.1 Nontoxic single thyroid nodule (principal)
CPT/HCPCS: 76536

== ENCOUNTER → 2018-07-26 | Outpatient (CLI) | payer MEDICARE, MEDICAID ==
--- NOTE | 2018-07-27 12:10 | Diagnostic Imaging Report ---
INDICATION: Thyroid nodule. COMPARISON: Comparison is made with prior thyroid ultrasound from 06/25/2018. TECHNIQUE: Patient was administered 210 ?Ci of I-123 orally and a 4-hour and 24-hour thyroid uptake and thyroid scan was performed. FINDINGS: 4-hour uptake is 12%, within normal limits. 24-hour thyroid uptake is 27%, within normal limits. Thyroid scan does show asymmetric increased uptake throughout the left lobe of the thyroid. No definite cold nodule is seen. The right lobe is unremarkable. IMPRESSION: 1. Normal thyroid uptake. 2. Increased uptake throughout the left lobe, suggestive of a hyperfunctioning nodule occupying the majority of the left lobe. No cold nodules are detected. Dictated by: Dictated on workstation # [id number]
== END ==
LOC: CARD 10:00
PROVIDERS: ATTEND Family Medicine
DX: E04.1 Nontoxic single thyroid nodule (principal)
CPT/HCPCS: 78014

== ENCOUNTER 2018-09-13 08:00 | Outpatient (RCR) | payer MEDICARE, MEDICAID ==
[2018-09-18 09:00] VITALS: BP 140/87
[2018-09-18 10:00] VITALS: BP 130/82
== END 2018-12-12 | disposition home or self-care (01) ==
LOC: PULM 08:00
PROVIDERS: ATTEND Nurse Practitioner Family
DX: J45.909 Unspecified asthma, uncomplicated (principal); R94.2 Abnormal results of pulmonary function studies; J98.4 Other disorders of lung; J98.11 Atelectasis

== ENCOUNTER → 2018-11-02 | Outpatient (CLI) | payer MEDICARE, MEDICAID ==
--- NOTE | 2018-11-02 14:57 | Diagnostic Imaging Report ---
PROCEDURE: CT chest without contrast. TECHNIQUE: Multiple contiguous axial images were obtained through the chest without the use of intravenous contrast. Auto Exposure Controls were utilized during the CT exam to meet ALARA standards for radiation dose reduction. INDICATION: Shortness of air, back pain. COMPARISON: 06/11/2018 FINDINGS: Evaluation of the mediastinal structures is limited given lack of intravenous contrast. Slight heterogeneous mass in the left retroclavicular region likely off the thyroid gland is present, measures 24 x 22 mm. Minimal peripheral calcification present. Heart size is mildly enlarged. No pericardial effusion. There is mild scattered coronary artery calcification most pronounced in the region of the LAD. The thoracic aortic contour unremarkable. Mild calcification of the arch. No definitive pathologic enlarged mediastinal lymph nodes. At the gastroesophageal junction, small hiatal hernia. There are prior surgical changes at the GE junction and stomach, consistent with gastric bypass. No significant consolidating infiltrate. Minimal areas of groundglass opacity are again demonstrated. No concerning pulmonary mass. Minimal thickening along the fissure plane at the left lung base. No significant effusion or pneumothorax. In addition to the surgical changes of the stomach, postcholecystectomy clips are present. Mildly advanced degenerative change about the thoracic spine with bridging osteophytes at multiple levels. IMPRESSION: 1. Minimal areas of groundglass opacity of the lung lam. No phillip lobar consolidation or otherwise acute findings the chest. 2. Again demonstrated is a mass off of the inferior pole of the of left lobe thyroid gland. Perhaps slightly more prominent. Thyroid ultrasound imaging recommended. Dictated by: Dictated on workstation # [id number]
== END ==
LOC: RAD 13:03
PROVIDERS: ATTEND Internal Medicine Critical Care Medicine
DX: E07.89 Other specified disorders of thyroid (principal); J45.909 Unspecified asthma, uncomplicated; J44.9 Chronic obstructive pulmonary disease, unspecified; G47.33 Obstructive sleep apnea (adult) (pediatric); G47.50 Parasomnia, unspecified; A80.9 Acute poliomyelitis, unspecified
CPT/HCPCS: 71250

== ENCOUNTER → 2019-05-08 | Outpatient (CLI) | payer MEDICARE, MEDICAID ==
--- NOTE | 2019-05-08 10:14 | Diagnostic Imaging Report ---
INDICATION: ACUTE BRONCHITIS, DYSPNEA COMPARISON: 05/31/2018 FINDINGS: Frontal and lateral views of the chest demonstrate normal heart size and pulmonary vascularity. Evaluation of the lung lam demonstrates suspicious 1.6 x 1.1 cm nodular opacity projecting over the posterior inferior margins of the lungs. This is only well visualized on the lateral view and as such, left versus right location is indeterminate. Otherwise, lungs are clear. There is no focal consolidation, large effusion, nor pneumothorax. Osseous structures show no gross acute abnormalities. IMPRESSION: 1. No acute cardiopulmonary process. 2. Findings suspicious for nodular opacity within the posterior inferior lungs. Again, left versus right is indeterminate. Correlation with CT chest is recommended. Dictated by: Dictated on workstation # [id number]
== END ==
LOC: RAD 09:31
PROVIDERS: ATTEND Nurse Practitioner Family
DX: J20.9 Acute bronchitis, unspecified (principal)
CPT/HCPCS: 71046

== ENCOUNTER → 2019-07-25 | Outpatient (CLI) | payer MEDICARE, MEDICAID ==
--- NOTE | 2019-07-25 15:20 | Diagnostic Imaging Report ---
PROCEDURE: CT chest without contrast. TECHNIQUE: Multiple contiguous axial images were obtained through the chest without the use of intravenous contrast. Auto Exposure Controls were utilized during the CT exam to meet ALARA standards for radiation dose reduction. INDICATION: COPD and tobacco abuse, lymphadenopathy. Comparison is made with prior examination 11/02/2018. FINDINGS: There is a 2 cm mass in the left lobe of the thyroid. There are no discrete pulmonary nodules, masses or infiltrates. There is some minimal scarring in the left lung base which is unchanged. There is no pleural or pericardial fluid. There is cardiomegaly and some coronary artery calcifications. There is no pneumothorax. There is no pathologically enlarged adenopathy in the chest. The thoracic aorta is normal in caliber. Visualized intra-abdominal structures are unremarkable. There are degenerative changes in the spine. IMPRESSION: Cardiomegaly and some coronary artery calcifications. Scarring in the left lung base. 2 cm nodule in the left lobe of the thyroid. This could be better evaluated with thyroid ultrasound. Dictated by: Dictated on workstation # [id number]
== END ==
LOC: RAD 12:54
PROVIDERS: ATTEND Nurse Practitioner Family
DX: J44.1 Chronic obstructive pulmonary disease with (acute) exacerbation (principal); R59.0 Localized enlarged lymph nodes; Z72.0 Tobacco use; I51.7 Cardiomegaly; I25.10 Atherosclerotic heart disease of native coronary artery without angina pectoris; E04.1 Nontoxic single thyroid nodule
CPT/HCPCS: 71250

== ENCOUNTER → 2019-09-24 | Outpatient (CLI) | payer MEDICARE, MEDICAID ==
[~2019-09-24] VITALS: Ht 162.6 cm; Wt 100.0 kg
[~2019-09-24] MED LIST changes: +LIDOCAINE 1% INJ 20 ML 20 ML VIAL INJ ONE; -TRAM50TA2 PO; +TRM50T PO
--- NOTE | 2019-09-24 11:32 | Diagnostic Imaging Report ---
INDICATION: Thyroid nodule. TECHNIQUE AND FINDINGS: A pulmonary ultrasound of the neck was performed for localization purposes. Patient's neck was prepped utilizing maximal sterile barrier technique. Local anesthesia was obtained with 2% lidocaine. 4 fine-needle aspirates were obtained under ultrasound guidance. Following the procedure the needle was removed and adequate hemostasis was obtained. Patient tolerated procedure well and left the department in stable condition. IMPRESSION: Successful fine-needle aspiration of left thyroid nodule as described. Dictated by: Dictated on workstation # [id number]
== END ==
LOC: RAD 10:30
PROVIDERS: ATTEND Family Medicine
DX: E04.1 Nontoxic single thyroid nodule (principal)

== ENCOUNTER → 2020-05-14 | Outpatient (CLI) | payer MEDICARE, MEDICAID ==
[~2020-05-14] MED LIST changes: +ACHYD1T PO; -HYDR-3820 PO; -LIDOCAINE 1% INJ 20 ML 20 ML VIAL INJ ONE; -MONT10TA24 PO; +MONT10TA26 PO
--- NOTE | 2020-05-14 13:22 | Diagnostic Imaging Report ---
INDICATION: Routine screening. COMPARISON is made with prior mammograms of 12/05/2017 and 07/27/2015. 2-D and 3-D bilateral screening mammography was performed with CAD. Scattered fibroglandular densities are identified bilaterally. Postsurgical changes of reduction mammoplasty are again noted. Coarse calcifications in both breasts are again noted. No dominant mass or malignant appearing microcalcifications are seen. Axillae are unremarkable. IMPRESSION: BI-RADS Category 2. No mammographic features suspicious for malignancy are identified. ACR BI-RADS Category 2: Benign findings. Result letter will be mailed to the patient. Note: At least 10% of breast cancer is not imaged by mammography. Dictated by: Dictated on workstation # [id number]
== END ==
LOC: RAD 11:30
PROVIDERS: ATTEND Family Medicine
DX: Z12.31 Encounter for screening mammogram for malignant neoplasm of breast (principal)
CPT/HCPCS: 77063; 77067

== ENCOUNTER → 2020-07-27 | Outpatient (CLI) | payer MEDICARE, MEDICAID ==
[~2020-07-27] MED LIST changes: -MONT10TA26 PO; +MONT10TA97 PO
--- NOTE | 2020-07-27 16:49 | Diagnostic Imaging Report ---
EXAMINATION: CT Chest without contrast (lung screening). TECHNIQUE: Multiple contiguous axial images were obtained through the chest without the use of intravenous contrast according to lung cancer screening protocol. All CT scans use one or more of the following dose optimizing techniques: automated exposure control, MA and/or KvP adjustment based on a patient size and exam type, or iterative reconstruction. HISTORY: 68-jkhx-prin history of smoking. COMPARISON: 07/25/2019. FINDINGS: There is no edema or pneumonia. No pleural effusion. No pneumothorax. No suspicious nodules. A few tiny pulmonary nodules peripherally measuring 2 to 3 mm are unchanged. There are scattered areas of mild atelectasis. There is no axillary or supraclavicular lymphadenopathy. There is no mediastinal lymphadenopathy. Heart size is normal. There are mild coronary artery calcifications. No pericardial effusion. Aorta is normal in caliber. Limited views of the upper abdomen show changes of cholecystectomy. There are no suspicious osseous lesions. IMPRESSION: 1. No suspicious pulmonary nodules. LUNG-RADS CATEGORY: 2 MODIFIER: None. Dictated by: Dictated on workstation # [id number]
== END ==
LOC: RAD 09:45
PROVIDERS: ATTEND Nurse Practitioner Family
DX: Z12.2 Encounter for screening for malignant neoplasm of respiratory organs (principal); F17.210 Nicotine dependence, cigarettes, uncomplicated

== ENCOUNTER 2021-03-07 10:14 | Emergency (ER) | payer MEDICARE, MEDICAID ==
[~2021-03-07] VITALS: Ht 165 cm; Wt 91.6 kg
[~2021-03-07 10:14] MED LIST changes: +MONT10TA32 PO; -MONT10TA97 PO
[2021-03-07] MEDS ORDERED: ACETAMINOPHEN 500 MG TAB (TYLENOL) ONE (11:22)
--- NOTE | 2021-03-07 11:27 | ED Respiratory ---
General Chief Complaint: Respiratory Problems Stated Complaint: COVID +/SOA Nursing Triage Note: Pt to ED via EMS. Pt reports being diagnosed COVID + on Monday. Pt c/o sore throat, chest heaviness, producitve cough with brown sputum. Pt has tried breathing treatments at home with no relief. Pt reports, "My eyes are out of focus." Source: patient Exam Limitations: no limitations History of Present Illness Date Seen by Provider: Mar 07, 2021 Time Seen by Provider: 11:15 Initial Comments This is a 70-year-old female who presents to the ER via [facility] with complaints of chest heaviness, brown sputum, sore throat, generalized body weakness. States that she developed symptoms of COVID approximately 2 weeks ago and she tested positive for COVID 6 days ago. States she has been taking [id number] NyQuil for symptoms however does not appear to be helping. Allergies and Home Medications Allergies Coded Allergies: aspirin (Verified Allergy, Unknown, 04/10/16) iodine (Verified Allergy, Unknown, 04/10/16) povidone-iodine (Verified Allergy, Unknown, 04/10/16) soap (Verified Allergy, Unknown, 04/10/16) Uncoded Allergies: SHELLFISH (Adverse Reaction, Intermediate, RASH, SWELLING, 05/17/17) Home Medications Albuterol/Ipratropium 4 Gm Aero, 2 PUFF IH QID PRN for SHORTNESS OF BREATH, (Reported) Fluticasone/Vilanterol 1 Each Blst.w.dev, 1 EACH IH DAILY, (Reported) Hydrocodone Bit/Acetaminophen 1 Each Tablet, 1 TAB PO Q4H PRN for PAIN-MODERATE, (Reported) Montelukast Sodium 10 Mg Tablet, 10 MG PO HS, (Reported) Naproxen 500 Mg Tablet.dr, 500 MG PO Q12H PRN for PAIN-MILD, (Reported) Tramadol HCl 50 Mg Tablet, 50 MG PO Q6H PRN for PAIN-MILD, (Reported) Trazodone HCl 150 Mg Tablet, 150 MG PO HS, (Reported) Valsartan 160 Mg Tablet, 160 MG PO DAILY, (Reported) Venlafaxine HCl 75 Mg Tab, 75 MG PO DAILY, (Reported) Patient Home Medication List Home Medication List Reviewed: Yes Past Gvdjtyj-Ctukog-Eojgdw Hx Patient Social History Tobacco Use?: Yes Tobacco type used: Cigarettes Smoking Status: Current Everyday Smoker Substance use?: No Alcohol Use?: No Pt feels they are or have been: No Immunizations Up To Date Tetanus Booster (TDap): Unknown Seasonal Allergies Seasonal Allergies: Yes Past Medical History Surgeries: Yes (GASTRIC BYPASS, CATARACTS) Abdominal, Breast, Gallbladder, Hysterectomy, Orthopedic, Tonsillectomy Respiratory: Yes Asthma, Sleep Apnea, COPD Currently Using CPAP: Yes (just started using) Currently Using BIPAP: No Cardiac: Yes Coronary 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, Heart Attack, Hypertension 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) Reproductive Disorders: No Female Reproductive Disorders: Denies 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 Sexually Transmitted Disease: No HIV/AIDS: No Genitourinary: No Gastrointestinal: Yes (GASTRIC BYPASS) Polyps, Irritable Bowel Musculoskeletal: Yes (POLIO SYNDROME) Endocrine: Yes ("THYROID ENLARGEMENT") HEENT: Yes (PRIOR CATARACT SURGERY) Glaucoma Cancer: No Psychosocial: No Integumentary: No Blood Disorders: No Adverse Reaction/Blood Tranf: No Family Medical History No Pertinent Family Hx Physical Exam Vital Signs - First Documented 03/07/21 10:19 Temp 37.7 Pulse 78 Resp 20 B/P (MAP) 145/80 (101) Pulse Ox 97 O2 Delivery Room Air Capillary Refill : Less Than 3 Seconds Height: 5'5.00" Weight: 229lbs. 0.6oz. [id number]; 33.00 BMI Method:Stated Focused Exam Lactate Level 03/07/21 11:55: Lactic Acid Level 1.66 Lactic Acid Level Laboratory Tests Test 03/07/21 11:55 Lactic Acid Level 1.66 MMOL/L (0.50-2.00) Progress/Results/Core Measures Suspected Sepsis SIRS Temperature: Pulse: 78 Respiratory Rate: 20 Laboratory Tests 03/07/21 10:40: White Blood Count 4.5 Blood Pressure 145 /80 Mean: 101 03/07/21 11:55: Lactic Acid Level 1.66 Laboratory Tests 03/07/21 10:40: Creatinine 0.76, INR Comment 1.1, Platelet Count 301, Total Bilirubin 0.4 Results/Orders Lab Results Laboratory Tests Test 03/07/21 10:40 03/07/21 11:45 03/07/21 11:55 03/07/21 13:37 Range/Units White Blood Count 4.5 4.3-11.0 10^3/uL Red Blood Count 3.76 L 3.80-5.11 10^6/uL Hemoglobin 9.3 L 11.5-16.0 g/dL Hematocrit 32 L 35-52 % Mean Corpuscular Volume 85 80-99 fL Mean Corpuscular Hemoglobin 25 25-34 pg Mean Corpuscular Hemoglobin Concent 29 L 32-36 g/dL Red Cell Distribution Width 19.7 H 10.0-14.5 % Platelet Count 301 130-400 10^3/uL Mean Platelet Volume 10.0 9.0-12.2 fL Immature Granulocyte % (Auto) 0 % Neutrophils (%) (Auto) 65 42-75 % Lymphocytes (%) (Auto) 28 12-44 % Monocytes (%) (Auto) 7 0-12 % Eosinophils (%) (Auto) 0 0-10 % Basophils (%) (Auto) 0 0-10 % Neutrophils # (Auto) 2.9 1.8-7.8 10^3/uL Lymphocytes # (Auto) 1.2 1.0-4.0 10^3/uL Monocytes # (Auto) 0.3 0.0-1.0 10^3/uL Eosinophils # (Auto) 0.0 0.0-0.3 10^3/uL Basophils # (Auto) 0.0 0.0-0.1 10^3/uL Immature Granulocyte # (Auto) 0.0 0.0-0.1 10^3/uL Prothrombin Time 14.5 12.2-14.7 SEC INR Comment 1.1 0.8-1.4 Activated Partial Thromboplast Time 39 H 24-35 SEC D-Dimer 1.49 H 0.00-0.49 UG/ML Sodium Level 143 135-145 MMOL/L Potassium Level 3.7 3.6-5.0 MMOL/L Chloride Level 108 H 98-107 MMOL/L Carbon Dioxide Level 24 21-32 MMOL/L Anion Gap 11 5-14 MMOL/L Blood Urea Nitrogen 8 7-18 MG/DL Creatinine 0.76 0.60-1.30 MG/DL Estimat Glomerular Filtration Rate 91 BUN/Creatinine Ratio 11 Glucose Level 85 70-105 MG/DL Calcium Level 8.6 8.5-10.1 MG/DL Corrected Calcium 9.2 8.5-10.1 MG/DL Magnesium Level 2.0 1.6-2.4 MG/DL Total Bilirubin 0.4 0.1-1.0 MG/DL Aspartate Amino Transf (AST/SGOT) 19 5-34 U/L Alanine Aminotransferase (ALT/SGPT) 8 0-55 U/L Alkaline Phosphatase 91 40-136 U/L Myoglobin 67.6 10.0-92.0 NG/ML Troponin I < 0.028 <0.028 NG/ML C-Reactive Protein High Sensitivity 22.25 H 0.00-0.50 MG/DL B-Type Natriuretic Peptide 35.1 <100.0 PG/ML Total Protein 6.0 L 6.4-8.2 GM/DL Albumin 3.2 3.2-4.5 GM/DL Procalcitonin 0.07 <0.10 NG/ML Urine Color YELLOW Urine Clarity CLEAR Urine pH 7.0 5-9 Urine Specific [place] 1.015 L 1.016-1.022 Urine Protein TRACE H NEGATIVE Urine Glucose (UA) NEGATIVE NEGATIVE Urine Ketones NEGATIVE NEGATIVE Urine Nitrite POSITIVE H NEGATIVE Urine Bilirubin NEGATIVE NEGATIVE Urine Urobilinogen 1.0 < = 1.0 MG/DL Urine Leukocyte Esterase NEGATIVE NEGATIVE Urine RBC (Auto) 1+ H NEGATIVE Urine RBC NONE /HPF Urine WBC 5-10 H /HPF Urine Crystals NONE /LPF Urine Bacteria LARGE H /HPF Urine Casts NONE /LPF Urine Mucus SMALL H /LPF Urine Culture Indicated CULTURE PENDING Lactic Acid Level 1.66 0.50-2.00 MMOL/L Influenza Type A (RT-PCR) Not Detected Not Detecte Influenza Type B (RT-PCR) Not Detected Not Detecte SARS-CoV-2 RNA (RT-PCR) Detected H Not Detecte My Orders Orders - SUSAN GARDNER APRN Acetaminophen Tablet (Tylenol Tablet) (03/07/21 11:30) Acetaminophen Tablet (Tylenol Tablet) (03/07/21 11:22) Cbc With Automated Diff (03/07/21 11:27) Comprehensive Metabolic Panel (03/07/21 11:27) Blood Culture (03/07/21 11:27) Sputum Culture (03/07/21 11:27) Urinalysis (03/07/21 11:27) Urine Culture (03/07/21 11:27) Protime With Inr (03/07/21 11:27) Partial Thromboplastin Time (03/07/21 11:27) Chest 1 View, Ap/Pa Only (03/07/21 11:27) Ed Iv/Invasive Line Start (03/07/21 11:27) Vital Signs Adult Sepsis Patie Q15M (03/07/21 11:27) O2 (03/07/21 11:27) Lactic Acid Analyzer (03/07/21 11:27) Influenza A And B By Pcr (03/07/21 11:27) Magnesium (03/07/21 11:27) Myoglobin Serum (03/07/21 11:27) Monitor-Rhythm Ecg Trace Only (03/07/21 11:27) BNP (03/07/21 11:27) Fibrin Degradation Products (03/07/21 11:27) Procalcitonin (Pct) (03/07/21 11:30) Hs C Reactive Protein (03/07/21 11:30) Troponin I (03/07/21 12:04) Diphenhydramine Injection (Benadryl Inje (03/07/21 12:45) Methylprednisolone Sod Succ (Solu-Medrol (03/07/21 12:45) Ct Angio Chest W (03/07/21 12:38) Iohexol Injection (Omnipaque 350 Mg/Ml 1 (03/07/21 13:00) Received Contrast (Hold Metformin- Contr (03/07/21 13:00) Ns (Ivpb) (Sodium Chloride 0.9% Ivpb Bag (03/07/21 13:00) Covid 19 Inhouse Test (03/07/21 13:37) Medications Given in ED Current Medications Medications Dose Ordered Sig/Barry Route Start Time Stop Time Status Last Admin Dose Admin Acetaminophen 1,000 mg ONCE ONCE PO 03/07/21 11:30 03/07/21 11:31 DC 03/07/21 11:25 1,000 MG Diphenhydramine HCl 50 mg ONCE ONCE IVP 03/07/21 12:45 03/07/21 12:46 DC 03/07/21 13:31 50 MG Iohexol 100 ml ONCE ONCE IV 03/07/21 13:00 03/07/21 13:01 DC 03/07/21 14:59 80 ML Methylprednisolone Sodium Succinate 125 mg ONCE ONCE IVP 03/07/21 12:45 03/07/21 12:46 DC 03/07/21 13:31 125 MG Sodium Chloride 100 ml ONCE ONCE IV 03/07/21 13:00 03/07/21 13:01 DC 03/07/21 14:59 100 ML Vital Signs/I&O 03/07/21 03/07/21 10:19 11:25 Temp 37.7 37.8 Pulse 78 Resp 20 B/P (MAP) 145/80 (101) Pulse Ox 97 O2 Delivery Room Air Capillary Refill : Less Than 3 Seconds Blood Pressure Mean: 101 Departure Impression Primary Impression: COVID-19 Additional Impression: UTI (urinary tract infection) Disposition: HOME, SELF-CARE Condition: Improved Departure-Patient Inst. Decision time for Depature: 15:18 Referrals: CARY CRESPO MD (PCP/Family) Primary Care Physician Patient Instructions: Urinary Tract Infection, Adult (DC), COVID-19 ED Add. Discharge Instructions: Plan: 1. Take antibiotics as directed and complete full course. 2. Drink plenty of fluids to help flush contrast dye from system. 3. Return to ER if you develop and new, concerning, or worsening symptoms. 4. Follow up with your doctor for any new, concerning, or worsening symptoms. All discharge instructions reviewed with patient and/or family. Voiced understanding. Scripts Cefuroxime Axetil (Cefuroxime) 250 Mg Tablet 250 MG PO BID, #10 TAB 0 Refills Prov: SUSAN GARDNER DOUGHMAKER 03/07/21 SUSAN GARDNER DOUGHMAKER Mar 07, 2021 11:27
[2021-03-07] MEDS ORDERED: ACETAMINOPHEN 500 MG TAB (TYLENOL) PO ONE (11:30)
[2021-03-07 11:36] LABS: BASOPHILS % (AUTO) 0 % (0-10); EOSINOPHILS % (AUTO) 0 % (0-10); HEMATOCRIT 32 % (35-52); HEMOGLOBIN 9.3 g/dL (11.5-16.0); LYMPHOCYTES # (AUTO) 1.2 10^3/uL (1.0-4.0); LYMPHOCYTES % (AUTO) 28 % (12-44); MEAN CORPUSCULAR HEMOGLOBIN 25 pg (25-34); MEAN CORPUSCULAR HGB CONC 29 g/dL (32-36); MEAN CORPUSCULAR VOLUME 85 fL (80-99); MONOCYTES # (AUTO) 0.3 10^3/uL (0.0-1.0); MONOCYTES % (AUTO) 7 % (0-12); NEUTROPHILS # (AUTO) 2.9 10^3/uL (1.8-7.8); NEUTROPHILS % (AUTO) 65 % (42-75); PLATELET COUNT 301 10^3/uL (130-400); WHITE BLOOD COUNT 4.5 10^3/uL (4.3-11.0)
[2021-03-07 11:42] LABS: ALBUMIN 3.2 GM/DL (3.2-4.5); POTASSIUM 3.7 MMOL/L (3.6-5.0)
[2021-03-07 11:43] LABS: CALCIUM 8.6 MG/DL (8.5-10.1)
[2021-03-07 11:46] LABS: BILIRUBIN,TOTAL 0.4 MG/DL (0.1-1.0)
[2021-03-07 11:48] LABS: CREATININE SERUM 0.76 MG/DL (0.60-1.30)
[2021-03-07 12:16] LABS: BILIRUBIN,URINE NEGATIVE (NEGATIVE); CLARITY,URINE CLEAR; COLOR,URINE YELLOW; GLUCOSE, URINE (UA) NEGATIVE (NEGATIVE); KETONES,URINE NEGATIVE (NEGATIVE); LEUKOCYTE ESTERASE ,URINE NEGATIVE (NEGATIVE); NITRITE,URINE POSITIVE (NEGATIVE); PROTEIN,URINE TRACE (NEGATIVE)
[2021-03-07 12:22] LABS: FIBRIN DEGRADATION PRODUCTS 1.49 UG/ML (0.00-0.49); INR 1.1 (0.8-1.4); PROTHROMBIN TIME PATIENT 14.5 SEC (12.2-14.7)
[2021-03-07 12:30] LABS: BACTERIA,URINE LARGE /HPF
[2021-03-07] MEDS ORDERED: methylPREDNISolone 125 MG (Solu-MEDROL) VIAL IVP ONE (12:45)
[2021-03-07] MEDS ORDERED: diphenhydrAMINE 50 MG/ML INJ (BENADRYL) IVP ONE (12:45)
--- NOTE | 2021-03-07 12:56 | Diagnostic Imaging Report ---
INDICATION: COVID 19 positive and shortness of air. TIME OF EXAM: 12:37 PM Correlation is made with prior chest from 04/05/2018. Heart is enlarged and stable. There are patchy infiltrates of both lungs consistent with pneumonia. There is no effusion or pneumothorax. IMPRESSION: Patchy bilateral pulmonary infiltrates consistent with pneumonia. Dictated by: Dictated on workstation # [id number]
[2021-03-07] MEDS ORDERED: IOHEXOL 350 MG/ML 100 ML (OMNIPAQUE 350) VIAL IV ONE (13:00)
[2021-03-07] MEDS ORDERED: NS 100 ML (IVPB) BAG IV ONE (13:00)
[2021-03-07] MEDS ORDERED: HOLD METFORMIN - RECEIVED CONTRAST 20 ML VIAL IV SCH (13:00)
--- NOTE | 2021-03-07 14:59 | Diagnostic Imaging Report ---
PROCEDURE: CT angiography of the chest with contrast. TECHNIQUE: Multiple contiguous axial images were obtained through the chest after uneventful bolus administration of intravenous contrast. 3D reconstructed CTA MIP acquisitions were also performed. Auto Exposure Controls were utilized during the CT exam to meet ALARA standards for radiation dose reduction. INDICATION: Chest pain and elevated D-dimer. There is a low-density nodule in the left lobe of the thyroid. There is suboptimal opacification of the pulmonary arterial system. This does limit evaluation of the pulmonary arterial system. No definite central and bladder are seen but there is limited evaluation of the lobar, segmental and subsegmental branches. The heart is enlarged. No pericardial fluid. There is trace bilateral pleural effusions. There are patchy groundglass pulmonary infiltrates bilateral upper lobes and bilateral lower lobes. Findings suggestive of COVID 19 pneumonia. Upper abdomen is unremarkable. IMPRESSION: 1. Limited evaluation of pulmonary arterial system due to poor opacification of the pulmonary arterial system. No central emboli are detected. 2. Trace bilateral pleural effusions. 3. Bilateral pulmonary infiltrates suggestive of COVID 19 pneumonia. Dictated by: Dictated on workstation # [id number]
[2021-03-07] MEDS ORDERED: CEFU250T80 PO (15:24)
[2021-03-07] MEDS ORDERED: cefTRIAXone 1,000 MG in WATER (STERILE) FOR INJECTION 10 ML IV ONE (15:30)
[2021-03-07] MEDS ORDERED: NS IV 500 ML 500 ML IV ONE (15:30)
[2021-03-07 18:18] VITALS: BP 139/81
== END 2021-03-07 18:09 | disposition home or self-care (01) ==
LOC: EDUNIT# 10:14 → ER 10:16
DX: U07.1 COVID-19 (principal); N39.0 Urinary tract infection, site not specified; J44.9 Chronic obstructive pulmonary disease, unspecified; G47.30 Sleep apnea, unspecified; I25.2 Old myocardial infarction; I10 Essential (primary) hypertension; F17.210 Nicotine dependence, cigarettes, uncomplicated
CPT/HCPCS: 36415; 71045; 71275; 80053; 81000; 83605; 83735; 83874; 83880; 84145; 84484; 85025; 85379; 85610; 85730; 86141; 87040; 87077; 87088; 87186; 87636; 93041

== ENCOUNTER 2021-03-16 14:14 | Inpatient (IN) | payer MEDICARE, MEDICAID ==
[~2021-03-16] VITALS: Ht 165.1 cm; Wt 97.3 kg
[~2021-03-16 14:14] MED LIST changes: +CEFU250T80 PO
[2021-03-16 14:36] LABS: BASOPHILS % (AUTO) 0 % (0-10); EOSINOPHILS # (AUTO) 0.1 10^3/uL (0.0-0.3); EOSINOPHILS % (AUTO) 1 % (0-10); HEMATOCRIT 30 % (35-52); HEMOGLOBIN 8.6 g/dL (11.5-16.0); LYMPHOCYTES % (AUTO) 22 % (12-44); MEAN CORPUSCULAR HEMOGLOBIN 25 pg (25-34); MEAN CORPUSCULAR HGB CONC 29 g/dL (32-36); MEAN CORPUSCULAR VOLUME 87 fL (80-99); MEAN PLATELET VOLUME 10.6 fL (9.0-12.2); MONOCYTES # (AUTO) 0.8 10^3/uL (0.0-1.0); MONOCYTES % (AUTO) 9 % (0-12); NEUTROPHILS # (AUTO) 6.2 10^3/uL (1.8-7.8); NEUTROPHILS % (AUTO) 67 % (42-75); PLATELET COUNT 307 10^3/uL (130-400); WHITE BLOOD COUNT 9.2 10^3/uL (4.3-11.0)
[2021-03-16] MEDS ORDERED: LACTATED RINGERS 1,000 ML IV ONE (14:38)
[2021-03-16 14:40] LABS: ABG BASE EXCESS -0.5 MMOL/L (-2.5-2.5); ABG OXYGEN SATURATION 94 % (94-100); ABG PCO2 32 MMHG (35-45); ABG PH 7.47 (7.37-7.43); ABG PO2 67 MMHG (79-93); ABG TCO2 23.9 MMOL/L (21.0-31.0)
[2021-03-16 14:42] LABS: ALLENS TEST YES-POS; INSPIRED O2 2 L; PATIENT TEMP 36.2; VENTILATOR NO
[2021-03-16] MEDS ORDERED: LACTATED RINGERS 1,000 ML IV SCH (14:45)
[2021-03-16 14:47] LABS: POTASSIUM 3.3 MMOL/L (3.6-5.0)
[2021-03-16 14:48] LABS: CALCIUM 8.7 MG/DL (8.5-10.1)
--- NOTE | 2021-03-16 14:50 | ED Cough/URI ---
General Chief Complaint: Respiratory Problems Stated Complaint: ALTERED MENTAL STATUS;SOA Nursing Triage Note: Pt to ED via EMS from [facility]. [facility] reports pt had low O2 of 85% on room air at [facility]. EMS gave pt a duoneb treatment enroute to ED. Pt reports feeling better upon arrival to ED. Source: patient Exam Limitations: no limitations (SHELLY LEWIS APRN) History of Present Illness Date Seen by Provider: Mar 16, 2021 Time Seen by Provider: 14:45 Initial Comments To ER by EMS from [facility] walk-in clinic where she presented with shortness of breath. She was diagnosed with Covid on 03/07/21 but states she felt poorly for aout a week prior to that. She has ongoing productive cough shortness of breath. She was supposed to be out of quarantine yesterday so she went to [employer] today to get something to eat and she became confused. Upon presentation to [facility] she was found to be hypoxic at 84%. Asthma she states, she is not oxygen dependent at home. She continues to smoke 1/2 pack of cigarettes per day but states that she has been down to 1 or 2 cigarettes for the past few days. Timing/Duration: constant Severity/Quality: moderate Associated Symptoms: denies symptoms (SHELLY LEWIS APRN) Allergies and Home Medications Allergies Coded Allergies: aspirin (Verified Allergy, Unknown, 04/10/16) iodine (Verified Allergy, Unknown, 04/10/16) povidone-iodine (Verified Allergy, Unknown, 04/10/16) soap (Verified Allergy, Unknown, 04/10/16) Uncoded Allergies: SHELLFISH (Adverse Reaction, Intermediate, RASH, SWELLING, 05/17/17) Home Medications Albuterol/Ipratropium 4 Gm Aero, 2 PUFF IH QID PRN for SHORTNESS OF BREATH, (Reported) Cefuroxime Axetil 250 Mg Tablet, 250 MG PO BID Prescribed by: SUSAN GARDNER on 03/07/21 1524 Fluticasone/Vilanterol 1 Each Blst.w.dev, 1 EACH IH DAILY, (Reported) Hydrocodone Bit/Acetaminophen 1 Each Tablet, 1 TAB PO Q4H PRN for PAIN-MODERATE, (Reported) Montelukast Sodium 10 Mg Tablet, 10 MG PO HS, (Reported) Naproxen 500 Mg Tablet.dr, 500 MG PO Q12H PRN for PAIN-MILD, (Reported) Tramadol HCl 50 Mg Tablet, 50 MG PO Q6H PRN for PAIN-MILD, (Reported) Trazodone HCl 150 Mg Tablet, 150 MG PO HS, (Reported) Valsartan 160 Mg Tablet, 160 MG PO DAILY, (Reported) Venlafaxine HCl 75 Mg Tab, 75 MG PO DAILY, (Reported) Patient Home Medication List Home Medication List Reviewed: Yes (SHELLY LEWIS APRN) Review of Systems Review of Systems Constitutional: see HPI EENTM: see HPI Respiratory: no symptoms reported Cardiovascular: no symptoms reported Genitourinary: no symptoms reported Musculoskeletal: no symptoms reported Skin: no symptoms reported Psychiatric/Neurological: No Symptoms Reported Hematologic/Lymphatic: No Symptoms Reported (SHELLY LEWIS APRN) Past Nkasulc-Aruwvh-Cymwqy Hx Patient Social History Tobacco Use?: No Substance use?: No Alcohol Use?: No (SHELLY LEWIS APRN) Immunizations Up To Date Tetanus Booster (TDap): Unknown (SHELLY LEWIS APRN) Seasonal Allergies Seasonal Allergies: Yes (SHELLY LEWIS APRN) Past Medical History Surgeries: Yes (GASTRIC BYPASS, CATARACTS) Abdominal, Breast, Gallbladder, Hysterectomy, Orthopedic, Tonsillectomy Respiratory: Yes Asthma, Sleep Apnea, COPD Currently Using CPAP: Yes (just started using) Currently Using BIPAP: No Cardiac: Yes Coronary 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, Heart Attack, Hypertension 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) Reproductive Disorders: No Female Reproductive Disorders: Denies [employer] History: Hysterectomy Sexually Transmitted Disease: No HIV/AIDS: No Genitourinary: No Gastrointestinal: Yes (GASTRIC BYPASS) Polyps, Irritable Bowel Musculoskeletal: Yes (POLIO SYNDROME) Endocrine: Yes ("THYROID ENLARGEMENT") HEENT: Yes (PRIOR CATARACT SURGERY) Glaucoma Cancer: No Psychosocial: No Integumentary: No Blood Disorders: No Adverse Reaction/Blood Tranf: No (SHELLY LEWIS APRN) Family Medical History No Pertinent Family Hx (SHELLY LEWIS APRN) Physical Exam Vital Signs - First Documented 03/16/21 14:15 Temp 36.2 Pulse 90 Resp 20 B/P (MAP) 114/76 (89) Pulse Ox 95 O2 Delivery Nasal Cannula (DAO ASIF MD) Capillary Refill : Less Than 3 Seconds (SHELLY LEWIS APRN) Height: 5'5.00" Weight: 229lbs. 0.6oz. 107.109288ln; 33.00 BMI Method:Stated General Appearance: WD/WN, no apparent distress, other (She is 93% on 2 L. Heart rate 93, blood pressure 128/71.) Eyes: Bilateral Eye Normal Inspection, Bilateral Eye PERRL, Bilateral Eye EOMI HEENT: PERRL/EOMI, normal ENT inspection Respiratory: no respiratory distress, no accessory muscle use Cardiovascular: regular rate, rhythm, no murmur Gastrointestinal: normal bowel sounds, non tender, soft Extremities: normal range of motion, non-tender Neurologic/Psychiatric: alert, normal mood/affect, oriented x 3 Skin: normal color, warm/dry (SHELLY LEWIS APRN) Progress/Results/Core Measures Suspected Sepsis SIRS Temperature: Pulse: 90 Respiratory Rate: 20 Laboratory Tests 03/16/21 14:20: White Blood Count 9.2 Blood Pressure 114 /76 Mean: 89 Laboratory Tests 03/16/21 14:20: Creatinine 1.35H, Platelet Count 307, Total Bilirubin 0.4 (SHELLY LEWIS APRN) Results/Orders Lab Results Laboratory Tests Test 03/16/21 14:20 03/16/21 14:30 03/16/21 14:46 Range/Units White Blood Count 9.2 4.3-11.0 10^3/uL Red Blood Count 3.42 L 3.80-5.11 10^6/uL Hemoglobin 8.6 L 11.5-16.0 g/dL Hematocrit 30 L 35-52 % Mean Corpuscular Volume 87 80-99 fL Mean Corpuscular Hemoglobin 25 25-34 pg Mean Corpuscular Hemoglobin Concent 29 L 32-36 g/dL Red Cell Distribution Width 20.3 H 10.0-14.5 % Platelet Count 307 130-400 10^3/uL Mean Platelet Volume 10.6 9.0-12.2 fL Immature Granulocyte % (Auto) 1 % Neutrophils (%) (Auto) 67 42-75 % Lymphocytes (%) (Auto) 22 12-44 % Monocytes (%) (Auto) 9 0-12 % Eosinophils (%) (Auto) 1 0-10 % Basophils (%) (Auto) 0 0-10 % Neutrophils # (Auto) 6.2 1.8-7.8 10^3/uL Lymphocytes # (Auto) 2.0 1.0-4.0 10^3/uL Monocytes # (Auto) 0.8 0.0-1.0 10^3/uL Eosinophils # (Auto) 0.1 0.0-0.3 10^3/uL Basophils # (Auto) 0.0 0.0-0.1 10^3/uL Immature Granulocyte # (Auto) 0.1 0.0-0.1 10^3/uL D-Dimer 5.05 H 0.00-0.49 UG/ML Sodium Level 143 135-145 MMOL/L Potassium Level 3.3 L 3.6-5.0 MMOL/L Chloride Level 108 H 98-107 MMOL/L Carbon Dioxide Level 23 21-32 MMOL/L Anion Gap 12 5-14 MMOL/L Blood Urea Nitrogen 16 7-18 MG/DL Creatinine 1.35 H 0.60-1.30 MG/DL Estimat Glomerular Filtration Rate 47 BUN/Creatinine Ratio 12 Glucose Level 90 70-105 MG/DL Calcium Level 8.7 8.5-10.1 MG/DL Corrected Calcium 9.5 8.5-10.1 MG/DL Total Bilirubin 0.4 0.1-1.0 MG/DL Aspartate Amino Transf (AST/SGOT) 14 5-34 U/L Alanine Aminotransferase (ALT/SGPT) 9 0-55 U/L Alkaline Phosphatase 93 40-136 U/L B-Type Natriuretic Peptide 381.8 H <100.0 PG/ML Total Protein 7.0 6.4-8.2 GM/DL Albumin 3.0 L 3.2-4.5 GM/DL Procalcitonin 0.12 H <0.10 NG/ML Blood Gas Puncture Site LT RAD Blood Gas Patient Temperature 36.2 Arterial Blood pH 7.47 H 7.37-7.43 Arterial Blood Partial Pressure CO2 32 L 35-45 MMHG Arterial Blood Partial Pressure O2 67 L 79-93 MMHG Arterial Blood HCO3 23 23-27 MMOL/L Arterial Blood Total CO2 23.9 21.0-31.0 MMOL/L Arterial Blood Oxygen Saturation 94 94-100 % Arterial Blood Base Excess -0.5 -2.5-2.5 MMOL/L Franki Test YES-POS Blood Gas Ventilator Setting NO Blood Gas Inspired Oxygen 2 L Urine Color YELLOW Urine Clarity CLEAR Urine pH 5.0 5-9 Urine Specific [place] >=1.030 1.016-1.022 Urine Protein 2+ H NEGATIVE Urine Glucose (UA) NEGATIVE NEGATIVE Urine Ketones NEGATIVE NEGATIVE Urine Nitrite NEGATIVE NEGATIVE Urine Bilirubin 1+ H NEGATIVE Urine Urobilinogen 1.0 < = 1.0 MG/DL Urine Leukocyte Esterase TRACE H NEGATIVE Urine RBC (Auto) NEGATIVE NEGATIVE Urine RBC NONE /HPF Urine WBC 5-10 H /HPF Urine Squamous Epithelial Cells 5-10 /HPF Urine Crystals NONE /LPF Urine Bacteria FEW H /HPF Urine Casts NONE /LPF Urine Mucus MODERATE H /LPF Urine Culture Indicated YES (DAO ASIF MD) Medications Given in ED Current Medications Medications Dose Ordered Sig/Barry Route Start Time Stop Time Status Last Admin Dose Admin Diphenhydramine HCl 25 mg ONCE ONCE IVP 03/16/21 15:30 03/16/21 15:31 DC 03/16/21 15:56 25 MG Iohexol 75 ml ONCE ONCE IV 03/16/21 15:30 03/16/21 15:31 DC 03/16/21 16:17 78 ML Sodium Chloride 10 ml NEEDED PRN IV 03/16/21 15:30 03/16/21 16:17 10 ML Sodium Chloride 100 ml ONCE ONCE IV 03/16/21 15:30 03/16/21 15:31 DC 03/16/21 16:17 80 ML (DAO ASIF MD) Vital Signs/I&O 03/16/21 14:15 Temp 36.2 Pulse 90 Resp 20 B/P (MAP) 114/76 (89) Pulse Ox 95 O2 Delivery Nasal Cannula (DAO ASIF MD) Vital Signs/I&O Capillary Refill : Less Than 3 Seconds (SHELLY LEWIS APRN) Blood Pressure Mean: 89 Diagnostic Imaging Diagonstic Imaging: Xray Comments NAME: MINDY ROBB MED REC#: [id number] PT STATUS: REG ER : 1950 PHYSICIAN: SHELLY LEWIS APRN ADMIT DATE: 03/16/21/ER Draft Date of Exam:03/16/21 CHEST 1 VIEW, AP/PA ONLY INDICATION: Pneumonia. EXAMINATION: Portable chest at 02:49 p.m. FINDINGS: There are patchy alveolar infiltrates scattered throughout both lungs. There are no effusions. IMPRESSION: Diffuse patchy alveolar infiltrates, consistent with pneumonia. Little appreciable change compared to 03/07/2021. Dictated on workstation # [id number] Dict: 03/16/21 1450 Trans: 03/16/21 1456 [id number] Interpreted by: SVETA ROD MD Electronically signed by: NAME: MINDY ROBB REC#: [id number] PT STATUS: REG ER : 1950 PHYSICIAN: SHELLY LEWIS APRN ADMIT DATE: 03/16/21/ER Draft Date of Exam:03/16/21 CT ANGIO CHEST W EXAMINATION: CT angiography of the chest. TECHNIQUE: Contrast enhanced thin section helical images were obtained through the chest with intravenous contrast timed for the optimal opacification of the arterial structures per CTA protocol. Post-processing, reconstructions and interpretation of angiographic images of the vessels was performed. 3D MIP reconstructions were performed and reviewed. All CT scans use one or more of the following dose optimizing techniques: automated exposure control, MA and/or KvP adjustment based on a patient size and exam type, or iterative reconstruction. HISTORY: Shortness of breath and elevated D-dimer, Covid 19. COMPARISON: 03/07/2021 FINDINGS: There is subsegmental pulmonary embolism in the posterior basilar segment of the right lower lobe. There is a subsegmental pulmonary embolism in the posterior basilar segment of the left lower lobe. There is no right heart strain. There is persistent groundglass and septal line thickening throughout both lungs consistent with Covid 19 pneumonia. The severity is moderate. No pleural effusion. No pneumothorax. There is no axillary or supraclavicular lymphadenopathy. There are a few mildly enlarged hilar lymph nodes on the right. Heart size is normal. There are mild coronary artery calcifications. No pericardial effusion. Aorta is normal in caliber. Limited views of the upper abdomen are unremarkable. There are no suspicious osseous lesions. IMPRESSION: 1. Bilateral subsegmental pulmonary emboli in the lower lobes without right heart strain. 2. Moderately severe Covid 19 pneumonia. Findings called to nurse practitioner Ale by Dr. Kirby on 03/16/2021 at 4:25 p.m. Dictated on workstation # [id number] Dict: 03/16/21 1618 Trans: 03/16/21 1628 [facility] [id number] Interpreted by: KIERAN KIRBY MD Electronically signed by: (SHELLY LEWIS APRN) Departure Communication (Admissions) EKG shows sinus rhythm at 82 QT interval borderline prolonged at 494 ms no ectopy no ST segment change Discussed with Dr. Lynne will admit on remdesivir and Decadron as well as breathing treatments, Eliquis for the pulmonary emboli. Her procalcitonin is low enough we do not need to worry about antibiotics at this point. I will put her on sliding scale insulin. (SHELLY LEWIS APRN) Impression Primary Impression: COVID-19 Additional Impressions: Hypoxia Pulmonary embolism Disposition: ADMITTED INPATIENT Condition: Stable Admissions Decision to Admit Reason: Admit from ER (General) Decision to Admit/Date: Mar 16, 2021 Time/Decision to Admit Time: 14:51 (SHELLY LEWIS APRN) Departure-Patient Inst. Referrals: CARY CRESPO MD (PCP/Family) Primary Care Physician ATTENDING PHYSICIAN NOTE: I was physically present as attending physician in the emergency department during the care of this patient, but I was not directly involved in the decision making or delivery of care for this patient. (DAO ASIF MD) SHELLY LEWIS APRN Mar 16, 2021 14:50 DAO ASIF MD Mar 16, 2021 19:51
[2021-03-16 14:51] LABS: BILIRUBIN,TOTAL 0.4 MG/DL (0.1-1.0)
[2021-03-16 14:53] LABS: CREATININE SERUM 1.35 MG/DL (0.60-1.30)
--- NOTE | 2021-03-16 14:56 | Diagnostic Imaging Report ---
INDICATION: Pneumonia. EXAMINATION: Portable chest at 02:49 p.m. FINDINGS: There are patchy alveolar infiltrates scattered throughout both lungs. There are no effusions. IMPRESSION: Diffuse patchy alveolar infiltrates, consistent with pneumonia. Little appreciable change compared to 03/07/2021. Dictated by: Dictated on workstation # [id number]
[2021-03-16 15:14] LABS: BILIRUBIN,URINE 1+ (NEGATIVE); CLARITY,URINE CLEAR; COLOR,URINE YELLOW; GLUCOSE, URINE (UA) NEGATIVE (NEGATIVE); KETONES,URINE NEGATIVE (NEGATIVE); LEUKOCYTE ESTERASE ,URINE TRACE (NEGATIVE); NITRITE,URINE NEGATIVE (NEGATIVE); PROTEIN,URINE 2+ (NEGATIVE)
[2021-03-16 15:27] LABS: BACTERIA,URINE FEW /HPF
[2021-03-16] MEDS ORDERED: diphenhydrAMINE 50 MG/ML INJ (BENADRYL) IVP ONE (15:30)
[2021-03-16] MEDS ORDERED: CATHETER FLUSH 10 ML SYR IV PRN (15:30)
[2021-03-16] MEDS ORDERED: IOHEXOL 350 MG/ML 100 ML (OMNIPAQUE 350) VIAL IV ONE (15:30)
[2021-03-16] MEDS ORDERED: HOLD METFORMIN - RECEIVED CONTRAST 20 ML VIAL IV SCH (15:30)
[2021-03-16] MEDS ORDERED: NS 100 ML (IVPB) BAG IV ONE (15:30)
--- NOTE | 2021-03-16 16:28 | Diagnostic Imaging Report ---
EXAMINATION: CT angiography of the chest. TECHNIQUE: Contrast enhanced thin section helical images were obtained through the chest with intravenous contrast timed for the optimal opacification of the arterial structures per CTA protocol. Post-processing, reconstructions and interpretation of angiographic images of the vessels was performed. 3D MIP reconstructions were performed and reviewed. All CT scans use one or more of the following dose optimizing techniques: automated exposure control, MA and/or KvP adjustment based on a patient size and exam type, or iterative reconstruction. HISTORY: Shortness of breath and elevated D-dimer, Covid 19. COMPARISON: 03/07/2021 FINDINGS: There is subsegmental pulmonary embolism in the posterior basilar segment of the right lower lobe. There is a subsegmental pulmonary embolism in the posterior basilar segment of the left lower lobe. There is no right heart strain. There is persistent groundglass and septal line thickening throughout both lungs consistent with Covid 19 pneumonia. The severity is moderate. No pleural effusion. No pneumothorax. There is no axillary or supraclavicular lymphadenopathy. There are a few mildly enlarged hilar lymph nodes on the right. Heart size is normal. There are mild coronary artery calcifications. No pericardial effusion. Aorta is normal in caliber. Limited views of the upper abdomen are unremarkable. There are no suspicious osseous lesions. IMPRESSION: 1. Bilateral subsegmental pulmonary emboli in the lower lobes without right heart strain. 2. Moderately severe Covid 19 pneumonia. Findings called to nurse practitioner Ale by Dr. Batista on 03/16/2021 at 4:25 p.m. Dictated by: Dictated on workstation # [id number]
[2021-03-16] MEDS ORDERED: APIXABAN 5 MG (ELIQUIS) TABLET PO SCH (17:30)
[2021-03-16] MEDS ORDERED: PROMETHAZINE INJ 25 MG/ML (PHENERGAN) AMP IV PRN (19:00)
[2021-03-16] MEDS: APIXABAN 5 MG (ELIQUIS) TABLET PO SCH (19:00)
[2021-03-16] MEDS ORDERED: ACETAMINOPHEN 325 MG TABLET PO PRN (19:00)
[2021-03-16] MEDS ORDERED: REMDESIVIR 200 MG/NS 250 ML IVPB IV NR ×2 (19:00)
[2021-03-16 19:46] VITALS: BP 133/90
[2021-03-16] MEDS ORDERED: IBUPROFEN 600 MG (MOTRIN) TAB PO PRN (20:00)
[2021-03-16 20:41] VITALS: BP 114/76
[2021-03-16] MEDS: LACTATED RINGERS 1,000 ML IV SCH (20:58)
[2021-03-16] MEDS ORDERED: CALCIUM CARBONATE 500 MG (TUMS) TAB.CHEW PO PRN (21:00)
[2021-03-16] MEDS: SENNA W/DOCUSATE (SENOKOT S) TABLET PO SCH (21:00)
[2021-03-16] MEDS ORDERED: RT-ALBUTEROL HFA 8.5 GM INHALER IH PRN (21:00)
[2021-03-16] MEDS ORDERED: DOCUSATE SODIUM 100 MG (COLACE) CAP PO PRN (21:00)
[2021-03-16] MEDS ORDERED: ONDANSETRON 4 MG/2 ML (SDV) Z0FRAN IVP PRN (21:00)
[2021-03-16] MEDS ORDERED: LOPERAMIDE 2 MG (IMODIUM) TABLET PO PRN (21:00)
[2021-03-16] MEDS ORDERED: diphenhydrAMINE 25 MG TAB (BENADRYL) PO PRN (21:00)
[2021-03-16] MEDS: RT-ALBUTEROL HFA 8.5 GM INHALER IH SCH (21:19)
[2021-03-16] MEDS: inSUlin ASPART (NovoLOG) 1 UNIT/0.01 ML (CHARGE PER UNIT) SC SCH (21:29)
[2021-03-16 22:00] VITALS: BP 133/72
[2021-03-17] VITALS (8 sets, daily range): BP systolic 96–136; BP diastolic 59–93
[2021-03-17] MEDS: ALPRAZolam 0.25 MG (XANAX) TAB PO PRN (00:32)
[2021-03-17] MEDS: MELATONIN 3 MG TABLET PO PRN ×2 (00:33→21:27)
[2021-03-17] MEDS: RT-ALBUTEROL HFA 8.5 GM INHALER IH SCH ×4 (03:30→21:45)
[2021-03-17 03:52] LABS: BASOPHILS % (AUTO) 0 % (0-10); EOSINOPHILS % (AUTO) 0 % (0-10); HEMATOCRIT 26 % (35-52); HEMOGLOBIN 7.3 g/dL (11.5-16.0); LYMPHOCYTES # (AUTO) 1.5 10^3/uL (1.0-4.0); LYMPHOCYTES % (AUTO) 20 % (12-44); MEAN CORPUSCULAR HEMOGLOBIN 25 pg (25-34); MEAN CORPUSCULAR HGB CONC 28 g/dL (32-36); MEAN CORPUSCULAR VOLUME 88 fL (80-99); MEAN PLATELET VOLUME 10.6 fL (9.0-12.2); MONOCYTES # (AUTO) 0.6 10^3/uL (0.0-1.0); MONOCYTES % (AUTO) 8 % (0-12); NEUTROPHILS # (AUTO) 5.1 10^3/uL (1.8-7.8); NEUTROPHILS % (AUTO) 70 % (42-75); PLATELET COUNT 242 10^3/uL (130-400); WHITE BLOOD COUNT 7.2 10^3/uL (4.3-11.0)
[2021-03-17 04:00] LABS: ALBUMIN 2.7 GM/DL (3.2-4.5)
[2021-03-17 04:01] LABS: POTASSIUM 3.6 MMOL/L (3.6-5.0)
[2021-03-17 04:02] LABS: CALCIUM 8.3 MG/DL (8.5-10.1)
[2021-03-17 04:03] LABS: TOTAL PROTEIN 6.2 GM/DL (6.4-8.2)
[2021-03-17 04:05] LABS: BILIRUBIN,TOTAL 0.2 MG/DL (0.1-1.0)
[2021-03-17] MEDS: inSUlin ASPART (NovoLOG) 1 UNIT/0.01 ML (CHARGE PER UNIT) SC SCH ×4 (05:44→20:39)
[2021-03-17] MEDS: dexAMETHasone 6 MG TAB (DECADRON) PO SCH (06:27)
[2021-03-17] MEDS: APIXABAN 5 MG (ELIQUIS) TABLET PO SCH ×2 (06:28→18:24)
[2021-03-17] MEDS: LACTATED RINGERS 1,000 ML IV SCH ×2 (06:55→08:12)
[2021-03-17] MEDS: SENNA W/DOCUSATE (SENOKOT S) TABLET PO SCH ×2 (08:22→20:02)
[2021-03-17] MEDS ORDERED: VITA100T6 PO (10:26)
[2021-03-17] MEDS ORDERED: RT-ALBUINH INH (10:26)
[2021-03-17] MEDS ORDERED: ACHD5005 PO (10:26)
[2021-03-17] MEDS ORDERED: IPRA3AMP31 NEB (10:26)
[2021-03-17] MEDS ORDERED: LOSA100T57 PO (10:26)
[2021-03-17] MEDS ORDERED: CETI10TA17 PO (10:26)
[2021-03-17] MEDS ORDERED: CARI350T27 PO (10:26)
[2021-03-17] MEDS ORDERED: CYAN-41 PO (10:26)
[2021-03-17] MEDS ORDERED: NAPR-915 PO (10:26)
[2021-03-17] MEDS ORDERED: UMEC62.5 IH (10:27)
[2021-03-17] MEDS: FAMOTIDINE 20 MG (PEPCID) TABLET PO SCH ×2 (10:37→20:25)
--- NOTE | 2021-03-17 10:45 | Tele-ICU Consult ---
History of Present Illness History of Present Illness Date Seen by Provider: Mar 17, 2021 Time Seen by Provider: 10:15 Date of Admission Patient acknowledged, consented, and participated in this virtual visit which was conducted using real time audio/video. Thank you for asking us to see this patient for respiratory insufficiency and distress due to B Covid pna and B subsegmental PEs. HPC: Recent events: Dyspnea unchanged but increased cough. PMH: Asthma, COPD, BERYL, CAD, HTN, Glaucoma, Polio SH: smoking history: current smoker. FH: Non-contributory. ROS: limited by patient's clinical condition, but only complaints in HPI. PE: Mild distress but conversant. VSS. O2 sat 94% on 2LPM NC. HEENT: No obvious masses, adenopathy or JVD. Chest: clear to auscultation, but slightly diminished. CV: RRR S1 S2 No murmur or added sounds. Abd: Non-tender. Bowel sounds Y. : Unremarkable. [place] [employer] AIDE/psychiatric: Alert and oriented, grossly intact. No obvious focal findings. Extremities: No edema. Capillary refill < 3 seconds. Skin: unremarkable. Results: Elevated D-Dimer 5.05, Creat 1.35, BNP 381.8. Decreased K 3.3, Hb 8.6. CXR: hyperinflated, B infilts w CATHY and LLL air bronchograms. CTC: B subsegmental PEs. A/P: Respiratory insufficiency/distress: Cont. O2, BDs. Available chart/ vitals / labs / images reviewed. Video assessment done using teleICU camera, rest of exam as per RN. Monitor for increasing oxygenation needs and/or need for ICU transfer. Critical Care: critically ill patient. Cont Dex., Remdes., Eliquis. Discussed with MARY Hammond and Dr. Lynne. Can restart outpt ICS/LABA inhaler when off Dex. Asked RN to reach out to eICU if any questions or concerns later. Time spent with patient/coordination of care with other health professionals (mins): 28 Allergies and Home Medications Allergies Coded Allergies: aspirin (Verified Allergy, Unknown, 04/10/16) iodine (Verified Allergy, Unknown, 04/10/16) povidone-iodine (Verified Allergy, Unknown, 04/10/16) soap (Verified Allergy, Unknown, 04/10/16) Uncoded Allergies: SHELLFISH (Adverse Reaction, Intermediate, RASH, SWELLING, 05/17/17) Home Medications Albuterol Sulfate 6.7 Gm Hfa.aer.ad, 1-2 PUFF INH Q4H PRN for SHORTNESS OF BREATH, (Reported) Carisoprodol 350 Mg Tablet, 350 MG PO TID PRN for PAIN-BREAKTHROUGH, (Reported) Cetirizine HCl 10 Mg Tablet, 10 MG PO DAILY, (Reported) Cyanocobalamin (Vitamin B-12) 1,000 Mcg Tablet, 1,000 MCG PO DAILY, (Reported) Fluticasone/Vilanterol 1 Each Blst.w.dev, 1 EACH IH DAILY, (Reported) Hydrocodone/Acetaminophen 1 Each Tablet, 1 EA PO BID PRN for PAIN-MODERATE (5- 7), (Reported) Ipratropium/Albuterol Sulfate 3 Ml Ampul.neb, 3 ML NEB Q6H PRN for SHORTNESS OF BREATH, (Reported) Losartan Potassium 100 Mg Tablet, 100 MG PO DAILY, (Reported) Montelukast Sodium 10 Mg Tablet, 10 MG PO HS, (Reported) Naproxen 500 Mg Tablet, 500 MG PO Q12H PRN for PAIN-MILD (1-4), (Reported) Trazodone HCl 150 Mg Tablet, 150 MG PO HS, (Reported) Venlafaxine HCl 75 Mg Tab, 75 MG PO DAILY, (Reported) Vitamin E Acid Succinate 100 Unit Tablet, 100 UNIT PO DAILY, (Reported) Past Medical/Social/Family Hx Patient Social History Tobacco Use?: Yes Tobacco type used: Cigarettes Smoking Status: Current Everyday Smoker Smokeless Tobacco Frequency: Current Everyday User Use of E-Cig and/or Vaping dev: No Substance use?: No Alcohol Use?: No Pt stated abuse/neglect: No Immunizations Up To Date Tetanus Booster (TDap): Unknown Current Status Advance Directives: No Communicates: Verbally Primary Language: Slovak Preferred Spoken Language: Slovak Is interpretation needed?: No Review of Systems Constitutional: see HPI EENTM: see HPI Respiratory: see HPI Gastrointestinal: see HPI Genitourinary: see HPI Musculoskeletal: see HPI Skin: see HPI All Other Systems Reviewed Negative Unless Noted: Yes Sepsis Event Evaluation Height, Weight, BMI Height: 5'5.00" Weight: 229lbs. 0.6oz. 107.130242ut; 33.75 BMI Method:Stated Exam Exam Patient acknowledged, consented, and participated in this virtual visit which was conducted using real time audio/video Vital Signs Date Time Temp Pulse Resp B/P (MAP) Pulse Ox O2 Delivery O2 Flow Rate FiO2 03/17/21 09:18 93 Nasal Cannula 2.00 03/17/21 08:45 96 Nasal Cannula 2.00 03/17/21 07:45 35.6 68 17 135/83 (100) 93 Nasal Cannula 2.00 03/17/21 06:57 82 03/17/21 04:00 73 19 108/69 (82) 95 Nasal Cannula 2.00 03/17/21 03:50 93 Nasal Cannula 3.00 03/17/21 02:00 68 20 123/72 (89) 97 Nasal Cannula 2.00 03/17/21 01:00 89 03/17/21 00:00 77 21 136/78 (97) 95 Nasal Cannula 2.00 03/16/21 22:00 97 22 133/72 (92) 95 Nasal Cannula 2.00 03/16/21 21:19 93 Nasal Cannula 2.00 03/16/21 21:00 94 Nasal Cannula 2.00 03/16/21 20:41 36.2 90 95 03/16/21 19:46 36.2 82 17 133/90 (104) 98 Nasal Cannula 2.00 03/16/21 19:00 82 03/16/21 18:07 36.2 82 20 138/84 (89) 95 03/16/21 14:15 36.2 90 20 114/76 (89) 95 Nasal Cannula I & O 03/17/21 07:00 Intake Total 1050 ml Output Total 600 ml Balance 450 ml Height & Weight Height: 5'5.00" Weight: 229lbs. 0.6oz. 107.632630xf; 33.75 BMI Method:Stated General Appearance: Mild Distress Capillary Refill: Less Than 3 Seconds Peripheral Pulses: 1+ Left Dors-Pedis (L), 1+ Radial Pulses (R) (See free text) Gastrointestinal: normal bowel sounds, non tender, soft Results Lab Laboratory Tests 03/16/21 14:20 03/17/21 03:35 Assessment/Plan Assessment/Plan See free text Critical Care: Critically Ill Patient Time spent on discussion(mins): 0 OLEGARIO SANCHEZ MD Mar 17, 2021 10:45
[2021-03-17] MEDS: HYDROcodone/APAP 5 MG/325 MG (LORTAB) TAB PO PRN (13:00)
--- NOTE | 2021-03-17 13:17 | History & Physical-Hospitalist ---
MALCOLM GRAYSON MED STUDENT 03/17/21 1317: History of Present Illness HPI/Chief Complaint This is Elvie a 70 yo female that presented to walk in care at [facility] and referred to ER on 03/16 with the chief complaint of COVID 19, shortness of breath, cough, and confusion. She was diagnosed with COVID 19 on 03/07 and described feeling poor for about a week prior. O2 sat at [facility] was 84% on room air. Upon entering the room this morning she was sitting in bed watching TV. Pt was calm, cooperative, and engaged during questioning. She had concerns for SOB at rest and expressed worry for how bad this process truly is. Pt stated that her last bowel movement was on Monday. CXR completed 03/16 revealed diffuse patchy alveolar infiltrates and chest/thoracic CTA revealed bilateral pulmonary emboli in lower lungs and moderately severe COVID 19. Pt stated that she did not receive the COVID vaccination due to her history of Polio. Source: patient, EMS notes reviewed Exam Limitations: no limitations Date Seen 03/17/21 Time Seen by a Provider: 09:30 Attending Physician Hannah Lynne Holly R MD Referring Physician Date of Admission Mar 16, 2021 at 16:48 Home Medications & Allergies Home Medications Reviewed patient Home Medication Reconciliation performed by pharmacy medication reconciliations senior service technician and/or nursing. Patients Allergies have been reviewed. Allergies Allergies Coded Allergies aspirin (Verified Allergy, Unknown, 04/10/16) iodine (Verified Allergy, Unknown, 04/10/16) povidone-iodine (Verified Allergy, Unknown, 04/10/16) soap (Verified Allergy, Unknown, 04/10/16) Uncoded Allergies SHELLFISH ( Adverse Reaction, Intermediate, RASH, SWELLING, 05/17/17) Past Bpdpuzi-Upcskb-Qcrboj Hx Patient Social History Tobacco Use?: Yes Tobacco type used: Cigarettes Smoking Status: Current Everyday Smoker (1/2 pack a day) Smokeless Tobacco Frequency: Current Everyday User Use of E-Cig and/or Vaping dev: No Substance use?: No Alcohol Use?: Yes Alcohol type: Wine Alcohol Frequency: Once in a while Pt feels they are or have been: No Immunizations Up To Date Tetanus Booster (TDap): Unknown Seasonal Allergies Seasonal Allergies: Yes Current Status Advance Directives: No Communicates: Verbally Primary Language: Canadian Preferred Spoken Language: Canadian Is interpretation needed?: No Past Medical History Surgeries: Abdominal, Breast, Gallbladder, Hysterectomy, Joint Replacement, Orthopedic (right ankle fusion, right tibial transplant), Tonsillectomy Asthma, Sleep Apnea, COPD Currently Using CPAP: Yes (just started using) Currently Using BIPAP: No Coronary 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, Heart Attack, 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 Sexually Transmitted Disease: No HIV/AIDS: No Polyps, Irritable Bowel Glaucoma Blood Disorders: No Adverse Reaction/Blood Tranf: No Family Medical History Uterine cancer No Pertinent Family Hx, Other Conditions/Hx (mother at 47 from uterine cancer) Review of Systems Constitutional: No chills, No fever; weakness, weight loss (has lost 40 pounds in 3 months) EENTM: blurred vision, other (pt stated she has a thyriod nodule that is being followed up with ); No ear pain, No double vision, No eye pain, No hoarseness, N o throat pain Respiratory: cough, dyspnea on exertion; No hemoptysis; phlegm, short of breath, wheezing Cardiovascular: No chest pain, No edema Gastrointestinal: No abdominal pain; constipation; No diarrhea, No nausea, No vomiting Genitourinary: No dysuria, No frequency, No hematuria Musculoskeletal: No joint swelling; muscle pain (ribs when coughing ); No neck pain Skin: No change in color; dryness (bilateral feet); No lumps, No rash Psychiatric/Neurological: Denies Anxiety, Denies Depressed, Denies Headache, Denies Numbness; Weakness Physical Exam Physical Exam Vital Signs Vital Signs - First Documented 03/16/21 03/16/21 14:15 19:46 Temp 36.2 Pulse 90 Resp 20 B/P (MAP) 114/76 (89) Pulse Ox 95 O2 Delivery Nasal Cannula O2 Flow Rate 2.00 Capillary Refill : Less Than 3 Seconds Height, Weight, BMI Height: 5'5.00" Weight: 229lbs. 0.6oz. 107.879043kh; 33.75 BMI Method:Stated General Appearance: Chronically ill, Moderate Distress, Obese HEENT: PERRL/EOMI, Pharynx Normal Neck: Normal Inspection, Non Tender, Supple Respiratory: Chest Non Tender, Crackles, Respiratory Distress, Wheezing Cardiovascular: Regular Rate, Rhythm, No Edema, No Gallop, No Murmur, Normal Peripheral Pulses Gastrointestinal: No Organomegaly, No Pulsatile Mass, Non Tender, Soft, Abnormal Bowel Sounds (decreased) Rectal: Deferred Extremity: Normal Inspection, Non Tender, No Calf Tenderness, No Pedal Edema, Other (unable to move right leg, but can wiggle toes on right foot) Neurologic/Psychiatric: Alert, Oriented x3, Normal Mood/Affect, Motor Weakness (right leg) Skin: Normal Color, Warm/Dry Results Results/Procedures Labs Laboratory Tests 03/16/21 14:20 03/17/21 03:35 Patient resulted labs reviewed. Assessment/Plan Admission Diagnosis COVID 19/ hypoxia/ bilateral PNE Assessment and Plan COVID 19 medication protocol respiratory alkalosis pH 7.47 hypoxia continue supplemental O2 monitor ABG, labs, vitals and imaging encourage IS use bilateral PNE anti virals consider starting antibiotics anemia Hgb 7.3 concult cardiology bilateral pulmonary emboli consult pulmonology LE doppler hypertension controlled on current medications T2DM insulin cough prescribe antitussive HANNAH LYNNE DO 03/18/21 0526: History of Present Illness HPI/Chief Complaint CC: Covid-pneumonia hypoxia with pulmonary emboli HPI: This is a 70yoWF history of polio with right lower extremity dysfunction due to polio and 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 She was found to have B/L pulmonary emboli due to D-Dimer of [address] scan. Echocardiogram will be initiated along with venous Doppler ultrasound of the lower extremities. Cardiology and pulmonology will be consulted. Hemocult stools due to the anemia initiated Pepcid 20 Mg BID and smoking counseling. Her Procalcitonin was 0.18 no indication for pneumonia at this time. Chest X-ray was reviewed. Source: patient Exam Limitations: no limitations Past Dpjoanm-Mqiphc-Gjnxjx Hx Patient Social History Marrital Status: single Employed/Student: retired Smoking Status: Current Everyday Smoker (1/2 pack a day) Family Medical History Uterine cancer Review of Systems Constitutional: see HPI Physical Exam Physical Exam General Appearance: Anxious, Chronically ill, Mild Distress Respiratory: Accessory Muscle Use, Crackles, Decreased Breath Sounds, Wheezing Cardiovascular: No Edema, Tachycardia Neurologic/Psychiatric: Alert, Oriented x3 Assessment/Plan Admission Diagnosis Assessment: COVID-19 pneumonia Acute hypoxic respiratory failure Bilateral pulmonary emboli Cough History of polio and used iron lung for 7 years as a child Plan: Oxygen Anticoagulant Monitor closely for decompensation To note she had told me she did not want any intubation or resuscitation but then later told the nurse she changed her mind she is now full code still High risk for intubation Admission Status: Inpatient Order (span 2 midnights) Reason for Inpatient Admission: COVID-19 pneumonia with PE Supervisory-Addendum Brief Verification & Attestation Participated in pt care: history, MDM, physical Personally performed: exam, history, MDM, supervision of care Care discussed with: Medical Student Procedures: n/a Results interpretation: Verified all documentation Verification and Attestation of Medical Student E/M Service A medical student performed and documented this service in my presence. I reviewed and verified all information documented by the medical student and made modifications to such information, when appropriate. I personally performed the physical exam and medical decision making. Hannah Lynne, Mar 18, 2021,05:26 MALCOLM GRAYSON MED STUDENT Mar 17, 2021 13:17 HANNAH LYNNE DO Mar 18, 2021 05:26
--- NOTE | 2021-03-17 15:32 | Consultation-Cardiology ---
HPI-Cardiology Cardiology Consultation: Date of Consultation 03/17/2021 Date of Admission 03/16/2021 Attending Physician Hannah Lynne DO Admitting Physician Shira Roberts MD Consulting Physician JAZIEL YATES JR, MD HPI: Time Seen by a Provider: 15:26 Chief Complaint: Reason for consultation: Pulmonary embolism The patient is a 70-year-old female who was recently diagnosed with Covid infection. She was initially treated as an outpatient. However, yesterday she went to [facility] due to worsening shortness of breath. She was found to have tachypnea and hypoxia and was sent to the emergency room for further evaluation. During her evaluation, she underwent a CT angiogram of the chest that showed a pulmonary embolism. She was subsequently admitted to the cardiac stepdown unit. She is now receiving oral anticoagulation. Because of the pulmonary embolism, a cardiology consultation was requested. Due to her Covid status, I did not see the patient. Review of Systems-Cardiology Review of Systems Other comments 10 point review of systems is as per noted in the medical record. All Other Systems Reviewed Negative Unless Noted: Yes KUZ-Htmuyk-Dyazis Hx Patient Social History Smoking Status: Current Everyday Smoker (1/2 pack a day) Have you traveled recently?: No Alcohol Use?: Yes Pt feels they are or have been: No Tobacco type used: Cigarettes Immunizations Up To Date Tetanus Booster (TDap): Unknown Past Medical History PMH As described under Assessment. Family Medical History Family History: Uterine cancer Allergies and Home Medications Allergies Coded Allergies: aspirin (Verified Allergy, Unknown, 04/10/16) iodine (Verified Allergy, Unknown, 04/10/16) povidone-iodine (Verified Allergy, Unknown, 04/10/16) soap (Verified Allergy, Unknown, 04/10/16) Uncoded Allergies: SHELLFISH (Adverse Reaction, Intermediate, RASH, SWELLING, 05/17/17) Home Medications Albuterol Sulfate 6.7 Gm Hfa.aer.ad, 1-2 PUFF INH Q4H PRN for SHORTNESS OF BREATH, (Reported) Last Action: Reviewed Carisoprodol 350 Mg Tablet, 350 MG PO TID PRN for PAIN-BREAKTHROUGH, (Reported) Last Action: Reviewed Cetirizine HCl 10 Mg Tablet, 10 MG PO DAILY, (Reported) Last Action: Reviewed Cyanocobalamin (Vitamin B-12) 1,000 Mcg Tablet, 1,000 MCG PO DAILY, (Reported) Last Action: Reviewed Fluticasone/Vilanterol 1 Each Blst.w.dev, 1 EACH IH DAILY, (Reported) Last Action: Reviewed Hydrocodone/Acetaminophen 1 Each Tablet, 1 EA PO BID PRN for PAIN-MODERATE (5- 7), (Reported) Last Action: Reviewed Ipratropium/Albuterol Sulfate 3 Ml Ampul.neb, 3 ML NEB Q6H PRN for SHORTNESS OF BREATH, (Reported) Last Action: Reviewed Losartan Potassium 100 Mg Tablet, 100 MG PO DAILY, (Reported) Last Action: Reviewed Montelukast Sodium 10 Mg Tablet, 10 MG PO HS, (Reported) Last Action: Reviewed Naproxen 500 Mg Tablet, 500 MG PO Q12H PRN for PAIN-MILD (1-4), (Reported) Last Action: Reviewed Trazodone HCl 150 Mg Tablet, 150 MG PO HS, (Reported) Last Action: Reviewed Umeclidinium [place] 62.5 Mcg Blst.w.dev, 1 PUFF IH DAILY, (Reported) LAST FILLED 09-19-2020 #3/90 DAY SUPPLY Last Action: Reviewed Venlafaxine HCl 75 Mg Tab, 75 MG PO DAILY, (Reported) Last Action: Reviewed Vitamin E Acid Succinate 100 Unit Tablet, 100 UNIT PO DAILY, (Reported) Last Action: Reviewed Patient Home Medication List Home Medication List Reviewed: Yes Exam Vital Signs Vital Signs Date Time Temp Pulse Resp B/P (MAP) Pulse Ox O2 Delivery O2 Flow Rate FiO2 03/17/21 12:49 90 03/17/21 11:34 35.8 21 96/59 (71) 93 Nasal Cannula 2.00 Physical Exam The patient was not examined due to Covid status. Labs Laboratory Tests Test 03/16/21 21:00 03/17/21 03:35 03/17/21 10:16 Range/Units Glucometer 197 H 217 H 70-110 MG/DL White Blood Count 7.2 4.3-11.0 10^3/uL Red Blood Count 2.97 L 3.80-5.11 10^6/uL Hemoglobin 7.3 L 11.5-16.0 g/dL Hematocrit 26 L 35-52 % Mean Corpuscular Volume 88 80-99 fL Mean Corpuscular Hemoglobin 25 25-34 pg Mean Corpuscular Hemoglobin Concent 28 L 32-36 g/dL Red Cell Distribution Width 20.6 H 10.0-14.5 % Platelet Count 242 130-400 10^3/uL Mean Platelet Volume 10.6 9.0-12.2 fL Immature Granulocyte % (Auto) 1 % Neutrophils (%) (Auto) 70 42-75 % Lymphocytes (%) (Auto) 20 12-44 % Monocytes (%) (Auto) 8 0-12 % Eosinophils (%) (Auto) 0 0-10 % Basophils (%) (Auto) 0 0-10 % Neutrophils # (Auto) 5.1 1.8-7.8 10^3/uL Lymphocytes # (Auto) 1.5 1.0-4.0 10^3/uL Monocytes # (Auto) 0.6 0.0-1.0 10^3/uL Eosinophils # (Auto) 0.0 0.0-0.3 10^3/uL Basophils # (Auto) 0.0 0.0-0.1 10^3/uL Immature Granulocyte # (Auto) 0.1 0.0-0.1 10^3/uL Sodium Level 140 135-145 MMOL/L Potassium Level 3.6 3.6-5.0 MMOL/L Chloride Level 108 H 98-107 MMOL/L Carbon Dioxide Level 21 21-32 MMOL/L Anion Gap 11 5-14 MMOL/L Blood Urea Nitrogen 15 7-18 MG/DL Creatinine 1.00 0.60-1.30 MG/DL Estimat Glomerular Filtration Rate 66 BUN/Creatinine Ratio 15 Glucose Level 116 H 70-105 MG/DL Calcium Level 8.3 L 8.5-10.1 MG/DL Corrected Calcium 9.3 8.5-10.1 MG/DL Total Bilirubin 0.2 0.1-1.0 MG/DL Aspartate Amino Transf (AST/SGOT) 16 5-34 U/L Alanine Aminotransferase (ALT/SGPT) 6 0-55 U/L Alkaline Phosphatase 82 40-136 U/L Total Protein 6.2 L 6.4-8.2 GM/DL Albumin 2.7 L 3.2-4.5 GM/DL Radiology ECHOCARDIOGRAM (03/17/2021): 1. Technically difficult study due to poor image quality, particularly in the apical views. 2. Normal left ventricular chamber size, wall thickness and systolic function with an estimated ejection fraction of 70-75%. 3. Grade 1 diastolic dysfunction. 4. Estimated pulmonary artery systolic pressure is 46 mmHg. ECG Impression ECG Comment Sinus rhythm with poor R wave progression and diffuse, nonspecific T wave changes. Diagnosis/Problems Diagnosis/Problems (1) Pulmonary embolism Status: Acute Assessment & Plan: This is in the setting of Covid infection. I suspect a p ulmonary embolism may be due to the Covid infection. The patient is presently on oral anticoagulation. I do not see any indication for screening for hypercoagulable state. This is a known complication of Covid. (2) COVID-19 Status: Acute Assessment & Plan: This is being managed by the eICU and hospitalist. As abov e, I suspect Covid infection may have caused the pulmonary embolism. (3) Pulmonary hypertension Assessment & Plan: She has only trace tricuspid regurgitation which suggest this mild degree of pulmonary hypertension is probably acute and most likely related to the pulmonary embolism and Covid infection. She has normal right ventricular function and as such, there is no evidence for cor pulmonale. We may want to consider a follow-up echocardiogram a few weeks after she is discharged from hospital. (4) Primary hypertension Assessment & Plan: Her blood pressure was somewhat low this afternoon. I recommend resuming outpatient antihypertensive medication when her blood press ure will tolerate. Given her Covid infection and superimposed pulmonary emboli, I would be cautious with antihypertensive medication as she could be predisposed to hypotension at the present time. JAZIEL YATES JR, MD Mar 17, 2021 15:32
--- NOTE | 2021-03-17 16:51 | Diagnostic Imaging Report ---
PROCEDURE: US Venous Lower Ext Javon. TECHNIQUE: Multiple Real-time grayscale images were obtained over the lower extremities in various projections bilaterally. Additional duplex Doppler and color Doppler images were also obtained. INDICATION: Hypoxemia. FINDINGS: The veins of the lower extremities have good color filling and compressibility. There is phasic flow and a normal response to augmentation. IMPRESSION: Negative venous Doppler of the lower extremities. Dictated by: Dictated on workstation # [id number]
[2021-03-17] MEDS ORDERED: REMDESIVIR 100 MG/NS 250 ML IVPB IV SCH ×2 (19:00)
[2021-03-17] MEDS: guaiFENesin (MUCINEX) 600 MG TAB PO SCH (20:25)
[2021-03-18] MEDS: RT-ALBUTEROL HFA 8.5 GM INHALER IH SCH ×4 (03:07→21:30)
[2021-03-18 03:49] VITALS: BP 138/75
[2021-03-18] MEDS: guaiFENesin/CODEINE (ROBITUSSIN AC) 10ML UDC PO PRN ×3 (03:55→20:04)
[2021-03-18] MEDS: inSUlin ASPART (NovoLOG) 1 UNIT/0.01 ML (CHARGE PER UNIT) SC SCH ×4 (05:06→21:24)
[2021-03-18 05:09] LABS: BASOPHILS % (AUTO) 0 % (0-10); EOSINOPHILS % (AUTO) 0 % (0-10); HEMATOCRIT 25 % (35-52); HEMOGLOBIN 7.2 g/dL (11.5-16.0); LYMPHOCYTES # (AUTO) 2.4 10^3/uL (1.0-4.0); LYMPHOCYTES % (AUTO) 24 % (12-44); MEAN CORPUSCULAR HEMOGLOBIN 25 pg (25-34); MEAN CORPUSCULAR HGB CONC 29 g/dL (32-36); MEAN CORPUSCULAR VOLUME 86 fL (80-99); MEAN PLATELET VOLUME 10.2 fL (9.0-12.2); MONOCYTES # (AUTO) 0.9 10^3/uL (0.0-1.0); MONOCYTES % (AUTO) 9 % (0-12); NEUTROPHILS # (AUTO) 6.7 10^3/uL (1.8-7.8); NEUTROPHILS % (AUTO) 67 % (42-75); PLATELET COUNT 285 10^3/uL (130-400); WHITE BLOOD COUNT 10.1 10^3/uL (4.3-11.0)
[2021-03-18 05:20] LABS: ALBUMIN 2.8 GM/DL (3.2-4.5); POTASSIUM 3.5 MMOL/L (3.6-5.0)
[2021-03-18 05:21] LABS: CALCIUM 8.4 MG/DL (8.5-10.1)
[2021-03-18 05:22] LABS: TOTAL PROTEIN 6.2 GM/DL (6.4-8.2)
[2021-03-18 05:24] LABS: BILIRUBIN,TOTAL 0.3 MG/DL (0.1-1.0)
[2021-03-18 05:26] LABS: CREATININE SERUM 1.08 MG/DL (0.60-1.30)
[2021-03-18] MEDS: dexAMETHasone 6 MG TAB (DECADRON) PO SCH (06:03)
[2021-03-18] MEDS: APIXABAN 5 MG (ELIQUIS) TABLET PO SCH ×2 (06:03→18:50)
--- NOTE | 2021-03-18 07:58 | Diagnostic Imaging Report ---
Indication: Pneumonia. Comparison made with prior examination from 03/16/2021. FINDINGS: Heart size is normal. There are bilateral pulmonary infiltrates right greater than left. There is no pleural effusion or pneumothorax. The mediastinum is unremarkable. IMPRESSION: Bilateral pulmonary infiltrates suspect for underlying pneumonia and possibly COVID. Some underlying central pulmonary venous congestion cannot be excluded. Report was faxed to [facility] by ty at 7:57AM. Dictated by: Dictated on workstation # [id number]
[2021-03-18 08:00] VITALS: BP 137/73
--- NOTE | 2021-03-18 08:36 | Tele-ICU Progress Note ---
Subjective Date Seen by a Provider: Mar 18, 2021 Time Seen by a Provider: 08:34 Subjective/Events-last exam Doing better. VSS. O2 sat improved to 97% on 2 LPM NC. Spoke with RN Dian. Encouraged her to call e-ICU if any future problems. Will sign off for now. Sepsis Event Evaluation Height, Weight, BMI Height: 5'5.00" Weight: 229lbs. 0.6oz. 107.139422sz; 33.75 BMI Method:Stated Exam Exam Patient acknowledged, consented, and participated in this virtual visit which was conducted using real time audio/video Vital Signs Date Time Temp Pulse Resp B/P (MAP) Pulse Ox O2 Delivery O2 Flow Rate FiO2 03/18/21 08:00 36.3 73 24 137/73 (94) 97 Nasal Cannula 2.00 03/18/21 03:49 85 23 138/75 (96) 94 Nasal Cannula 2.00 03/18/21 03:07 Nasal Cannula 03/18/21 01:00 70 03/17/21 23:52 36.5 67 20 122/71 (88) 96 Nasal Cannula 2.00 03/17/21 21:45 95 Nasal Cannula 2.00 03/17/21 20:40 Nasal Cannula 2.00 03/17/21 19:51 36.5 83 24 130/93 (105) 95 Nasal Cannula 2.00 03/17/21 19:00 90 03/17/21 16:12 35.8 86 24 121/69 (86) 95 Nasal Cannula 2.00 03/17/21 16:05 98 Nasal Cannula 2.00 03/17/21 12:49 90 03/17/21 11:34 35.8 75 21 96/59 (71) 93 Nasal Cannula 2.00 03/17/21 09:18 93 Nasal Cannula 2.00 03/17/21 08:45 96 Nasal Cannula 2.00 I & O 03/18/21 07:00 Intake Total 670 ml Output Total 1050 ml Balance -380 ml Height & Weight Height: 5'5.00" Weight: 229lbs. 0.6oz. 107.103785kk; 33.75 BMI Method:Stated General Appearance: Anxious, Chronically ill, Mild Distress HEENT: PERRL/EOMI, Pharynx Normal Neck: Normal Inspection, Non Tender, Supple Respiratory: Accessory Muscle Use, Crackles, Decreased Breath Sounds, Wheezing Cardiovascular: No Edema, Tachycardia Capillary Refill: Less Than 3 Seconds Peripheral Pulses: 1+ Left Dors-Pedis (L), 1+ Radial Pulses (R) (See free text) Gastrointestinal: normal bowel sounds, non tender, soft Extremity: Normal Inspection, Non Tender, No Calf Tenderness, No Pedal Edema, Other (unable to move right leg, but can wiggle toes on right foot) Neurologic/Psychiatric: Alert, Oriented x3 Skin: Normal Color, Warm/Dry Results Lab Laboratory Tests 03/16/21 14:20 03/17/21 03:35 03/18/21 05:00 Assessment/Plan Assessment/Plan See free text. Critical Care: Critically Ill Patient Time spent on discussion(mins): 0 OLEGARIO SANCHEZ MD Mar 18, 2021 08:36
[2021-03-18] MEDS: guaiFENesin (MUCINEX) 600 MG TAB PO SCH ×2 (08:54→20:03)
[2021-03-18] MEDS: FAMOTIDINE 20 MG (PEPCID) TABLET PO SCH ×2 (08:54→20:03)
[2021-03-18] MEDS: SENNA W/DOCUSATE (SENOKOT S) TABLET PO SCH ×2 (08:54→20:03)
[2021-03-18] MEDS ORDERED: LACTULOSE SYRUP 10GM/15ML (ENULOSE) 30ML UDC PO ONE (10:45)
[2021-03-18 11:30] VITALS: BP 131/72
[2021-03-18] MEDS: IRON SUCROSE 200 MG/10 ML (VENOFER) VIAL IV SCH (11:34)
--- NOTE | 2021-03-18 12:10 | Cardiology Progress Note ---
Progress Note-Cardiology Events since last exam Date Seen by Provider: Mar 18, 2021 Time Seen by Provider: 12:04 Events since last exam I am seeing her due to pulmonary embolism. I did not actually see the patient today due to Covid status. I spoke to her medicine attending and her nurse of today. There have not been any cardiac issues overnight. She will be getting IV iron today due to anemia. Certain portions of this document may have been dictated utilizing voice recognition technology. Inherent to this technology, typographical and grammatical errors may exist. As much as I am diligent to identify and correct these mistakes, some errors may remain in the document. Vitals Last set of Vitals Signs Vital Signs 03/18/21 11:30 Temp 36.2 Pulse 77 Resp 30 B/P (MAP) 131/72 (91) Pulse Ox 92 O2 Delivery Nasal Cannula O2 Flow Rate 2.00 Labs Labs Laboratory Tests 03/18/21 05:00 Exam Vital Signs Vital Signs Date Time Temp Pulse Resp B/P (MAP) Pulse Ox O2 Delivery O2 Flow Rate FiO2 03/18/21 11:30 36.2 77 30 131/72 (91) 92 Nasal Cannula 2.00 Physical Exam I did not examine the patient due to Covid. Labs Laboratory Tests Test 03/17/21 16:16 03/17/21 20:37 03/18/21 05:00 03/18/21 11:08 Range/Units Glucometer 122 H 173 H 96 150 H 70-110 MG/DL White Blood Count 10.1 4.3-11.0 10^3/uL Red Blood Count 2.88 L 3.80-5.11 10^6/uL Hemoglobin 7.2 L 11.5-16.0 g/dL Hematocrit 25 L 35-52 % Mean Corpuscular Volume 86 80-99 fL Mean Corpuscular Hemoglobin 25 25-34 pg Mean Corpuscular Hemoglobin Concent 29 L 32-36 g/dL Red Cell Distribution Width 20.0 H 10.0-14.5 % Platelet Count 285 130-400 10^3/uL Mean Platelet Volume 10.2 9.0-12.2 fL Immature Granulocyte % (Auto) 1 % Neutrophils (%) (Auto) 67 42-75 % Lymphocytes (%) (Auto) 24 12-44 % Monocytes (%) (Auto) 9 0-12 % Eosinophils (%) (Auto) 0 0-10 % Basophils (%) (Auto) 0 0-10 % Neutrophils # (Auto) 6.7 1.8-7.8 10^3/uL Lymphocytes # (Auto) 2.4 1.0-4.0 10^3/uL Monocytes # (Auto) 0.9 0.0-1.0 10^3/uL Eosinophils # (Auto) 0.0 0.0-0.3 10^3/uL Basophils # (Auto) 0.0 0.0-0.1 10^3/uL Immature Granulocyte # (Auto) 0.1 0.0-0.1 10^3/uL Sodium Level 142 135-145 MMOL/L Potassium Level 3.5 L 3.6-5.0 MMOL/L Chloride Level 108 H 98-107 MMOL/L Carbon Dioxide Level 23 21-32 MMOL/L Anion Gap 11 5-14 MMOL/L Blood Urea Nitrogen 18 7-18 MG/DL Creatinine 1.08 0.60-1.30 MG/DL Estimat Glomerular Filtration Rate 61 BUN/Creatinine Ratio 17 Glucose Level 97 70-105 MG/DL Calcium Level 8.4 L 8.5-10.1 MG/DL Corrected Calcium 9.4 8.5-10.1 MG/DL Total Bilirubin 0.3 0.1-1.0 MG/DL Aspartate Amino Transf (AST/SGOT) 20 5-34 U/L Alanine Aminotransferase (ALT/SGPT) 9 0-55 U/L Alkaline Phosphatase 85 40-136 U/L Total Protein 6.2 L 6.4-8.2 GM/DL Albumin 2.8 L 3.2-4.5 GM/DL Diagnosis/Problems Diagnosis/Problems (1) Pulmonary embolism Status: Acute Assessment & Plan: This is in the setting of Covid infection. I suspect the pulmonary embolism may be due to the Covid infection and resultant hypercoagulable state due to the infection. This is a known complication of Covid. The patient is presently on oral anticoagulation. I do not see any indication for screening for other hypercoagulable states. (2) Pulmonary venous congestion Assessment & Plan: Her chest x-ray from today shows possible pulmonary venous congestion. She did receive IV fluids in the emergency room. Her BNP was also slightly elevated. I suspect the majority of her pulmonary problems are related to the Covid infection and pulmonary embolism. I will leave it up to the discretion of the hospitalist whether or not to give her a dose of IV furosemide. I will order a follow-up chest x-ray for the morning. (3) Pulmonary hypertension Assessment & Plan: She has only trace tricuspid regurgitation which suggest this mild degree of pulmonary hypertension is probably acute and most likely related to the pulmonary embolism and Covid infection. She has normal right ventricular size and function and as such, there is no evidence for cor pulmonale. We may want to consider a follow-up echocardiogram a few weeks after she is discharged from hospital. (4) Primary hypertension Assessment & Plan: Her blood pressures are gradually trending upwards. If this persists, we can resume her losartan but I would suggest starting at a lower dose than she was taking at home so we can avoid iatrogenic hypotension. (5) COVID-19 Status: Acute Assessment & Plan: This is being managed by the eICU and hospitalist. As above, I suspect Covid infection may have caused the pulmonary embolism. JAZIEL YATES JR, MD Mar 18, 2021 12:10
--- NOTE | 2021-03-18 12:55 | Progress Note - Hospitalist ---
MALCOLM GRAYSON MED STUDENT 03/18/21 1255: Subjective HPI/CC On Admission Date Seen by Provider: Mar 18, 2021 Time Seen by Provider: 09:45 CC: Covid-pneumonia, hypoxia, with pulmonary emboli Subjective/Events-last exam This is Evlie a 70 yo female of day 3 of her hospital stay with the chief complaints of COVID 19, hypoxia, and bilateral PEs. Upon entering the room this morning she was sitting in bed eating breakfast. She was calm, cooperative, and engaged during questioning but appeared very fatigued and in more respiratory distress than the day prior. Pt stated that her coughing as subsided since being prescribed an antitussive but that she is still experiencing abdominal and rib pain from the cough spells the days before.Her last bowel movement was last Monday but stated that she feels like she will have a BM this AM. Pt stated that she is experiencing SOB at rest with supplemental O2 still at 2L. Lower extremity doppler was negative for DVTs. Repeat CXR this morning showed COVID 19 and central pulmonary venous congestions. ECHO revealed an ejection fraction of 70-75% but pulmonary artery systolic pressure of 46mmHg signifying PAH. Review of Systems General: Fatigue; No Appetite Pulmonary: Dyspnea; No Cough Gastrointestinal: Constipation; No: Nausea, Vomiting Focused Exam Time of Focused Exam: 09:30 Respiratory: Chest Non Tender, Crackles, Decreased Breath Sounds, Respiratory Distress, Wheezing Cardiovascular: Regular Rate, Rhythm, No Gallop, No Murmur, Normal Peripheral Pulses Skin: normal color, warm/dry Objective Exam Vital Signs Vital Signs Date Time Temp Pulse Resp B/P (MAP) Pulse Ox O2 Delivery O2 Flow Rate FiO2 03/18/21 11:30 36.2 77 30 131/72 (91) 92 Nasal Cannula 2.00 Capillary Refill : Less Than 3 Seconds General Appearance: Chronically ill, Mild Distress, Obese HEENT: PERRL/EOMI, Pharynx Normal Neck: Normal Inspection, Non Tender, Supple Respiratory: Chest Non Tender, Crackles, Decreased Breath Sounds, Respiratory Distress, Wheezing Cardiovascular: Regular Rate, Rhythm, No Gallop, No Murmur, Normal Peripheral Pulses Gastrointestinal: Non Tender, Abnormal Bowel Sounds (decreased) Rectal: Deferred Neurologic/Psychiatric: Alert, Oriented x3, No Motor/Sensory Deficits, Normal Mood/Affect Skin: Normal Color, Warm/Dry Results/Procedures Lab Laboratory Tests 03/18/21 05:00 Patient resulted labs reviewed. Assessment/Plan Assessment and Plan Assess & Plan/Chief Complaint COVID 19 medication protocol respiratory alkalosis pH 7.47 03/17 repeat ABG hypoxia continue supplemental O2- 2L monitor ABG, labs, vitals and imaging encourage IS use bilateral PNE anti virals consider starting antibiotics anemia Hgb 7.2 on 03/18 iron infusion 200mg/24 hours bilateral pulmonary emboli consult pulmonology LE doppler- negative results hypertension controlled on current medications T2DM insulin cough prescribe antitussive- resolved HANNAH TIM DO 03/19/21 0535: Subjective Subjective/Events-last exam Pt doing about the same Robitussin with Codeine has helped the cough Continued to require oxygen Hgb 7.2 Iron level low at 21 will give IV iron infusion Doing okay otherwise Review of Systems General: Fatigue Pulmonary: Dyspnea Objective Exam General Appearance: No Apparent Distress, WD/WN, Anxious, Chronically ill Respiratory: Crackles, Decreased Breath Sounds Cardiovascular: Regular Rate, Rhythm Assessment/Plan Assessment and Plan Assess & Plan/Chief Complaint Supportive care Monitor for decompensation High risk for intubation Supervisory-Addendum Brief Verification & Attestation Participated in pt care: history, MDM, physical Personally performed: exam, history, MDM, supervision of care Care discussed with: Medical Student Procedures: n/a Results interpretation: Verified all documentation Verification and Attestation of Medical Student E/M Service A medical student performed and documented this service in my presence. I reviewed and verified all information documented by the medical student and made modifications to such information, when appropriate. I personally performed the physical exam and medical decision making. Hannah Tim, Mar 19, 2021,05:34 MALCOLM GRAYSON MED STUDENT Mar 18, 2021 12:55 HANNAH TIM DO Mar 19, 2021 05:35
[2021-03-18 15:26] VITALS: BP 172/87
[2021-03-18 19:16] VITALS: BP 129/74
[2021-03-18] MEDS: LACTULOSE SYRUP 10GM/15ML (ENULOSE) 30ML UDC PO SCH (20:58)
[2021-03-18 23:25] VITALS: BP 124/66
[2021-03-18] MEDS: HYDROcodone/APAP 5 MG/325 MG (LORTAB) TAB PO PRN (23:26)
[2021-03-19] MEDS: RT-ALBUTEROL HFA 8.5 GM INHALER IH SCH ×4 (03:49→22:46)
[2021-03-19 04:55] VITALS: BP 142/63
[2021-03-19] MEDS: inSUlin ASPART (NovoLOG) 1 UNIT/0.01 ML (CHARGE PER UNIT) SC SCH ×4 (05:02→22:02)
[2021-03-19 05:32] LABS: BASOPHILS % (AUTO) 0 % (0-10); EOSINOPHILS % (AUTO) 0 % (0-10); HEMATOCRIT 26 % (35-52); HEMOGLOBIN 7.4 g/dL (11.5-16.0); LYMPHOCYTES # (AUTO) 2.6 10^3/uL (1.0-4.0); LYMPHOCYTES % (AUTO) 28 % (12-44); MEAN CORPUSCULAR HEMOGLOBIN 25 pg (25-34); MEAN CORPUSCULAR HGB CONC 29 g/dL (32-36); MEAN CORPUSCULAR VOLUME 87 fL (80-99); MEAN PLATELET VOLUME 10.7 fL (9.0-12.2); MONOCYTES # (AUTO) 0.9 10^3/uL (0.0-1.0); MONOCYTES % (AUTO) 9 % (0-12); NEUTROPHILS # (AUTO) 5.8 10^3/uL (1.8-7.8); NEUTROPHILS % (AUTO) 61 % (42-75); PLATELET COUNT 289 10^3/uL (130-400); WHITE BLOOD COUNT 9.5 10^3/uL (4.3-11.0)
[2021-03-19] MEDS: dexAMETHasone 6 MG TAB (DECADRON) PO SCH (06:07)
[2021-03-19] MEDS: APIXABAN 5 MG (ELIQUIS) TABLET PO SCH ×2 (06:07→18:04)
[2021-03-19 06:34] LABS: ALBUMIN 2.8 GM/DL (3.2-4.5); POTASSIUM 3.8 MMOL/L (3.6-5.0)
[2021-03-19 06:35] LABS: CALCIUM 8.3 MG/DL (8.5-10.1)
[2021-03-19 06:36] LABS: TOTAL PROTEIN 6.3 GM/DL (6.4-8.2)
[2021-03-19 06:38] LABS: BILIRUBIN,TOTAL 0.3 MG/DL (0.1-1.0)
[2021-03-19 06:40] LABS: CREATININE SERUM 0.86 MG/DL (0.60-1.30)
--- NOTE | 2021-03-19 07:29 | Diagnostic Imaging Report ---
Indication: COVID pneumonia. Compared: 03/18/2021 Findings: Bilateral infiltrates showed no substantial change. The heart size stable. No effusion or pneumothorax. Impression: No acute appearing abnormality. Dictated by: Dictated on workstation # [id number]
[2021-03-19 08:00] VITALS: BP 143/65
[2021-03-19] MEDS: SENNA W/DOCUSATE (SENOKOT S) TABLET PO SCH ×2 (08:59→22:01)
[2021-03-19] MEDS: guaiFENesin (MUCINEX) 600 MG TAB PO SCH ×2 (08:59→22:01)
[2021-03-19] MEDS: guaiFENesin/CODEINE (ROBITUSSIN AC) 10ML UDC PO PRN ×2 (09:00→17:21)
[2021-03-19] MEDS: FAMOTIDINE 20 MG (PEPCID) TABLET PO SCH ×2 (09:00→22:00)
[2021-03-19] MEDS: HYDROcodone/APAP 5 MG/325 MG (LORTAB) TAB PO PRN ×2 (09:00→22:10)
[2021-03-19] MEDS: LACTULOSE SYRUP 10GM/15ML (ENULOSE) 30ML UDC PO SCH ×3 (09:02→22:15)
--- NOTE | 2021-03-19 09:02 | Cardiology Progress Note ---
Progress Note-Cardiology Events since last exam Date Seen by Provider: Mar 19, 2021 Time Seen by Provider: 09:01 Events since last exam We are seeing her due to pulmonary embolism. I did not actually see the patient due to Covid status. There have been no cardiac issues overnight. I did speak to her nurse. Certain portions of this document may have been dictated utilizing voice recognition technology. Inherent to this technology, typographical and grammatical errors may exist. As much as I am diligent to identify and correct these mistakes, some errors may remain in the document. Vitals Last set of Vitals Signs Vital Signs 03/19/21 03/19/21 04:55 08:00 Temp 36.1 Pulse 59 Resp 20 B/P (MAP) 142/63 (89) Pulse Ox 100 O2 Delivery Nasal Cannula O2 Flow Rate 2.00 Labs Labs Laboratory Tests 03/19/21 05:00 03/19/21 06:13 Exam Vital Signs Vital Signs Date Time Temp Pulse Resp B/P (MAP) Pulse Ox O2 Delivery O2 Flow Rate FiO2 03/19/21 08:00 59 03/19/21 04:55 36.1 20 142/63 (89) 100 Nasal Cannula 2.00 Physical Exam I did not examine the patient due to Covid status. Labs Laboratory Tests Test 03/18/21 11:08 03/18/21 15:30 03/18/21 16:56 03/18/21 17:30 Range/Units Glucometer 150 H 200 H 129 H 70-110 MG/DL Stool Occult Blood Immunoassay NEGATIVE NEGATIVE Test 03/18/21 21:10 03/19/21 04:54 03/19/21 05:00 03/19/21 06:13 Range/Units Glucometer 117 H 94 70-110 MG/DL White Blood Count 9.5 4.3-11.0 10^3/uL Red Blood Count 2.93 L 3.80-5.11 10^6/uL Hemoglobin 7.4 L 11.5-16.0 g/dL Hematocrit 26 L 35-52 % Mean Corpuscular Volume 87 80-99 fL Mean Corpuscular Hemoglobin 25 25-34 pg Mean Corpuscular Hemoglobin Concent 29 L 32-36 g/dL Red Cell Distribution Width 20.7 H 10.0-14.5 % Platelet Count 289 130-400 10^3/uL Mean Platelet Volume 10.7 9.0-12.2 fL Immature Granulocyte % (Auto) 1 % Neutrophils (%) (Auto) 61 42-75 % Lymphocytes (%) (Auto) 28 12-44 % Monocytes (%) (Auto) 9 0-12 % Eosinophils (%) (Auto) 0 0-10 % Basophils (%) (Auto) 0 0-10 % Neutrophils # (Auto) 5.8 1.8-7.8 10^3/uL Lymphocytes # (Auto) 2.6 1.0-4.0 10^3/uL Monocytes # (Auto) 0.9 0.0-1.0 10^3/uL Eosinophils # (Auto) 0.0 0.0-0.3 10^3/uL Basophils # (Auto) 0.0 0.0-0.1 10^3/uL Immature Granulocyte # (Auto) 0.1 0.0-0.1 10^3/uL Sodium Level 141 135-145 MMOL/L Potassium Level 3.8 3.6-5.0 MMOL/L Chloride Level 108 H 98-107 MMOL/L Carbon Dioxide Level 21 21-32 MMOL/L Anion Gap 12 5-14 MMOL/L Blood Urea Nitrogen 14 7-18 MG/DL Creatinine 0.86 0.60-1.30 MG/DL Estimat Glomerular Filtration Rate 79 BUN/Creatinine Ratio 16 Glucose Level 92 70-105 MG/DL Calcium Level 8.3 L 8.5-10.1 MG/DL Corrected Calcium 9.3 8.5-10.1 MG/DL Total Bilirubin 0.3 0.1-1.0 MG/DL Aspartate Amino Transf (AST/SGOT) 28 5-34 U/L Alanine Aminotransferase (ALT/SGPT) 11 0-55 U/L Alkaline Phosphatase 84 40-136 U/L Total Protein 6.3 L 6.4-8.2 GM/DL Albumin 2.8 L 3.2-4.5 GM/DL Diagnosis/Problems Diagnosis/Problems (1) Pulmonary venous congestion Assessment & Plan: Her chest x-ray from today 12/16 showed possible pulmonary venous congestion. However, today's chest x-ray did not mention ulmonary venous congestion.She did receive IV fluids in the emergency room. Her BNP was also slightly elevated on admission. I suspect the majority of her pulmonary problems are related to the Covid infection and pulmonary embolism. At this point in time, there do not appear to be any acute, active cardiac issues. As such, cardiology will sign off. I will have my office arrange for a follow-up visit with me in approximately 1 month. (2) Pulmonary embolism Status: Acute Assessment & Plan: This is in the setting of Covid infection. I suspect the pulmonary embolism may be due to the Covid infection and resultant hypercoagulable state due to the infection. This is a known complication of Covid. The patient is presently on oral anticoagulation. I do not see any indication for screening for other hypercoagulable states. (3) Pulmonary hypertension Assessment & Plan: She has only trace tricuspid regurgitation which suggest this mild degree of pulmonary hypertension is probably acute and most likely related to the pulmonary embolism and Covid infection. She has normal right ventricular size and function and as such, there is no evidence for cor pulmonale. I will plan to see her in the office in approximately 1 month. At that time, I will consider obtaining a follow-up outpatient echocardiogram. (4) Primary hypertension Assessment & Plan: Her blood pressures are gradually trending upwards. If this persists, we can resume her losartan but I would suggest starting at a lower dose than she was taking at home so we can avoid iatrogenic hypotension. I will leave this up to the discretion of the hospitalist. (5) COVID-19 Status: Acute Assessment & Plan: This is being managed by the hospitalist. As above, I suspect Covid infection may have caused the pulmonary embolism. JAZIEL YATES JR, MD Mar 19, 2021 09:02
--- NOTE | 2021-03-19 09:31 | Pulmonary Progress Note ---
Subjective Date Seen by a Provider: Mar 19, 2021 Time Seen by a Provider: 09:22 Subjective/Events-last exam no major events; down to RA Sepsis Event Evaluation Height, Weight, BMI Height: 5'5.00" Weight: 229lbs. 0.6oz. 107.841218lz; 33.75 BMI Method:Stated Focused Exam Time of Focused Exam: 09:30 Exam Exam Patient acknowledged, consented, and participated in this virtual visit which was conducted using real time audio/video Vital Signs Date Time Temp Pulse Resp B/P (MAP) Pulse Ox O2 Delivery O2 Flow Rate FiO2 03/19/21 09:04 97 Nasal Cannula 1.00 03/19/21 08:00 59 03/19/21 04:55 36.1 67 20 142/63 (89) 100 Nasal Cannula 2.00 03/19/21 03:49 99 Nasal Cannula 2.00 03/19/21 01:00 53 03/18/21 23:25 36.3 62 22 124/66 (85) 99 Nasal Cannula 2.00 03/18/21 21:30 98 T Piece 2.00 03/18/21 20:05 Nasal Cannula 2.00 03/18/21 19:16 36.2 76 20 129/74 (92) 93 Nasal Cannula 2.00 03/18/21 19:00 70 03/18/21 16:04 95 Nasal Cannula 2.00 03/18/21 15:26 36.6 69 20 172/87 (115) 96 Nasal Cannula 2.00 03/18/21 13:00 71 03/18/21 11:30 36.2 77 30 131/72 (91) 92 Nasal Cannula 2.00 03/18/21 10:42 95 Nasal Cannula 2.00 I & O 03/19/21 07:00 Intake Total 1760 ml Output Total 1000 ml Balance 760 ml Height & Weight Height: 5'5.00" Weight: 229lbs. 0.6oz. 107.067994dl; 33.75 BMI Method:Stated General Appearance: No Apparent Distress, WD/WN, Anxious, Chronically ill HEENT: PERRL/EOMI, Pharynx Normal Neck: Normal Inspection, Non Tender, Supple Respiratory: Crackles, Decreased Breath Sounds Cardiovascular: Regular Rate, Rhythm Capillary Refill: Less Than 3 Seconds Peripheral Pulses: 1+ Left Dors-Pedis (L), 1+ Radial Pulses (R) (See free text) Gastrointestinal: normal bowel sounds, non tender, soft Extremity: Normal Inspection, Non Tender, No Calf Tenderness, No Pedal Edema, Other (unable to move right leg, but can wiggle toes on right foot) Neurologic/Psychiatric: Alert, Oriented x3, No Motor/Sensory Deficits, Normal Mood/Affect Skin: Normal Color, Warm/Dry Results Lab Laboratory Tests 03/18/21 05:00 03/19/21 05:00 03/19/21 06:13 Assessment/Plan Assessment/Plan Acute hypoxemic resp failure COVID 19 -o2 ra -apixiban -dexa excellent improvement dw rn due to technical issues we were not able to visualize the patient MAREK BRUNSON MD Mar 19, 2021 09:31
[2021-03-19 11:58] VITALS: BP 121/81
[2021-03-19] MEDS ORDERED: CARISOPRODOL 350 MG (SOMA) TAB PO PRN (12:00)
--- NOTE | 2021-03-19 12:34 | Progress Note - Hospitalist ---
MALCOLM GRAYSON MED STUDENT 03/19/21 1234: Subjective HPI/CC On Admission Date Seen by Provider: Mar 19, 2021 Time Seen by Provider: 09:30 CC: Covid-pneumonia, hypoxia, with pulmonary emboli Subjective/Events-last exam This is Elvie a 70 yo female of day 4 of her hospital stay with the chief complaints of COVID 19, hypoxia, and bilateral PEs. Upon entering the room this morning she was sitting in bed watching TV and slowly eating her breakfast. She was calm, cooperative, and engaged during questioning but appeared fatigued and in moderate respiratory distress. Pt stated that she is experiencing abdominal and back pain controlled with the Lortab. She was experiencing minimal coughing but requested more cough syrup when I was in the room. She had a BM this morning but described it a very small in size. Pt stated that she is experiencing SOB at rest with supplemental O2 dropped to 1L because of nasal inflammation. Repeat CXR this morning revealed no acute abnormalities. Review of Systems General: Fatigue; No Appetite Pulmonary: Dyspnea, Cough Gastrointestinal: Abdominal Pain Musculoskeletal: back pain Focused Exam Time of Focused Exam: 09:30 Respiratory: Chest Non Tender, Crackles (primarily on the left side), Decreased Breath Sounds, Respiratory Distress Cardiovascular: Regular Rate, Rhythm, No Gallop, No Murmur, Normal Peripheral Pulses Skin: normal color, warm/dry Objective Exam Vital Signs Vital Signs Date Time Temp Pulse Resp B/P (MAP) Pulse Ox O2 Delivery O2 Flow Rate FiO2 03/19/21 11:58 36.6 65 24 121/81 (94) 96 Room Air 03/19/21 09:04 1.00 Capillary Refill : Less Than 3 Seconds General Appearance: Chronically ill, Moderate Distress, Obese HEENT: PERRL/EOMI Neck: Normal Inspection, Non Tender, Supple Respiratory: Chest Non Tender, Crackles (primarily on the left side), Decreased Breath Sounds, Respiratory Distress Cardiovascular: Regular Rate, Rhythm, No Gallop, No Murmur, Normal Peripheral Pulses Gastrointestinal: Normal Bowel Sounds, Non Tender, Soft Rectal: Deferred Back: Vertebral Tenderness Extremity: Normal Inspection, Non Tender, No Calf Tenderness Neurologic/Psychiatric: Alert, Oriented x3, No Motor/Sensory Deficits, Normal Mood/Affect Skin: Normal Color, Warm/Dry Results/Procedures Lab Laboratory Tests 03/19/21 05:00 03/19/21 06:13 Patient resulted labs reviewed. Assessment/Plan Assessment and Plan Assess & Plan/Chief Complaint COVID 19 medication protocol respiratory alkalosis pH 7.47 03/17 repeat ABG hypoxia continue supplemental O2- 1L nasal spray for irritation monitor ABG, labs, vitals and imaging encourage IS use bilateral PEs continue blood thinners anemia Hgb 7.4 on 03/19 iron infusion 200mg/24 hours bilateral pulmonary emboli consult pulmonology LE doppler- negative results hypertension 142/63 on 03/19 controlled on current medications T2DM insulin cough continue antitussive HANNAH TIM DO 03/20/21 0617: Subjective Subjective/Events-last exam Pt doing really well Moving to 4th floor Saline nasal spray will be ordered Back pain will be handled with Lortab Bowels moved today Eating a bit Back to two to one liter of oxygen Hgb 7.4 Review of Systems General: Fatigue Pulmonary: Dyspnea Objective Exam General Appearance: No Apparent Distress, WD/WN, Anxious, Chronically ill Respiratory: No Accessory Muscle Use, No Respiratory Distress, Decreased Breath Sounds Cardiovascular: Regular Rate, Rhythm Neurologic/Psychiatric: Alert, Oriented x3 Assessment/Plan Assessment and Plan Assess & Plan/Chief Complaint Supportive care Moved to fourth floor Supervisory-Addendum Brief Verification & Attestation Participated in pt care: history, MDM, physical Personally performed: exam, history, MDM, supervision of care Care discussed with: Medical Student Procedures: n/a Results interpretation: Verified all documentation Verification and Attestation of Medical Student E/M Service A medical student performed and documented this service in my presence. I reviewed and verified all information documented by the medical student and made modifications to such information, when appropriate. I personally performed the physical exam and medical decision making. Hannah Tim, Mar 20, 2021,06:16 MALCOLM GRAYSON MED STUDENT Mar 19, 2021 12:34 HANNAH TIM DO Mar 20, 2021 06:17
[2021-03-19] MEDS: SALINE NASAL SPRAY (OCEAN) 45 ML BTL SCH ×3 (15:03→22:10)
[2021-03-19 16:00] VITALS: BP 117/69
[2021-03-19 19:59] VITALS: BP 135/71
[2021-03-19] MEDS: traZODone 150 MG (DESYREL) TABLET PO SCH (22:01)
[2021-03-19] MEDS: MONTELUKAST 10 MG (SINGULAIR) TAB PO SCH (22:01)
[2021-03-19] MEDS: MELATONIN 3 MG TABLET PO PRN (22:10)
[2021-03-20] VITALS: BP 128/65
[2021-03-20 03:19] LABS: BASOPHILS % (AUTO) 0 % (0-10); EOSINOPHILS # (AUTO) 0.1 10^3/uL (0.0-0.3); EOSINOPHILS % (AUTO) 1 % (0-10); HEMATOCRIT 25 % (35-52); HEMOGLOBIN 7.1 g/dL (11.5-16.0); LYMPHOCYTES # (AUTO) 2.9 10^3/uL (1.0-4.0); LYMPHOCYTES % (AUTO) 27 % (12-44); MEAN CORPUSCULAR HEMOGLOBIN 25 pg (25-34); MEAN CORPUSCULAR HGB CONC 29 g/dL (32-36); MEAN CORPUSCULAR VOLUME 87 fL (80-99); MEAN PLATELET VOLUME 9.9 fL (9.0-12.2); MONOCYTES # (AUTO) 1.1 10^3/uL (0.0-1.0); MONOCYTES % (AUTO) 10 % (0-12); NEUTROPHILS # (AUTO) 6.5 10^3/uL (1.8-7.8); NEUTROPHILS % (AUTO) 61 % (42-75); PLATELET COUNT 323 10^3/uL (130-400); WHITE BLOOD COUNT 10.7 10^3/uL (4.3-11.0)
[2021-03-20] MEDS: RT--FLUTICASONE/SALMETEROL 232-14 (AIRDUO RespiCLICK) IH SCH ×2 (03:19→08:16)
[2021-03-20] MEDS: RT-ALBUTEROL HFA 8.5 GM INHALER IH SCH ×2 (03:21→08:16)
[2021-03-20 03:46] LABS: ALBUMIN 2.6 GM/DL (3.2-4.5); BILIRUBIN,TOTAL 0.3 MG/DL (0.1-1.0); CALCIUM 8.2 MG/DL (8.5-10.1); CREATININE SERUM 0.82 MG/DL (0.60-1.30); POTASSIUM 3.6 MMOL/L (3.6-5.0); TOTAL PROTEIN 5.6 GM/DL (6.4-8.2)
[2021-03-20 04:00] VITALS: BP 136/63
[2021-03-20] MEDS: dexAMETHasone 6 MG TAB (DECADRON) PO SCH (06:11)
[2021-03-20] MEDS: guaiFENesin/CODEINE (ROBITUSSIN AC) 10ML UDC PO PRN (06:12)
[2021-03-20] MEDS: APIXABAN 5 MG (ELIQUIS) TABLET PO SCH ×2 (06:12→18:16)
[2021-03-20] MEDS: inSUlin ASPART (NovoLOG) 1 UNIT/0.01 ML (CHARGE PER UNIT) SC SCH ×4 (06:15→21:07)
[2021-03-20 07:58] VITALS: BP 112/58
--- NOTE | 2021-03-20 08:20 | Diagnostic Imaging Report ---
EXAMINATION: Chest 1 view HISTORY: COVID 19 COMPARISON: 03/19/2021 FINDINGS: Stable enlargement of cardiac silhouette. Stable patchy interstitial and airspace opacities throughout both lungs. No pleural effusion or pneumothorax. The osseous structures are intact. IMPRESSION: 1. Stable patchy interstitial and airspace opacities throughout both lungs. Report was faxed to [facility] by ty at 8:18AM. Dictated by: Dictated on workstation # [id number]
[2021-03-20] MEDS: IRON SUCROSE 200 MG/10 ML (VENOFER) VIAL IV SCH (08:39)
[2021-03-20] MEDS: VENlafaxine 75 MG (EFFEXOR) TAB PO SCH (08:41)
[2021-03-20] MEDS: SALINE NASAL SPRAY (OCEAN) 45 ML BTL SCH ×4 (08:41→21:08)
[2021-03-20] MEDS: LORATADINE (CLARITIN) 10 MG TAB PO SCH (08:41)
[2021-03-20] MEDS: LOSARTAN 100 MG (COZAAR) TABLET PO SCH (08:41)
[2021-03-20] MEDS: CYANOCOBALAMIN 1,000 MCG (VITAMIN B-12) TABLET PO SCH (08:41)
[2021-03-20] MEDS: FAMOTIDINE 20 MG (PEPCID) TABLET PO SCH ×2 (08:41→21:07)
[2021-03-20] MEDS: guaiFENesin (MUCINEX) 600 MG TAB PO SCH ×2 (08:41→21:07)
[2021-03-20] MEDS: LACTULOSE SYRUP 10GM/15ML (ENULOSE) 30ML UDC PO SCH ×2 (08:50→21:08)
[2021-03-20] MEDS: SENNA W/DOCUSATE (SENOKOT S) TABLET PO SCH ×2 (08:50→21:08)
--- NOTE | 2021-03-20 11:20 | Progress Note - Hospitalist ---
Subjective HPI/CC On Admission Date Seen by Provider: Mar 20, 2021 Time Seen by Provider: 12:00 CC: Covid-pneumonia, hypoxia, with pulmonary emboli Subjective/Events-last exam Patient doing a lot better Transferring to fourth floor Order PT and OT Hemoglobin 7.1 Check meds and labs In good spirits On room air Bowels are moving Reviewed anticoagulation Review of Systems General: Fatigue, Malaise Focused Exam Time of Focused Exam: 09:30 Objective Exam Vital Signs Vital Signs Date Time Temp Pulse Resp B/P (MAP) Pulse Ox O2 Delivery O2 Flow Rate FiO2 03/20/21 13:00 68 03/20/21 11:41 36.6 20 115/83 (94) 91 Room Air 03/20/21 03:21 2.00 Capillary Refill : Less Than 3 Seconds General Appearance: No Apparent Distress, WD/WN, Chronically ill Respiratory: No Accessory Muscle Use, No Respiratory Distress, Decreased Breath Sounds Cardiovascular: Regular Rate, Rhythm Neurologic/Psychiatric: Alert, Oriented x3 Results/Procedures Lab Laboratory Tests 03/20/21 03:00 Patient resulted labs reviewed. Assessment/Plan Assessment and Plan Assess & Plan/Chief Complaint Assessment: COVID-19 pneumonia Assessment: Acute hypoxic respiratory failure Bilateral pulmonary emboli Cough History of polio and used iron lung for 7 years as a child Anemia status post transfusion Plan: Supportive care Fourth floor Monitor hemoglobin PT and OT Inpatient rehab Critical Care Critically Ill Patient SAMANTHA TIM DO Mar 20, 2021 11:20
[2021-03-20 11:41] VITALS: BP 115/83
--- NOTE | 2021-03-20 12:57 | Physical Therapy Evaluation ---
PT Evaluation-General Medical Diagnosis Admission Date Mar 16, 2021 at 16:48 Medical Diagnosis: covid 19 Onset Date: Mar 16, 2021 Therapy Diagnosis Therapy Diagnosis: impaired mobility, strength, endurance Height/Weight Height (Feet): 5 Height (Inches): 5.00 Weight (Pounds): 229 Weight (Ounces): 0.6 Precautions Precautions/Isolations: Airborne Isolation, Fall Prevention Referral Physician: Hannah Lynne DO Reason for Referral: Evaluation/Treatment Medical History Additional Medical History Past Medical History Surgeries: Abdominal, Breast, Gallbladder, Hysterectomy, Joint Replacement, Orthopedic (right ankle fusion, right tibial transplant), Tonsillectomy Asthma, Sleep Apnea, COPD Currently Using CPAP: Yes (just started using) Currently Using BIPAP: No Coronary 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, Heart Attack, Hypertension [employer] DOCENT History: Hysterectomy Sexually Transmitted Disease: No HIV/AIDS: No Polyps, Irritable Bowel Glaucoma Reviewed History: Yes Social History Home: Apartment Current Living Status: Alone Entry Into Home: Level Entry Prior Prior Level of Function SCALE: Activities may be completed with or without assistive devices. 8-Gkziayjyzr-ytjymuq completes the activity by him/herself with no assistance from a helper. 5-Set-up or Clean-up Assistance-helper sets up or cleans up; patient completes activity. Climax assists only prior to or following the activity. 4-Supervision or Touching Assistance-helper provides verbal cues and/or touching/steadying and/or contact guard assistance as patient completes activity. Assistance may be provided throughout the activity or intermittently. 3-Partial/Moderate Assistance-helper does LESS THAN HALF the effort. Climax lifts, holds or supports trunk or limbs, but provides less than half the effort. 2-Substantial/Maximal Assistance-helper does MORE THAN HALF the effort. Climax lifts or holds trunk or limbs and provides more than half the effort. 3-Acqlhykks-lfyrfm does ALL the effort. Patient does none of the effort to complete the activity. Or, the assistance of 2 or more helpers is required for the patient to complete the activity. If activity was not attempted, code reason: 7-Patient Refused. 9-Not Applicable-not attempted and the patient did not perform the activity before the current illness, exacerbation or injury. 10-Not Attempted due to Environmental Limitations-(lack of equipment, weather restraints, etc.). 88-Not Attempted due to Medical Conditions or Safety Concerns. Bed Mobility: 6 Transfers (B,C,W/C): 6 Indoor Mobility (Ambulation): Independent Prior Devices Use: Motorized scooter Patient states that she only ambulates a few feet from chair/bed to her wheelchair/scooter PT Evaluation-Current Subjective Patient in bed pre tx, agrees to PT, has no complaints of pain Pt/Family Goals "to get better and go home" Objective Patient Orientation: Person, Place, Situation ROM/Strength ROM Lower Extremities limited generally in right leg, patient states she had polio in her right leg and it is weak Strength Lower Extremities LLE (hip flexin 3+/5, knee flexion 4/5, knee extension 4/5, dorsiflexion 4/5), RLE (hip flexin 3/5, knee flexion 3/5, knee extension 3/5, dorsiflexion 0/5) Sensory Vision: Functional Hearing: Functional Sensation Right Lower Extremit: Impaired Sensation Left Lower Extremity: Intact Transfers Roll Left to Right (QC): 6 Lying to Sitting/Side of Bed(Q: 3 Sit to Stand (QC): 4 Chair/Rrx-jr-Kvbsw Xfer(QC): 4 Patient SBA for sit to stand and transfer, patient was able to ambulate a few feet to the recliner, she doesn't like to use a walker, she says she trips over walkers Balance Sitting Static: Normal Sitting Dynamic: Normal Standing Static: Fair Standing Dynamic: Fair Treatment BLE seated exercises x20 (AP, cant do them on the right side, LAQ) Assessment/Needs Patient in recliner post tx with nurse call, phone, tray, all needs met. Patient has impaired mobility, strength, endurance. Patient needs a little assist with supine to sit but can stand and transfer with SBA Rehab Potential: Fair PT Mica Spreader Goals Mica Spreader Goals PT Jail Goals Time Frame: Mar 27, 2021 Roll Left & Right (QC): 6 Sit to Lying (QC): 6 Lying-Sitting on Side/Bed(QC): 6 Sit to Stand (QC): 6 Chair/Zdh-ne-Nesen Xfer(QC): 6 Walk 10 feet (QC): 4 PT Plan Problem List Problem List: Activity Tolerance, Functional Strength, Safety, Balance, Gait, Transfer, Bed Mobility, ROM Treatment/Plan Treatment Plan: Continue Plan of Care Treatment Plan: Bed Mobility, Education, Functional Activity Sakina, Functional Strength, Gait, Safety, Therapeutic Exercise, Transfers Treatment Duration: Mar 27, 2021 Frequency: 6 times per week Estimated Hrs Per Day: .25 hour per day Patient and/or Family Agrees t: Yes Safety Risks/Education Patient Education: Transfer Techniques, Correct Positioning, Safety Issues Teaching Recipient: Patient Teaching Methods: Demonstration, Discussion Response to Teaching: Reinforcement Needed Discharge Recommendations Plan Patient will perform bed mobility and transfer training, balance and endurance training, functional strengthening, gait training, and education, to improve functional mobility and independence at home. Therapy Discharge Recommendati: Home & Family, Post Acute PT Time/GCodes Time In: 1200 Time Out: 1215 Total Billed Treatment Time: 15 Total Billed Treatment 1 visit EDUARDA GUDINO PT Mar 20, 2021 12:57
[2021-03-20 15:50] VITALS: BP 112/97
[2021-03-20 19:30] VITALS: BP 160/98
[2021-03-20] MEDS: MONTELUKAST 10 MG (SINGULAIR) TAB PO SCH (21:07)
[2021-03-20] MEDS: traZODone 150 MG (DESYREL) TABLET PO SCH (21:07)
[2021-03-20] MEDS: HYDROcodone/APAP 5 MG/325 MG (LORTAB) TAB PO PRN (21:15)
[2021-03-21] VITALS (9 sets, daily range): BP systolic 126–180; BP diastolic 63–84
[2021-03-21] MEDS: ALPRAZolam 0.25 MG (XANAX) TAB PO PRN ×2 (00:30→21:24)
[2021-03-21] MEDS: MELATONIN 3 MG TABLET PO PRN ×2 (00:30→21:25)
[2021-03-21] MEDS: RT-ALBUTEROL HFA 8.5 GM INHALER IH SCH ×4 (01:05→18:59)
[2021-03-21] MEDS: RT--FLUTICASONE/SALMETEROL 232-14 (AIRDUO RespiCLICK) IH SCH ×3 (01:06→21:15)
[2021-03-21 04:54] LABS: BASOPHILS % (AUTO) 0 % (0-10); EOSINOPHILS % (AUTO) 0 % (0-10); HEMATOCRIT 27 % (35-52); HEMOGLOBIN 7.8 g/dL (11.5-16.0); LYMPHOCYTES # (AUTO) 3.2 10^3/uL (1.0-4.0); LYMPHOCYTES % (AUTO) 31 % (12-44); MEAN CORPUSCULAR HEMOGLOBIN 25 pg (25-34); MEAN CORPUSCULAR HGB CONC 29 g/dL (32-36); MEAN CORPUSCULAR VOLUME 88 fL (80-99); MEAN PLATELET VOLUME 9.5 fL (9.0-12.2); MONOCYTES % (AUTO) 9 % (0-12); NEUTROPHILS # (AUTO) 5.8 10^3/uL (1.8-7.8); NEUTROPHILS % (AUTO) 57 % (42-75); PLATELET COUNT 352 10^3/uL (130-400); WHITE BLOOD COUNT 10.2 10^3/uL (4.3-11.0)
[2021-03-21 05:12] LABS: ALBUMIN 2.8 GM/DL (3.2-4.5); POTASSIUM 3.4 MMOL/L (3.6-5.0)
[2021-03-21 05:13] LABS: CALCIUM 8.3 MG/DL (8.5-10.1)
[2021-03-21 05:14] LABS: TOTAL PROTEIN 5.8 GM/DL (6.4-8.2)
[2021-03-21 05:16] LABS: BILIRUBIN,TOTAL 0.4 MG/DL (0.1-1.0)
[2021-03-21 05:18] LABS: CREATININE SERUM 0.78 MG/DL (0.60-1.30)
[2021-03-21] MEDS: inSUlin ASPART (NovoLOG) 1 UNIT/0.01 ML (CHARGE PER UNIT) SC SCH ×4 (05:44→21:01)
[2021-03-21] MEDS: dexAMETHasone 6 MG TAB (DECADRON) PO SCH (06:06)
[2021-03-21] MEDS: APIXABAN 5 MG (ELIQUIS) TABLET PO SCH ×2 (06:06→17:54)
--- NOTE | 2021-03-21 06:32 | Progress Note - Hospitalist ---
Subjective HPI/CC On Admission Date Seen by Provider: Mar 21, 2021 Time Seen by Provider: 12:00 CC: Covid-pneumonia, hypoxia, with pulmonary emboli Subjective/Events-last exam Patient really feels good but very weak Denies any new issues No pain Eating and drinking well Bowels are moving On room air Review of Systems General: Fatigue, Malaise Focused Exam Time of Focused Exam: 09:30 Objective Exam Vital Signs Vital Signs Date Time Temp Pulse Resp B/P (MAP) Pulse Ox O2 Delivery O2 Flow Rate FiO2 03/21/21 18:59 91 Room Air 90 03/21/21 16:00 36.8 63 20 159/77 (104) 03/20/21 03:21 2.00 Capillary Refill : Less Than 3 Seconds General Appearance: No Apparent Distress, WD/WN, Chronically ill Respiratory: No Accessory Muscle Use, No Respiratory Distress, Decreased Breath Sounds Cardiovascular: Regular Rate, Rhythm Neurologic/Psychiatric: Alert, Oriented x3 Results/Procedures Lab Laboratory Tests 03/21/21 04:45 Patient resulted labs reviewed. Assessment/Plan Assessment and Plan Assess & Plan/Chief Complaint Assessment: COVID-19 pneumonia Assessment: Acute hypoxic respiratory failure Bilateral pulmonary emboli Cough History of polio and used iron lung for 7 years as a child Anemia status post transfusion Plan: Supportive care Fourth floor Monitor hemoglobin PT and OT Inpatient rehab 03/21/2021: Monitor hemoglobin Monitor strength Critical Care Critically Ill Patient SAMANTHA TIM DO Mar 21, 2021 06:32
[2021-03-21] MEDS: guaiFENesin (MUCINEX) 600 MG TAB PO SCH ×2 (09:31→21:00)
[2021-03-21] MEDS: SALINE NASAL SPRAY (OCEAN) 45 ML BTL SCH ×4 (09:31→21:01)
[2021-03-21] MEDS: LOSARTAN 100 MG (COZAAR) TABLET PO SCH (09:31)
[2021-03-21] MEDS: FAMOTIDINE 20 MG (PEPCID) TABLET PO SCH ×2 (09:32→21:00)
[2021-03-21] MEDS: CYANOCOBALAMIN 1,000 MCG (VITAMIN B-12) TABLET PO SCH (09:32)
[2021-03-21] MEDS: SENNA W/DOCUSATE (SENOKOT S) TABLET PO SCH ×2 (09:32→21:01)
[2021-03-21] MEDS: VENlafaxine 75 MG (EFFEXOR) TAB PO SCH (09:32)
[2021-03-21] MEDS: LACTULOSE SYRUP 10GM/15ML (ENULOSE) 30ML UDC PO SCH ×2 (09:32→21:01)
[2021-03-21] MEDS: LORATADINE (CLARITIN) 10 MG TAB PO SCH (09:32)
[2021-03-21] MEDS: traZODone 150 MG (DESYREL) TABLET PO SCH (21:00)
[2021-03-21] MEDS: MONTELUKAST 10 MG (SINGULAIR) TAB PO SCH (21:00)
[2021-03-21] MEDS: HYDROcodone/APAP 5 MG/325 MG (LORTAB) TAB PO PRN (21:24)
[2021-03-22] MEDS: RT-ALBUTEROL HFA 8.5 GM INHALER IH SCH ×2 (03:07→07:52)
[2021-03-22 03:54] VITALS: BP 165/83
[2021-03-22] MEDS: guaiFENesin/CODEINE (ROBITUSSIN AC) 10ML UDC PO PRN (04:23)
[2021-03-22] MEDS: inSUlin ASPART (NovoLOG) 1 UNIT/0.01 ML (CHARGE PER UNIT) SC SCH ×3 (05:34→16:00)
[2021-03-22] MEDS: dexAMETHasone 6 MG TAB (DECADRON) PO SCH (06:23)
[2021-03-22] MEDS: APIXABAN 5 MG (ELIQUIS) TABLET PO SCH ×2 (06:23→18:22)
[2021-03-22 06:27] LABS: BASOPHILS % (AUTO) 0 % (0-10); EOSINOPHILS # (AUTO) 0.1 10^3/uL (0.0-0.3); EOSINOPHILS % (AUTO) 1 % (0-10); HEMATOCRIT 30 % (35-52); HEMOGLOBIN 8.5 g/dL (11.5-16.0); LYMPHOCYTES # (AUTO) 3.1 10^3/uL (1.0-4.0); LYMPHOCYTES % (AUTO) 34 % (12-44); MEAN CORPUSCULAR HEMOGLOBIN 26 pg (25-34); MEAN CORPUSCULAR HGB CONC 29 g/dL (32-36); MEAN CORPUSCULAR VOLUME 90 fL (80-99); MEAN PLATELET VOLUME 9.7 fL (9.0-12.2); MONOCYTES # (AUTO) 0.9 10^3/uL (0.0-1.0); MONOCYTES % (AUTO) 9 % (0-12); NEUTROPHILS % (AUTO) 55 % (42-75); PLATELET COUNT 349 10^3/uL (130-400); WHITE BLOOD COUNT 9.2 10^3/uL (4.3-11.0)
[2021-03-22 06:50] LABS: ALBUMIN 2.8 GM/DL (3.2-4.5); BILIRUBIN,TOTAL 0.4 MG/DL (0.1-1.0); CALCIUM 8.5 MG/DL (8.5-10.1); CREATININE SERUM 0.85 MG/DL (0.60-1.30); POTASSIUM 3.5 MMOL/L (3.6-5.0); TOTAL PROTEIN 5.9 GM/DL (6.4-8.2)
[2021-03-22 07:45] VITALS: BP 127/78
[2021-03-22] MEDS: RT--FLUTICASONE/SALMETEROL 232-14 (AIRDUO RespiCLICK) IH SCH (07:52)
[2021-03-22] MEDS: VENlafaxine 75 MG (EFFEXOR) TAB PO SCH (09:03)
[2021-03-22] MEDS: guaiFENesin (MUCINEX) 600 MG TAB PO SCH ×2 (09:04→19:50)
[2021-03-22] MEDS: IRON SUCROSE 200 MG/10 ML (VENOFER) VIAL IV SCH (09:04)
[2021-03-22] MEDS: CYANOCOBALAMIN 1,000 MCG (VITAMIN B-12) TABLET PO SCH (09:04)
[2021-03-22] MEDS: FAMOTIDINE 20 MG (PEPCID) TABLET PO SCH ×2 (09:04→19:50)
[2021-03-22] MEDS: LOSARTAN 100 MG (COZAAR) TABLET PO SCH (09:04)
[2021-03-22] MEDS: LORATADINE (CLARITIN) 10 MG TAB PO SCH (09:04)
[2021-03-22] MEDS: LACTULOSE SYRUP 10GM/15ML (ENULOSE) 30ML UDC PO SCH ×2 (09:04→19:50)
[2021-03-22] MEDS: SENNA W/DOCUSATE (SENOKOT S) TABLET PO SCH ×2 (09:04→19:50)
[2021-03-22] MEDS: SALINE NASAL SPRAY (OCEAN) 45 ML BTL SCH ×3 (09:10→16:07)
[2021-03-22 11:17] VITALS: BP 145/76
--- NOTE | 2021-03-22 11:24 | Physical Therapy Daily Note ---
PT Daily Note-Current Subjective Patient agrees to PT. Patient reports up in room independently to commode. Nursing confirms. Mental Status Patient Orientation: Normal For Age Transfers SCALE: Activities may be completed with or without assistive devices. 6-Lcdwyfviqh-hpynmrl completes the activity by him/herself with no assistance from a helper. 5-Set-up or Clean-up Assistance-helper sets up or cleans up; patient completes activity. [place] assists only prior to or following the activity. 4-Supervision or Touching Assistance-helper provides verbal cues and/or touching/steadying and/or contact guard assistance as patient completes activity. Assistance may be provided throughout the activity or intermittently. 3-Partial/Moderate Assistance-helper does LESS THAN HALF the effort. [place] lifts, holds or supports trunk or limbs, but provides less than half the effort. 2-Substantial/Maximal Assistance-helper does MORE THAN HALF the effort. [place] lifts or holds trunk or limbs and provides more than half the effort. 2-Pmxqguyna-peuost does ALL the effort. Patient does none of the effort to complete the activity. Or, the assistance of 2 or more helpers is required for the patient to complete the activity. If activity was not attempted, code reason: 7-Patient Refused. 9-Not Applicable-not attempted and the patient did not perform the activity before the current illness, exacerbation or injury. 10-Not Attempted due to Environmental Limitations-(lack of equipment, weather restraints, etc.). 88-Not Attempted due to Medical Conditions or Safety Concerns. Lying to Sitting/Side of Bed(Q: 6 Sit to Stand (QC): 6 Chair/Kif-ks-Tbuzy Xfer(QC): 6 Gait Training Does the Patient Walk?: Yes Distance: 25' in room Walk 10 feet (QC): 6 Gait Assistive Device: None post polio gait/functional gait sequence Exercises Seated Therapy Exercises: Long arc quads, Hip flexion Seated Reps: 12 Assessment Patient reports the distance she ambulated is what she does at home. She reports she utilizes a scooter for mobility in and out of home. PT will see patient x 1 more session. PT Prison Goals Prison Goals PT Prison Goals Time Frame: Mar 27, 2021 Roll Left & Right (QC): 6 Sit to Lying (QC): 6 Lying-Sitting on Side/Bed(QC): 6 Sit to Stand (QC): 6 Chair/Egm-yh-Wsvyl Xfer(QC): 6 Walk 10 feet (QC): 4 PT Plan Treatment/Plan Treatment Plan: Continue Plan of Care Treatment Plan: Bed Mobility, Education, Functional Activity Sakina, Functional Strength, Gait, Safety, Therapeutic Exercise, Transfers Treatment Duration: Mar 27, 2021 Frequency: 6 times per week Estimated Hrs Per Day: .25 hour per day Patient and/or Family Agrees t: Yes Time/GCodes Time In: 1101 Time Out: 1110 Total Billed Treatment Time: 9 Total Billed Treatment 1 visit FA 9 min RADHA ALEXANDER PT Mar 22, 2021 11:24
[2021-03-22 13:37] VITALS: BP 145/76
--- NOTE | 2021-03-22 14:37 | Occupational Therapy Eval ---
OT Evaluation-General/PLF Medical Diagnosis Admission Date Mar 16, 2021 at 16:48 Medical Diagnosis: covid 19 Onset Date: Mar 16, 2021 Therapy Diagnosis Therapy Diagnosis: Weakness, Decreased ADL skills Height/Weight Height (Feet): 5 Height (Inches): 5.00 Weight (Pounds): 229 Weight (Ounces): 0.6 Precautions Precautions/Isolations: Contact Isolation, Droplet Isolation, Fall Prevention Weight Bear Status Weight Bearing Restriction: Weight Bearing/Tolerated Referral Physician: Hannah Lynne DO Referral Reason: Activity Tolerance, Self Care, Evaluation/Treatment, Strengthening/ROM Medical History Pertinent Medical History: CAD, COPD, HTN Additional Medical History Polio, Right tibial transplant, right ankle fusion Current History Pt. diagnosed on 03-07-21 with Covid-19. Came to hospital 03-16-21. Reviewed History: Yes Social History Home: Apartment Current Living Status: Alone Entry Into Home: Level Entry ADL-Prior Level of Function SCALE: Activities may be completed with or without assistive devices. 4-Oytwboznmr-xduedti completes the activity by him/herself with no assistance from a helper. 5-Set-up or Clean-up Assistance-helper sets up or cleans up; patient completes activity. Manito assists only prior to or following the activity. 4-Supervision or Touching Assistance-helper provides verbal cues and/or touching/steadying and/or contact guard assistance as patient completes activity. Assistance may be provided throughout the activity or intermittently. 3-Partial/Moderate Assistance-helper does LESS THAN HALF the effort. Manito lifts, holds or supports trunk or limbs, but provides less than half the effort. 2-Substantial/Maximal Assistance-helper does MORE THAN HALF the effort. Man[place] lifts or holds trunk or limbs and provides more than half the effort. 4-Hzjnxqdvh-pvprnt does ALL the effort. Patient does none of the effort to complete the activity. Or, the assistance of 2 or more helpers is required for the patient to complete the activity. If activity was not attempted, code reason: 7-Patient Refused. 9-Not Applicable-not attempted and the patient did not perform the activity bef ore the current illness, exacerbation or injury. 10-Not Attempted due to Environmental Limitations-(lack of equipment, weather r estraints, etc.). 88-Not Attempted due to Medical Conditions or Safety Concerns. ADL PLOF Comments [facility] She has home health for cleaning and laundry, 7 hours a week. She uses a motorized wheelchair, but can stand to transfer. Pt. is independent with daily tasks such as bathing/dressing. She has a wheelchair accessible van. 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 Her apartment is handicap accessible. Self Care: Independent Functional Cognition: Independent DME/Equipment: Bath Chair, Grab Bars, Shower, Shower Hose [place] [employer] Guide, Sock Aid, Tall Toilet DME/Equipment Comments Pt. has a walker but doesnt use. She has a life alert. She uses her motorized wheelchair. She has a CPAP but states that it doesn't work and that she has to get it fixed. 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 However, pt. states that she is having a hard time "with all the coughing." Mental Status/Objective Patient Orientation: Person, Place, Time, Situation Current Upper Extremity ROM WFL Upper Extremity Strength 3+/5 bilateral UE strength. ADL-Treatment Eating (QC): 6 On/Off Footwear (QC): 4 (Pt. states that she has a sockaide at home, but that she doesn't use it.) Toileting Hygiene (QC): 6 (Reported by pt, she used [facility] and cleansed self. She got back to chair on her own.) Other Treatments Pt. up in chair. Alert and oriented. Very pleasant. Pt. demonstrates ability to doff/don slipper socks, but does indicate that she has some difficulty at home, and that bending over makes it difficult to breathe. OT educates her on why this is with cutting off diaphragm,etc... Pt. has just returned from [facility] and reports no difficulty. Pt. does indicate that she feels weak and upon testing and observation with constant coughing, pt. would benefit from strength training. OT will also work with pt. on energy conservation techniques and any further ADL needs. Pt. educated on deep breathing exercises, and return demonstrates to OT. Pt. up in chair with all needs met. Education OT Patient Education: Correct positioning, Exercise program, Modified ADL techniques, Progress toward Goal/Update tx plan, Purpose of tx/functional ac tivities, Reviewed precautions, Rehab process, Transfer techniques Teaching Recipient: Patient Teaching Methods: Demonstration, Discussion Response to Teaching: Verbalize Understanding, Return Demonstration OT Bilingual Customer Service Goals [facility] Goals Time Frame: Mar 29, 2021 Eating (QC): 6 Oral Hygiene (QC): 6 Toileting Hygiene (QC): 6 Shower/Bathe Self (QC): 5 Upper Body Dressing (QC): 6 Lower Body Dressing (QC): 6 On/Off Footwear (QC): 6 Additional Goals: 1-Demonstrate ADL Tasks, 2-Verbalize Understanding, 3- ImproveStrength/Sakina 1=Demonstrate adherence to instructed precautions during ADL tasks. 2=Patient will verbalize/demonstrate understanding of assistive devices/modifications for ADL. 3=Patient will improve strength/tolerance for activity to enable patient to perform ADL's. OT Education/Plan Problem List/Assessment Assessment: Decreased Activ Tolerance, Decreased UE Strength, Impaired I ADL's, Impaired Self-Care Skills Discharge Recommendations Plan/Recommendations: Continue POC Therapy Discharge Recommendati: Home & Family Treatment Plan/Plan of Care Treatment,Training & Education: Yes Patient would benefit from OT for education, treatment and training to promote independence in ADL's, mobility, safety and/or upper extremity function for ADL's. Plan of Care: ADL Retraining, Functional Mobility, UE Funct Exercise/Act Treatment Duration: Mar 29, 2021 Frequency: 5 times per week Estimated Hrs Per Day: .25 hour per day Agreement: Yes Rehab Potential: Good Time/GCodes Start Time: 13:45 Stop Time: 14:10 Total Time Billed (hr/min): 25 Billed Treatment Time 1, EVL x 10minutes, ADL x 15minutes ABRAN SAN OT Mar 22, 2021 14:37
[2021-03-22 16:00] VITALS: BP 149/82
[2021-03-22] MEDS ORDERED: APIX5TAB PO (16:28)
[2021-03-22] MEDS ORDERED: LOPE2CAP PO (16:28)
[2021-03-22] MEDS: MONTELUKAST 10 MG (SINGULAIR) TAB PO SCH (19:50)
[2021-03-22] MEDS: traZODone 150 MG (DESYREL) TABLET PO SCH (19:50)
[2021-03-22] MEDS ORDERED: RT-ALBUTEROL HFA 8.5 GM INHALER IH SCH (21:00)
--- NOTE | 2021-03-22 22:23 | Discharge Summary ---
Discharge Summary Hospital Course Hospital Course Date of Admission: Mar 16, 2021 at 16:48 Admission Diagnosis : Family Physician/Provider: Cary Roberts MD Date of Discharge: 03/22/21 Discharge Diagnosis: COVID19 pneumonia Acute hypoxic respiratory failure Bilateral pulmonary emboli Cough History of polio and used iron lung for 7 years as a child Anemia status post transfusion Hospital Course: Pt admitted with acute respiratory failure with COVID19 and found to have bilateral subsegmental PE, started on Eliquis, treated COVID with dexamethasone, was stable on room air on day of d/c, and ambulating at her baseline. Labs and Pending Lab Test: Laboratory Tests 03/22/21 05:32: Glucometer 88 03/22/21 05:50: White Blood Count 9.2, Red Blood Count 3.33L, Hemoglobin 8.5L, Hematocrit 30L, Mean Corpuscular Volume 90, Mean Corpuscular Hemoglobin 26, Mean Corpuscular Hemoglobin Concent 29L, Red Cell Distribution Width 22.4H, Platelet Count 349, Mean Platelet Volume 9.7, Immature Granulocyte % (Auto) 1, Neutrophils (%) (Auto) 55, Lymphocytes (%) (Auto) 34, Monocytes (%) (Auto) 9, Eosinophils (%) (A uto) 1, Basophils (%) (Auto) 0, Neutrophils # (Auto) 5.0, Lymphocytes # (Auto) 3.1, Monocytes # (Auto) 0.9, Eosinophils # (Auto) 0.1, Basophils # (Auto) 0.0, Immature Granulocyte # (Auto) 0.1, Sodium Level 143, Potassium Level 3.5L, Chloride Level 112H, Carbon Dioxide Level 23, Anion Gap 8, Blood Urea Nitrogen 13, Creatinine 0.85, Estimat Glomerular Filtration Rate 80, BUN/Creatinine Ratio 15, Glucose Level 94, Calcium Level 8.5, Corrected Calcium 9.5, Total Bilirubin 0.4, Aspartate Amino Transf (AST/SGOT) 23, Alanine Aminotransferase (ALT/SGPT) 27, Alkaline Phosphatase 80, Total Protein 5.9L, Albumin 2.8L 03/22/21 10:45: Glucometer 202H 03/22/21 15:36: Glucometer 111H Microbiology 03/16/21 Urine Culture - Final, Complete YEAST 03/16/21 Gram Stain - Final, Complete 03/16/21 Sputum Culture - Final, Complete Usual upper respiratory anh Home Meds Active Eliquis (Apixaban) 5 Mg Tablet 5 Mg PO Q12H 10 mg twice daily on 03/23, then 5 mg twice daily Loperamide (Loperamide HCl) 2 Mg Capsule 2 Mg PO NEEDED PRN Reported Incruse Ellipta (Umeclidinium Kitzmiller) 62.5 Mcg Blst.w.dev 1 Puff IH DAILY LAST FILLED 09-19-2020 #3 DAY SUPPLY Vitamin B-12 (Cyanocobalamin (Vitamin B-12)) 1,000 Mcg Tablet 1,000 Mcg PO DAILY Vitamin E (Vitamin E Acid Succinate) 100 Unit Tablet 100 Unit PO DAILY Carisoprodol 350 Mg Tablet 350 Mg PO TID PRN Iprat-Albut 0.5-3(2.5) mg/3 ml (Ipratropium/Albuterol Sulfate) 3 Ml Ampul.neb 3 Ml NEB Q6H PRN Proventil Hfa (Albuterol Sulfate) 6.7 Gm Hfa.aer.ad 1-2 Puff INH Q4H PRN Hydrocodone-Acetamin 5-325 mg (Hydrocodone/Acetaminophen) 1 Each Tablet 1 Ea PO BID PRN Losartan Potassium 100 Mg Tablet 100 Mg PO DAILY Cetirizine HCl 10 Mg Tablet 10 Mg PO DAILY Naproxen 500 Mg Tablet 500 Mg PO Q12H PRN Breo Ellipta 200-25 Mcg INH (Fluticasone/Vilanterol) 1 Each Blst.w.dev 1 Each IH DAILY Montelukast Sodium 10 Mg Tablet 10 Mg PO HS Trazodone HCl 150 Mg Tablet 150 Mg PO HS Venlafaxine HCl 75 Mg Tab 75 Mg PO DAILY Assessment/Pt DC Instructions Follow up with Dr. Roberts within a week. Discharge Diet: No Restrictions Activity as Tolerated: Yes Discharge Physical Examination Allergies: Coded Allergies: aspirin (Verified Allergy, Unknown, 04/10/16) iodine (Verified Allergy, Unknown, 04/10/16) povidone-iodine (Verified Allergy, Unknown, 04/10/16) soap (Verified Allergy, Unknown, 04/10/16) Uncoded Allergies: SHELLFISH (Adverse Reaction, Intermediate, RASH, SWELLING, 05/17/17) General Appearance: No Apparent Distress Respiratory: Lungs Clear, Normal Breath Sounds Cardiovascular: Regular Rate, Rhythm, No Murmur Skin: Normal Color, Warm/Dry Neurologic/Psychiatric: Alert, Normal Mood/Affect Copy Copies To 1: CARY ROBERTS MD, BETHANY N MD Mar 22, 2021 22:23
[2021-03-23] MEDS ORDERED: APIXABAN 5 MG (ELIQUIS) TABLET PO SCH (19:00)
== END 2021-03-22 20:10 | disposition home or self-care (01) | DRG 177 ==
LOC: ER 14:14 → EDUNIT# 14:14 → CSD 16:48 → 4TH 03-21 00:52
PROVIDERS: ADMIT Internal Medicine; ATTEND Family Medicine
PROC: XW033E5 Introduction of Remdesivir Anti-infective into Peripheral Vein, Percutaneous Approach, New Technology Group 5 (ICD-10-PCS; principal; 2021-03-16)
DX: U07.1 COVID-19 (principal); I26.94 Multiple subsegmental thrombotic pulmonary emboli without acute cor pulmonale; J12.82 Pneumonia due to coronavirus disease 2019; J96.01 Acute respiratory failure with hypoxia; J44.0 Chronic obstructive pulmonary disease with (acute) lower respiratory infection; F17.210 Nicotine dependence, cigarettes, uncomplicated; I25.10 Atherosclerotic heart disease of native coronary artery without angina pectoris; I10 Essential (primary) hypertension; G47.33 Obstructive sleep apnea (adult) (pediatric); D64.9 Anemia, unspecified; I27.20 Pulmonary hypertension, unspecified; H40.9 Unspecified glaucoma; B91 Sequelae of poliomyelitis; R29.898 Other symptoms and signs involving the musculoskeletal system; Z88.6 Allergy status to analgesic agent; I25.2 Old myocardial infarction; Z73.0 Burn-out
CPT/HCPCS: 36410; 36415; 71045; 71275; 76937; 80053; 81000; 82274; 82728; 82805; 82947; 83540; 83550; 83880; 84145; 85025; 85379; 87070; 87088; 87205; 93005; 93306; 93970; 94640; 94664; 94760

== ENCOUNTER → 2021-11-30 | Outpatient (CLI) | payer MEDICARE, MEDICAID ==
[~2021-11-30] MED LIST changes: +ACHD5005 PO; +APIX5TAB PO; +CARI350T27 PO; +CETI10TA17 PO; +CYAN-41 PO; +IPRA3AMP31 NEB; +LOPE2CAP PO; +LOSA100T57 PO; +MONT-40 PO; -MONT10TA32 PO; +NAPR-915 PO; +RT-ALBUINH INH; +UMEC62.5 IH; +VITA100T6 PO
--- NOTE | 2021-11-30 11:03 | Diagnostic Imaging Report ---
INDICATION: Postmenopausal screening for osteoporosis COMPARISON: None FINDINGS: AP Spine L1-L4: [BMD (g/cm2): 1.424] [T-Score: 1.9] [Z-Score: 1.9] [BMD Previous: NA] [BMD % Change: NA] LT Hip Neck: [BMD (g/cm2): 0.947] [T-Score: -0.7] [Z-Score: -0.4] LT Hip Total: [BMD (g/cm2):1.195] [T-Score:1.5] [Z-Score: 1.4] [BMD Previous: NA] [BMD % Change: NA] RT Hip Neck: [BMD (g/cm2):0.733] [T-Score:-2.2] [Z-Score:-2.0] RT Hip Total: [BMD (g/cm2):0.775] [T-score:-1.8] [Z-Score:-2.0] [BMD Previous:NA] [BMD % Change:NA] *Indicates significant change from prior examination based on 95% confidence level. World Health Organization criteria for BMD interpretation classify patients as Normal (T-score at or above -1.0), Osteopenic (T-score between -1.0 and -2.5) or Osteoporotic (T-score at or below -2.5). LIMITATIONS AND MODIFICATION: None. FRACTURE RISK (FRAX SCORE): The ten year probability of (%): Major Osteoporotic Fracture: [12.6] Hip Fracture: [2.9] IMPRESSION: 1. Osteopenia (Low bone mass) in right hip region. 2. Baseline examination. 3. See below National Osteoporosis Foundation guidelines on when to potentially initiate pharmacologic therapy. Based on the National Osteoporosis Foundation Guidelines, pharmacologic treatment should be initiated in any of the following, unless clinical conditions suggest otherwise: * Any patient with prior fragility fracture of the hip or vertebrae. A spine fracture indicates 5X risk for subsequent spine fracture and 2X risk for subsequent hip fracture. * Osteoporosis (T-score <-2.5). * Postmenopausal women and men age 50 and older with low bone mass/osteopenia (T-score between -1.0 and -2.5) by DXA and 10-year major osteoporotic fracture greater than 20% or a 10-year probability of hip fracture greater than 3%. These fracture risks are supplied above in the FRAX score, if applicable. * Clinician judgement and/or patient preferences may indicate treatment for people with 10-year fracture probabilities above or below these levels. Dictated by: Dictated on workstation # [id number]
== END ==
LOC: RAD 10:00
PROVIDERS: ATTEND Family Medicine
DX: Z13.820 Encounter for screening for osteoporosis (principal); M85.89 Other specified disorders of bone density and structure, multiple sites; Z78.0 Asymptomatic menopausal state
CPT/HCPCS: 77080